=== PATIENT | female | born 1960 | race Caucasian/White ===

== ENCOUNTER 2016-09-26 22:25 | Inpatient (IN) | payer MEDICAID, OTHER ==
[2016-09-26 22:56] LABS: Hematocrit 43 % (35-47); Hemoglobin 14.3 g/dl (12.0-16.0); Mean Corpuscular HGB Conc 34 g/dl (31-36); Mean Corpuscular Hemoglobin 30 pg (27-31); Mean Corpuscular Volume 89 fL (80-97); Mean Platelet Volume 7 um3 (7.4-10.4); Red Blood Count 4.81 10^6/ul (4.0-5.4); Red Cell Distribution Width 14 % (10.5-15); White Blood Count 12.7 10^3/ul (3.5-10.8)
[2016-09-26] MEDS ORDERED: diPHENhydraMINE IV* 50 MG/ML 1 ml VIAL (BENADRYL) IM ONE (23:02)
[2016-09-26] MEDS ORDERED: LORazepam INJ* 2 MG/ML 1 ML VIAL IM ONE (23:02)
[2016-09-26] MEDS ORDERED: Haloperidol INJ IV/IM* 5 MG/ML AMP IM ONE (23:02)
[2016-09-26] MEDS ORDERED: LORazepam INJ* 2 MG/ML 1 ML VIAL ONE (23:03)
[2016-09-26] MEDS ORDERED: Haloperidol INJ IV/IM* 5 MG/ML AMP ONE (23:04)
[2016-09-26] MEDS ORDERED: diPHENhydraMINE IV* 50 MG/ML 1 ml VIAL (BENADRYL) ONE (23:04)
[2016-09-26 23:11] LABS: ALT 28 U/L (7-52); AST 41 U/L (13-39); Alkaline Phosphatase 56 U/L (34-104); Anion Gap 9 mmol/L (2-11); BUN/Creatinine Ratio 21.3 (8-20); Blood Urea Nitrogen 17 mg/dL (6-24); CO2 Carbon Dioxide 23 mmol/L (22-32); Calcium 8.3 mg/dL (8.6-10.3); Chloride 105 mmol/L (101-111); EGFR African American 95.1 (>60); EGFR Non-African American 73.9 (>60); Globulin 3.2 g/dL (2-4); Glucose 116 mg/dL (70-100); Potassium 3.6 mmol/L (3.5-5.0); Sodium 137 mmol/L (133-145); Total Protein 7.2 g/dL (6.4-8.9)
[2016-09-26 23:39] LABS: Acetaminophen < 15 mcg/mL; Alcohol 279 mg/dL (<10); Salicylate < 2.50 mg/dL (<30)
[2016-09-26 23:48] LABS: TSH (Thyroid Stimulating Horm) 2.37 mcIU/mL (0.34-5.60)
--- NOTE | 2016-09-26 23:52 | ED ---
Dahiana Petersen Michael, scribed for Kuldip Mcdermott MD on 09/26/16 at 2254 . Altered Mental Status - HPI Summary HPI Summary: 56 y/o female comes to the ED presenting with AMS with SI ideation for the past month. The pt reports her plan for SI is drinking, and she has attempted SI by drinking. She states she has been vomiting for the past 3 days and can only keep down alcohol. - History Of Current Complaint Chief Complaint: EDMentalHealth Stated Complaint: MHE/SI Time Seen by Provider: 09/26/16 22:50 Hx Obtained From: Patient, Medical Records Timing: Constant, Lasting Weeks Severity Initially: Moderate Severity Currently: Moderate Associated Signs And Symptoms: Positive: Vomiting Has Suicidal: Thoughts, With A Plan - Allergies/Home Medications Allergies/Adverse Reactions: Allergies Allergy/AdvReac Type Severity Reaction Status Date / Time Codeine Allergy Severe Rash Verified 10/13/15 11:24 Tricyclic Antidepressants Allergy Severe "DOESN'T Verified 10/13/15 11:24 FEEL RIGHT; I FEEL WEIRD" CI Pigment Blue 63 Allergy See Comment Verified 10/13/15 11:24 [From Tamiflu] Lurasidone [From Latuda] Allergy See Comment Verified 10/13/15 11:24 Oseltamivir [From Tamiflu] Allergy See Comment Verified 10/13/15 11:24 contrast dye Allergy Hives Uncoded 10/13/15 11:24 Home Medications: Home Medications Omeprazole CAP* [Prilosec CAP* 20 MG] 40 mg PO DAILY 09/27/16 [History Confirmed 09/27/16] lamoTRIgine TAB(*) [LaMICtal TAB(*)] 150 mg PO BID 09/27/16 [History Confirmed 09/27/16] PMH/Surg Hx/FS Hx/Imm Hx Endocrine/Hematology History: Denies: Hx Diabetes Cardiovascular History: Denies: Hx Hypertension, Hx Pacemaker/ICD GI History: Reports: Hx Gastroesophageal Reflux Disease History: Denies: Hx Renal Disease Sensory History: Reports: Hx Contacts or Glasses - glasses for reading Denies: Hx Hearing Aid Opthamlomology History: Reports: Hx Contacts or Glasses - glasses for reading Psychiatric History: Reports: Other Psychiatric Issues/Disorders - ADHD Denies: Hx Eating Disorder, Hx Panic Disorder, Hx of Violent Episodes Against Others - Cancer History Hx Chemotherapy: No Hx Radiation Therapy: No - Surgical History Surgery Procedure, Year, and Place: HYSTERECTOMY; polycystic ovaries 4 laps; removed scar tissue 2001 same area; tonsilectomy. fx right wrist repair - plates in place - Immunization History Date of Tetanus Vaccine: unknown Date of Influenza Vaccine: unknown Infectious Disease History: Reports: Hx Shingles Denies: Hx Clostridium Difficile, Hx Hepatitis, Hx Human Immunodeficiency Virus (HIV), Hx of Known/Suspected MRSA, Hx Tuberculosis, Hx Known/Suspected VRE , Hx Known/Suspected VRSA, History Other Infectious Disease, Traveled Outside the [place] in Last 30 Days - Family History Known Family History: Positive: None, Unknown Family History: pt does not know FHx - Social History Occupation: Unemployed Lives: With Family Alcohol Use: None Alcohol Amount: in recovery Hx Substance Use: No Substance Use Type: Reports: None Hx Tobacco Use: Yes Smoking Status (MU): Light Every Day Tobacco Smoker Type: Cigarettes Amount Used/How Often: 1 pk/q3d Have You Smoked in the Last Year: No Review of Systems Positive: Vomiting Positive: Other - AMS All Other Systems Reviewed And Are Negative: Yes Physical Exam Triage Information Reviewed: Yes Vital Signs On Initial Exam: Initial Vitals Temp Pulse Resp BP Pulse Ox 97.1 F 86 18 138/65 99 09/26/16 22:29 09/26/16 22:29 09/26/16 22:29 09/26/16 22:29 09/26/16 22:29 Vital Signs Reviewed: Yes Appearance: Positive: Well-Appearing, No Pain Distress - aob, agitated Skin: Positive: Warm Head/Face: Positive: Normal Head/Face Inspection Eyes: Positive: SABRA ENT: Positive: Hearing grossly normal Neck: Positive: Supple Respiratory/Lung Sounds: Positive: Clear to Auscultation, Breath Sounds Present Cardiovascular: Positive: RRR Abdomen Description: Positive: Nontender, Soft Bowel Sounds: Positive: Present Musculoskeletal: Positive: Strength/ROM Intact Diagnostics - Vital Signs Vital Signs Temp Pulse Resp BP Pulse Ox 09/26/16 22:29 97.1 F 86 18 138/65 99 - Laboratory Lab Results: Lab Results 09/26/16 09/26/16 Range/Units 22:50 22:50 WBC 12.7 H (3.5-10.8) 10^3/ul RBC 4.81 (4.0-5.4) 10^6/ul Hgb 14.3 (12.0-16.0) g/dl Hct 43 (35-47) % MCV 89 (80-97) fL MCH 30 (27-31) pg MCHC 34 (31-36) g/dl RDW 14 (10.5-15) % Plt Count 366 (150-450) 10^3/ul MPV 7 L (7.4-10.4) um3 Neut % (Auto) 54.6 (38-83) % Lymph % (Auto) 36.2 (25-47) % Taliaferro % (Auto) 6.9 (1-9) % Eos % (Auto) 1.1 (0-6) % Baso % (Auto) 1.2 (0-2) % Absolute Neuts (auto) 6.9 (1.5-7.7) 10^3/ul Absolute Lymphs (auto) 4.6 (1.0-4.8) 10^3/ul Absolute Monos (auto) 0.9 H (0-0.8) 10^3/ul Absolute Eos (auto) 0.1 (0-0.6) 10^3/ul Absolute Basos (auto) 0.2 (0-0.2) 10^3/ul Absolute Nucleated RBC 0.01 10^3/ul Nucleated RBC % 0.1 Sodium 137 (133-145) mmol/L Potassium 3.6 (3.5-5.0) mmol/L Chloride 105 (101-111) mmol/L Carbon Dioxide 23 (22-32) mmol/L Anion Gap 9 (2-11) mmol/L BUN 17 (6-24) mg/dL Creatinine 0.80 (0.51-0.95) mg/dL Est GFR ( Amer) 95.1 (>60) Est GFR (Non-Af Amer) 73.9 (>60) BUN/Creatinine Ratio 21.3 H (8-20) Glucose 116 H (70-100) mg/dL Calcium 8.3 L (8.6-10.3) mg/dL Total Bilirubin 0.50 (0.2-1.0) mg/dL AST 41 H (13-39) U/L ALT 28 (7-52) U/L Alkaline Phosphatase 56 (34-104) U/L Total Protein 7.2 (6.4-8.9) g/dL Albumin 4.0 (3.2-5.2) g/dL Globulin 3.2 (2-4) g/dL Albumin/Globulin Ratio 1.3 (1-3) TSH 2.37 (0.34-5.60) mcIU/mL Salicylates < 2.50 (<30) mg/dL Acetaminophen < 15 mcg/mL Serum Alcohol 279 H (<10) mg/dL Result Diagrams: 09/26/16 22:50 09/26/16 22:50 Lab Statement: Any lab studies that have been ordered have been reviewed, and results considered in the medical decision making process. Altered Mental Statu Course/Dx - Course Assessment/Plan: Pt is a 56 y/o F who presents with AMS with SIs for 3 days. Has a plan for suicide by EtOH consumption and has attempted. Additionally c/o vomiting. Cleared for MHE at 0606. Pt will be signed out, pending dispo, awaiting MHE. - Diagnoses Discharge Diagnoses: Suicidal ideation, Alcohol dependence Discharge - Discharge Plan Condition: Good Disposition[place] [place] [place] Disposition Comment: Pending dispo, awaiting MHE The documentation as recorded by the Dahiana lo Michael accurately reflects the service I personally performed and the decisions made by me, Kuldip Mcdermott MD.
[2016-09-27 06:22] LABS: Urine Bilirubin Negative (Negative); Urine Glucose Negative (Negative); Urine Nitrite Negative (Negative)
[2016-09-27 06:36] LABS: Benzodiazepine Urine Screen None Detected (None Detect)
[2016-09-27] MEDS ORDERED: Al Hydrox/Mg Hydrox/Simet LIQ* 30 ML UDC PO PRN (11:07)
[2016-09-27] MEDS ORDERED: Acetaminophen TAB* 325 MG PO PRN (11:07)
[2016-09-27] MEDS ORDERED: LORazepam TAB(*) 1 MG PO PRN (11:11)
[2016-09-27] MEDS: Ondansetron TAB* 4 MG PO PRN ×2 (13:59→21:02)
[2016-09-27] MEDS: clonazePAM TAB(*) 0.5 MG PO PRN ×2 (13:59→23:27)
[2016-09-27] MEDS ORDERED: LORazepam TAB(*) WAM SCALE 0-6 MG PO SCH (15:00)
[2016-09-27] MEDS ORDERED: LORazepam IM* PER WAM PARAMETERS IM SCH (15:00)
[2016-09-28] MEDS: Omeprazole CAP* 20 MG PO SCH (06:06)
[2016-09-28] MEDS ORDERED: lamoTRIgine TAB(*) 100 MG PO SCH (09:00)
[2016-09-28] MEDS: Vitamin THERAPEUTIC TAB PO SCH (09:02)
[2016-09-28] MEDS: Venlafaxine EXT RELEASE CAP* 75 MG PO SCH (09:02)
[2016-09-28] MEDS: clonazePAM TAB(*) 0.5 MG PO PRN ×2 (09:05→16:37)
--- NOTE | 2016-09-28 16:58 | HP ---
HISTORY AND PHYSICAL: DATE OF ADMISSION: 09/27/16 IDENTIFYING DATA: Sydney Hauser is a 56-year-old female with a history of severe alcohol use disorder, attention-deficit hyperactivity disorder, bipolar disorder diagnosis, prior psychiatric hospitalizations, and previous suicidal behavior. She is admitted to the psychiatric unit after coming to the hospital emergency room by car and expressing concern over suicidal thoughts. HISTORY OF PRESENT ILLNESS: Sydney was last admitted to our psychiatric unit in May of 2014. She said that since then. she has had difficulties on and off with alcohol and after a DWI, was mandated to treatment and was in [facility] for approximately 15 months total. She reported she "graduated" and was sober for approximately 6 months leading up to this week. She said she relapsed on alcohol and began to feel completely out of control. Her sleep deteriorated. Her mood fell apart. She was unable to cope. She noted higher anxiety and mood lability. She went for help at the clinic. In the emergency room, she reported having suicidal thoughts with contemplation of overdose. Today, she affirms that she is safe and says that she is no longer thinking of suicide and she feels like she is taking control and the crisis is over. Prior to this week, she said she was not having major depressive symptoms. She noted mild dysphoria. She denied other problems such as manic symptoms or psychotic symptoms or violent ideation or new health problems. We discussed provisional detoxification treatment if needed and the idea of avoiding ongoing benzodiazepine use. PRIOR PSYCHIATRIC HISTORY: In [facility] [place], concerns were centered on impairing use of alcohol, suicidal ideation and behavior. She has had other hospitalizations with multiple admissions at [facility]. She has been treated in the outpatient setting at [facility]. Previous diagnoses include attention-deficit hyperactivity disorder, bipolar disorder and alcohol dependence, and prior psychiatric medication trials include tricyclic antidepressants, Depakote, lithium, Abilify, Seroquel, benzodiazepines, Wellbutrin. She previously reported suicidal behavior with an overdose while intoxicated in 2002 and has reported also cutting her wrist a few times, but reported to us that it was not really a significant injury. MEDICAL HISTORY: Denies history of seizures or head injuries. Significant for GERD. DRUG ALLERGIES: CODEINE, TRICYCLIC ANTIDEPRESSANTS, CI PIGMENT, LURASIDONE, TAMIFLU. LEGAL HISTORY: DWI with mandated treatment. SUBSTANCE USE HISTORY: Alcohol has been her main problem. She started drinking at age 11. She has been sober approximately 12 or 13 out of the last 20-something years. The longest was a 6-year stretch after 2002. She has a history of blackout drinking and has predominantly used hard liquor. She has had residential treatment at [facility], has been involved in AA, and has had multiple detoxes. She has had multiple rehabs as well. She has not had difficulties with illicit drug use. She has used cigarettes occasionally. FAMILY PSYCHIATRIC HISTORY: Father may have had alcohol abuse. There is no known history of suicidal behavior. SOCIAL HISTORY: Of [place] descent, originally from [place] [place], has been in [place] for about 7 years. Educated through a Bachelor of Science degree in human development. She identifies as lesbian and is in a platonic relationship with a woman who has six adopted children. In the past, she has worked at the [employer] and is currently looking for employment. She resides in a supported residence for women in recovery. MENTAL STATUS EXAMINATION: Healthy-appearing, middle-aged female who is wearing hospital scrub clothing. She has normal psychomotor activity. She is pleasant and cooperative. She maintains good eye contact. Speech is spontaneous and pressured. Mood is described as "a little down." Affect is mildly dysphoric. It is stable. Thought process is coherent. Thought content negative for current suicidal, homicidal, or paranoid ideations. Insight and judgment is fair to good. Sensorium is clear. Impulse control is intact. PHYSICAL ASSESSMENT: VITAL SIGNS: Temperature is 98.3, blood pressure 141/80, pulse 76, respiratory rate is 16. ADMISSION LABORATORY STUDIES: CBC had white blood count of 12.7, MCV of 7, absolute monocytes of 0.9. Comprehensive panel had a glucose of 116, calcium of 8.3 and AST of 41. Urinalysis was normal. Toxicology screen had alcohol of 279. It was negative for Tylenol or salicylates. Urine drug screen was negative. REVIEW OF SYSTEMS: Negative for recent neurological problems, respiratory difficulty, chest pain, syncope, gastrointestinal symptoms, elimination symptoms , musculoskeletal problems, or skin problems. Sydney declined a physical examination citing lack of subjective need. This is a reasonable refusal in a capable healthy person. It does not require followup. She is medically stable for psychiatric hospitalization. CLINICAL SUMMARY: A 56-year-old female with history of chronic alcohol use disorder and psychiatric sequelae along with diagnoses of ADHD and bipolar disorder and a history of suicidal behavior. She presents in distress having relapsed on alcohol and drinking in an out of control fashion and developing higher mood symptoms and some level of suicidal thoughts. She is stabilizing rapidly already on the psychiatric unit, tolerating early detoxification and does not appear to have been in a major mood episode. Psychiatric hospitalization is indicated for her safety, stabilization, and treatment planning. ADMISSION DIAGNOSES: Alcohol use disorder with induced mood symptoms onset during intoxication, bipolar disorder by history, attention-deficit hyperactivity disorder by history. TREATMENT PLAN: Admit to the psychiatric unit, code status is full, safety checks [id number] intervals, initiate comprehensive group, milieu, and individual psychotherapeutic support. Medication management will involve continuing the outpatient medication regimen as follows with methylphenidate 36 mg each a.m., omeprazole 40 mg a day, and venlafaxine 150 mg per day XR, lamotrigine 150 mg b.i.d. Additionally, we will provide detoxification with the [facility] protocol and short-term treatment with p.r.n. clonazepam for anxiety ( to terminate in 2 days). Estimated length of stay is 4 days. Discharge planning will involve coordination with appropriate aftercare. Target symptoms are suicidal ideation, depressive symptoms, impairment, elevated distress. The patient's strengths are her intact intellectual functioning and baseline health and her positive treatment alliances. [id number]/[facility] #: [id number] MARCIAL
[2016-09-28] MEDS: lamoTRIgine TAB(*) 100 MG PO SCH (20:23)
[2016-09-28] MEDS: Ondansetron TAB* 4 MG PO PRN (20:25)
[2016-09-29] MEDS: Omeprazole CAP* 20 MG PO SCH (06:43)
[2016-09-29] MEDS: Venlafaxine EXT RELEASE CAP* 75 MG PO SCH (09:12)
[2016-09-29] MEDS: Methylphenidate ER TAB* 18 MG PO SCH (09:12)
[2016-09-29] MEDS: lamoTRIgine TAB(*) 100 MG PO SCH ×2 (09:12→20:49)
[2016-09-29] MEDS: Vitamin THERAPEUTIC TAB PO SCH (09:13)
--- NOTE | 2016-09-29 14:30 | PN ---
Subjective - Subjective Subjective: Today I had the opportunity to see Sydney on follow-up. She explained to me the circumstances surrounding/leading up to her admission here at [facility]. She also discussed the various psychosocial stressors which contributed to her hospitalization. We examined the forces that led up to her resuming alcohol consumption in an effort to identify opportunities to learn from these circumstances, and perhaps avoid future relapses. Sydney did articulate concern over the possibility that her medications may need to be "tweaked." I asked her to list her top 3 symptoms which are leading her to believe this to be the case, and she identified difficulty sleeping, "fear" of becoming depressed again, and her episodes of "verbal aggression." Discussed use of coping skills and early recovery. Case reviewed with Dr. Villalobos. Objective - Appearance Dysmorphic Features: No Hygiene: Normal Grooming: Well Kept - Behavior Psychomotor Activities: Normal Exhibits Abnormal Movement: No - Attitude and Relatedness Attitude and Relatedness: Cooperative Eye Contact: Good - Speech Quality: Unpressured Latencies: Normal Quantity: Appropriate - Mood Patient's Decription of Mood: "Okay" - Affect Observed Affect: Non-labile Affect Consistent with: Euthymia - Thought Process Patient's Thought Process: Coherent Thought Content: No Passive Wish, No Suicidal Planning, No Homicidal Ideation, No Paranoid Ideation - Sensorium Experiencing Hallucinations: No, Sensorium is Clear - Level of Consciousness Level of Consciousness: Alert Orientation: Yes Intact - Impulse Control Impulse Control: Tenuous - related to ETOH use. - Insight and Judgement Insight and Judgement: Good - Group Participation Particating in Group Activities: Yes Assessment - Assessment Clinical Impression: The patient is a 56 year old white female admitted to [facility] after a suicide attempt following a relapse. Although she is noting some improvement in symptoms , she does not feel as if she is ready for discharge at this point. Plan - Plan Treatment Plan: Name: SYDNEY VIERA Birthdate: 1960 [id number] Medications: Current Medications Acetaminophen (Tylenol Tab*) 650 mg PO Q4H PRN PRN Reason: for pain; or Temp >101 F Al Hydrox/Mg Hydrox/Simethicone (Maalox Plus*) 30 ml PO Q4H PRN PRN Reason: INDIGESTION Clonazepam (Klonopin Tab(*)) 0.5 mg PO BID PRN PRN Reason: AGITATION/ANXIETY/INSOMNIA Last Admin: 09/28/16 16:37 Dose: 0.5 mg Lamotrigine (Lamictal Tab(*)) 150 mg PO BID [facility] Last Admin: 09/29/16 09:12 Dose: 150 mg Lorazepam (Ativan Inj*) 0 - 6 mg IM .PER [facility] PRN Reason: Protocol Lorazepam (Ativan Tab(*)) 0 - 6 mg PO .PER [facility] PRN Reason: Protocol Last Admin: 09/27/16 16:15 Dose: 2 mg Methylphenidate HCl (Concerta Er Tab*) 36 mg PO QAM [facility] Last Admin: 09/29/16 09:12 Dose: 36 mg Multivitamins (Theragran Tab*) 1 tab PO DAILY [facility] Last Admin: 09/29/16 09:13 Dose: 1 tab Omeprazole (Prilosec Cap*) 20 mg PO DAILY@0600 [facility] Last Admin: 09/29/16 06:43 Dose: 20 mg Ondansetron HCl (Zofran Tab*) 4 mg PO Q8H PRN PRN Reason: NAUSEA Last Admin: 09/28/16 20:25 Dose: 4 mg Venlafaxine HCl (Effexor Xr Cap*) 150 mg PO DAILY [facility] Last Admin: 09/29/16 09:12 Dose: 150 mg
[2016-09-29] MEDS: clonazePAM TAB(*) 0.5 MG PO PRN (20:51)
[2016-09-30] MEDS: Omeprazole CAP* 20 MG PO SCH (06:32)
[2016-09-30] MEDS: Methylphenidate ER TAB* 18 MG PO SCH (08:43)
[2016-09-30] MEDS: Venlafaxine EXT RELEASE CAP* 75 MG PO SCH (08:43)
[2016-09-30] MEDS: lamoTRIgine TAB(*) 100 MG PO SCH ×2 (08:44→20:31)
[2016-09-30] MEDS: Vitamin THERAPEUTIC TAB PO SCH (08:45)
[2016-09-30] MEDS: clonazePAM TAB(*) 0.5 MG PO PRN (11:37)
[2016-09-30] MEDS ORDERED: Nicotine Inhaler* 10 MG AMP INH PRN (14:35)
[2016-09-30] MEDS ORDERED: Mouth Piece, Nicotine* 1 EACH CARTRIDGE INH PRN (14:36)
[2016-10-01] MEDS: Omeprazole CAP* 20 MG PO SCH (06:30)
[2016-10-01] MEDS: Methylphenidate ER TAB* 18 MG PO SCH (08:19)
[2016-10-01] MEDS: Venlafaxine EXT RELEASE CAP* 75 MG PO SCH (08:19)
[2016-10-01] MEDS: lamoTRIgine TAB(*) 100 MG PO SCH ×2 (08:19→20:17)
[2016-10-01] MEDS: Vitamin THERAPEUTIC TAB PO SCH (08:19)
--- NOTE | 2016-10-01 08:36 | PN ---
Subjective - Subjective Service Type: 82390 Hosp care 15 min low complexity Subjective: Sydney reports feeling "very good" about being alive and notes progress through her crisis. Said she feels ready to plan discharge in the next day or two. She noted having some anxiety over the weekend. We discussed her coping practices and the importance of not relying on benzodiazepines. She agreed. We also reviewed her regimen, and she declined medications that would support sobriety (I reviewed Campral, Naltrexone, Antabuse). Objective - Appearance Appearance: Healthy Appearing Hygiene: Normal Grooming: Fairly Well Kept - Behavior Psychomotor Activities: Normal - Attitude and Relatedness Attitude and Relatedness: Superficially Cooperative Eye Contact: Good - Speech Quality: Unpressured Latencies: Normal Quantity: Appropriate - Mood Patient's Decription of Mood: "Okay" - Affect Observed Affect: Non-labile Affect Consistent with: Dysphoria - very mild - Thought Process Thought Content: No Passive Wish, No Suicidal Planning, No Homicidal Ideation, No Paranoid Ideation - Sensorium Experiencing Hallucinations: No, Sensorium is Clear - Level of Consciousness Level of Consciousness: Alert - Impulse Control Impulse Control: Intact - Insight and Judgement Insight and Judgement: Fair Assessment - Assessment Merits Inpatient Hospitalization: To Initiate Treatment, For Ongoing Evaluation , Consolidate Improvements, For Discharge Planning Inpatient DSM-IV Dx: Alcohol use disorder with induced mood symptoms onset during intoxication, bipolar disorder by history, attention-deficit hyperactivity disorder by history. Clinical Impression: 56-year-old female with history of chronic alcohol use disorder and psychiatric sequelae along with diagnoses of ADHD and bipolar disorder and a history of suicidal behavior. She presents in distress having relapsed on alcohol and drinking in an out of control fashion and developing higher mood symptoms and some level of suicidal thoughts. Stabilized here. Symptoms are improved with cessation of alcohol use and detoxification. She does not have symptoms of a major mood episode. Medication management involves continuing the outpatient medication regimen of methylphenidate, omeprazole 40 mg a day, and venlafaxine, lamotrigine. We provided coverage with the [facility] protocol (can stop now) and short-term treatment with p.r.n. clonazepam for anxiety (to terminate now). Given status, progress, expect discharge in next day or two. Plan - Plan Treatment Plan: Name: SYDNEY VIERA Birthdate: 1960 [id number] Continued Medication Management: Continue Outpt Medication Medications: Current Medications Acetaminophen (Tylenol Tab*) 650 mg PO Q4H PRN PRN Reason: for pain; or Temp >101 F Al Hydrox/Mg Hydrox/Simethicone (Maalox Plus*) 30 ml PO Q4H PRN PRN Reason: INDIGESTION Device (Nicotine Mouth Piece*) 1 each INH ONCE PRN PRN Reason: CRAVINGS Lamotrigine (Lamictal Tab(*)) 150 mg PO BID [facility] Last Admin: 10/01/16 08:19 Dose: 150 mg Lorazepam (Ativan Inj*) 0 - 6 mg IM .PER [facility] PRN Reason: Protocol Lorazepam (Ativan Tab(*)) 0 - 6 mg PO .PER [facility] PRN Reason: Protocol Last Admin: 09/27/16 16:15 Dose: 2 mg Methylphenidate HCl (Concerta Er Tab*) 36 mg PO QAM [facility] Last Admin: 10/01/16 08:19 Dose: 36 mg Multivitamins (Theragran Tab*) 1 tab PO DAILY [facility] Last Admin: 10/01/16 08:19 Dose: 1 tab Nicotine (Nicotine Inhaler*) 10 mg INH Q2H PRN PRN Reason: CRAVINGS Omeprazole (Prilosec Cap*) 20 mg PO DAILY@0600 [facility] Last Admin: 10/01/16 06:30 Dose: 20 mg Ondansetron HCl (Zofran Tab*) 4 mg PO Q8H PRN PRN Reason: NAUSEA Last Admin: 09/28/16 20:25 Dose: 4 mg Venlafaxine HCl (Effexor Xr Cap*) 150 mg PO DAILY [facility] Last Admin: 10/01/16 08:19 Dose: 150 mg - Discharge Plan Discharge Plan: Outpatient Follow Up
--- NOTE | 2016-10-01 11:24 | PN ---
MHU: Group Therapy Note - Service Type Service Type: [id number] Group Psychotherapy - Cognitive Behavioral Group Therapy ( CBT):Patient was attentive and participatory in CBT programming this morning, and remained in good behavioral control. Patient expressed positive insights regarding relevant treatment interventions and goals.
[2016-10-02] MEDS: Omeprazole CAP* 20 MG PO SCH (08:08)
[2016-10-02] MEDS: Vitamin THERAPEUTIC TAB PO SCH (08:08)
[2016-10-02] MEDS: Venlafaxine EXT RELEASE CAP* 75 MG PO SCH (08:09)
[2016-10-02] MEDS: lamoTRIgine TAB(*) 100 MG PO SCH ×2 (08:09→21:13)
[2016-10-02] MEDS: Methylphenidate ER TAB* 18 MG PO SCH (08:10)
--- NOTE | 2016-10-02 11:48 | PN ---
MHU: Group Therapy Note - Service Type Service Type: [id number] Group Psychotherapy - Cognitive Behavioral Group Therapy ( CBT):Patient was attentive and participatory in CBT programming this morning, and remained in good behavioral control. Patient expressed positive insights regarding relevant treatment interventions and goals.
--- NOTE | 2016-10-02 15:43 | PN ---
Subjective - Subjective Service Type: 74747 Hosp care 25 min moderate complexity Subjective: Sydney reports that she feels ready to discharge tomorrow. She denies any dangerous intent or plan. She reports feeling emotional about "accepting things that are going on, trying to let go of certain things." She has no physical complaint. She requests computer privileges to communicate with her p.o. and to reschedule a job interview. She reports a good supply of all meds, but asks that I send a script to [facility] on [place] for MVI. Objective - Appearance Appearance: Healthy Appearing Dysmorphic Features: No Hygiene: Normal Grooming: Well Kept - Behavior Psychomotor Activities: Normal Exhibits Abnormal Movement: No - Attitude and Relatedness Attitude and Relatedness: Well Related Eye Contact: Good - Speech Quality: Unpressured Latencies: Normal Quantity: Appropriate - Mood Patient's Decription of Mood: "Emotional" - Affect Observed Affect: Fair Affect Consistent with: Euthymia - Thought Process Patient's Thought Process: Coherent, Goal Directed Thought Content: No Passive Wish, No Suicidal Planning, No Homicidal Ideation, No Paranoid Ideation - Sensorium Experiencing Hallucinations: No, Sensorium is Clear Type of Hallucinations: Visual: No, Auditory: No, Command: No - Level of Consciousness Level of Consciousness: Alert Orientation: Yes Intact, Yes Orientated to Time, Yes Orientated to Place, Yes Orientated to Person - Impulse Control Impulse Control: Intact - Insight and Judgement Insight and Judgement: Fair - Group Participation Particating in Group Activities: Yes Assessment - Assessment Merits Inpatient Hospitalization: Consolidate Improvements, For Discharge Planning Inpatient DSM-IV Dx: Alcohol use disorder with induced mood symptoms onset during intoxication, bipolar disorder by history, attention-deficit hyperactivity disorder by history. Clinical Impression: Assuming care from Dr Wolf on 10.02.16 Sydney Hauser is a 56-year-old woman admitted for distress following relapse to alcohol with report of nascent manic symptoms of inability to sleep and feeling angry, paranoid and uncomfortable in her skin, along with thoughts of suicide. She reports resolution of these symptoms, but still feeling emotional about letting go of things. She would like to discharge to follow-up at outpatient [facility] and [facility]. Plan - Plan Treatment Plan: Name: SYDNEY HAUSER Birthdate: 1960 [id number] Continue current meds. Plan toward discharge tomorrow. Medications: Current Medications Acetaminophen (Tylenol Tab*) 650 mg PO Q4H PRN PRN Reason: for pain; or Temp >101 F Last Admin: 10/02/16 04:22 Dose: 650 mg Al Hydrox/Mg Hydrox/Simethicone (Maalox Plus*) 30 ml PO Q4H PRN PRN Reason: INDIGESTION Device (Nicotine Mouth Piece*) 1 each INH ONCE PRN PRN Reason: CRAVINGS Lamotrigine (Lamictal Tab(*)) 150 mg PO BID [facility] Last Admin: 10/02/16 08:09 Dose: 150 mg Methylphenidate HCl (Concerta Er Tab*) 36 mg PO QAM [facility] Last Admin: 10/02/16 08:10 Dose: 36 mg Multivitamins (Theragran Tab*) 1 tab PO DAILY [facility] Last Admin: 10/02/16 08:08 Dose: 1 tab Nicotine (Nicotine Inhaler*) 10 mg INH Q2H PRN PRN Reason: CRAVINGS Omeprazole (Prilosec Cap*) 20 mg PO DAILY@0600 [facility] Last Admin: 10/02/16 08:08 Dose: 20 mg Ondansetron HCl (Zofran Tab*) 4 mg PO Q8H PRN PRN Reason: NAUSEA Last Admin: 09/28/16 20:25 Dose: 4 mg Venlafaxine HCl (Effexor Xr Cap*) 150 mg PO DAILY [facility] Last Admin: 10/02/16 08:09 Dose: 150 mg - Discharge Plan Discharge Plan: Outpatient Follow Up Outpatient Program: [facility] - and [facility]
[2016-10-03] MEDS: Omeprazole CAP* 20 MG PO SCH (05:53)
[2016-10-03 07:25] VITALS: BP 107/61
[2016-10-03] MEDS: Vitamin THERAPEUTIC TAB PO SCH (08:58)
[2016-10-03] MEDS: lamoTRIgine TAB(*) 100 MG PO SCH (08:58)
[2016-10-03] MEDS: Methylphenidate ER TAB* 18 MG PO SCH (08:58)
[2016-10-03] MEDS: Venlafaxine EXT RELEASE CAP* 75 MG PO SCH (08:59)
--- NOTE | 2016-10-03 10:08 | DS ---
Subjective - Subjective Service Types: 29209 Hosp [place] Day Mgmt simple under 30 min Discharge Date: 10/03/16 Subjective: Sydney reports feeling safe and ready for discharge today. She is looking forward to going home and resuming her daily routine. She has no physical complaints and reports stable recovery of mood and sustained remission of suicidal thoughts. Objective - Appearance Appearance: Healthy Appearing Dysmorphic Features: No Hygiene: Normal Grooming: Well Kept - Behavior Psychomotor Activities: Normal Exhibits Abnormal Movement: No - Attitude and Relatedness Attitude and Relatedness: Well Related Eye Contact: Good - Speech Quality: Unpressured Latencies: Normal Quantity: Appropriate - Mood Patient's Decription of Mood: "Good" - Affect Observed Affect: Good Affect Consistent with: Euthymia - Thought Process Patient's Thought Process: Coherent, Goal Directed Thought Content: No Passive Wish, No Suicidal Planning, No Homicidal Ideation, No Paranoid Ideation - Sensorium Experiencing Hallucinations: No, Sensorium is Clear Type of Hallucinations: Visual: No, Auditory: No, Command: No - Level of Consciousness Level of Consciousness: Alert Orientation: Yes Intact, Yes Orientated to Time, Yes Orientated to Place, Yes Orientated to Person - Impulse Control Impulse Control: Intact - Insight and Judgement Insight and Judgement: Fair - Group Participation Particating in Group Activities: Yes - Medication Management Medication Management Adherence: Yes Treatment Course & Assessment Clinical Course & Impression: Assuming care from Dr Wolf on 10.02.16 - please see admission H&P for full details, in brief: Sydney Hauser is a 56-year-old woman admitted for distress following relapse to alcohol with report of nascent manic symptoms of inability to sleep and feeling angry, paranoid and uncomfortable in her skin, along with thoughts of suicide. She reports resolution of these symptoms, but still feeling emotional about letting go of things. She would like to discharge to follow-up at outpatient [facility] and [facility]. 10.03.16 Sydney is cleared for discharge today. She reports sustained remission of suicidal ideation, with improved mood. She is bright and future-oriented. She voices commitment to aftercare at [facility] and at [facility]. She has been pleasant and collaborative throughout her stay. She denies any physical complaints. She completed the [facility] protocol for alcohol detox over 48 hours ago and has neither shown nor reported any signs or symptoms of alcohol withdrawal. She is assessed as at no acutely increased risk of harm to self or others and capable of adequate self-care to avoid harm. She remains at mildly elevated chronic risk of self-harm due to history of psychiatric illness and alcohol use disorder. She can reduce her chronic risk by commitment to aftercare. Merits Inpatient Hospitalization: No Clear for Discharge: Adequate Clinical Respons, Acceptable Safety Profile, Low Utility of Inpt Care Inpatient DSM-IV Dx: Alcohol use disorder with induced mood symptoms onset during intoxication, bipolar disorder by history, attention-deficit hyperactivity disorder by history. - Nathrop II MR and Personality Disorder: Deferred - Nathrop III Medical Illness: GERD - Nathrop IV Stressors: Social supports in jeopardy from alcohol use Family: Reports no support from family Primary Support Group: ex-partner Rosy, sister. staff at [facility]. [facility] staff. [facility] - Nathrop V [id number]: 70 Estimate of Highest-Past Year: 75 Discharge Planning - Discharge Planning Discharge Plan: Outpatient Follow Up Outpatient Program: [facility] - and [facility] Recommendations for Continuing Care: Medication Management, Psychotherapy, Substance Abuse Counseling Medications: Sydney reports having a good supply at home of all meds except MVI Lamotrigine (Lamictal Tab(*)) 150 mg PO BID [facility] Last Admin: 10/03/16 08:58 Dose: 150 mg Methylphenidate HCl (Concerta Er Tab*) 36 mg PO QAM [facility] Last Admin: 10/03/16 08:58 Dose: 36 mg Multivitamins (Theragran Tab*) 1 tab PO DAILY [facility] Last Admin: 10/03/16 08:58 Dose: 1 tab : #30, 0 refills Omeprazole (Prilosec Cap*) 20 mg PO DAILY@0600 [facility] Last Admin: 10/03/16 05:53 Dose: 20 mg Venlafaxine HCl (Effexor Xr Cap*) 150 mg PO DAILY [facility] Last Admin: 10/03/16 08:59 Dose: 150 mg Discharge Planning: Prescriptions provided for discharge [x] Yes [] No Follow up care details as per social work arrangements. Patient response to discharge plan: [x] eager for discharge [] agreeable with discharge plan [] ambivalent about discharge [] disagrees with discharge today
== END 2016-10-03 11:40 | disposition home or self-care (01) | DRG 775 ==
LOC: ED 22:25 → BSU 09-27 11:35
PROVIDERS: ADMIT Psychiatry & Neurology Psychiatry; ATTEND Psychiatry & Neurology Psychiatry
DX: F10.14 Alcohol abuse with alcohol-induced mood disorder (principal); R45.851 Suicidal ideations; Y90.8 Blood alcohol level of 240 mg/100 ml or more; F10.129 Alcohol abuse with intoxication, unspecified; F31.9 Bipolar disorder, unspecified; F90.9 Attention-deficit hyperactivity disorder, unspecified type; K21.9 Gastro-esophageal reflux disease without esophagitis; Z88.5 Allergy status to narcotic agent; Z88.8 Allergy status to other drugs, medicaments and biological substances; Z91.048 Other nonmedicinal substance allergy status
CPT/HCPCS: 36415; 80053; 80307; 80320; 80329; 81003; 84443; 85025; 90853; 99222; 99231; 99232; 99238; A9270-GY; G0480; J1200; J1630; J2060

== ENCOUNTER 2016-10-06 22:37 | Inpatient (IN) | payer MEDICAID, OTHER ==
[2016-10-06] MEDS ORDERED: Aspirin Low Dose CHEW TAB* 81 MG PO ONE (22:51)
[2016-10-06] MEDS ORDERED: Ondansetron INJ* 2 MG/ML VIAL IV ONE (23:23)
[2016-10-06] MEDS ORDERED: Ondansetron INJ* 2 MG/ML VIAL ONE (23:24)
[2016-10-06 23:32] LABS: ALT 28 U/L (7-52); Albumin 4.3 g/dL (3.2-5.2); Alkaline Phosphatase 43 U/L (34-104); BUN/Creatinine Ratio 22.5 (8-20); Blood Urea Nitrogen 18 mg/dL (6-24); CO2 Carbon Dioxide 21 mmol/L (22-32); Calcium 8.5 mg/dL (8.6-10.3); Chloride 105 mmol/L (101-111); EGFR African American 95.1 (>60); EGFR Non-African American 73.9 (>60); Globulin 3.4 g/dL (2-4); Glucose 102 mg/dL (70-100); Sodium 135 mmol/L (133-145); Total Protein 7.7 g/dL (6.4-8.9)
[2016-10-06 23:34] LABS: Troponin I 0.03 ng/mL (<0.04)
[2016-10-06 23:37] LABS: Hematocrit 40 % (35-47); Hemoglobin 13.6 g/dl (12.0-16.0); Mean Corpuscular HGB Conc 34 g/dl (31-36); Mean Corpuscular Hemoglobin 30 pg (27-31); Mean Corpuscular Volume 89 fL (80-97); Mean Platelet Volume 7 um3 (7.4-10.4); Red Cell Distribution Width 14 % (10.5-15); White Blood Count 9.8 10^3/ul (3.5-10.8)
[2016-10-07 00:34] LABS: Acetaminophen < 15 mcg/mL; Alcohol 305 mg/dL (<10); Salicylate < 2.50 mg/dL (<30)
[2016-10-07] MEDS ORDERED: LORazepam INJ* 2 MG/ML 1 ML VIAL ONE (00:39)
[2016-10-07] MEDS ORDERED: LORazepam INJ* 2 MG/ML 1 ML VIAL IV PUSH ONE (00:43)
[2016-10-07 05:39] LABS: Benzodiazepine Urine Screen None Detected (None Detect)
--- NOTE | 2016-10-07 06:30 | RAD ---
INDICATION: Chest pain COMPARISON: June 08, 2014 TECHNIQUE: An AP portable view obtained at 2310 hours is submitted. FINDINGS: Bones/Soft Tissues: There are no acute bony findings. Cardiomediastinal: The cardiomediastinal silhouette is normal. Lungs: There are no infiltrates. Pleura: There are no pleural effusions. Other: None IMPRESSION: NO ACTIVE DISEASE.
[2016-10-07] MEDS ORDERED: hydrOXYzine HCL TAB* 25 MG PO ONE (07:00)
[2016-10-07] MEDS ORDERED: LORazepam TAB(*) 0.5 MG PO ONE (08:45)
[2016-10-07] MEDS ORDERED: Ondansetron INJ* 2 MG/ML VIAL IV ONE (08:45)
[2016-10-07] MEDS ORDERED: NS 0.9% 1000 ML* 1,000 ML IV ONE (08:46)
[2016-10-07] MEDS ORDERED: Metoclopramide IV* 5 MG/ML 2 ML VIAL IV ONE (12:33)
[2016-10-07] MEDS ORDERED: Acetaminophen TAB* 325 MG PO PRN (20:20)
[2016-10-07] MEDS: Al Hydrox/Mg Hydrox/Simet LIQ* 30 ML UDC PO PRN (20:35)
[2016-10-07] MEDS: lamoTRIgine TAB(*) 100 MG PO SCH (20:55)
[2016-10-07] MEDS: Omeprazole CAP* 20 MG PO SCH ×2 (20:55→21:25)
[2016-10-07] MEDS: Venlafaxine EXT RELEASE CAP* 75 MG PO SCH ×2 (20:56→21:25)
[2016-10-07] MEDS ORDERED: traZODone TAB* 50 MG TAB ONE (21:35)
[2016-10-08] MEDS: Omeprazole CAP* 20 MG PO SCH (09:02)
[2016-10-08] MEDS: Vitamin THERAPEUTIC TAB PO SCH (09:02)
[2016-10-08] MEDS: lamoTRIgine TAB(*) 100 MG PO SCH ×2 (09:04→21:44)
[2016-10-08] MEDS: Venlafaxine EXT RELEASE CAP* 75 MG PO SCH (09:04)
--- NOTE | 2016-10-08 13:07 | PN ---
MHU: Group Therapy Note - Service Type Service Type: 05200 Group Psychotherapy - Cognitive Behavioral Group Therapy ( CBT):Patient was attentive and participatory in CBT programming this morning, and remained in good behavioral control. Patient expressed positive insights regarding relevant treatment interventions and goals.
[2016-10-08 13:11] LABS: Urine Bacteria Absent (Absent); Urine Bilirubin Negative (Negative); Urine Glucose Negative (Negative); Urine Nitrite Negative (Negative)
--- NOTE | 2016-10-08 14:52 | HP ---
INITIAL PSYCHIATRIC ASSESSMENT: DATE OF ADMISSION: 10/07/16 - ROOM #201 SUPERVISING/ATTENDING PSYCHIATRIST FOR THIS CASE: Dr. Wolf * (dictated by Josh Russo NP) IDENTIFYING INFORMATION: The patient is a 56-year-old female admitted to this facility on 10/07/16. Admitting status is voluntary. The patient was seen and examined, the chart was reviewed, and the case was discussed with clinical staff available at the time of the visit. CHIEF COMPLAINT/REASON FOR ADMISSION: The patient stated, "I'm really scared." HISTORY OF PRESENT ILLNESS: Today, Sydney is reporting that she has been having a problem with loss of time. She does acknowledge that she left this facility after being discharged on 10/03/16. She states that after she left the hospital, she saw Dr. Padilla at [facility] on . She stated at that point her venlafaxine was increased and her Concerta as well. She reports that she also spoke with her transport corps officer and talked with her boss. She stated that even though she knew she should not have done it , she boarded a bus and went to see her parents in [place]. Her reports at this point were very disjointed and very difficult to follow. She stated that she had been up for 2 nights, but then thought that she may have gone to a liquor store, but then confirmed, "I must have gone to a liquor store, this must have been premeditated." She then jumped back to telling me about that her mother with Parkinson's disease and her father with Alzheimer's. She then stated that she felt like everyone around her was frozen in time. Throughout the clinical interview, Sydney was quite tangential. I attempted multiple times to refocus her to describe to me the circumstances that surrounded her using alcohol again; however, she continued to be tangential, at one point describing a gentleman she sat next to on a bus, then she jumped to a different topic in which she had purchased red snakeskin shoes for a friend's son, and then back to a discussion about pursuing a job here at [facility]. She then spoke about returning to [facility], but stated, "I think they all noted that I was drinking, they know those things." She does report that while she was in the emergency room, she became quite sick, stated that she began vomiting. PAST PSYCHIATRIC HISTORY: The patient was recently discharged from [facility] on 10/03/16. She also has previous hospitalizations here in 2013 and 2014. During these previous hospitalizations, the focus of her stay has been on alcohol use disorder. She has also had multiple admissions at [facility]. She has been treated in the outpatient setting at [facility] and carries multiple diagnoses including, but not limited to, attention- deficit hyperactivity disorder, bipolar disorder , alcohol use disorder, and she has had multiple prior psychiatric medication trials, which included tricyclic antidepressants, Depakote, lithium, Abilify, Seroquel, benzodiazepines, and Wellbutrin. Suicidal behavior has been noted in the past as has a history of cutting. PAST MEDICAL HISTORY: GERD. DRUG ALLERGIES: Include CODEINE, TRICYCLIC ANTIDEPRESSANTS, LURASIDONE, TAMIFLU , CI PIGMENT BLUE 63. LEGAL HISTORY: She does have a history of DWI with mandated treatment. As previously mentioned, she spoke with her transport corps officer after her discharge from here on Saturday. SUBSTANCE USE HISTORY: The patient has been having problems maintaining sobriety. She apparently began drinking at age 11. She reports that she had had a period of sobriety of approximately 12 or 13 out of 20 plus years. Her longest stretch of sobriety was in 2002 and that lasted for approximately 6 years. She does use hard liquor. She has had multiple residential treatment episodes, including [facility]. She has also been involved in AA and has had multiple detoxes. She is currently denying any illicit drug use or abuse. She does occasionally smoke cigarettes, however. PSYCHOSOCIAL HISTORY: Sydney is of [place] descent. She was born and raised in [place]. She has lived in [place] for nearly 7 years. She does have a Bachelor's degree in human development. She self-identifies as lesbian. Today, she did discuss her partner of 20 years who . Sydney showed me a tattoo on her left arm that was dedicated to her partner's memory. She has had multiple jobs in the past. Currently, she is looking for employment and she resides in a supported residence for women in recovery known as [facility]. MENTAL STATUS EXAMINATION: The patient is of healthy build and appears her stated age with good grooming and hygiene noted. On gross exam, she is currently wearing a shirt and blue disposable scrub pants. On gross examination , she appears to have no physical deformities. Attitude towards the examiner was pleasant and cooperative. She does ambulate with a steady gait. She did not appear to be demonstrating any noteworthy mannerisms, gestures, or tics. Activity level was within normal parameters with no overt evidence of psychomotor excitation or retardation noted. She is alert, but she is confused surrounding the past several days. Her speech was clear, coherent, but tangential. Self-reported mood is depressed and anxious. Affect consistent to self-reported mood. She is currently denying visual or auditory hallucinations. No overt paranoid thought processes appreciated. Concentration and attention are impaired. She is currently denying suicidal or homicidal ideation. REVIEW OF SYSTEMS: General: The patient denies fever, chills, night sweats. HEENT: She denies headache, dizziness, syncope, changes in hearing or vision. Cardiovascular: She denies chest pain. Pulmonary: She denies shortness of breath. Gastrointestinal: She does report that she was vomiting in the ER, but states that she has not vomited since she arrived on the unit. GI/ Reproductive: She denies any issues. Neurologically, she denies any issues. Musculoskeletal: She denies muscle or joint pain. Endocrine/Hematopoietic/ Lymphatic: She denies any issues. PHYSICAL EXAMINATION GENERAL APPEARANCE: The patient is well developed, well nourished, alert, and cooperative, and appears to be in no acute distress at the time of the exam. HEENT: Head is normocephalic, atraumatic. NECK: Appears normal on inspection. RESPIRATORY: No respiratory distress. CARDIAC: Rate 81, blood pressure 142/69. ABDOMEN: No evidence of guarding or distention. MUSCULOSKELETAL: The patient demonstrates full range of motion. EXTREMITIES: Nonedematous. NEURO: Neurologically, the patient is alert and oriented to person, place, and time. SKIN: Intact. LABORATORY DATA: Review of laboratory data undertaken at this time. They are no current labs available for review. Most recent labs on this patient were obtained on 09/26/16. CLINICAL IMPRESSION: The patient is a 56-year-old female who is rehospitalized after approximately 3 days since being discharged from [facility]. She has apparently engaged in binge use of alcohol resulting in the current constellation of symptoms that she currently appears to be experiencing. The patient was admitted under voluntary basis for stabilization of symptoms. Psychiatric hospitalization is indicated for her safety, stabilization and treatment planning, which may include inpatient rehab. ADMITTING DIAGNOSIS: Rule out alcohol intoxication, alcohol use disorder, bipolar disorder, attention-deficit hyperactivity disorder by history. PLAN OF TREATMENT: Admit to behavioral services unit. Diet will be regular. Vital signs per unit protocol. Activity as tolerated. The patient will participate in treatment planning activities, individual group, and milieu therapy, as well as medication management sessions and discharge planning until she is stable or referred to a higher level of care. TREATMENT GOAL: Stabilization. PROGNOSIS: Fair. ESTIMATED LENGTH OF STAY: 3 to 5 days. DISCHARGE CRITERIA: The patient will be discharged when she is no longer a risk to herself or others and has met the criteria set forth by the treatment team for discharge. This case was reviewed with Dr. Edgardo Wolf who agreed with my assessment, clinical impression, and initial plan of treatment. JOSH RUSSO NP [id number]/[facility] #: [id number] MARCIAL
[2016-10-09] MEDS: Al Hydrox/Mg Hydrox/Simet LIQ* 30 ML UDC PO PRN (07:57)
[2016-10-09] MEDS: Omeprazole CAP* 20 MG PO SCH (07:57)
[2016-10-09] MEDS: Venlafaxine EXT RELEASE CAP* 75 MG PO SCH (07:59)
[2016-10-09] MEDS: Vitamin THERAPEUTIC TAB PO SCH (07:59)
[2016-10-09] MEDS: lamoTRIgine TAB(*) 100 MG PO SCH ×2 (07:59→21:09)
--- NOTE | 2016-10-09 11:32 | PN ---
MHU: Group Therapy Note - Service Type Service Type: 57510 Group Psychotherapy - Cognitive Behavioral Group Therapy ( CBT):Patient was attentive and participatory in CBT programming this morning, and remained in good behavioral control. Patient expressed positive insights regarding relevant treatment interventions and goals.
[2016-10-09] MEDS ORDERED: Ondansetron ODT TAB* 4 MG PO PRN (13:09)
--- NOTE | 2016-10-09 15:24 | PN ---
Subjective - Subjective Service Type: [id number] Hosp care 15 min low complexity Subjective: Sydney said she has decided to stop her medications because they're note working. She became frustrated with my response - I was permissive and took the stance that maybe medications aren't the answer. She disagreed and cut off the conversation with some profanity. Objective - Appearance Appearance: Healthy Appearing Hygiene: Normal Grooming: Well Kept - Behavior Psychomotor Activities: Normal - Attitude and Relatedness Attitude and Relatedness: Irritable Eye Contact: Good - Speech Quality: Unpressured Latencies: Short Quantity: Appropriate - Mood Patient's Decription of Mood: "Angry" - Affect Observed Affect: Labile Affect Consistent with: Dysphoria - Thought Process Patient's Thought Process: Coherent Thought Content: No Passive Wish, No Suicidal Planning, No Homicidal Ideation, No Paranoid Ideation - Sensorium Experiencing Hallucinations: No, Sensorium is Clear - Level of Consciousness Level of Consciousness: Alert - Impulse Control Impulse Control: Intact - Insight and Judgement Insight and Judgement: Poor Assessment - Assessment Merits Inpatient Hospitalization: For Stabilization, To Initiate Treatment, For Ongoing Evaluation, Consolidate Improvements, For Discharge Planning Inpatient DSM-IV Dx: Alcohol use disorder with intoxication. Bipolar d.o. and ADHD by history Clinical Impression: 56-year-old female with history of chronic alcohol use disorder and psychiatric sequelae along with diagnoses of ADHD and bipolar disorder and a history of suicidal behavior. She was re-admitted to the psychiatric unit several days after her discharge, presenting with confusion and "lost time" after an apparent alcohol binge. Stabilizing again. Symptoms of concern appear to have been due to alcohol consumption. She is safe on checks, in behavioral control. She is not having perceptual disturbance or impairing symptoms. She is irritable, and defended. She requires substance abuse services but is not interested in another rehab, though it is probably indicated. Her focus on medication appears to be somewhat defensive as an alternative for dealing with the immediacy of her relapse. Although the self-medication model for alcohol use may very well apply in her case, her plan for sudden cessation of her regimen and immediate substitution is not the best course, and results, even if the next medication choice were fortuitously to be an optimal one, would be weeks off. Medication management for now involves continuing the outpatient medications of omeprazole 40 mg a day, and venlafaxine, lamotrigine, holding off on recently used stimulant medication due to mis-use potential. Plan - Plan Treatment Plan: Name: SYDNEY VIERA Birthdate: 1960 [id number] Continued Medication Management: Continue Outpt Medication Medications: Current Medications Acetaminophen (Tylenol Tab*) 650 mg PO Q4H PRN PRN Reason: PAIN or TEMP > 101 F Last Admin: 10/09/16 04:10 Dose: 650 mg Al Hydrox/Mg Hydrox/Simethicone (Maalox Plus*) 30 ml PO Q4H PRN PRN Reason: INDIGESTION Last Admin: 10/09/16 07:57 Dose: 30 ml Lamotrigine (Lamictal Tab(*)) 150 mg PO BID [facility] Last Admin: 10/09/16 07:59 Dose: Not Given Multivitamins (Theragran Tab*) 1 tab PO DAILY [facility] Last Admin: 10/09/16 07:59 Dose: Not Given Omeprazole (Prilosec Cap*) 40 mg PO DAILY [facility] Last Admin: 10/09/16 07:57 Dose: 40 mg Ondansetron HCl (Zofran Odt Tab*) 4 mg PO Q6H PRN PRN Reason: NAUSEA Last Admin: 10/09/16 13:32 Dose: 4 mg Venlafaxine HCl (Effexor Xr Cap*) 150 mg PO DAILY [facility] Last Admin: 10/09/16 07:59 Dose: Not Given - Discharge Plan Discharge Plan: Drug/Alcohol Rehab
[2016-10-10 07:47] VITALS: BP 145/72
[2016-10-10] MEDS: Venlafaxine EXT RELEASE CAP* 75 MG PO SCH (09:06)
[2016-10-10] MEDS: Vitamin THERAPEUTIC TAB PO SCH (09:07)
[2016-10-10] MEDS: Omeprazole CAP* 20 MG PO SCH (09:09)
[2016-10-10] MEDS: lamoTRIgine TAB(*) 100 MG PO SCH (09:09)
--- NOTE | 2016-10-10 10:12 | DS ---
Subjective - Subjective Service Types: [id number] [facility] Day Mgmt simple under 30 min Discharge Date: 10/10/16 Subjective: Sydney submitted a '72 hor letter' demanding release and confirms it today. She denied distress, emotional pain, perceptual disturbances and denied any recent suicidal thoughts. We discussed her regimen, she opts to continue it and discuss it at the clinic. She again declines to consider medication that would support sobriety. We reviewed her aftercare plans and she said she sees no barriers to care. Objective - Appearance Appearance: Healthy Appearing Hygiene: Normal Grooming: Well Kept - Behavior Psychomotor Activities: Normal - Attitude and Relatedness Attitude and Relatedness: Superficially Cooperative - Speech Quality: Unpressured Latencies: Normal Quantity: Terse - Mood Patient's Decription of Mood: "Fine" - Affect Observed Affect: Tense Affect Consistent with: Euthymia - Thought Process Patient's Thought Process: Coherent, Goal Directed Thought Content: No Passive Wish, No Suicidal Planning, No Homicidal Ideation, No Paranoid Ideation - Sensorium Experiencing Hallucinations: No, Sensorium is Clear - Level of Consciousness Level of Consciousness: Alert - Impulse Control Impulse Control: Intact - Insight and Judgement Insight and Judgement: Fair Treatment Course & Assessment Clinical Course & Impression: 56-year-old female with history of chronic alcohol use disorder and psychiatric sequelae along with diagnoses of ADHD and bipolar disorder and a history of suicidal behavior. She was re-admitted to the psychiatric unit several days after her discharge, presenting with confusion and "lost time" after an apparent alcohol binge. 10/10/16 Clear for release. Sydney stabilized rapidly again after alcohol effects wore off. The symptoms of concern described in her presentation appear to have been due to alcohol consumption. She was safe on checks, in behavioral control. She did not have perceptual disturbance, marked dissociation, or impairing symptoms. She was irritable at times, and defended. She requires substance abuse services but was not interested in another rehab, though it is probably indicated. Her focus has been on medication and this appears to be somewhat defensive as a distraction / alternative to dealing with the immediacy of her relapse. Although the self-medication model for alcohol use may very well apply in her case, alcohol effects would grossly overpower any short term clinical gains from modifying her regimen. Medication management for now involved continuing the outpatient medications of omeprazole 40 mg a day, and venlafaxine, lamotrigine, holding off on recently used stimulant medication due to mis-use potential. Sydney is again appropriate for outpatient level of care. She is at high risk for relapse in view of her recent pattern and in her focally diminished insight/judgment into her alcohol problem. That could lead to impairment and higher risk of harm. Sydney's profile puts her at elevated chronic risk for suicide. Currently acute risk is assessed as low based on absence of impairment, low symptom burden , and benign observed behavior and ideation. Clear for Discharge: Adequate Clinical Respons, Acceptable Safety Profile, Low Utility of Inpt Care Inpatient DSM-IV Dx: Alcohol use disorder with intoxication. Bipolar d.o. and ADHD by history Discharge Planning - Discharge Planning Discharge Plan: Outpatient Follow Up Outpatient Program: [facility] Recommendations for Continuing Care: Medication Management, Psychotherapy, Substance Abuse Counseling Medications: Current Medications Lamotrigine (Lamictal Tab(*)) 150 mg PO BID [facility] Last Admin: 10/10/16 09:09 Dose: 150 mg Omeprazole (Prilosec Cap*) 40 mg PO DAILY [facility] Last Admin: 10/10/16 09:09 Dose: 40 mg Venlafaxine HCl (Effexor Xr Cap*) 150 mg PO DAILY [facility] Last Admin: 10/10/16 09:06 Dose: Not Given Discharge Planning: Prescriptions provided for discharge [] Yes [x] No Follow up care details as per social work arrangements. Patient response to discharge plan: [x] eager for discharge [] agreeable with discharge plan [] ambivalent about discharge [] disagrees with discharge today
== END 2016-10-10 11:15 | disposition home or self-care (01) | DRG 775 ==
LOC: ED 22:37 → BSU 10-07 19:47
PROVIDERS: ADMIT Psychiatry & Neurology Psychiatry; ATTEND Psychiatry & Neurology Psychiatry
DX: F10.129 Alcohol abuse with intoxication, unspecified (principal); F31.9 Bipolar disorder, unspecified; Y90.8 Blood alcohol level of 240 mg/100 ml or more; F90.9 Attention-deficit hyperactivity disorder, unspecified type; K21.9 Gastro-esophageal reflux disease without esophagitis; Z88.5 Allergy status to narcotic agent; Z88.8 Allergy status to other drugs, medicaments and biological substances; Z91.048 Other nonmedicinal substance allergy status
CPT/HCPCS: 36415; 71010; 80053; 80307; 80320; 80329; 81003; 81015; 83605; 84484; 85025; 90853; 93005; 99222; 99231; 99238; A9270-GY; G0480; J2060; J2405

== ENCOUNTER 2016-10-19 14:51 | Emergency (ER) | payer MEDICAID, OTHER ==
[2016-10-19] MEDS ORDERED: Ketorolac INJ* 30 MG/ML 1 ML VIAL IV PUSH ONE (15:27)
--- NOTE | 2016-10-19 15:34 | ED ---
Abdominal Pain/Female - HPI Summary HPI Summary: 56F PMH of depression presents with LLQ pain for a day. Says that this feels similar to diverticulitis pain had in past. Has been able to tolerate food today but says has no appetite. She denies any nausea or vomiting. She has been having minimal green stool. She denies any blood in her stool or dark tarry stool. She states the pain is sharp and worst when she has to have BM and is temporarily relieved with BM. She denies any dysuria. 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 She denies any flank pain or vaginal discharge. She denies any fever. She is able to tolerate water. She has family history of diverticulitis. She says she is doing well emotionally and has not had a drink since 10/06. She has had multiple surgeries for PCOS and had a hysterectomy. She still has her appendix and gallbladder. - History of Current Complaint Chief Complaint: EDAbdPain Stated Complaint: LOWER LEFT SIDE ABD PAIN Time Seen by Provider: 10/19/16 15:15 Pain Intensity: 7 Allergies/Adverse Reactions: Allergies Allergy/AdvReac Type Severity Reaction Status Date / Time Codeine Allergy Severe Rash Verified 10/07/16 19:57 Tricyclic Antidepressants Allergy Severe "DOESN'T Verified 10/07/16 19:57 FEEL RIGHT; I FEEL WEIRD" CI Pigment Blue 63 Allergy See Comment Verified 10/07/16 19:57 [From Tamiflu] Lurasidone [From Latuda] Allergy See Comment Verified 10/07/16 19:57 Oseltamivir [From Tamiflu] Allergy See Comment Verified 10/07/16 19:57 contrast dye Allergy Hives Uncoded 10/07/16 19:57 PMH/Surg Hx/FS Hx/Imm Hx Endocrine/Hematology History: Denies: Hx Diabetes Cardiovascular History: Denies: Hx Hypertension, Hx Pacemaker/ICD GI History: Reports: Hx Diverticulosis, Hx Gastroesophageal Reflux Disease Comment Only: Other GI Disorders - diverticulitis History: Denies: Hx Renal Disease Musculoskeletal History: Reports: Hx Arthritis Sensory History: Reports: Hx Contacts or Glasses Denies: Hx Hearing Aid Opthamlomology History: Reports: Hx Contacts or Glasses Neurological History: Reports: Hx Headaches Psychiatric History: Reports: Hx Anxiety, Hx Attention Deficit Hyperactivity Disorder, Hx Depression, Hx Inpatient Treatment, Hx Community Mental Health Tx, Hx Bipolar Disorder, Hx Suicide Attempt, Hx Substance Abuse, Other Psychiatric Issues/Disorders - ADHD Denies: Hx Eating Disorder, Hx Panic Disorder, Hx of Violent Episodes Against Others - Cancer History Hx Chemotherapy: No Hx Radiation Therapy: No - Surgical History Surgery Procedure, Year, and Place: HYSTERECTOMY; polycystic ovaries 4 laps; removed scar tissue 2001 same area; tonsilectomy. fx right wrist repair - plates in place - Immunization History Date of Tetanus Vaccine: unknown Date of Influenza Vaccine: unknown Infectious Disease History: No Infectious Disease History: Reports: Hx Shingles Denies: Hx Clostridium Difficile, Hx Hepatitis, Hx Human Immunodeficiency Virus (HIV), Hx of Known/Suspected MRSA, Hx Tuberculosis, Hx Known/Suspected VRE , Hx Known/Suspected VRSA, History Other Infectious Disease, Traveled Outside the [place] in Last 30 Days - Family History Known Family History: Positive: None, Unknown, Other - family history of diveriticulitis Family History: pt does not know FHx - Social History Alcohol Use: Occasionally Alcohol Amount: in recovery Hx Substance Use: No Substance Use Type: Reports: None Hx Tobacco Use: Yes Smoking Status (MU): Light Every Day Tobacco Smoker Type: Cigarettes Amount Used/How Often: 1 pack Q3days for the last 30 days, uses no other tabacco [id number] Have You Smoked in the Last Year: Yes Review of Systems Negative: Fever Negative: Chest Pain Negative: Shortness Of Breath Positive: Abdominal Pain - LLQ, Diarrhea. Negative: Vomiting, Nausea Negative: dysuria, flank pain All Other Systems Reviewed And Are Negative: Yes Physical Exam Triage Information Reviewed: Yes Vital Signs On Initial Exam: Initial Vitals Temp Pulse Resp BP Pulse Ox 98.6 F 73 20 140/65 100 10/19/16 14:59 10/19/16 14:59 10/19/16 14:59 10/19/16 14:59 10/19/16 14:59 Vital Signs Reviewed: Yes Appearance: Positive: Well-Appearing Skin: Positive: Warm, Dry Head/Face: Positive: Normal Head/Face Inspection Eyes: Positive: Normal, Conjunctiva Clear ENT: Positive: Normal ENT inspection, Pharynx normal, TMs normal Respiratory/Lung Sounds: Positive: Clear to Auscultation, Breath Sounds Present Cardiovascular: Positive: Normal, RRR Abdomen Description: Positive: Soft, Other: - moderate tenderness in LLQ, no rebound tenderness. Negative: CVA Tenderness (R), CVA Tenderness (L) Bowel Sounds: Positive: Present - Brigette Coma Scale Coma Scale Total: 15 Diagnostics - Vital Signs Vital Signs Temp Pulse Resp BP Pulse Ox 10/19/16 15:16 83 95 10/19/16 14:59 98.6 F 73 20 140/65 100 - Laboratory Result Diagrams: 10/19/16 15:34 10/19/16 15:34 Lab Statement: Any lab studies that have been ordered have been reviewed, and results considered in the medical decision making process. - CT abd CT Interpretation: Positive (See Comments) - IMPRESSION: DIVERTICULITIS, WITHOUT LOCULATED FLUID COLLECTION TO SUGGEST ABSCESS CT Interpretation Completed By: Radiologist Re-Evaluation - Re-Evaluation First Eval Re-Evaluation Time: 17:04 Change: Improved Comment: pain decreased Abdominal Pain Fem Course/Dx - Course Course Of Treatment: 56F presents with LLQ pain for a day. has history of diverticulitis and states feels same. pain is relieved with bowel movement. denies any n/v. able to tolerate liquids. labs: wbc 8.7. crp 15. u/a normal. CT without contrast due to allergy to contrast. CT shows diverticulitis, patient able to tolerate oral meds and no nausea so will send home with oral meds, no fever. told to follow up with primary and return if develop fever. patient understands and agrees with plan - Diagnoses Differential Diagnosis: Positive: Diverticulitis, Urinary Tract Infection, Other - gastroenteritis Provider Diagnoses: Diverticulitis Discharge - Discharge Plan Condition: Good Disposition: HOME Prescriptions: Ciprofloxacin TAB* [Cipro 500 MG TAB*] 500 mg PO BID #19 tab Metronidazole [Flagyl 500 MG TAB] 500 mg PO TID #29 tab Ondansetron TAB* [Zofran 4 MG Tab*] 4 mg PO Q6H PRN #10 tab PRN Reason: Nausea Patient Education Materials: Diverticulitis Diet (ED), Diverticulitis (ED) Referrals: Sheila Liao ELDERLY CAREGIVER [Primary Care Provider] - Additional Instructions: Take ciprofloxacin twice a day for 10 days Take Flagyl every 8 hours for 10 days Take zofran every 6 hours as needed for nausea Follow clear liquid diet until symptoms improve Follow up with primary within 5 days Return to ED if unable to keep anything down, develop fever, or any new or worsening symptoms
[2016-10-19] MEDS: NS 0.9% 1000 ML* 2,000 ML IV ONE ×2 (15:35→18:26)
[2016-10-19 15:48] LABS: Hematocrit 37 % (35-47); Mean Corpuscular HGB Conc 33 g/dl (31-36); Mean Corpuscular Hemoglobin 29 pg (27-31); Mean Corpuscular Volume 91 fL (80-97); Mean Platelet Volume 7 um3 (7.4-10.4); Red Blood Count 4.07 10^6/ul (4.0-5.4); Red Cell Distribution Width 14 % (10.5-15); White Blood Count 8.7 10^3/ul (3.5-10.8)
[2016-10-19 16:02] LABS: Albumin 3.9 g/dL (3.2-5.2); BUN/Creatinine Ratio 17.8 (8-20); EGFR African American 105.7 (>60); EGFR Non-African American 82.2 (>60); Potassium 3.3 mmol/L (3.5-5.0); Total Bilirubin 0.5 mg/dL (0.2-1.0); Total Protein 6.9 g/dL (6.4-8.9)
[2016-10-19 16:55] LABS: Urine Bilirubin Negative (Negative); Urine Glucose Negative (Negative); Urine Nitrite Negative (Negative)
[2016-10-19] MEDS ORDERED: Ciprofloxacin TAB* 500 MG PO ONE (18:04)
--- NOTE | 2016-10-19 18:04 | RAD ---
CLINICAL HISTORY: Left lower quadrant pain COMPARISON: October 13, 2015 TECHNIQUE: Multiple contiguous axial CT scans were obtained of the abdomen and pelvis, without intravenous contrast enhancement. Coronal and sagittal multiplanar reformations are submitted for review. Oral contrast was administered. FINDINGS: The study is limited by the lack of intravenous contrast. This limits evaluation of the solid organs and vasculature. LUNG BASES: The lung bases are clear. LIVER: The liver is normal in shape, size, contour, and attenuation. BILE DUCTS: There is no intrahepatic or extrahepatic biliary dilatation. GALLBLADDER: The gallbladder is normal, without pericholecystic inflammatory change. PANCREAS: The pancreas is normal, without mass or ductal dilatation. SPLEEN: Normal in size and appearance. UPPER GI TRACT: Evaluation of the gastrointestinal tract is limited by incomplete gastric distention. The upper GI tract is unremarkable. SMALL BOWEL AND MESENTERY: The small bowel is normal in contour, course, and caliber. There is no obstruction or dilatation. COLON: There are multiple diverticula of the sigmoid colon. There is mild stranding of the perisigmoid fat. There is no loculated fluid collection to suggest abscess.. There is a tubular, vermiform, hollow viscus that is blind ending, and originates from the cecum, consistent with a normal appendix. There is no periappendiceal inflammatory change. ADRENALS: Normal bilaterally. KIDNEYS: The kidneys are normal in shape, size, contour, and axis. There is no hydronephrosis or nephrolithiasis. BLADDER: The bladder is smooth in contour. PELVIC ORGANS: The pelvic organs are not visualized. AORTA: The aorta is normal. IVC: Unremarkable LYMPH NODES: There is no lymphadenopathy by size criteria. ABDOMINAL WALL: There is no evidence for abdominal wall hernia. BONES AND SOFT TISSUES: There are mild diffuse degenerative changes. OTHER: None IMPRESSION: DIVERTICULITIS, WITHOUT LOCULATED FLUID COLLECTION TO SUGGEST ABSCESS
[2016-10-19] MEDS ORDERED: metroNIDAZOLE TAB* 250 MG PO ONE (18:05)
[2016-10-19 18:35] VITALS: BP 123/57
== END 2016-10-19 18:34 | disposition home or self-care (01) ==
LOC: ED 14:51
DX: K57.92 Diverticulitis of intestine, part unspecified, without perforation or abscess without bleeding (principal); R10.32 Left lower quadrant pain; F17.210 Nicotine dependence, cigarettes, uncomplicated
CPT/HCPCS: 36415; 74176; 80053; 81003; 83690; 85025; 86141; 96360; 99284; A9270-GY; J1885

== ENCOUNTER 2016-11-23 12:07 | Inpatient (IN) | payer MEDICAID, OTHER ==
[2016-11-23 12:36] LABS: Urine Bacteria Absent (Absent); Urine Bilirubin Negative (Negative); Urine Glucose Negative (Negative); Urine Nitrite Negative (Negative)
[2016-11-23 12:53] LABS: Benzodiazepine Urine Screen None Detected (None Detect)
[2016-11-23 12:54] LABS: Hematocrit 42 % (35-47); Hemoglobin 13.5 g/dl (12.0-16.0); Mean Corpuscular HGB Conc 32 g/dl (31-36); Mean Corpuscular Hemoglobin 29 pg (27-31); Mean Corpuscular Volume 92 fL (80-97); Mean Platelet Volume 7 um3 (7.4-10.4); Red Blood Count 4.59 10^6/ul (4.0-5.4); Red Cell Distribution Width 13 % (10.5-15); White Blood Count 8.9 10^3/ul (3.5-10.8)
[2016-11-23 13:07] LABS: Blood Urea Nitrogen 8 mg/dL (6-24); Chloride 106 mmol/L (101-111); EGFR African American 107.4 (>60); EGFR Non-African American 83.5 (>60)
[2016-11-23 13:30] LABS: Acetaminophen < 15 mcg/mL; Alcohol < 10 mg/dL (<10); Salicylate < 2.50 mg/dL (<30)
[2016-11-23 13:38] LABS: ALT 18 U/L (7-52); AST 22 U/L (13-39); Albumin 4.1 g/dL (3.2-5.2); Alkaline Phosphatase 52 U/L (34-104); Anion Gap 3 mmol/L (2-11); BUN/Creatinine Ratio 9.2 (8-20); CO2 Carbon Dioxide 27 mmol/L (22-32); Calcium 9.6 mg/dL (8.6-10.3); Globulin 3.3 g/dL (2-4); Potassium 3.9 mmol/L (3.5-5.0); Sodium 136 mmol/L (133-145); Total Protein 7.4 g/dL (6.4-8.9)
[2016-11-23 13:39] LABS: Glucose 87 mg/dL (70-100)
[2016-11-23 13:40] LABS: TSH (Thyroid Stimulating Horm) 7.59 mcIU/mL (0.34-5.60)
--- NOTE | 2016-11-23 18:50 | ED ---
Deb Petersen Edward, scribed for Roosevelt Mohr MD on 11/23/16 at 1225 . Psychiatric Complaint - HPI Summary HPI Summary: 56 y/o female presents to ED c/o sleep disturbance. Patient states she has been sleeping 4-5 hours a night. Patient was recently placed on [place] and Klonopin which has not helped her sleep disturbance. Patient's medication also causes her to have slurred speech. Associated sx: hears voices, has hallucinations of things scurrying about, change in appetite (gained 10 lbs in the past 10 days). Denies fear, SI and HI.The patient also c/o R eye pain and redness for 2 days; no drainage. Patient vapes and use to use EtOH. No drug use. - History Of Current Complaint Chief Complaint: [facility]MentalHealth Time Seen by Provider: 11/23/16 12:23 Hx Obtained From: Patient Onset/Duration: Gradual Onset Associated Signs And Symptoms: Positive: Hallucinating, Sleep Disturbance, Appetite Change - Allergies/Home Medications Allergies/Adverse Reactions: Allergies Allergy/AdvReac Type Severity Reaction Status Date / Time Codeine Allergy Severe Rash Verified 11/23/16 14:22 Tricyclic Antidepressants Allergy Severe "DOESN'T Verified 11/23/16 14:22 FEEL RIGHT; I FEEL WEIRD" CI Pigment Blue 63 Allergy See Comment Verified 11/23/16 14:22 [From Tamiflu] Lurasidone [From Latuda] Allergy See Comment Verified 11/23/16 14:22 Oseltamivir [From Tamiflu] Allergy See Comment Verified 11/23/16 14:22 contrast dye Allergy Hives Uncoded 11/23/16 14:22 PMH/Surg Hx/FS Hx/Imm Hx Previously Healthy: No Endocrine/Hematology History: Denies: Hx Diabetes Cardiovascular History: Denies: Hx Hypertension, Hx Pacemaker/ICD GI History: Reports: Hx Diverticulosis, Hx Gastroesophageal Reflux Disease Comment Only: Other GI Disorders - diverticulitis History: Denies: Hx Renal Disease Musculoskeletal History: Reports: Hx Arthritis Sensory History: Reports: Hx Contacts or Glasses Denies: Hx Hearing Aid Opthamlomology History: Reports: Hx Contacts or Glasses Neurological History: Reports: Hx Headaches Psychiatric History: Reports: Hx Anxiety, Hx Attention Deficit Hyperactivity Disorder, Hx Depression, Hx Inpatient Treatment, Hx Community Mental Health Tx, Hx Bipolar Disorder, Hx Suicide Attempt, Hx Substance Abuse, Other Psychiatric Issues/Disorders - ADHD Denies: Hx Eating Disorder, Hx Panic Disorder, Hx of Violent Episodes Against Others - Cancer History Hx Chemotherapy: No Hx Radiation Therapy: No - Surgical History Surgery Procedure, Year, and Place: HYSTERECTOMY; polycystic ovaries 4 laps; removed scar tissue 2001 same area; tonsilectomy. fx right wrist repair - plates in place - Immunization History Date of Tetanus Vaccine: unknown Date of Influenza Vaccine: unknown Infectious Disease History: No Infectious Disease History: Reports: Hx Shingles Denies: Hx Clostridium Difficile, Hx Hepatitis, Hx Human Immunodeficiency Virus (HIV), Hx of Known/Suspected MRSA, Hx Tuberculosis, Hx Known/Suspected VRE , Hx Known/Suspected VRSA, History Other Infectious Disease, Traveled Outside the [place] in Last 30 Days - Family History Known Family History: Positive: Other - family history of diveriticulitis Family History: pt does not know FHx - Social History Alcohol Use: Occasionally Alcohol Amount: in recovery Hx Substance Use: No Substance Use Type: Reports: None Hx Tobacco Use: Yes Smoking Status (MU): Light Every Day Tobacco Smoker Type: Cigarettes Amount Used/How Often: 1 pack Q3days for the last 30 days, uses no other tabacco [id number] Have You Smoked in the Last Year: Yes Review of Systems Constitutional: Negative Positive: Erythema - R eye, Other - R eye pain ENT: Negative Cardiovascular: Negative Respiratory: Negative Gastrointestinal: Negative Genitourinary: Negative Musculoskeletal: Negative Skin: Negative Neurological: Negative Psychological: Other - Sleep disturbance, change in appetite, hallucinations, hears voices All Other Systems Reviewed And Are Negative: Yes Physical Exam - Summary Physical Exam Summary: The patient is well-nourished in no acute distress and in no acute pain. The skin is warm and dry and skin color reflects adequate perfusion. HEENT: The head is normocephalic and atraumatic. The pupils are equal and reactive. The R eye is injected with no drainage. There is mild photophobia. Nares are patent and without drainage. Mouth reveals moist mucous membranes and the throat is without erythema and exudate. Neck is supple with full range of motion and non-tender. There are no carotid bruits. There is no neck vein distension. Respiratory: Chest is non-tender. Lungs are clear to auscultation and breath sounds are symmetrical and equal. Cardiovascular: Hear is regular rate and rhythm. There is no murmur or rub auscultated. There is no peripheral edema and pulses are symmetrical and equal. Abdomen: The abdomen is soft and non-tender. There are normal bowel sounds heard in all four quadrants and there is no organomegaly palpated. Musculoskeletal: There is no back pain noted. Extremities are non-tender with full range of motion. There is good capillary refill. There is no peripheral edema or calf tenderness elicited. Neurological: Patient is alert and oriented to person, place and time. The patient has symmetrical motor strength in all four extremities. Cranial nerves are grossly intact. Deep tendon reflexes are symmetrical and equal in all four extremities. Psychiatric: The patient has an appropriate affect but is slightly depressed. Triage Information Reviewed: Yes Vital Signs On Initial Exam: Initial Vitals Temp Pulse Resp BP Pulse Ox 99.3 F 82 18 139/67 98 11/23/16 12:13 11/23/16 12:13 11/23/16 12:13 11/23/16 12:13 11/23/16 12:13 Vital Signs Reviewed: Yes Diagnostics - Vital Signs Vital Signs Temp Pulse Resp BP Pulse Ox 11/23/16 12:13 99.3 F 82 18 139/67 98 - Laboratory Lab Results: Lab Results 11/23/16 11/23/16 11/23/16 Range/Units 12:20 12:20 12:40 WBC 8.9 (3.5-10.8) 10^3/ul RBC 4.59 (4.0-5.4) 10^6/ul Hgb 13.5 (12.0-16.0) g/dl Hct 42 (35-47) % MCV 92 (80-97) fL MCH 29 (27-31) pg MCHC 32 (31-36) g/dl RDW 13 (10.5-15) % Plt Count 387 (150-450) 10^3/ul MPV 7 L (7.4-10.4) um3 Neut % (Auto) 58.9 (38-83) % Lymph % (Auto) 26.7 (25-47) % [place] % (Auto) 9.2 H (1-9) % Eos % (Auto) 4.0 (0-6) % Baso % (Auto) 1.2 (0-2) % Absolute Neuts (auto) 5.2 (1.5-7.7) 10^3/ul Absolute Lymphs (auto) 2.4 (1.0-4.8) 10^3/ul Absolute Monos (auto) 0.8 (0-0.8) 10^3/ul Absolute Eos (auto) 0.4 (0-0.6) 10^3/ul Absolute Basos (auto) 0.1 (0-0.2) 10^3/ul Absolute Nucleated RBC 0.01 10^3/ul Nucleated RBC % 0.1 Sodium (133-145) mmol/L Potassium (3.5-5.0) mmol/L Chloride (101-111) mmol/L Carbon Dioxide (22-32) mmol/L Anion Gap (2-11) mmol/L BUN (6-24) mg/dL Creatinine (0.51-0.95) mg/dL Est GFR ( Amer) (>60) Est GFR (Non-Af Amer) (>60) BUN/Creatinine Ratio (8-20) Glucose (70-100) mg/dL Calcium (8.6-10.3) mg/dL Total Bilirubin (0.2-1.0) mg/dL AST (13-39) U/L ALT (7-52) U/L Alkaline Phosphatase (34-104) U/L Total Protein (6.4-8.9) g/dL Albumin (3.2-5.2) g/dL Globulin (2-4) g/dL Albumin/Globulin Ratio (1-3) TSH (0.34-5.60) mcIU/mL Urine Color Colorless Urine Appearance Clear Urine pH 8.0 (5-9) Ur Specific [place] 1.002 L (1.010-1.030) Urine Protein Negative (Negative) Urine Ketones Negative (Negative) Urine Blood Negative (Negative) Urine Nitrate Negative (Negative) Urine Bilirubin Negative (Negative) Urine Urobilinogen Negative (Negative) Ur Leukocyte Esterase 2+ H (Negative) Urine WBC (Auto) 2+(11-20/hpf) H (Absent) Urine RBC (Auto) Absent (Absent) Ur Squamous Epith Cells Present H (Absent) Urine Bacteria Absent (Absent) Urine Glucose Negative (Negative) Salicylates (<30) mg/dL Urine Opiates Screen None detected (None Detect) Acetaminophen mcg/mL Ur Barbiturates Screen None detected (None Detect) Ur Phencyclidine Scrn None detected (None Detect) Ur Amphetamines Screen None detected (None Detect) U Benzodiazepines Scrn None detected (None Detect) [place] (0.6-1.2) mmol/L Urine Cocaine Screen None detected (None Detect) U Cannabinoids Screen None detected (None Detect) Serum Alcohol (<10) mg/dL 11/23/16 Range/Units 12:40 WBC (3.5-10.8) 10^3/ul RBC (4.0-5.4) 10^6/ul Hgb (12.0-16.0) g/dl Hct (35-47) % MCV (80-97) fL MCH (27-31) pg MCHC (31-36) g/dl RDW (10.5-15) % Plt Count (150-450) 10^3/ul MPV (7.4-10.4) um3 Neut % (Auto) (38-83) % Lymph % (Auto) (25-47) % [place] % (Auto) (1-9) % Eos % (Auto) (0-6) % Baso % (Auto) (0-2) % Absolute Neuts (auto) (1.5-7.7) 10^3/ul Absolute Lymphs (auto) (1.0-4.8) 10^3/ul Absolute Monos (auto) (0-0.8) 10^3/ul Absolute Eos (auto) (0-0.6) 10^3/ul Absolute Basos (auto) (0-0.2) 10^3/ul Absolute Nucleated RBC 10^3/ul Nucleated RBC % Sodium 136 (133-145) mmol/L Potassium 3.9 (3.5-5.0) mmol/L Chloride 106 (101-111) mmol/L Carbon Dioxide 27 (22-32) mmol/L Anion Gap 3 (2-11) mmol/L BUN 8 (6-24) mg/dL Creatinine 0.87 (0.51-0.95) mg/dL Est GFR ( Amer) 107.4 (>60) Est GFR (Non-Af Amer) 83.5 (>60) BUN/Creatinine Ratio 9.2 (8-20) Glucose 87 (70-100) mg/dL Calcium 9.6 (8.6-10.3) mg/dL Total Bilirubin 0.50 (0.2-1.0) mg/dL AST 22 (13-39) U/L ALT 18 (7-52) U/L Alkaline Phosphatase 52 (34-104) U/L Total Protein 7.4 (6.4-8.9) g/dL Albumin 4.1 (3.2-5.2) g/dL Globulin 3.3 (2-4) g/dL Albumin/Globulin Ratio 1.2 (1-3) TSH 7.59 H (0.34-5.60) mcIU/mL Urine Color Urine Appearance Urine pH (5-9) Ur Specific [place] (1.010-1.030) Urine Protein (Negative) Urine Ketones (Negative) Urine Blood (Negative) Urine Nitrate (Negative) Urine Bilirubin (Negative) Urine Urobilinogen (Negative) Ur Leukocyte Esterase (Negative) Urine WBC (Auto) (Absent) Urine RBC (Auto) (Absent) Ur Squamous Epith Cells (Absent) Urine Bacteria (Absent) Urine Glucose (Negative) Salicylates < 2.50 (<30) mg/dL Urine Opiates Screen (None Detect) Acetaminophen < 15 mcg/mL Ur Barbiturates Screen (None Detect) Ur Phencyclidine Scrn (None Detect) Ur Amphetamines Screen (None Detect) U Benzodiazepines Scrn (None Detect) [place] 1.80 H* (0.6-1.2) mmol/L Urine Cocaine Screen (None Detect) U Cannabinoids Screen (None Detect) Serum Alcohol < 10 (<10) mg/dL Result Diagrams: 11/23/16 12:40 11/23/16 12:40 Lab Statement: Any lab studies that have been ordered have been reviewed, and results considered in the medical decision making process. Course/Dx - Course Assessment/Plan: 56 y/o female presents to ED c/o sleep disturbance. Patient states she has been sleeping 4-5 hours a night. Patient was recently placed on [place] and Klonopin which has not helped her sleep disturbance. Denies fear, SI and HI.The patient also c/o R eye pain and redness for 2 days; no drainage. Patient awaiting MHU Evaluation. Patient was medically cleared for MHU evaluation by Dr. Roosevelt Mohr @ 16:13. Patient is dx with depression and lithium toxicity. Pending MHU evaluation. - Differential Dx/Clinical Impression Differential Diagnosis/HQI/PQRI: Positive: Depression, Other - mild lithium toxicity Provider Diagnosis: Depression, [place] toxicity Discharge - Discharge Plan Condition: Stable Disposition: OTHER Discharge Disposition Comment: pending E Patient Education Materials: Depression (ED), [place] Toxicity (ED) Referrals: Sheila Liao, ROLL COVERER [Primary Care Provider] - The documentation as recorded by the Deb lo Edward accurately reflects the service I personally performed and the decisions made by , Roosevelt Mohr MD.
--- NOTE | 2016-11-23 19:10 | ED ---
Progress - Progress Note Progress Note: Procedure note: patient c/o painful R eye x 24 hrs. No FBs. Upper eyelid medial aspect hurts. R sclera injected. No FB noted. Anterior chamber clear. Pupil equal and reactive. Eye was anesthetized with tetracaine, fluroscine was instilled in the R eye and increased uptake at 9 oclock in cornea sclera border. Dx corneal abrasion. Pt treated with erythromycin ointment 4 times per day. - Consult/PCP Time Called: 16:00 Course/Dx - Diagnoses Provider Diagnoses: Depression, [place] toxicity
[2016-11-23] MEDS: Erythromycin OPTH OINT* APPLIC OINT RIGHT EYE SCH (21:19)
[2016-11-23] MEDS ORDERED: Acetaminophen TAB* 325 MG PO PRN (22:14)
[2016-11-23] MEDS ORDERED: Nicotine GUM* 2 MG PO PRN (22:14)
[2016-11-24] MEDS: Nicotine PATCH 7 MG/24 HR* PATCH TRANSDERM SCH ×3 (06:15→09:13)
[2016-11-24] MEDS: Nicotine Inhaler* 10 MG AMP INH PRN ×2 (06:20→13:05)
[2016-11-24] MEDS: Mouth Piece, Nicotine* 1 EACH CARTRIDGE INH SCH (06:20)
[2016-11-24] MEDS: Vitamin THERAPEUTIC TAB PO SCH (07:59)
[2016-11-24] MEDS: Erythromycin OPTH OINT* APPLIC OINT RIGHT EYE SCH ×4 (09:13→20:06)
--- NOTE | 2016-11-24 10:14 | ED ---
Jagruti Petersen Rebecca, scribed for Ivet Santana MD on 11/23/16 at 1938 . Progress - Progress Note Progress Note: Pt was signed out from Dr. Mohr at 1900, pending dispo, awaiting MHE. Pt presented s/p medication change with an adverse reaction and with elevated lithium levels. Per mental health supplier quality engineer, Dr. Villalobos has recommended voluntary admission of this pt. The admission papers are signed. Course/Dx - Diagnoses Provider Diagnoses: Depression, [place] toxicity The documentation as recorded by the Jagruti lo Rebecca accurately reflects the service I personally performed and the decisions made by , Ivet Santana MD.
[2016-11-24] MEDS: QUEtiapine TAB* 25 MG PO SCH (15:20)
[2016-11-24] MEDS: Divalproex DR TAB(*) 500 MG PO SCH (15:20)
[2016-11-24] MEDS: Thiamine TAB* 100 MG TAB PO SCH (15:24)
[2016-11-24] MEDS: Nicotine Patch Removal NOTE PATCH OFF SCH (20:06)
--- NOTE | 2016-11-24 21:21 | HP ---
HISTORY AND PHYSICAL: DATE OF ADMISSION: IDENTIFYING DATA: Ms. Hauser is a 56-year-old female who had multiple psychiatric hospital izations on this unit. Her last hospitalization here was on 10/07/16. She presented to the emergen cy department as advised by her therapist at [facility] for further evalua tion of what she says persistent insomnia for more than 6 weeks. CHIEF COMPLAINT: "I just cannot sleep and I have just started hearing voices." HISTORY OF PRESENT ILLNESS: Ms. Hauser, who is known to this unit for multiple prior psychiatric ho spitalizations, came back to the emergency department and reported that she has not been sleeping fo r more than 3, 4 or 5 hours each night for last 6 weeks or so. In the emergency room, she was anxio us and reported hearing whisper of her sister's voice, which scared her. Otherwise, she denies any mood, thought, or psychomotor disturbances. She also denies any added stress in her life. Rather, it is normal right now because her mother who was very sick is back home and doing very well. Repor tedly, there were some medication changes in recent past, which did not help her. PAST PSYCHIATRIC HISTORY: As mentioned earlier, she had multiple psychiatric hospitalizations since 2013, the last one was on 10/07/16. She also had multiple psychiatric hospitalizations at [facility]. She receives some outpatient services from [facility]. She was diagnosed with multiple psychiatric conditions including bipolar disorder, ADHD and so o n. She also has an extensive history of alcohol use disorder, received multiple psychotropic trials including tricyclics, lithium, Depakote, Abilify, Seroquel, benzodiazepines, and Wellbutrin. Althou gh, she has a history of cutting in the past, there is no indication that she tried to commit suicid e otherwise. PAST MEDICAL HISTORY: GERD. DRUG ALLERGIES: Include CODEINE, TRICYCLIC ANTIDEPRESSANTS, LURASIDONE, TAMIFLU, etc. LEGAL HISTORY: Significant for DWI with mandated substance abuse treatment. SUBSTANCE USE HISTORY: She has a history of alcohol use disorder and has been having difficulty doris ntaining sobriety. She relapsed on alcohol at least 3 times in recent past. Her longest period of sobriety was 2002 and that lasted for more than 5 or 6 years. She does use hard liquor. Last use o f liquor was couple of days ago when she drank a shot of vodka, which she had in her own residence. She goes to [facility] and sees her environmental technical officer on a regular basis. Also involved in AA. PSYCHOSOCIAL HISTORY: Sydney is from [place]. She was born and raised in [place] [facility] [place]. She l ived in [place] for last 7 years. Finished bachelor's degree in human development. She identifies h erself as a lesbian. Her partner of 20 years had . She is currently unemployed and has been lo ohing for employment, resides in a supported housing for women known as [facility]. PHYSICAL EXAMINATION GENERAL: The patient is a well-developed, healthy appearing, neatly dressed and groomed, f emale. She does not appear to be in any physical distress. VITAL SIGNS: Show a blood pressure of 139/67, pulse of 82, respirations 18, temperature 99.3. HEENT: Head is normocephalic, atraumatic. NECK: Appears normal, supple. No enlarged thyroid or lymph and gland enlargement. CHEST: Moves equally on bilaterally with good air entry. No added sound. CARDIAC: S1 and S2 only. No murmurs. ABDOMEN: Soft without evidence of distention or guarding. Bowel movements audible in all quadrants . No organomegaly. MUSCULOSKELETAL: Full range of motion in all joints. EXTREMITIES: No edema, palpable pulses. NEUROLOGICAL: Alert and oriented to time, place and person. Cranial nerves II through XII grossly intact. MENTAL STATUS EXAMINATION: Neatly dressed and groomed, female, who appears to be of her s tated age late 50s, alert and oriented to time, place and person. Describes her mood as anxious, ob served affect dysphoric. Speech is normal in all spheres. Intelligence appears to be average as ev idenced by her vocabulary and fund of knowledge. Memory functions are intact in all spheres. Denies any hallucinations at this time, although she reported a whisper last night. Denies visual hallucin ations or delusions. Also denies suicidal or homicidal ideations. Insight and judgment adequate. SUMMARY: This 56-year-old female with known history of alcohol dependence and multiple past psychia tric hospitalizations, mostly related to alcohol use disorder and some mood disorders, came to the mergency department complaining of insomnia for last 6 weeks and whisper in the ears, which is unusu al for her. MENTAL HEALTH DIAGNOSES: Psychosis, NOS; rule out alcohol-induced psychosis; rule out bipolar disor kenroy with psychotic features. PHYSICAL HEALTH DIAGNOSIS: Gastroesophageal reflux disease. TREATMENT RECOMMENDATIONS: Sydney will remain hospitalized on the behavioral health unit for her sa fety, diagnostic clarification as well as stabilization of acute symptoms. Supportive milieu indivi dual and group therapy will be initiated. Her code status will remain full. Different treatment opt ions were discussed with Sydney and she is willing to try Depakote and Seroquel. I will prescribe 5 00 mg of Depakote as well as 25 mg of Seroquel for tonight and she will continue to receive it every night as she tolerates. Rest of the medication management will be deferred to her assigned psychia trist on the unit. [id number]/[facility] #: [id number]
[2016-11-25] MEDS: Nicotine Inhaler* 10 MG AMP INH PRN ×3 (05:45→17:30)
[2016-11-25] MEDS: QUEtiapine TAB* 25 MG PO SCH (08:11)
[2016-11-25] MEDS: Nicotine PATCH 7 MG/24 HR* PATCH TRANSDERM SCH (08:11)
[2016-11-25] MEDS: Thiamine TAB* 100 MG TAB PO SCH (08:12)
[2016-11-25] MEDS: Vitamin THERAPEUTIC TAB PO SCH (08:12)
[2016-11-25] MEDS: Erythromycin OPTH OINT* APPLIC OINT RIGHT EYE SCH ×4 (08:12→20:22)
[2016-11-25] MEDS: Folic Acid TAB* 1 MG PO SCH (08:12)
--- NOTE | 2016-11-25 15:50 | ADMNOTE ---
Identification - Identify Employment Status: Disabled Hx Psychiatric Hospitalization: Yes - Many Arrived to Hospital Via: Ambulatory History - Objective HPI: 56 y/o female with extensive h/o alcohol use d/o and repeated relapses came to the ED comlpaining of inability to sleep more then 4-5 hours per nights for more then 6 weeks and hearing whispering in her ears (AH ?). Denies any thoughs of harming self or others. Past Medical History: Unremarkable. Exam Appearance: Healthy Appearing Hygiene: Normal Grooming: Well Kept Psychomotor Activities: Normal Exhibits Abnormal Movement: No Attitude and Relatedness: Appropriate Eye Contact: Good - Speech Quality: Unpressured Latencies: Normal Quantity: Appropriate Patient's Decription of Mood: "Terrible" Observed Affect: Non-labile Patient's Thought Process: Coherent, Goal Directed Thought Content: No Passive Wish, No Suicidal Planning, No Homicidal Ideation, No Paranoid Ideation Type of Hallucinations: Visual: No, Auditory: Yes, Command: No Level of Consciousness: Alert Orientation: Yes Intact, Yes Orientated to Time, Yes Orientated to Place, Yes Orientated to Person Impulse Control: Intact Insight and Judgement: Fair Impression - Impression Merits Inpatient Hospitalization: Yes - [place] [facility] Mental Illness: Psychotic d/o, NOS - [place] [facility] Medical Illness: Unremarkable. Plan - Treatment Plan Continued Medication Management: Continue Outpt Medication Medications: Current Medications Acetaminophen (Tylenol Tab*) 650 mg PO Q4H PRN PRN Reason: PAIN or TEMP > 101 F Al Hydrox/Mg Hydrox/Simethicone (Maalox Plus*) 30 ml PO Q4H PRN PRN Reason: INDIGESTION Device (Nicotine Mouth Piece*) 1 each INH .[facility] Last Admin: 11/24/16 06:20 Dose: 1 each Divalproex Sodium (Depakote Dr Tab(*)) 500 mg PO BEDTIME [facility] Last Admin: 11/24/16 15:20 Dose: 500 mg Erythromycin (Erythromycin Opth Oint*) 1 applic RIGHT EYE QID [facility] Last Admin: 11/25/16 12:35 Dose: 1 applic Folic Acid (Folvite Tab*) 1 mg PO DAILY [facility] Last Admin: 11/25/16 08:12 Dose: 1 mg Multivitamins (Theragran Tab*) 1 tab PO DAILY [facility] Last Admin: 11/25/16 08:12 Dose: 1 tab Nicotine (Nicotine Inhaler*) 10 mg INH Q2H PRN PRN Reason: CRAVING Last Admin: 11/25/16 09:53 Dose: 10 mg Nicotine (Nicotine Patch 7 Mg/24 Hr*) 1 patch TRANSDERM DAILY [facility] Last Admin: 11/25/16 08:11 Dose: 1 patch Nicotine Polacrilex (Nicotine Gum*) 2 mg PO Q2H PRN PRN Reason: CRAVING Pharmacy Profile Note (Nicotine Patch Removal Note*) 1 note PATCH OFF 2099 [facility] Last Admin: 11/24/16 20:06 Dose: 1 note Quetiapine Fumarate (Seroquel Tab*) 25 mg PO DAILY [facility] Last Admin: 11/25/16 08:11 Dose: 25 mg Thiamine HCl (Vitamin B-1 Tab*) 100 mg PO DAILY [facility] Last Admin: 11/25/16 08:12 Dose: 100 mg - Discharge Plan Discharge Plan: Outpatient Follow Up Outpatient Program: [facility]
[2016-11-25] MEDS: Divalproex DR TAB(*) 500 MG PO SCH (20:21)
[2016-11-25] MEDS: Nicotine Patch Removal NOTE PATCH OFF SCH (20:23)
[2016-11-26] MEDS: Nicotine Inhaler* 10 MG AMP INH PRN ×3 (06:25→20:21)
[2016-11-26] MEDS: Erythromycin OPTH OINT* APPLIC OINT RIGHT EYE SCH ×4 (08:40→20:22)
[2016-11-26] MEDS: Vitamin THERAPEUTIC TAB PO SCH (08:40)
[2016-11-26] MEDS: Folic Acid TAB* 1 MG PO SCH (08:40)
[2016-11-26] MEDS: QUEtiapine TAB* 25 MG PO SCH (08:40)
[2016-11-26] MEDS: Thiamine TAB* 100 MG TAB PO SCH (08:40)
[2016-11-26] MEDS: Nicotine PATCH 7 MG/24 HR* PATCH TRANSDERM SCH (08:41)
--- NOTE | 2016-11-26 11:27 | PN ---
MHU: Group Therapy Note - Service Type Service Type: 04191 Group Psychotherapy - Cognitive Behavioral Group Therapy ( CBT):Patient was attentive and participatory in CBT programming this morning, and remained in good behavioral control. Patient expressed positive insights regarding relevant treatment interventions and goals.
--- NOTE | 2016-11-26 18:16 | PN ---
Subjective - Subjective Service Type: [id number] Hosp care 25 min moderate complexity Subjective: Patient attending group on my approach. She is calm, cooperative, and engages the interview. Patient reports ongoing insomnia, with 3-4 hours last night. She has been started on Depakote at 500mg po qhs for mood stabilization. She has been working with her [facility] provider with multiple mood stabilizers and SGAs. Patient reports recent trials on Nehalem and Zyprexa with no benefit. Patient reports racing thoughts, goal directed behavior and new hallucinations, VHs and AHs over the last 2 months. Patient is mostly linear, but is tangential in TP at times. Patient reports stressors including diminished health of her mother in [place], [place] and worsening Alzheimers Dz of her dad. Patient is concerned with the possibility that she has dementia, but was educated her symptoms of diminished memory my be due to her Bipolar dx. Patient reports memory issues including losing her keys multiple times per day and having to organize her day thoroughly otherwise forgetting to do things. 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 Patient has a hx of Alcohol use d/o, and a recent DWI in 2013. She is on 2yrs of probation. She reports still being in the [facility] out[facility] program. She reports her last drink was in 09/2016. Patient denies SI/HI. She reports last experiencing AHs about a week ago, hearing her sister's voice and conversing with her. She reports last VHs occurred 2 months ago while on a bus trip to see her ailing mother. She does report being intoxicated with alcohol at the time. Objective - Appearance Appearance: Well Developed/Nourished Dysmorphic Features: No Hygiene: Normal Grooming: Fairly Well Kept - Behavior Psychomotor Activities: Normal Exhibits Abnormal Movement: No - Attitude and Relatedness Attitude and Relatedness: Cooperative Eye Contact: Fair - Speech Quality: Unpressured Latencies: Normal Quantity: Appropriate - Mood Patient's Decription of Mood: "Anxious" - Affect Observed Affect: Tense Affect Consistent with: Dysphoria - Thought Process Patient's Thought Process: Coherent Thought Content: No Passive Wish, No Suicidal Planning, No Homicidal Ideation, No Paranoid Ideation - Sensorium Experiencing Hallucinations: Yes Type of Hallucinations: Visual: No, Auditory: Yes, Command: No - Level of Consciousness Level of Consciousness: Alert Orientation: Yes Intact, Yes Orientated to Time, Yes Orientated to Place, Yes Orientated to Person - Impulse Control Impulse Control: Intact - Insight and Judgement Insight and Judgement: Fair - Group Participation Particating in Group Activities: Yes - Medication Management Medication Management Adherence: Yes Assessment - Assessment Merits Inpatient Hospitalization: For Stabilization Inpatient DSM-IV Dx: 1. Bipolar 1 d/o, MRE mixed w/PFs Plan - Plan Treatment Plan: Name: PEGGY VIERA Birthdate: 1960 [id number] 1. Continue admission to [facility] for symptom mx. 2. Patient gives informed consent to start Prozac 30mg po qam for anxiety/mood. 3. Will increase Depakote from 500mg po qhs to 1000mg po qhs for mood stabilization/insomnia. 4. Will start Ativan 1mg po qPM for night time anxiety and D/C after 3 days as sleep improves. 5. Continue Seroquel 25mg po daily for daytime anxiety. 6. Will start Colace 100mg po daily for constipation. 7. Complete Dementia workup with B12, Folate, RPR, HIV, ESR, TFTs and SLUMS eval. 8. Considering MRI /PET scan for workup of Dementia. 9. Collateral information from [facility] providers. 10. Patient to participate in milieu activities and groups. Medications: Current Medications Acetaminophen (Tylenol Tab*) 650 mg PO Q4H PRN PRN Reason: PAIN or TEMP > 101 F Al Hydrox/Mg Hydrox/Simethicone (Maalox Plus*) 30 ml PO Q4H PRN PRN Reason: INDIGESTION Device (Nicotine Mouth Piece*) 1 each INH .[facility] Last Admin: 11/24/16 06:20 Dose: 1 each Divalproex Sodium (Depakote Dr Tab(*)) 500 mg PO BEDTIME [facility] Last Admin: 11/25/16 20:21 Dose: 500 mg Erythromycin (Erythromycin Opth Oint*) 1 applic RIGHT EYE QID [facility] Last Admin: 11/26/16 18:07 Dose: 1 applic Folic Acid (Folvite Tab*) 1 mg PO DAILY [facility] Last Admin: 11/26/16 08:40 Dose: 1 mg Multivitamins (Theragran Tab*) 1 tab PO DAILY [facility] Last Admin: 11/26/16 08:40 Dose: 1 tab Nicotine (Nicotine Inhaler*) 10 mg INH Q2H PRN PRN Reason: CRAVING Last Admin: 11/26/16 08:39 Dose: 10 mg Nicotine (Nicotine Patch 7 Mg/24 Hr*) 1 patch TRANSDERM DAILY [facility] Last Admin: 11/26/16 08:41 Dose: 1 patch Nicotine Polacrilex (Nicotine Gum*) 2 mg PO Q2H PRN PRN Reason: CRAVING Pharmacy Profile Note (Nicotine Patch Removal Note*) 1 note PATCH OFF 2100 [facility] Last Admin: 11/25/16 20:23 Dose: Not Given Quetiapine Fumarate (Seroquel Tab*) 25 mg PO DAILY [facility] Last Admin: 11/26/16 08:40 Dose: 25 mg Thiamine HCl (Vitamin B-1 Tab*) 100 mg PO DAILY [facility] Last Admin: 11/26/16 08:40 Dose: 100 mg - Discharge Plan Discharge Plan: Outpatient Follow Up Outpatient Program: [facility]
[2016-11-26] MEDS: Docusate CAP* 100 MG PO SCH (18:41)
[2016-11-26] MEDS ORDERED: LORazepam TAB(*) 1 MG ONE (19:52)
[2016-11-26] MEDS: LORazepam TAB(*) 1 MG PO SCH (19:52)
[2016-11-26] MEDS: Divalproex DR TAB(*) 500 MG PO SCH (20:21)
[2016-11-26] MEDS: Nicotine Patch Removal NOTE PATCH OFF SCH (20:37)
[2016-11-27] MEDS: Nicotine PATCH 7 MG/24 HR* PATCH TRANSDERM SCH (08:29)
[2016-11-27] MEDS: Folic Acid TAB* 1 MG PO SCH (08:29)
[2016-11-27] MEDS: Vitamin THERAPEUTIC TAB PO SCH (08:29)
[2016-11-27] MEDS: Docusate CAP* 100 MG PO SCH (08:29)
[2016-11-27] MEDS: Thiamine TAB* 100 MG TAB PO SCH (08:29)
[2016-11-27] MEDS: QUEtiapine TAB* 25 MG PO SCH (08:29)
[2016-11-27] MEDS: FLUoxetine CAP* 10 MG PO SCH (08:29)
[2016-11-27] MEDS: Erythromycin OPTH OINT* APPLIC OINT RIGHT EYE SCH ×4 (08:38→20:41)
--- NOTE | 2016-11-27 11:20 | PN ---
MHU: Group Therapy Note - Service Type Service Type: 32201 Group Psychotherapy - Cognitive Behavioral Group Psychotherapy Note: Sydney was initally irritable and demeaning of staff efforts, but was redirectable through structured educational discussion. She presents with flat affect that remained unvariable in group context.
[2016-11-27] MEDS: Al Hydrox/Mg Hydrox/Simet LIQ* 30 ML UDC PO PRN (13:22)
[2016-11-27 14:11] LABS: Rapid HIV INT CONT QC Line Present
[2016-11-27 14:15] LABS: Manual Entry Verification AS; Rapid HIV Kit Lot# F336002
[2016-11-27] MEDS ORDERED: Magnesium CITRATE* 300 ML BTL PO ONE (14:22)
--- NOTE | 2016-11-27 14:45 | PN ---
Subjective - Subjective Service Type: [id number] Hosp care 15 min low complexity Subjective: Patient is asleep on approach. Patient is med compliant. She reports daytime somnolence on the higher dose of Depakote, but is amenable to continuing the dose. Patient aware this sleep is needed as she has not slept well in months. Patient is linear and GD in TP. She continues to focus on having brain imaging to r/o dementia. Patient informed blood work required for dementia screening has been ordered. Also, she was informed that [facility] dementia screen will be performed tomorrow and along with the results of her blood work, the decision to do imaging will be made. Patient again educated her memory issues may be 2/2 sleep deprivation. Patient reports fair mood. She denies SI/HI and AH/VH. She reports appetite is wnl. Objective - Appearance Appearance: Well Developed/Nourished Dysmorphic Features: No Hygiene: Normal Grooming: Fairly Well Kept - Behavior Psychomotor Activities: Normal Exhibits Abnormal Movement: No - Attitude and Relatedness Attitude and Relatedness: Cooperative Eye Contact: Fair - Speech Quality: Unpressured Latencies: Normal Quantity: Appropriate - Mood Patient's Decription of Mood: "Okay" - Affect Observed Affect: Fair Affect Consistent with: Euthymia - Thought Process Patient's Thought Process: Coherent Thought Content: No Passive Wish, No Suicidal Planning, No Homicidal Ideation, No Paranoid Ideation - Sensorium Experiencing Hallucinations: No, Sensorium is Clear Type of Hallucinations: Visual: No, Auditory: No, Command: No - Level of Consciousness Level of Consciousness: Alert Orientation: Yes Intact, Yes Orientated to Time, Yes Orientated to Place, Yes Orientated to Person - Impulse Control Impulse Control: Intact - Insight and Judgement Insight and Judgement: Fair - Group Participation Particating in Group Activities: Yes - Medication Management Medication Management Adherence: Yes Assessment - Assessment Merits Inpatient Hospitalization: For Immediate Safety, For Stabilization Inpatient DSM-IV Dx: 1. Bipolar 1 d/o, MRE mixed w/PFs Plan - Plan Treatment Plan: Name: PEGGY VIERA Birthdate: 1960 [id number] 1. Continue admission to [facility] for symptom mx. 2. Continue Prozac 30mg po qam for anxiety/mood. 3. Continue Depakote from 500mg po qhs to 1000mg po qhs for mood stabilization/ insomnia. 4. Continue Ativan 1mg po qPM for night time anxiety and D/C after 3 days as sleep improves. 5. Continue Seroquel 25mg po daily for daytime anxiety. 6. Continue Colace 100mg po daily for constipation. 7. Will order Mag Citrate x1 for ongoing constipation, 3 days w/o BM. 8. Dementia workup ordered: B12, Folate, RPR, HIV, ESR, TFTs and Vit D - PENDING. 9. SLUMS eval. 10. Considering MRI /PET scan for workup of Dementia. 11. Will start Omeprazole 20mg po BID for acid reflux. 12. Collateral information from [facility] providers. 13. Patient to participate in milieu activities and groups. Continued Medication Management: Different Medication Medications: Current Medications Acetaminophen (Tylenol Tab*) 650 mg PO Q4H PRN PRN Reason: PAIN or TEMP > 101 F Al Hydrox/Mg Hydrox/Simethicone (Maalox Plus*) 30 ml PO Q4H PRN PRN Reason: INDIGESTION Last Admin: 11/27/16 13:22 Dose: 30 ml Device (Nicotine Mouth Piece*) 1 each INH [facility] Last Admin: 11/24/16 06:20 Dose: 1 each Divalproex Sodium (Depakote Dr Tab(*)) 1,000 mg PO BEDTIME [facility] Last Admin: 11/26/16 20:21 Dose: 1,000 mg Docusate Sodium (Colace Cap*) 100 mg PO DAILY [facility] Last Admin: 11/27/16 08:29 Dose: 100 mg Erythromycin (Erythromycin Opth Oint*) 1 applic RIGHT EYE QID [facility] Last Admin: 11/27/16 13:18 Dose: 1 applic Fluoxetine HCl (Prozac Cap*) 30 mg PO DAILY [facility] Last Admin: 11/27/16 08:29 Dose: 30 mg Folic Acid (Folvite Tab*) 1 mg PO DAILY [facility] Last Admin: 11/27/16 08:29 Dose: 1 mg Lorazepam (Ativan Tab(*)) 1 mg PO QPM [facility] Last Admin: 11/26/16 19:52 Dose: 1 mg Multivitamins (Theragran Tab*) 1 tab PO DAILY [facility] Last Admin: 11/27/16 08:29 Dose: 1 tab Nicotine (Nicotine Inhaler*) 10 mg INH Q2H PRN PRN Reason: CRAVING Last Admin: 11/26/16 20:21 Dose: 10 mg Nicotine (Nicotine Patch 7 Mg/24 Hr*) 1 patch TRANSDERM DAILY [facility] Last Admin: 11/27/16 08:29 Dose: 1 patch Nicotine Polacrilex (Nicotine Gum*) 2 mg PO Q2H PRN PRN Reason: CRAVING Last Admin: 11/27/16 08:36 Dose: 2 mg Omeprazole (Prilosec Cap*) 20 mg PO BID [facility] Pharmacy Profile Note (Nicotine Patch Removal Note*) 1 note PATCH OFF 2100 [facility] Last Admin: 11/26/16 20:37 Dose: 1 note Quetiapine Fumarate (Seroquel Tab*) 25 mg PO DAILY [facility] Last Admin: 11/27/16 08:29 Dose: 25 mg Thiamine HCl (Vitamin B-1 Tab*) 100 mg PO DAILY [facility] Last Admin: 11/27/16 08:29 Dose: 100 mg - Discharge Plan Discharge Plan: Outpatient Follow Up Outpatient Program: [facility]
[2016-11-27] MEDS: Omeprazole CAP* 20 MG PO SCH ×2 (15:40→20:41)
[2016-11-27] MEDS ORDERED: Saline NASAL SPRAY 0.65%* BTL BOTH NARES PRN (17:22)
[2016-11-27] MEDS: LORazepam TAB(*) 1 MG PO SCH (18:17)
[2016-11-27] MEDS: Nicotine Inhaler* 10 MG AMP INH PRN (20:40)
[2016-11-27] MEDS: Divalproex DR TAB(*) 500 MG PO SCH (20:41)
[2016-11-27] MEDS: Nicotine Patch Removal NOTE PATCH OFF SCH (20:41)
[2016-11-28 07:29] LABS: TSH (Thyroid Stimulating Horm) 7.94 mcIU/mL (0.34-5.60)
[2016-11-28] MEDS: Nicotine PATCH 7 MG/24 HR* PATCH TRANSDERM SCH (08:21)
[2016-11-28] MEDS: Thiamine TAB* 100 MG TAB PO SCH (08:23)
[2016-11-28] MEDS: QUEtiapine TAB* 25 MG PO SCH (08:23)
[2016-11-28] MEDS: Omeprazole CAP* 20 MG PO SCH ×2 (08:23→20:51)
[2016-11-28] MEDS: Docusate CAP* 100 MG PO SCH (08:23)
[2016-11-28] MEDS: Folic Acid TAB* 1 MG PO SCH (08:24)
[2016-11-28] MEDS: Vitamin THERAPEUTIC TAB PO SCH (08:24)
[2016-11-28] MEDS: FLUoxetine CAP* 10 MG PO SCH (08:24)
[2016-11-28] MEDS: Erythromycin OPTH OINT* APPLIC OINT RIGHT EYE SCH ×4 (08:25→20:53)
[2016-11-28] MEDS: Nicotine Inhaler* 10 MG AMP INH PRN ×2 (08:26→16:22)
[2016-11-28 11:28] LABS: Syphilis Index < 0.1 Index
[2016-11-28] MEDS: Al Hydrox/Mg Hydrox/Simet LIQ* 30 ML UDC PO PRN (14:21)
[2016-11-28 16:00] LABS: HDL Cholesterol 53.2 mg/dL
--- NOTE | 2016-11-28 16:23 | PN ---
Subjective - Subjective Service Type: [id number] Hosp care 35 min high complexity Subjective: Patient reports ongoing improved mood. She also reports ongoing improvement to her sleep, with approx 6 hrs of sleep last night. Patient is med compliant and does report excessive daytime somnolence again today on Depakote 1000mg po qhs. Patient amenable to decrease in dose and monitoring sleep tonight. Patient reports she has been attending groups, but has issue participating due to fatigue. Patient given results of lab work for dementia work up. She was informed her TSH on repeat draws was 2x the upper limit of nml. She was informed her PCP would need to examine her thyroid gland and possibly initiate thyroid hormone replacement. Patient's elevated ESR may also point at a thyroid process. Patient continues to deal with constipation. She has had another 2 cups of prune juice today and Colace. Patient was unable to swallow the MagCitrate ordered due to the taste and vomited it up after ingesting 1/2 the bottle. Patient engaged in the SLUMS dementia screening test and scored 23/30. She reports fair appetite and denies SI/HI and AH/VH. Objective - Appearance Appearance: Thin Framed Dysmorphic Features: No Hygiene: Normal Grooming: Well Kept - Behavior Psychomotor Activities: Normal Exhibits Abnormal Movement: No - Attitude and Relatedness Attitude and Relatedness: Cooperative Eye Contact: Fair - Speech Quality: Unpressured Latencies: Normal Quantity: Appropriate - Mood Patient's Decription of Mood: "Okay" - Affect Observed Affect: Fair Affect Consistent with: Euthymia - Thought Process Patient's Thought Process: Coherent Thought Content: No Passive Wish, No Suicidal Planning, No Homicidal Ideation, No Paranoid Ideation - Sensorium Experiencing Hallucinations: No, Sensorium is Clear Type of Hallucinations: Visual: No, Auditory: No, Command: No - Level of Consciousness Level of Consciousness: Alert Orientation: Yes Intact, Yes Orientated to Time, Yes Orientated to Place, Yes Orientated to Person - Impulse Control Impulse Control: Intact - Insight and Judgement Insight and Judgement: Fair - Group Participation Particating in Group Activities: Yes - Medication Management Medication Management Adherence: Yes Assessment - Assessment Merits Inpatient Hospitalization: For Stabilization Inpatient DSM-IV Dx: 1. Bipolar 1 d/o, MRE mixed w/PFs Plan - Plan Treatment Plan: Name: PEGGY VIERA Birthdate: 1960 [id number] 1. Continue admission to [facility] for symptom mx. 2. Continue Prozac 30mg po qam for anxiety/mood. 3. Decrease Depakote from 1000mg to 750mg po qhs for mood stabilization/ insomnia. 4. Continue Ativan 1mg po qPM for night time anxiety and D/C after 3 days as sleep improves. 5. Continue Seroquel 25mg po daily for daytime anxiety. 6. Continue Colace 100mg po daily for constipation. 7. Monitor constipation, patient reports small BM yesterday. She continues with BID Prune juice. 8. Dementia workup ordered: B12, Folate, RPR, HIV - wnl 9. Repeat TSH elevated @ 7.9 Free T3/T4 - PENDING. ESR elevated as well to 63, which may point to thyroid function. 9. SLUMS - score, completed - 11/28/16. 10. Considering MRI /PET scan for workup of Dementia. 11. Continue Omeprazole 20mg po BID for acid reflux. 12. Collateral information from [facility] providers. 13. Patient to participate in milieu activities and groups. Medications: Current Medications Acetaminophen (Tylenol Tab*) 650 mg PO Q4H PRN PRN Reason: PAIN or TEMP > 101 F Al Hydrox/Mg Hydrox/Simethicone (Maalox Plus*) 30 ml PO Q4H PRN PRN Reason: INDIGESTION Last Admin: 11/28/16 14:21 Dose: 30 ml Device (Nicotine Mouth Piece*) 1 each INH .[facility] Last Admin: 11/24/16 06:20 Dose: 1 each Divalproex Sodium (Depakote Dr Tab(*)) 1,000 mg PO BEDTIME [facility] Last Admin: 11/27/16 20:41 Dose: 1,000 mg Docusate Sodium (Colace Cap*) 100 mg PO DAILY [facility] Last Admin: 11/28/16 08:23 Dose: 100 mg Erythromycin (Erythromycin Opth Oint*) 1 applic RIGHT EYE QID [facility] Last Admin: 11/28/16 13:16 Dose: 1 applic Fluoxetine HCl (Prozac Cap*) 30 mg PO DAILY [facility] Last Admin: 11/28/16 08:24 Dose: 30 mg Folic Acid (Folvite Tab*) 1 mg PO DAILY [facility] Last Admin: 11/28/16 08:24 Dose: 1 mg Lorazepam (Ativan Tab(*)) 1 mg PO QPM [facility] Last Admin: 11/27/16 18:17 Dose: 1 mg Multivitamins (Theragran Tab*) 1 tab PO DAILY [facility] Last Admin: 11/28/16 08:24 Dose: 1 tab Nicotine (Nicotine Inhaler*) 10 mg INH Q2H PRN PRN Reason: CRAVING Last Admin: 11/28/16 08:26 Dose: 10 mg Nicotine (Nicotine Patch 7 Mg/24 Hr*) 1 patch TRANSDERM DAILY [facility] Last Admin: 11/28/16 08:21 Dose: 1 patch Nicotine Polacrilex (Nicotine Gum*) 2 mg PO Q2H PRN PRN Reason: CRAVING Last Admin: 11/27/16 08:36 Dose: 2 mg Omeprazole (Prilosec Cap*) 20 mg PO BID [facility] Last Admin: 11/28/16 08:23 Dose: 20 mg Pharmacy Profile Note (Nicotine Patch Removal Note*) 1 note PATCH OFF 2100 [facility] Last Admin: 11/27/16 20:41 Dose: 1 note Quetiapine Fumarate (Seroquel Tab*) 25 mg PO DAILY [facility] Last Admin: 11/28/16 08:23 Dose: 25 mg Sodium Chloride (Sodium Chloride 0.65% Nasal [place]*) 1 spray BOTH NARES Q2H PRN PRN Reason: NASAL DRYNESS/IRRITATION Thiamine HCl (Vitamin B-1 Tab*) 100 mg PO DAILY [facility] Last Admin: 11/28/16 08:23 Dose: 100 mg - Discharge Plan Discharge Plan: Outpatient Follow Up Outpatient Program: [facility]
[2016-11-28 16:44] LABS: Free T3 3.3 pg/mL (2.5-3.9)
[2016-11-28 16:46] LABS: Free T4 0.78 ng/dL (0.61-1.12)
[2016-11-28] MEDS: LORazepam TAB(*) 1 MG PO SCH (17:45)
[2016-11-28] MEDS: Nicotine Patch Removal NOTE PATCH OFF SCH (20:51)
[2016-11-28] MEDS: Divalproex DR TAB(*) 250 MG PO SCH (20:51)
[2016-11-29] MEDS: Nicotine Inhaler* 10 MG AMP INH PRN ×2 (07:00→15:51)
[2016-11-29] MEDS: Mouth Piece, Nicotine* 1 EACH CARTRIDGE INH SCH (07:00)
[2016-11-29] MEDS: QUEtiapine TAB* 25 MG PO SCH (08:17)
[2016-11-29] MEDS: Omeprazole CAP* 20 MG PO SCH ×2 (08:18→20:27)
[2016-11-29] MEDS: Docusate CAP* 100 MG PO SCH (08:18)
[2016-11-29] MEDS: Thiamine TAB* 100 MG TAB PO SCH (08:18)
[2016-11-29] MEDS: FLUoxetine CAP* 10 MG PO SCH (08:18)
[2016-11-29] MEDS: Nicotine PATCH 7 MG/24 HR* PATCH TRANSDERM SCH (08:19)
[2016-11-29] MEDS: Folic Acid TAB* 1 MG PO SCH (08:19)
[2016-11-29] MEDS: Vitamin THERAPEUTIC TAB PO SCH (08:19)
[2016-11-29] MEDS: Erythromycin OPTH OINT* APPLIC OINT RIGHT EYE SCH ×4 (08:22→20:28)
--- NOTE | 2016-11-29 15:01 | PN ---
Subjective - Subjective Service Type: [id number] Hosp care 15 min low complexity Subjective: Patient reports ongoing improving mood. Patient is noted to be attending groups and is participating in milieu activities. Patient is med compliant and reports less sedation this morning on the lower dose of Depakote last night. Patient reports her sleep was improved in # of hours, up to 8hrs last night. Patient reports she did wake midway through and was up for a couple of hours before falling back to sleep. She reports fair appetite. She denies SI/HI. Patient reports ongoing constipation, and use of Colace and Prune juice. She does report a small BM this morning. Patient instructed dx of Hypothyroidism made yesterday with 2 consecutive TSH values over 7. ESR elevated as well to 63, which may point to thyroid function. Patient informed thyroid exam is indicated and evaluation for need to start thyroid replacement hormone. Patient educated the workup of dementia with MRI /PET scan is usually indicated with patient's who experience issues with performing ADLs, Patient has none. Objective - Appearance Appearance: Thin Framed Dysmorphic Features: Yes Hygiene: Normal Grooming: Well Kept - Behavior Psychomotor Activities: Normal Exhibits Abnormal Movement: Yes - Attitude and Relatedness Attitude and Relatedness: Cooperative Eye Contact: Fair - Speech Quality: Unpressured Latencies: Normal Quantity: Appropriate - Mood Patient's Decription of Mood: "Okay" - Affect Observed Affect: Fair Affect Consistent with: Euthymia - Thought Process Patient's Thought Process: Coherent Thought Content: No Passive Wish, No Suicidal Planning, No Homicidal Ideation, No Paranoid Ideation - Sensorium Experiencing Hallucinations: No, Sensorium is Clear Type of Hallucinations: Visual: No, Auditory: No, Command: No - Level of Consciousness Level of Consciousness: Alert Orientation: Yes Intact, Yes Orientated to Time, Yes Orientated to Place, Yes Orientated to Person - Impulse Control Impulse Control: Intact - Insight and Judgement Insight and Judgement: Fair - Group Participation Particating in Group Activities: Yes - Medication Management Medication Management Adherence: Yes Assessment - Assessment Merits Inpatient Hospitalization: For Immediate Safety, For Stabilization Inpatient DSM-IV Dx: 1. Bipolar 1 d/o, MRE mixed w/PFs Plan - Plan Treatment Plan: Name: PEGGY VIERA Birthdate: 1960 [id number] 1. Continue admission to [facility] for symptom mx. 2. Continue Prozac 30mg po qam for anxiety/mood. 3. Continue Depakote 750mg po qhs for mood stabilization/insomnia. 4. D/C Ativan. 5. Continue Seroquel 25mg po daily for daytime anxiety, move to 6pm as patient notes increased anxiety in early evening. 6. Continue Colace 100mg po daily for constipation. 7. Monitor constipation, patient reports small BM today. She continues with BID Prune juice. 8. Will begin Vit D and Calcium replacement due to hypovitaminosis D noted on lab. 9. Dementia workup ordered: B12, Folate, RPR, HIV - wnl 10. Patient instructed dx of Hypothyroidism with 2 consecutive TSH values over 7. ESR elevated as well to 63, which may point to thyroid function. 11. SLUMS - score, completed - 11/28/16. 12. Patient educated the workup of dementia with MRI /PET scan is usually indicated with patient's who experience issues with performing ADLs, Patient has none. 13. Continue Omeprazole 20mg po BID for acid reflux. 14. Collateral information from [facility] providers. 15. Patient to participate in milieu activities and groups. Medications: Current Medications Acetaminophen (Tylenol Tab*) 650 mg PO Q4H PRN PRN Reason: PAIN or TEMP > 101 F Al Hydrox/Mg Hydrox/Simethicone (Maalox Plus*) 30 ml PO Q4H PRN PRN Reason: INDIGESTION Last Admin: 11/28/16 14:21 Dose: 30 ml Device (Nicotine Mouth Piece*) 1 each INH [facility] Last Admin: 11/29/16 07:00 Dose: 1 each Divalproex Sodium (Depakote Dr Tab(*)) 750 mg PO BEDTIME [facility] Last Admin: 11/28/16 20:51 Dose: 750 mg Docusate Sodium (Colace Cap*) 100 mg PO DAILY [facility] Last Admin: 11/29/16 08:18 Dose: 100 mg Erythromycin (Erythromycin Opth Oint*) 1 applic RIGHT EYE QID [facility] Last Admin: 11/29/16 13:38 Dose: 1 applic Fluoxetine HCl (Prozac Cap*) 30 mg PO DAILY [facility] Last Admin: 11/29/16 08:18 Dose: 30 mg Folic Acid (Folvite Tab*) 1 mg PO DAILY [facility] Last Admin: 11/29/16 08:19 Dose: 1 mg Lorazepam (Ativan Tab(*)) 1 mg PO QPM [facility] Last Admin: 11/28/16 17:45 Dose: 1 mg Multivitamins (Theragran Tab*) 1 tab PO DAILY [facility] Last Admin: 11/29/16 08:19 Dose: 1 tab Nicotine (Nicotine Inhaler*) 10 mg INH Q2H PRN PRN Reason: CRAVING Last Admin: 11/29/16 07:00 Dose: 10 mg Nicotine (Nicotine Patch 7 Mg/24 Hr*) 1 patch TRANSDERM DAILY [facility] Last Admin: 11/29/16 08:19 Dose: 1 patch Nicotine Polacrilex (Nicotine Gum*) 2 mg PO Q2H PRN PRN Reason: CRAVING Last Admin: 11/27/16 08:36 Dose: 2 mg Omeprazole (Prilosec Cap*) 20 mg PO BID [facility] Last Admin: 11/29/16 08:18 Dose: 20 mg Pharmacy Profile Note (Nicotine Patch Removal Note*) 1 note PATCH OFF 2100 [facility] Last Admin: 11/28/16 20:51 Dose: 1 note Quetiapine Fumarate (Seroquel Tab*) 25 mg PO DAILY [facility] Last Admin: 11/29/16 08:17 Dose: 25 mg Sodium Chloride (Sodium Chloride 0.65% Nasal [place]*) 1 spray BOTH NARES Q2H PRN PRN Reason: NASAL DRYNESS/IRRITATION Thiamine HCl (Vitamin B-1 Tab*) 100 mg PO DAILY [facility] Last Admin: 11/29/16 08:18 Dose: 100 mg - Discharge Plan Outpatient Program: [facility]
[2016-11-29] MEDS: Calcium/Vitamin D TAB 250/125* TAB PO SCH (16:15)
[2016-11-29] MEDS ORDERED: QUEtiapine TAB* 25 MG PO SCH (18:00)
[2016-11-29 18:37] LABS: Hematocrit 38 % (35-47); Hemoglobin 12.4 g/dl (12.0-16.0); Mean Corpuscular HGB Conc 33 g/dl (31-36); Mean Corpuscular Hemoglobin 30 pg (27-31); Mean Corpuscular Volume 91 fL (80-97); Mean Platelet Volume 7 um3 (7.4-10.4); Red Blood Count 4.18 10^6/ul (4.0-5.4); Red Cell Distribution Width 13 % (10.5-15); White Blood Count 9.9 10^3/ul (3.5-10.8)
[2016-11-29 18:51] LABS: ALT 13 U/L (7-52); AST 14 U/L (13-39); Albumin 3.9 g/dL (3.2-5.2); Alkaline Phosphatase 53 U/L (34-104); Anion Gap 6 mmol/L (2-11); Blood Urea Nitrogen 9 mg/dL (6-24); CO2 Carbon Dioxide 27 mmol/L (22-32); Calcium 8.9 mg/dL (8.6-10.3); Chloride 97 mmol/L (101-111); EGFR African American 102.4 (>60); EGFR Non-African American 79.6 (>60); Globulin 3.5 g/dL (2-4); Glucose 109 mg/dL (70-100); Sodium 130 mmol/L (133-145); Total Protein 7.4 g/dL (6.4-8.9)
[2016-11-29 19:16] LABS: Lithium < 0.10 mmol/L (0.6-1.2)
[2016-11-29] MEDS: Nicotine Patch Removal NOTE PATCH OFF SCH (20:27)
[2016-11-29] MEDS: Divalproex DR TAB(*) 250 MG PO SCH (20:27)
[2016-11-30 08:13] VITALS: BP 114/52
[2016-11-30] MEDS: Nicotine Inhaler* 10 MG AMP INH PRN (08:43)
[2016-11-30] MEDS: Erythromycin OPTH OINT* APPLIC OINT RIGHT EYE SCH ×2 (08:43→13:32)
[2016-11-30] MEDS: Docusate CAP* 100 MG PO SCH (08:43)
[2016-11-30] MEDS: FLUoxetine CAP* 10 MG PO SCH (08:44)
[2016-11-30] MEDS: Omeprazole CAP* 20 MG PO SCH (08:44)
[2016-11-30] MEDS: Calcium/Vitamin D TAB 250/125* TAB PO SCH (08:44)
[2016-11-30] MEDS: Vitamin THERAPEUTIC TAB PO SCH (08:44)
[2016-11-30] MEDS: Folic Acid TAB* 1 MG PO SCH (08:44)
[2016-11-30] MEDS: Nicotine PATCH 7 MG/24 HR* PATCH TRANSDERM SCH (08:45)
[2016-11-30] MEDS: Thiamine TAB* 100 MG TAB PO SCH (09:15)
--- NOTE | 2016-11-30 11:40 | PN ---
MHU: Group Therapy Note - Service Type Service Type: [id number] Group Psychotherapy - Cognitive Behavioral Group Therapy ( CBT):Patient was attentive and participatory in CBT programming this morning, and remained in good behavioral control. Patient expressed positive insights regarding relevant treatment interventions and goals.
--- NOTE | 2016-11-30 14:21 | DS ---
Treatment Course & Assessment Inpatient DSM-IV Dx: 1. Bipolar 1 d/o, MRE mixed w/PFs - [place] Mental Illness: Psychotic d/o, NOS - [place] [facility] Medical Illness: Unremarkable. Discharge Planning - Discharge Planning Medications: Current Medications Acetaminophen (Tylenol Tab*) 650 mg PO Q4H PRN PRN Reason: PAIN or TEMP > 101 F Al Hydrox/Mg Hydrox/Simethicone (Maalox Plus*) 30 ml PO Q4H PRN PRN Reason: INDIGESTION Last Admin: 11/28/16 14:21 Dose: 30 ml Calcium/Vitamin D (Oscal D Tab 250/125*) 1 tab PO DAILY [facility] Last Admin: 11/30/16 08:44 Dose: 1 tab Device (Nicotine Mouth Piece*) 1 each INH .CARTRIDGE [facility] Last Admin: 11/29/16 07:00 Dose: 1 each Divalproex Sodium (Depakote Dr Tab(*)) 750 mg PO BEDTIME [facility] Last Admin: 11/29/16 20:27 Dose: 750 mg Docusate Sodium (Colace Cap*) 100 mg PO DAILY [facility] Last Admin: 11/30/16 08:43 Dose: 100 mg Erythromycin (Erythromycin Opth Oint*) 1 applic RIGHT EYE QID [facility] Last Admin: 11/30/16 13:32 Dose: 1 applic Fluoxetine HCl (Prozac Cap*) 30 mg PO DAILY [facility] Last Admin: 11/30/16 08:44 Dose: 30 mg Folic Acid (Folvite Tab*) 1 mg PO DAILY [facility] Last Admin: 11/30/16 08:44 Dose: 1 mg Multivitamins (Theragran Tab*) 1 tab PO DAILY [facility] Last Admin: 11/30/16 08:44 Dose: 1 tab Nicotine (Nicotine Inhaler*) 10 mg INH Q2H PRN PRN Reason: CRAVING Last Admin: 11/30/16 08:43 Dose: 10 mg Nicotine (Nicotine Patch 7 Mg/24 Hr*) 1 patch TRANSDERM DAILY [facility] Last Admin: 11/30/16 08:45 Dose: 1 patch Nicotine Polacrilex (Nicotine Gum*) 2 mg PO Q2H PRN PRN Reason: CRAVING Last Admin: 11/27/16 08:36 Dose: 2 mg Omeprazole (Prilosec Cap*) 20 mg PO BID [facility] Last Admin: 11/30/16 08:44 Dose: 20 mg Pharmacy Profile Note (Nicotine Patch Removal Note*) 1 note PATCH OFF 2100 [facility] Last Admin: 11/29/16 20:27 Dose: 1 note Quetiapine Fumarate (Seroquel Tab*) 25 mg PO QPM [facility] Last Admin: 11/29/16 18:04 Dose: 25 mg Sodium Chloride (Sodium Chloride 0.65% Nasal Carpenter*) 1 spray BOTH NARES Q2H PRN PRN Reason: NASAL DRYNESS/IRRITATION Thiamine HCl (Vitamin B-1 Tab*) 100 mg PO DAILY [facility] Last Admin: 11/30/16 09:15 Dose: 100 mg Discharge Planning: Prescriptions provided for discharge [] Yes [] No Follow up care details as per social work arrangements. Patient response to discharge plan: [] eager for discharge [] agreeable with discharge plan [] ambivalent about discharge [] disagrees with discharge today
== END 2016-11-30 16:22 | disposition home or self-care (01) | DRG 753 ==
LOC: ED 12:07 → BSU 22:00
PROVIDERS: ADMIT Psychiatry & Neurology Psychiatry; ATTEND Psychiatry & Neurology Psychiatry
DX: F31.60 Bipolar disorder, current episode mixed, unspecified (principal); F29 Unspecified psychosis not due to a substance or known physiological condition; F90.9 Attention-deficit hyperactivity disorder, unspecified type; K21.9 Gastro-esophageal reflux disease without esophagitis; F10.20 Alcohol dependence, uncomplicated; Y90.0 Blood alcohol level of less than 20 mg/100 ml; G47.00 Insomnia, unspecified; T56.891A Toxic effect of other metals, accidental (unintentional), initial encounter; X58.XXXA Exposure to other specified factors, initial encounter; Y92.9 Unspecified place or not applicable; Z88.8 Allergy status to other drugs, medicaments and biological substances; Z88.5 Allergy status to narcotic agent
CPT/HCPCS: 36415; 80053; 80061; 80164; 80175; 80178; 80307; 80320; 80329; 81003; 81015; 82306; 82607; 84439; 84443; 84481; 85014; 85025; 85652; 86592; 86703; 87086; 90853; 99222; 99231; 99232; 99233; 99238; A9270-GY; G0480

== ENCOUNTER 2017-05-31 15:05 | Inpatient (IN) | payer OTHER ==
--- NOTE | 2017-05-31 16:03 | ED ---
Psychiatric Complaint - HPI Summary HPI Summary: Patient presents to the ED with CC of depression, anxiety and alcohol use. She states she has extra stress d/t her mother recently passing away. While she states she does not drink everyday, she will drink a pint of vodka at every sitting. She is not currently in recovery. Friend at bedside. She has been seen in the ED several times for similar complaints. She denies any physical pain or other complaints at this time. Endorses SI but denies HI. - History Of Current Complaint Chief Complaint: [facility]ental[facility] Time Seen by Provider: 05/31/17 15:20 Hx Obtained From: Patient ?: No Onset/Duration: Sudden Onset Timing: Constant Severity Initially: Moderate Severity Currently: Moderate Character: Depressed, Anxious Aggravating Factor(s): Recent Stress, Alcohol Use Alleviating Factor(s): Nothing Associated Signs And Symptoms: Positive: Negative Has Suicidal: Reports: Thoughts - Risk Factor(s) Completed Suicide Risk Factors: Negative - Allergies/Home Medications Allergies/Adverse Reactions: Allergies Allergy/AdvReac Type Severity Reaction Status Date / Time Codeine Allergy Severe Rash Verified 11/23/16 22:47 Tricyclic Antidepressants Allergy Severe "DOESN'T Verified 11/23/16 22:47 FEEL RIGHT; I FEEL WEIRD" CI Pigment Blue 63 Allergy See Comment Verified 11/23/16 22:47 [From Tamiflu] Iodinated Diagnostic Agents Allergy Hives Verified 11/27/16 17:38 Lurasidone [From Latuda] Allergy See Comment Verified 11/23/16 22:47 Oseltamivir [From Tamiflu] Allergy See Comment Verified 11/23/16 22:47 contrast dye Allergy Hives Uncoded 11/23/16 22:47 Home Medications: Home Medications Divalproex ER TAB(*) [Depakote ER TAB(*)] 1,000 mg PO BEDTIME 05/31/17 [History Confirmed 05/31/17] Docusate CAP* [Colace Cap*] 100 mg PO DAILY PRN 05/31/17 [History Confirmed 05/06] FLUoxetine CAP* [PROzac CAP*] 20 mg PO QAM 05/31/17 [History Confirmed 05/31/17] FLUoxetine CAP* [PROzac CAP*] 40 mg PO QAM 05/31/17 [History Confirmed 05/31/17] metFORMIN* [Glucophage 500 MG TAB *] 500 mg PO BID WITH MEALS 05/31/17 [History Confirmed 05/31/17] PMH/Surg Hx/FS Hx/Imm Hx Previously Healthy: Yes Endocrine/Hematology History: Reports: Other Endocrine/Hematological Disorders - Hyperthyroid Denies: Hx Diabetes Cardiovascular History: Denies: Hx Hypertension, Hx Pacemaker/ICD GI History: Reports: Hx Diverticulosis, Hx Gastroesophageal Reflux Disease Comment Only: Other GI Disorders - diverticulitis History: Denies: Hx Renal Disease Musculoskeletal History: Reports: Hx Arthritis Sensory History: Reports: Hx Contacts or Glasses Denies: Hx Hearing Aid Opthamlomology History: Reports: Hx Contacts or Glasses Neurological History: Reports: Hx Headaches Psychiatric History: Reports: Hx Anxiety, Hx Attention Deficit Hyperactivity Disorder, Hx Depression, Hx Inpatient Treatment, Hx Community Mental Health Tx, Hx Bipolar Disorder, Hx Suicide Attempt, Hx Substance Abuse, Other Psychiatric Issues/Disorders - ADHD Denies: Hx Eating Disorder, Hx Panic Disorder, Hx of Violent Episodes Against Others - Cancer History Hx Chemotherapy: No Hx Radiation Therapy: No - Surgical History Surgery Procedure, Year, and Place: HYSTERECTOMY; polycystic ovaries 4 laps; removed scar tissue 2001 same area; tonsilectomy. fx right wrist repair - plates in place - Immunization History Date of Tetanus Vaccine: unknown Date of Influenza Vaccine: unknown Hx Pertussis Vaccination: No Immunizations Up to Date: Unable to Obtain/Confirm Infectious Disease History: No Infectious Disease History: Reports: Hx Shingles Denies: Hx Clostridium Difficile, Hx Hepatitis, Hx Human Immunodeficiency Virus (HIV), Hx of Known/Suspected MRSA, Hx Tuberculosis, Hx Known/Suspected VRE , Hx Known/Suspected VRSA, History Other Infectious Disease, Traveled Outside the [place] in Last 30 Days - Family History Known Family History: Positive: None, Unknown, Other - family history of diveriticulitis Family History: pt does not know FHx - Social History Occupation: Unemployed Lives: With Family Alcohol Use: None Alcohol Amount: in recovery Hx Substance Use: No Substance Use Type: Reports: None Hx Tobacco Use: Yes Smoking Status (MU): Light Every Day Tobacco Smoker Type: Cigarettes Amount Used/How Often: 1 pack Q3days for the last 30 days, uses no other tabacco [id number] Have You Smoked in the Last Year: Yes Review of Systems Constitutional: Negative Negative: Fever, Chills, Fatigue Eyes: Negative Cardiovascular: Negative Respiratory: Negative Genitourinary: Negative Positive: no symptoms reported, see HPI Neurological: Negative Positive: Anxious, Depressed All Other Systems Reviewed And Are Negative: Yes Physical Exam Triage Information Reviewed: Yes Vital Signs On Initial Exam: Initial Vitals Temp Pulse Resp BP Pulse Ox 98.8 F 62 16 130/61 94 05/31/17 15:08 05/31/17 15:08 05/31/17 15:08 05/31/17 15:08 05/31/17 15:08 Vital Signs Reviewed: Yes Appearance: Positive: Well-Appearing, Well-Nourished Skin: Positive: Warm, Skin Color Reflects Adequate Perfusion Head/Face: Positive: Normal Head/Face Inspection Eyes: Positive: EOMI, SABRA, Conjunctiva Clear Neck: Positive: Supple, No Lymphadenopathy Respiratory/Lung Sounds: Positive: Clear to Auscultation, Breath Sounds Present Cardiovascular: Positive: RRR Musculoskeletal: Positive: Normal, Strength/ROM Intact Neurological: Positive: Speech Normal Psychiatric: Positive: Anxious, Depressed AVPU Assessment: Alert - Brigette Coma Scale Coma Scale Total: 15 Diagnostics - Vital Signs Vital Signs Temp Pulse Resp BP Pulse Ox 05/31/17 15:08 98.8 F 62 16 130/61 94 - Laboratory Result Diagrams: 05/31/17 15:57 05/31/17 15:57 Lab Statement: Any lab studies that have been ordered have been reviewed, and results considered in the medical decision making process. Course/Dx - Course Course Of Treatment: During the course of treatment, patient is evaluated for depression, anxiety and ETOH use. Alcohol level is 330. She will be clinically sober at 1:30am. Signed out to Elo Reyes PA-C pending clinical sober and [facility]. - Differential Dx/Clinical Impression Provider Diagnosis: ETOH abuse, Suicidal ideation Discharge - Discharge Plan Condition: Stable Disposition: OTHER Discharge Disposition Comment: Signed out to Elo Reyes PA-C at shift change Referrals: Sheila Liao [facility] [Primary Care Provider] -
[2017-05-31 16:11] LABS: Hematocrit 41 % (35-47); Hemoglobin 13.9 g/dl (12.0-16.0); Mean Corpuscular HGB Conc 34 g/dl (31-36); Mean Corpuscular Hemoglobin 32 pg (27-31); Mean Corpuscular Volume 96 fL (80-97); Mean Platelet Volume 8 um3 (7.4-10.4); Platelet Count 321 10^3/ul (150-450); Red Blood Count 4.29 10^6/ul (4.0-5.4); Red Cell Distribution Width 14 % (10.5-15); White Blood Count 4.5 10^3/ul (3.5-10.8)
[2017-05-31 16:21] LABS: EGFR Non-African American 90.7 (>60)
[2017-05-31 16:33] LABS: ABS Basophils 0 10^3/ul (0-0.2); ABS Eosinophils 0 10^3/ul (0-0.6); ABS Lymphocytes 2.8 10^3/ul (1.0-4.8); ABS Monocytes 0.5 10^3/ul (0-0.8); ABS Neutrophils 1.1 10^3/ul (1.5-7.7); ABS Nucleated RBC 0 10^3/ul; Eosinophil % 1.1 % (0-6); Lymphocyte % 62.7 % (25-47); Nucleated Red Blood Cells % 0.2
[2017-05-31 17:03] LABS: Urine Appearance Clear; Urine Blood 1+ (Negative); Urine Color Colorless; Urine Ketones Negative (Negative); Urine Protein Negative (Negative); Urine Specific Gravity 1.004 (1.010-1.030); Urine Urobilinogen Negative (Negative)
[2017-06-01] MEDS ORDERED: Ondansetron ODT TAB* 4 MG PO ONE (00:39)
[2017-06-01] MEDS ORDERED: LORazepam TAB(*) 1 MG PO ONE (00:40)
--- NOTE | 2017-06-01 01:57 | PN ---
Progress Note - Progress Note Date of Service: 06/01/17 Note: patient signed out by Sharon EVANS pending [facility] patient medically clear at 01:30. patient is still pending [facility]. patient will be signed out to dr aceves pending such Diagnosis:ETOH intoxication, depression Condition:Stable Dispo: signed out to dr aceves pending E
[2017-06-01] MEDS ORDERED: Mouth Piece, Nicotine* 1 EACH CARTRIDGE INH SCH (09:40)
[2017-06-01] MEDS ORDERED: Al Hydrox/Mg Hydrox/Simet LIQ* 30 ML UDC PO PRN (09:40)
[2017-06-01] MEDS ORDERED: Nicotine GUM* 2 MG PO PRN (09:40)
[2017-06-01] MEDS: Vitamin THERAPEUTIC TAB PO SCH (10:47)
[2017-06-01] MEDS: metFORMIN* 500 MG TAB PO SCH ×2 (10:47→17:00)
[2017-06-01] MEDS: Docusate CAP* 100 MG PO SCH (10:47)
[2017-06-01] MEDS: Omeprazole CAP* 20 MG PO SCH ×2 (10:47→17:00)
[2017-06-01] MEDS: Calcium/Vitamin D TAB 250/125* TAB PO SCH (10:49)
[2017-06-01] MEDS: FLUoxetine CAP* 20 MG PO SCH (11:54)
[2017-06-01] MEDS: Nicotine Inhaler* 10 MG AMP INH PRN (11:56)
[2017-06-01] MEDS ORDERED: Mouth Piece, Nicotine* 1 EACH CARTRIDGE ONE (11:58)
[2017-06-01] MEDS: Divalproex ER TAB(*) 500 MG PO SCH (20:38)
--- NOTE | 2017-06-01 21:57 | HP ---
HISTORY AND PHYSICAL: DATE OF ADMISSION: 06/01/17 IDENTIFYING DATA: Ms. Hauser is a 56-year-old single female who was brought in by ambulance from [facility] by ambulance and she was admitted on voluntary status. CHIEF COMPLAINT: "I did not feel safe, I was depressed!" HISTORY OF PRESENT ILLNESS: The patient is known to the adult inpatient psychiatric unit from previous admissions. She has diagnoses of bipolar disorder and alcohol dependence. She was last admitted here from 12/04/16 to and she was discharged with referral back to [facility] and to [facility]. The patient relates that she was doing relatively well until her mother's health declined in April and she of complications of Parkinson's disease on 05/21/17. The patient reports that she relapsed in drinking alcohol and was consistently drinking a pint of vodka daily and not taking her medications as prescribed. She became increasingly depressed, started having thoughts of suicide, "found herself playing with a knife.". She endorses poor sleep, decreased appetite, low energy, impaired attention and concentration, and feelings of emptiness. The patient asserts that yesterday she felt increasingly unsafe and told staff from [facility] and they called ambulance to have her brought to the hospital. REVIEW OF PSYCHIATRIC SYMPTOMS: In addition to the previously described symptoms, the patient has diagnosis of bipolar disorder and reports having had periods of dariel with insomnia, decreased need for sleep, irritability, mood lability, racing thoughts, and engagement in spending and feeling extremely creative, she gave example of once spending 48 hours straight on an artwork. The patient described historical diagnosis of ADHD, endorses difficulty concentrating, forgetfulness, procrastination, difficulty initiating and completing task, and organizing and prioritizing task. She had trial of Concerta that caused her to feel more anxious anxious and it was discontinued. The patient denied symptoms of eating disorder, history of trauma or abuse or PTSD symptoms. PAST PSYCHIATRIC HISTORY: History of previous inpatient psychiatric admissions here and at community health hospitals such as [facility] because of suicidal ideation in the context of alcohol use disorder. Outpatient care is at [facility] with psychiatric nurse practitioner, Flor Delgado and with community nurse, Lakhwinder East. The patient is currently prescribed Depakote ER 1000 mg at bedtime, Fluoxetine 60 mg daily, Metformin 500 mg b.i.d. The patient freely admitted that she had not been compliant with taking prescribed medications since relapsing on alcohol. PAST SURGICAL HISTORY: Positive for complete hysterectomy because of polycystic ovarian syndrome. MEDICATION HISTORY: Has had multiple trials of medication over the years including tricyclic antidepressants, lithium, Abilify, Seroquel, benzodiazepines and Wellbutrin. SUICIDE/HOMICIDE HISTORY: The patient denies previous charleen suicide attempt. LEGAL HISTORY: The patient has a history of DWI with mandated treatment. SUBSTANCE ABUSE HISTORY: The patient reports that she began drinking alcohol as early as age 11. She has had periods of sobriety, the longest stretch of sobriety lasted 6 years. She drinks an average of 1 pint of vodka often to the point of intoxication. She has had multiple residential treatment episodes including [facility]. She has been enrolled in and has had multiple detoxes. She denies the use of any other illicit drugs. She smokes cigarettes, however. FAMILY HISTORY: The patient reports family history of Alzheimer's dementia in her father. Her mother recently from complications of Parkinson's disease. The patient is aware that both her parents suffered from depression. The patient's maternal cousin attempted suicide by overdose. PERSONAL AND SOCIAL HISTORY: The patient has never been , has no children. She was born in [facility] from [place] parents. She eventually moved here in [place]. She is educated to the level of a bachelor's degree in human development. She self-identified as lesbian. She was in a 20-year relationship with a female partner who . Her mother recently . She has had multiple jobs in the past. 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 She has been on mental disability since after her most recent discharge here. The patient reports spending her time keeping appointments at [facility], [facility], attending meetings, spending time with relatives. She also enjoys spending time alone. REVIEW OF MEDICAL SYMPTOMS: Remarkable for GERD. She denies any other active medical problems, any history of head trauma with loss of consciousness, seizures or surgery. She take omeprazole 20 mg daily for GERD. PHYSICAL EXAMINATION GENERAL: She is a well-appearing 56-year-old female, who does not appear to be in any acute physical distress. She is alert and oriented x3. VITAL SIGNS: Admission vital signs; blood pressure is 130/61, pulse is 62, respirations 16, and temperature 98.8. HEENT: Head: Atraumatic, normocephalic, symmetrical. Eyes: PERRLA. Tympanic membranes intact. Sclerae anicteric. Conjunctivae clear. NECK: Trachea is midline. Freely mobile. No cervical lymphadenopathy. No nuchal rigidity. LUNGS: Clear to auscultation bilaterally. HEART: Regular rate and rhythm. S1, S2. No murmurs, gallops, or rubs. BREASTS: Exam not performed. ABDOMEN: Soft, nontender. No masses, organomegaly or rebound tenderness. Active bowel sounds in all 4 quadrants. EXTREMITIES: No clubbing, cyanosis, edema, or varicosities noted. Pulses are equal and adequate in all 4 extremities. GENITALIA: Exam not performed. RECTAL: Exam not performed. NEUROLOGIC: Cranial nerves II through XII intact. Cerebellar function intact. Muscle strength grade 5/5 in all 4 extremities. STRUCTURAL EXAM: The patient examined in both supine and upright positions. No gross AP or lateral asymmetry. Gait and movement are within normal limits. SKIN: Skin texture, turgor, and pigmentation are within normal limits. MENTAL STATUS EXAMINATION: Find a 56-year-old female with curly graying hair who looks her stated age. She is adequately groomed, causally dressed. She makes good eye contact. She is well related and cooperative. She exhibits normal psychomotor activity. No abnormal movements are observed. Speech is spontaneous, normal rate, rhythm and volume. Her affect is constricted. Mood is depressed. Thoughts are linear and goal directed. No evidence of formal thought disorder. No overt delusions. She denies auditory or visual hallucinations. The patient denies active suicidal ideation or urges to self-mutilate and she contracts for safety. Her insight and judgment are fair. Impulse control is good in this setting. She is alert. She is oriented to time, place, person. Attention, memory and concentration are all fair. SUMMARY: A 56-year-old female with history of alcohol dependence, bipolar disorder who was referred by her facility because of worsening depressive symptoms and suicidal ideation in the context of relapsing on alcohol. Medical history is remarkable for GERD. The patient reports family history of depression in both her parents and 1 suicide attempt in a cousin. She described stressors of recent of her biological mother, of her long time partner of 20 years, impact of alcohol abuse and feeling socially isolated. DIAGNOSTIC IMPRESSION: Alcohol use disorder onset during intoxication. Bipolar disorder, unspecified. History of Attention deficit/hyperactivity disorder. TREATMENT PLAN: Admit to mental health unit. 15-minute checks. Full code status. Legal status is voluntary. Initiate comprehensive milieu, individual, and group psychotherapeutic support. The patient should be encouraged to attend [facility] programming. Discharge planning will involve coordination of her aftercare with [facility] and [facility]. [id number]/[id number] #: [id number] MARCIAL
[2017-06-02] MEDS: Omeprazole CAP* 20 MG PO SCH ×2 (08:06→16:46)
[2017-06-02] MEDS: metFORMIN* 500 MG TAB PO SCH ×2 (08:38→16:46)
[2017-06-02] MEDS: Vitamin THERAPEUTIC TAB PO SCH (08:39)
[2017-06-02] MEDS: Docusate CAP* 100 MG PO SCH (08:39)
[2017-06-02] MEDS: Calcium/Vitamin D TAB 250/125* TAB PO SCH (08:39)
[2017-06-02] MEDS: FLUoxetine CAP* 20 MG PO SCH (08:39)
[2017-06-02] MEDS: Divalproex ER TAB(*) 500 MG PO SCH (20:57)
[2017-06-03] MEDS: Acetaminophen TAB* 325 MG PO PRN (03:55)
[2017-06-03] MEDS: metFORMIN* 500 MG TAB PO SCH ×2 (08:14→16:35)
[2017-06-03] MEDS: FLUoxetine CAP* 20 MG PO SCH (08:14)
[2017-06-03] MEDS: Vitamin THERAPEUTIC TAB PO SCH (08:14)
[2017-06-03] MEDS: Omeprazole CAP* 20 MG PO SCH ×2 (08:14→16:35)
[2017-06-03] MEDS: Calcium/Vitamin D TAB 250/125* TAB PO SCH (08:14)
[2017-06-03] MEDS: Docusate CAP* 100 MG PO SCH (08:15)
--- NOTE | 2017-06-03 11:40 | PN ---
Subjective - Subjective Date of Service: 06/03/17 Subjective: Psychiatric Attending Progress Note: Chart Reviewed including Dr. Miller's detailed H and P patient interviewed. Patient is a 57 yo single woman living alone in [address] half [address] house with a history of alcohol dependence, Bipolar Disorder, GERD, followed at [facility] who was admitted with worsening depression, SI, relapse of alcohol use after many months of sobriety in the context of non compliance with psychiatric medication X2 weeks. Major stressor is of mother on May 22, 2016. Patient spent sophia with mother and extended family in [facility] which is last time she saw mother. History of several hospitalizations in past for depression no charleen suicide attempts. current meds: prozac 60 mg, depakote ER 1000 mg. patient reports history of ADHD which responded to treatment with concerta which she took for several years, stopped and then restarted in past year but couldn' t tolerate. patient reports longstanding concentration, attention, organizational difficulties. medical history of GERD and also on Metformen for prediabetes. otherwise healthy. no drug use. Objective - Appearance Appearance: Well Developed/Nourished Dysmorphic Features: No Hygiene: Normal Grooming: Well Kept - Behavior Psychomotor Activities: Normal Exhibits Abnormal Movement: No - Attitude and Relatedness Attitude and Relatedness: Cooperative Eye Contact: Good - Speech Quality: Unpressured Latencies: Normal Quantity: Appropriate - Mood Patient's Decription of Mood: "Sad" - Affect Observed Affect: Depressed - Thought Process Patient's Thought Process: Coherent Thought Content: Yes Passive Wish, No Suicidal Planning, No Homicidal Ideation, No Paranoid Ideation - Sensorium Experiencing Hallucinations: No, Sensorium is Clear Type of Hallucinations: Visual: No, Auditory: No, Command: No - Level of Consciousness Level of Consciousness: Alert Orientation: Yes Intact, Yes Orientated to Time, Yes Orientated to Place, Yes Orientated to Person - Impulse Control Impulse Control: Intact - Insight and Judgement Insight and Judgement: Good - Group Participation Particating in Group Activities: Yes - Medication Management Medication Management Adherence: Yes Assessment - Assessment Merits Inpatient Hospitalization: For Stabilization Inpatient DSM-IV Dx: alcohol dependence. bipolar disorder most recent episode depressed without psychotic features. ADHD inattentive type Plan - Plan Treatment Plan: Plan: Depakote ER 1000 mg qhs Prozac 60 mg QHS will get VPA level metformin nicotine replacement ordered omeprazole Add Strattera 25 mg and titrate up patient has passive SI but contracts for safety. she can be on q 15 min checks for now individual and groups therapies milieu will check b12, folate, thyroid function tests discharge planning
[2017-06-03] MEDS: Nicotine Inhaler* 10 MG AMP INH PRN (16:36)
[2017-06-03] MEDS: Divalproex ER TAB(*) 500 MG PO SCH (21:30)
[2017-06-04] MEDS: Omeprazole CAP* 20 MG PO SCH ×2 (06:30→17:20)
[2017-06-04] MEDS: Acetaminophen TAB* 325 MG PO PRN (06:30)
[2017-06-04] MEDS: metFORMIN* 500 MG TAB PO SCH ×2 (08:29→17:20)
[2017-06-04] MEDS: Docusate CAP* 100 MG PO SCH (08:29)
[2017-06-04] MEDS: Calcium/Vitamin D TAB 250/125* TAB PO SCH (08:29)
[2017-06-04] MEDS: Vitamin THERAPEUTIC TAB PO SCH (08:29)
[2017-06-04] MEDS: FLUoxetine CAP* 20 MG PO SCH (08:30)
[2017-06-04] MEDS ORDERED: ATOMOXETINE 40 MG PO SCH (09:00)
--- NOTE | 2017-06-04 11:32 | PN ---
MHU: Group Therapy Note - Service Type Service Type: [id number] Group Psychotherapy - Cognitive Behavioral Group Therapy ( CBT):Patient was attentive and participatory in CBT programming this morning, and remained in good behavioral control. Patient expressed positive insights regarding relevant treatment interventions and goals.
[2017-06-04] MEDS ORDERED: Gabapentin CAP(*) 100 MG PO PRN ×2 (11:46→11:49)
[2017-06-04] MEDS ORDERED: LORazepam TAB(*) 1 MG PO PRN (11:48)
[2017-06-04] MEDS: LORazepam TAB(*) 1 MG PO PRN ×2 (14:07→20:31)
--- NOTE | 2017-06-04 15:41 | PN ---
Subjective - Subjective Subjective: Psychiatric Attending Progress Note attended groups, compliant with medication, felt anxious suddenly about 11 AM during group it did subside mostly but still lingering anxietythis afternoon. Objective - Appearance Appearance: Well Developed/Nourished Dysmorphic Features: No Hygiene: Normal Grooming: Well Kept - Behavior Psychomotor Activities: Normal Exhibits Abnormal Movement: No - Attitude and Relatedness Attitude and Relatedness: Cooperative Eye Contact: Good - Speech Quality: Unpressured Latencies: Normal Quantity: Appropriate - Mood Patient's Decription of Mood: "Anxious" - Affect Observed Affect: Depressed - diminished variability, low amplitude, sad Affect Consistent with: Dysphoria - Thought Process Patient's Thought Process: Coherent Thought Content: No Passive Wish - denies having SI today, No Suicidal Planning, No Homicidal Ideation, No Paranoid Ideation - Sensorium Experiencing Hallucinations: No, Sensorium is Clear Type of Hallucinations: Visual: No, Auditory: No, Command: No - Level of Consciousness Level of Consciousness: Alert - Impulse Control Impulse Control: Intact - Insight and Judgement Insight and Judgement: Good - Group Participation Particating in Group Activities: Yes - Medication Management Medication Management Adherence: Yes Assessment - Assessment Merits Inpatient Hospitalization: For Stabilization, Consolidate Improvements, For Discharge Planning Inpatient DSM-IV Dx: alcohol dependence. bipolar disorder most recent episode depressed without psychotic features. ADHD inattentive type Plan - Plan Treatment Plan: Plan: Depakote ER 1000 mg qhs Prozac 60 mg QHS will get VPA level metformin nicotine replacement ordered omeprazole Strattera 25 mg QD will move patient to q30 min with staff pass as SI has remitted individual and groups therapies milieu will check b12, folate, thyroid function tests discharge planning
[2017-06-04] MEDS: Divalproex ER TAB(*) 500 MG PO SCH (20:30)
[2017-06-05] MEDS: FLUoxetine CAP* 20 MG PO SCH (08:01)
[2017-06-05] MEDS: Omeprazole CAP* 20 MG PO SCH ×2 (08:02→16:08)
[2017-06-05] MEDS: Docusate CAP* 100 MG PO SCH (08:02)
[2017-06-05] MEDS: Vitamin THERAPEUTIC TAB PO SCH (08:02)
[2017-06-05] MEDS: metFORMIN* 500 MG TAB PO SCH ×2 (08:02→16:08)
[2017-06-05] MEDS: ATOMOXETINE 25 MG PO SCH (08:03)
[2017-06-05] MEDS: Calcium/Vitamin D TAB 250/125* TAB PO SCH (08:03)
[2017-06-05] MEDS: LORazepam TAB(*) 1 MG PO PRN ×2 (08:05→20:03)
--- NOTE | 2017-06-05 11:14 | PN ---
MHU: Group Therapy Note - Service Type Service Type: [id number] Group Psychotherapy - Cognitive Behavioral Group Therapy ( CBT):Patient was attentive and participatory in CBT programming this morning, and remained in good behavioral control. Patient expressed positive insights regarding relevant treatment interventions and goals.
--- NOTE | 2017-06-05 13:35 | PN ---
Subjective - Subjective Subjective: Psychiatric Attending progress note: patient is attending group. she is cooperative with staff. she is participating in her own treatment here. met with patient X 30 minutes today. she reports that she had no suicidal ideation today. continues to feel depressed. continues to have periods of excessive anxiety and worry. she doesn't feel that strattera is causing this. She has good appetite. she is sleeping through the night. we talked in detail about fact that it would take time for her medications to begin working as she had been off of them for quite some time. She asked about discharge but we agreed that if discharged prematurely she would likely end up back in hospital if nothing had changed. she gave informed consent to add wellbutrin SR to her antidepressant regimen after discussion of risks, benefits, and side effect profile. Objective - Appearance Appearance: Well Developed/Nourished Dysmorphic Features: No Hygiene: Normal Grooming: Well Kept - Behavior Psychomotor Activities: Abnormal-Decreased Exhibits Abnormal Movement: No - Attitude and Relatedness Attitude and Relatedness: Well Related Eye Contact: Good - Speech Quality: Unpressured Latencies: Normal Quantity: Appropriate - Mood Patient's Decription of Mood: "Anxious" - dysphoric - Affect Observed Affect: Depressed Affect Consistent with: Dysphoria - Thought Process Patient's Thought Process: Coherent Thought Content: No Passive Wish, No Suicidal Planning, No Homicidal Ideation, No Paranoid Ideation - Sensorium Experiencing Hallucinations: No, Sensorium is Clear Type of Hallucinations: Visual: No, Auditory: No, Command: No - Level of Consciousness Level of Consciousness: Alert Orientation: No Intact, No Orientated to Time, No Orientated to Place, No Orientated to Person - Impulse Control Impulse Control: Intact - Insight and Judgement Insight and Judgement: Good - Group Participation Particating in Group Activities: Yes - Medication Management Medication Management Adherence: Yes Assessment - Assessment Inpatient DSM-IV Dx: alcohol dependence. bipolar disorder most recent episode depressed without psychotic features. ADHD inattentive type Plan - Plan Treatment Plan: Plan: Depakote ER 1000 mg qhs level pending or today Prozac 60 mg QHS metformin nicotine replacement omeprazole Strattera 25 mg QD for ADHD Add Wellbutrin SR 100 mg BID for depression will move patient to q30 min with staff pass as SI has remitted individual and groups therapies milieu will check b12, folate, thyroid function tests discharge planning
[2017-06-05] MEDS: buPROPion SR TAB.SR* 100 MG PO SCH (18:38)
[2017-06-05] MEDS: Divalproex ER TAB(*) 500 MG PO SCH (20:03)
[2017-06-06] MEDS: Omeprazole CAP* 20 MG PO SCH ×2 (07:44→16:45)
[2017-06-06] MEDS: FLUoxetine CAP* 20 MG PO SCH (07:44)
[2017-06-06] MEDS: buPROPion SR TAB.SR* 100 MG PO SCH ×2 (07:44→16:45)
[2017-06-06] MEDS: Docusate CAP* 100 MG PO SCH (07:44)
[2017-06-06] MEDS: Calcium/Vitamin D TAB 250/125* TAB PO SCH (07:44)
[2017-06-06] MEDS: Vitamin THERAPEUTIC TAB PO SCH (07:44)
[2017-06-06] MEDS: metFORMIN* 500 MG TAB PO SCH ×2 (07:44→16:45)
[2017-06-06] MEDS: ATOMOXETINE 25 MG PO SCH (07:45)
--- NOTE | 2017-06-06 11:33 | PN ---
MHU: Group Therapy Note - Service Type Service Type: [id number] Group Psychotherapy - Cognitive Behavioral Group Therapy ( CBT):Patient was attentive and participatory in CBT programming this morning, and remained in good behavioral control. Patient expressed positive insights regarding relevant treatment interventions and goals.
--- NOTE | 2017-06-06 14:07 | PN ---
Subjective - Subjective Subjective: Psychiatric Attending Progress Note patient reported intermittent nausea and one episode of emesis earlier this afternoon. had some nausea and emesis yesterday as well. Likely secondary to Wellbutrin SR which was started yesterday afternoon. attending groups, cooperative with staff. reports no SI x 2 days. continues to feel very sad reports she feels tired, anhedonic, and grieving recent loss of mother. slept well last night. MSE: well developed and nourished well related good eye contact speech normal rate and volume psychomotor mildly slowed mood: dysphoric affect: sad, constricted Thought process logical goal directed Thought content: no psychotic symptoms. endorses anhedonia, anergia, amotivation, hopelessness, poor concentration, lack of interest Alert Fully oriented clear sensorium insight good. judgment intact Impression: bipolar Disorder type I currently Depressed severe without psychotic features alcohol dependence ADHD Plan - Plan Treatment Plan: Plan: Depakote ER 1000 mg qhs Level Therapeutic at 68 Prozac 60 mg QHS metformin nicotine replacement omeprazole Strattera 25 mg po QD Lower Wellbutrin SR to 100 mg po QAM as patient is having some GI side effects Start cytomel 12.5 mg QAM as antidepressant augmentation therapy individual and groups therapies milieu discharge planning
[2017-06-06] MEDS: Liothyronine TAB* 25 MCG PO SCH (15:58)
[2017-06-06] MEDS: Nicotine Inhaler* 10 MG AMP INH PRN (16:46)
[2017-06-06] MEDS: Divalproex ER TAB(*) 500 MG PO SCH (20:41)
[2017-06-07] MEDS: Omeprazole CAP* 20 MG PO SCH ×2 (08:27→17:15)
[2017-06-07] MEDS: buPROPion SR TAB.SR* 100 MG PO SCH ×2 (08:28→17:15)
[2017-06-07] MEDS: ATOMOXETINE 25 MG PO SCH (08:28)
[2017-06-07] MEDS: metFORMIN* 500 MG TAB PO SCH ×2 (08:28→17:15)
[2017-06-07] MEDS: Calcium/Vitamin D TAB 250/125* TAB PO SCH (08:28)
[2017-06-07] MEDS: Docusate CAP* 100 MG PO SCH (08:28)
[2017-06-07] MEDS: FLUoxetine CAP* 20 MG PO SCH (08:29)
[2017-06-07] MEDS: Liothyronine TAB* 25 MCG PO SCH (08:29)
[2017-06-07] MEDS: Vitamin THERAPEUTIC TAB PO SCH (08:30)
--- NOTE | 2017-06-07 08:41 | PN ---
MHU: Group Therapy Note - Service Type Service Type: [id number] Group Psychotherapy - Medication Education Group: Patient was attentive and participatory in group, and remained in good behavioral control. Patient expressed positive insights regarding relevant treatment interventions. Patient stated understanding of material discussed and had appropriate questions.
--- NOTE | 2017-06-07 08:42 | PN ---
MHU: Group Therapy Note - Service Type Service Type: [id number] Group Psychotherapy - Medication Education Group: Patient was attentive and participatory in group, and remained in good behavioral control. Patient expressed positive insights regarding relevant treatment interventions. Patient stated understanding of material discussed and had appropriate questions.
[2017-06-07] MEDS: LORazepam TAB(*) 1 MG PO PRN (11:14)
--- NOTE | 2017-06-07 11:42 | PN ---
MHU: Group Therapy Note - Service Type Service Type: [id number] Group Psychotherapy - Cognitive Behavioral Group Therapy ( CBT):Patient was attentive and participatory in CBT programming this morning, and remained in good behavioral control. Patient expressed positive insights regarding relevant treatment interventions and goals.
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
[2017-06-07] MEDS: Divalproex ER TAB(*) 500 MG PO SCH (20:06)
[2017-06-08] MEDS: Omeprazole CAP* 20 MG PO SCH ×2 (07:40→16:42)
[2017-06-08] MEDS: metFORMIN* 500 MG TAB PO SCH ×2 (07:43→16:42)
[2017-06-08] MEDS: buPROPion SR TAB.SR* 100 MG PO SCH ×2 (07:43→16:42)
[2017-06-08] MEDS: Nicotine Inhaler* 10 MG AMP INH PRN ×3 (07:43→20:28)
[2017-06-08] MEDS: Vitamin THERAPEUTIC TAB PO SCH (08:43)
[2017-06-08] MEDS: FLUoxetine CAP* 20 MG PO SCH (08:44)
[2017-06-08] MEDS: Docusate CAP* 100 MG PO SCH (08:44)
[2017-06-08] MEDS: Liothyronine TAB* 25 MCG PO SCH (08:45)
[2017-06-08] MEDS: Calcium/Vitamin D TAB 250/125* TAB PO SCH (08:45)
[2017-06-08] MEDS: ATOMOXETINE 25 MG PO SCH (08:45)
[2017-06-08] MEDS: Divalproex ER TAB(*) 500 MG PO SCH (20:26)
[2017-06-09] MEDS: LORazepam TAB(*) 1 MG PO PRN ×3 (00:30→20:59)
[2017-06-09] MEDS: Omeprazole CAP* 20 MG PO SCH ×2 (07:41→16:31)
[2017-06-09] MEDS: metFORMIN* 500 MG TAB PO SCH ×2 (07:42→16:31)
[2017-06-09] MEDS: ATOMOXETINE 25 MG PO SCH (08:12)
[2017-06-09] MEDS: Docusate CAP* 100 MG PO SCH (08:12)
[2017-06-09] MEDS: buPROPion SR TAB.SR* 100 MG PO SCH ×2 (08:12→16:31)
[2017-06-09] MEDS: FLUoxetine CAP* 20 MG PO SCH (08:12)
[2017-06-09] MEDS: Vitamin THERAPEUTIC TAB PO SCH (08:12)
[2017-06-09] MEDS: Calcium/Vitamin D TAB 250/125* TAB PO SCH (08:13)
[2017-06-09] MEDS: Liothyronine TAB* 25 MCG PO SCH (08:13)
[2017-06-09] MEDS: Nicotine Inhaler* 10 MG AMP INH PRN ×2 (08:17→11:47)
[2017-06-09] MEDS: Divalproex ER TAB(*) 500 MG PO SCH (20:57)
[2017-06-10] MEDS: Nicotine Inhaler* 10 MG AMP INH PRN ×3 (06:00→16:10)
[2017-06-10] MEDS: LORazepam TAB(*) 1 MG PO PRN (06:00)
[2017-06-10] MEDS: FLUoxetine CAP* 20 MG PO SCH (08:22)
[2017-06-10] MEDS: Liothyronine TAB* 25 MCG PO SCH (08:22)
[2017-06-10] MEDS: buPROPion SR TAB.SR* 100 MG PO SCH ×2 (08:22→17:14)
[2017-06-10] MEDS: Docusate CAP* 100 MG PO SCH (08:23)
[2017-06-10] MEDS: Calcium/Vitamin D TAB 250/125* TAB PO SCH (08:23)
[2017-06-10] MEDS: Vitamin THERAPEUTIC TAB PO SCH (08:24)
[2017-06-10] MEDS: Omeprazole CAP* 20 MG PO SCH ×2 (08:24→17:14)
[2017-06-10] MEDS: ATOMOXETINE 25 MG PO SCH (08:24)
[2017-06-10] MEDS: metFORMIN* 500 MG TAB PO SCH ×2 (08:24→17:14)
--- NOTE | 2017-06-10 12:42 | PN ---
Subjective - Subjective Subjective: Psychiatric Attending Progress Note: Attended groups over weekend. remains dysphoric and anxious. Came to realization over weekend that she is not ready to return home as she feels strong urge to drink and feels she would relapse if she returned home. patient expressed strong desire to go for a 30 day alcohol rehabilitation program. no further emesis or nausea. patient would like to continue current medication regimen. Objective - Appearance Appearance: Well Developed/Nourished Dysmorphic Features: No Hygiene: Normal Grooming: Fairly Well Kept - Behavior Psychomotor Activities: Abnormal-Decreased Exhibits Abnormal Movement: No - Attitude and Relatedness Attitude and Relatedness: Withdrawn Eye Contact: Fair - Speech Quality: Unpressured Latencies: Normal Quantity: Terse - Mood Patient's Decription of Mood: "Anxious" - reports she is still feeling sad as well - Affect Observed Affect: Depressed Affect Consistent with: Dysphoria - Thought Process Patient's Thought Process: Coherent, Goal Directed Thought Content: No Passive Wish, No Suicidal Planning, No Homicidal Ideation, No Paranoid Ideation - Sensorium Experiencing Hallucinations: No, Sensorium is Clear Type of Hallucinations: Visual: No, Auditory: No, Command: No - Level of Consciousness Level of Consciousness: Alert Orientation: Yes Intact, Yes Orientated to Time, Yes Orientated to Place, Yes Orientated to Person - Impulse Control Impulse Control: Intact - Insight and Judgement Insight and Judgement: Good - Group Participation Particating in Group Activities: Yes - Medication Management Medication Management Adherence: Yes Assessment - Assessment Merits Inpatient Hospitalization: For Stabilization, For Discharge Planning Inpatient DSM-IV Dx: alcohol dependence. bipolar disorder most recent episode depressed without psychotic features. ADHD inattentive type Plan - Plan Treatment Plan: Plan: Depakote ER 1000 mg qhs Level Therapeutic at 68 Prozac 60 mg QHS metformin nicotine replacement omeprazole Strattera 40 mg QAM Wellbutrin SR 150 mg po QAM continue cytomel 12.5 mg QAM as antidepressant augmentation therapy d/c ativan prn start Chlorpromazine 10 mg Q4h prn anxiety give Hydroxyzine 50 mg and Chlorpromazine 10 mg together for severe anxiety individual and groups therapies milieu discharge planning
[2017-06-10] MEDS: chlorproMAZINE TAB* 10 MG PO PRN (17:15)
[2017-06-10] MEDS: Divalproex ER TAB(*) 500 MG PO SCH (21:42)
[2017-06-10] MEDS: hydrOXYzine HCL TAB* 50 MG PO PRN (21:42)
[2017-06-11] MEDS: hydrOXYzine HCL TAB* 50 MG PO PRN ×3 (04:04→21:27)
[2017-06-11] MEDS: Nicotine Inhaler* 10 MG AMP INH PRN ×4 (04:04→20:44)
[2017-06-11] MEDS: chlorproMAZINE TAB* 10 MG PO PRN ×3 (04:18→21:27)
[2017-06-11] MEDS: buPROPion SR TAB.SR* 100 MG PO SCH ×2 (07:43→17:19)
[2017-06-11] MEDS: Docusate CAP* 100 MG PO SCH (07:43)
[2017-06-11] MEDS: FLUoxetine CAP* 20 MG PO SCH (07:43)
[2017-06-11] MEDS: Calcium/Vitamin D TAB 250/125* TAB PO SCH (07:43)
[2017-06-11] MEDS: Liothyronine TAB* 25 MCG PO SCH (07:43)
[2017-06-11] MEDS: Vitamin THERAPEUTIC TAB PO SCH (07:44)
[2017-06-11] MEDS: metFORMIN* 500 MG TAB PO SCH ×2 (07:44→17:19)
[2017-06-11] MEDS: Omeprazole CAP* 20 MG PO SCH ×2 (07:44→16:11)
[2017-06-11] MEDS: CMCS:Atomoxetine (NF) 40 MG CAP PO SCH (07:44)
--- NOTE | 2017-06-11 11:23 | PN ---
MHU: Group Therapy Note - Service Type Service Type: [id number] Group Psychotherapy - Cognitive Behavioral Group Therapy ( CBT):Patient was attentive and participatory in CBT programming this morning, and remained in good behavioral control. Patient expressed positive insights regarding relevant treatment interventions and goals.
--- NOTE | 2017-06-11 15:06 | PN ---
Subjective - Subjective Subjective: Psychiatric Attending Progress Note: no complaints. no reports of side effects. patient told me that she is looking forward to discharge and transfer to [facility] for alcohol rehabiliation stay. MSE: well developed and nourished. patient is well related. she remains somewhat dysphoric and anxious about her discharge Thought process: organized Thought Content denies suicidal ideation, intent or plan denies Ah,VH,HI, delusions, paranoia Alert and fully oriented insight and judgment intact Impression: Bipolar Disorder type I currently Depressed moderate without psychotic symptoms Alcohol Use Disorder ADHD inattentive type Plan: Depakote ER 1000 mg qhs Level Therapeutic at 68 one week ago Prozac 60 mg QHS metformin nicotine replacement omeprazole Strattera 40 mg QAM Wellbutrin SR 100 mg po BID Increase cytomel to 25 mcg QAM as antidepressant augmentation therapy Chlorpromazine 10 mg Q4h prn anxiety Hydroxyzine 50 mg and Chlorpromazine 10 mg together for severe anxiety individual and groups therapies milieu discharge will be tomorrow. patient will be transferring to [facility] alcohol rehabilitation program
[2017-06-11] MEDS: Divalproex ER TAB(*) 500 MG PO SCH (20:45)
[2017-06-12] MEDS: Omeprazole CAP* 20 MG PO SCH (07:52)
[2017-06-12] MEDS: metFORMIN* 500 MG TAB PO SCH (07:53)
[2017-06-12] MEDS: buPROPion SR TAB.SR* 100 MG PO SCH (07:54)
[2017-06-12 08:11] VITALS: BP 134/55
[2017-06-12] MEDS: Nicotine Inhaler* 10 MG AMP INH PRN (09:19)
[2017-06-12] MEDS: Docusate CAP* 100 MG PO SCH (09:20)
[2017-06-12] MEDS: FLUoxetine CAP* 20 MG PO SCH (09:20)
[2017-06-12] MEDS: Vitamin THERAPEUTIC TAB PO SCH (09:20)
[2017-06-12] MEDS: Calcium/Vitamin D TAB 250/125* TAB PO SCH (09:21)
[2017-06-12] MEDS: Liothyronine TAB* 25 MCG PO SCH (09:22)
[2017-06-12] MEDS: CMCS:Atomoxetine (NF) 40 MG CAP PO SCH (09:22)
[2017-06-12] MEDS: chlorproMAZINE TAB* 10 MG PO PRN (09:23)
--- NOTE | 2017-06-12 09:46 | DCNOTE ---
Subjective - Subjective Subjective: DISCHARGE SUMMARY PATIENT: Sydney Hauser : 08/02/1969 AGE: 56 PROVIDER: Ronald Burgos DO DATE OF ADMISSION: 06/01/2017 DATE OF DISCHARGE: 06/12/2017 DISCHARGE DIAGNOSES: Bipolar Disorder current episode Depressed without psychotic features Alcohol Dependence ADHD unspecified Bereavement CONDITION AT THE TIME OF DISCHARGE: Stable MENTAL STATUS EXAM AT DISCHARGE: reveals well developed and nourished 56 yo woman who looks stated age. Patient is well related and makes good eye contact. psychomotor behavior is within normal limits. Speech: normal rate, volume, rhythm, spontaneity and fluency. Mood: anxious/ dysphoric Affect: reactive, mildly constricted but no blunting. congruent with mood. Thought process is goal directed, coherent and organized. Thought content reveals no evidence of psychotic symptoms. Patient denies auditory and visual hallucinations. Patient denies suicidal ideation, intent or plan. no evidence of delusions, paranoia, obsessions, or compulsions. Patient reported that she was looking forward to the next phase of her treatment. She verbalized wanting very much to remain sober. She also reported that she feels the medication changes made during this hospital stay were helping her as she felt more motivated, improved energy, less anxious and no longer had suicidal thoughts. Patient is alert and fully oriented in all spheres at time of discharge. Her insight and judgment were good. DISCHARGE INSTRUCTIONS: A. MEDICATIONS: Atomoxetine 40 mg PO QAM Wellbutrin Sr Tab 100 mg PO BID (9 am and 5 PM) Oscal D Tab 250/125*) 1 tab PO QAM Chlorpromazine HCl 10 mg PO Q4H PRN anxiety (to be given with Hydroxyzine 50 mg) Nicotine Mouth Piece Depakote Er Tab 1,000 mg PO QHS Colace 100 mg PO QAM Fluoxetine HCl 60 mg PO QAM Hydroxyzine HCl 50 mg PO Q4H prn anxiety (to be given with chlorpromazine 10 mg) Cytomel Tab 25 mcg PO QAM Metformin HCl 500 mg PO BID WITH MEALS Multivitamins 1 tab PO QAM Nicotine (Nicotine Inhaler*) 10 mg INH Q2H PRN craving Nicotine Polacrilex (Nicotine Gum*) 2 mg PO Q2H PRN craving Omeprazole 20 mg PO BID B. DIET: Regular C. ACTIVITIES: TOLERATED NICOTINE REPLACEMENT THERAPY WAS PRESCRIBED FOR PATIENT AT TIME OF DISCHARGE. PATIENT WAS ALSO GIVEN THE [facility] QUITLINE WHICH IS [phone] THERE ARE NO LABORATORY OR DIAGNOSTIC STUDIES PENDING AT THE TIME OF DISCHARGE. D. FOLLOW UP CARE: [facility] after completion of inpatient rehab. program Follow up with [facility] for psychiatric medication management after completion of inpatient rehab program Follow up with human resources office manager Radha Estrada Follow up with PCP Sheila Liao Appointments for above to be made by Kaden Kaplan upon discharge from that facility E. SUBSTANCE ABUSE FOLLOWUP: Patient is transferring to inpatient substance abuse rehabilitation facility HOSPITAL COURSE: PART A. IDENTIFYING DATA: Ms. Hauser is a 56-year-old single female who was brought in by ambulance from [facility] by ambulance and she was admitted on voluntary status. CHIEF COMPLAINT: "I did not feel safe, I was depressed!" HISTORY OF PRESENT ILLNESS: The patient is known to the adult inpatient psychiatric unit from previous admissions. She has diagnoses of bipolar disorder and alcohol dependence. She was last admitted here from to 12/18/16 and she was discharged with referral back to [facility] and to [facility]. The patient relates that she was doing relatively well until her mother's health declined in April and she of complications of Parkinson's disease on 05/21/17. The patient reports that she relapsed in drinking alcohol and was consistently drinking a pint of vodka daily and not taking her medications as prescribed. She became increasingly depressed, started having thoughts of suicide, "found herself playing with a knife.". She endorses poor sleep, decreased appetite, low energy, impaired attention and concentration, and feelings of emptiness. The patient asserts that yesterday she felt increasingly unsafe and told staff from [facility] and they called ambulance to have her brought to the hospital. REVIEW OF PSYCHIATRIC SYMPTOMS: In addition to the previously described symptoms, the patient has diagnosis of bipolar disorder and reports having had periods of dariel with insomnia, decreased need for sleep, irritability, mood lability, racing thoughts, and engagement in spending and feeling extremely creative, she gave example of once spending 48 hours straight on an artwork. The patient described historical diagnosis of ADHD, endorses difficulty concentrating, forgetfulness, procrastination, difficulty initiating and completing task, and organizing and prioritizing task. She had trial of Concerta that caused her to feel more anxious anxious and it was discontinued. The patient denied symptoms of eating disorder, history of trauma or abuse or PTSD symptoms. PAST PSYCHIATRIC HISTORY: History of previous inpatient psychiatric admissions here and at [facility] hospitals such as [facility] because of suicidal ideation in the context of alcohol use disorder. Outpatient care is at [facility] with psychiatric nurse practitioner, Flor Delgado and with community nurse, Lakhwinder East. The patient is currently prescribed Depakote ER 1000 mg at bedtime, Fluoxetine 60 mg daily, Metformin 500 mg b.i.d. The patient freely admitted that she had not been compliant with taking prescribed medications since relapsing on alcohol. PAST SURGICAL HISTORY: Positive for complete hysterectomy because of polycystic ovarian syndrome. MEDICATION HISTORY: Has had multiple trials of medication over the years including tricyclic antidepressants, lithium, Abilify, Seroquel, benzodiazepines and Wellbutrin. SUICIDE/HOMICIDE HISTORY: The patient denies previous charleen suicide attempt. LEGAL HISTORY: The patient has a history of DWI with mandated treatment. SUBSTANCE ABUSE HISTORY: The patient reports that she began drinking alcohol as early as age 11. She has had periods of sobriety, the longest stretch of sobriety lasted 6 years. She drinks an average of 1 pint of vodka often to the point of intoxication. She has had multiple residential treatment episodes including [facility]. She has been enrolled in and has had multiple detoxes. She denies the use of any other illicit drugs. She smokes cigarettes, however. FAMILY HISTORY: The patient reports family history of Alzheimer's dementia in her father. Her mother recently from complications of Parkinson's disease. The patient is aware that both her parents suffered from depression. The patient's maternal cousin attempted suicide by overdose. PERSONAL AND SOCIAL HISTORY: The patient has never been , has no children. She was born in [facility] from [place] parents. She eventually moved here in [place]. She is educated to the level of a bachelor's degree in human development. She self-identified as lesbian. She was in a 20-year relationship with a female partner who . Her mother recently . She has had multiple jobs in the past. 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 She has been on mental disability since after her most recent discharge here. The patient reports spending her time keeping appointments at [facility], [facility], attending AA meetings, spending time with relatives. She also enjoys spending time alone. REVIEW OF MEDICAL SYMPTOMS: Remarkable for GERD. She denies any other active medical problems, any history of head trauma with loss of consciousness, seizures or surgery. She take omeprazole 20 mg daily for GERD. HOSPITAL COURSE : PART B PSYCHIATRIC TREATMENT RENDERED: Patient received comlete medical evaluation by hospitalist and was cleared medically for admission to the Behavioral Health Unit. Patient was admitted on Q 15 minute observation on a voluntary status and was advance to Q30 min with staff passes as her mental status improved. Patient was integrated into the milieu and was afforded individual and group therapy by the unit's multidisciplinary staff. Patient was cooperative and participated actively in her own treatment plan and recovery while on the unit. Patient tended to stay to herself early on in the stay but subsequently socialized more with other patients as she became more comfortable and less anxious. Patient saw social worker psychiatric for therapy and discharge planning daily. Patient's mental status was reevaluated daily by an attending psychiatrist and medications were adjusted in order to optimize mental status and minimize side effects. Patient was continued on the following medications which she had been taken as an outpatient : Depakote ER 1000 mg qhs, Prozac 60 mg QAM, Metformen 500 mg BID, Omeprazole 20 mg BID. patient gave informed consent to add cytomel and Buproprion SR as augmentation agents to treat her depressive syndrome. These were titrated up to 25 mcg QAM and 100 mg BID respectively. In order to target longstanding attentional difficulties, distractibiilty and poor concentration patient was started on Strattera which was titrated from 25 mg to 40 mg daily in the AM. Patient received nicotine replacement in the form of a Nicotine inhaler 10 mg and nicorette gum 2 mg q2h prn craving. Patient experienced intermittent anxiety during her stay. Initially she was given ativan 1 mg prn daily but this was ultimately discontinued on hospital day number 5 and patient was treated with hydroxyzine 50 mg Q4h prn anxiety combined with Thorazine 10 mg Q4h prn anxiety (both given together) which proved effective for controlling anxiety. Patient's routine admission labs including CBC, UA, CMP were unremarkable. Thyroid function tests revealed free T4 of 0.79, Total T4 of 8.17 and TSH of 1.12. urine toxicology screen was negative for all drugs of abuse with exception of serum alcohol level of 330 on initial presentation to the ED. Patient attended groups and demonstarted desire to take part in her own treatment and to get better. As the hospital stay progressed patient's mood improved, her suicidal ideation remitted, and she verbalized improved energy, motivation, and focus. She was future oriented at time of discharge and was looking forward to admission to [facility] in order to get further help with her alcohol addiction. RONALD BURGOS DO ATTENDING PSYCHIATRIST
== END 2017-06-12 10:45 | DRG 753 ==
LOC: ED 15:05 → BSU 06-01 09:29
PROVIDERS: ADMIT Psychiatry & Neurology Psychiatry; ATTEND Psychiatry & Neurology Psychiatry
DX: F31.32 Bipolar disorder, current episode depressed, moderate (principal); R45.851 Suicidal ideations; F10.20 Alcohol dependence, uncomplicated; Y90.8 Blood alcohol level of 240 mg/100 ml or more; F90.9 Attention-deficit hyperactivity disorder, unspecified type; F17.210 Nicotine dependence, cigarettes, uncomplicated; K21.9 Gastro-esophageal reflux disease without esophagitis; Z84.89 Family history of other specified conditions; Z63.4 Disappearance and death of family member; Z81.8 Family history of other mental and behavioral disorders
CPT/HCPCS: 36415; 80053; 80164; 80307; 80320; 80329; 81003; 81015; 84436; 84439; 84443; 85025; 90853; 99222; 99231; 99232; 99233; 99238; A9270-GY; G0480

== ENCOUNTER 2017-09-18 09:08 | Inpatient (IN) | payer OTHER ==
[2017-09-18] MEDS ORDERED: LORazepam INJ* 2 MG/ML 1 ML VIAL IV PUSH ONE ×2 (09:16→15:08)
[2017-09-18] MEDS ORDERED: NS 0.9% 1000 ML* 1,000 ML IV ONE (09:16)
[2017-09-18 09:37] LABS: ABS Basophils 0.1 10^3/ul (0-0.2); ABS Eosinophils 0.1 10^3/ul (0-0.6); ABS Lymphocytes 2.8 10^3/ul (1.0-4.8); ABS Monocytes 0.5 10^3/ul (0-0.8); ABS Neutrophils 3.8 10^3/ul (1.5-7.7); ABS Nucleated RBC 0 10^3/ul; Eosinophil % 0.7 % (0-6); Hematocrit 43 % (35-47); Hemoglobin 14.7 g/dl (12.0-16.0); Lymphocyte % 38.5 % (25-47); Mean Corpuscular HGB Conc 34 g/dl (31-36); Mean Corpuscular Hemoglobin 31 pg (27-31); Mean Corpuscular Volume 92 fL (80-97); Mean Platelet Volume 6.7 um3 (7.4-10.4); Nucleated Red Blood Cells % 0.1; Platelet Count 307 10^3/ul (150-450); Red Blood Count 4.69 10^6/ul (4.0-5.4); Red Cell Distribution Width 16 % (10.5-15); White Blood Count 7.2 10^3/ul (3.5-10.8)
[2017-09-18 09:57] LABS: EGFR Non-African American 74.7 (>60)
[2017-09-18 10:32] LABS: Urine Appearance Clear; Urine Blood 2+ (Negative); Urine Color Yellow; Urine Ketones Trace (Negative); Urine Protein Negative (Negative); Urine Specific Gravity 1.016 (1.010-1.030); Urine Urobilinogen Negative (Negative)
[2017-09-18] MEDS ORDERED: Al Hydrox/Mg Hydrox/Simet LIQ* 30 ML UDC PO PRN (17:35)
[2017-09-18] MEDS ORDERED: Acetaminophen TAB* 325 MG PO PRN (17:35)
[2017-09-18] MEDS ORDERED: Multivitamins/Minerals TAB PO ONE (17:50)
[2017-09-18] MEDS ORDERED: Thiamine TAB* 100 MG TAB PO ONE (17:50)
--- NOTE | 2017-09-18 17:51 | ED ---
Turner Petersen Angela, scribed for Rangel Marino MD on 09/18/17 at 0919 . Psychiatric Complaint - HPI Summary HPI Summary: This pt is a 57 y/o female presenting to [facility] via EMS for anxiety and alcohol use. Pt reports for the past few days she has been drinking vodka. She notes that she has not been taken her medications in a couple of days because she was "too busy drinking." Pt is supposed to take Prozac, Wellbutrin, Depakote. Pt reports nausea and abdominal cramping. She notes she stopped drinking in the middle of the night, last night. Pt denies drinking alcohol every day and reports the last time she drank like this was in May 2017. Denies SI thoughts or plan, HI. She notes "I'm just tired of this." She states stressors, her mother in May 2017 and her father is in a half-way for Alzheimer's. Pt has been admitted in the past for mental health and alcohol withdrawal. She admits to being in alcohol withdrawal "a couple of times." PMHx includes depression, anxiety, bipolar disorder. Pt sees Dr. Padilla, psychiatrist, at [facility] and Lakhwinder Washington, her therapist. She is currently on disability. Pt is a current smoker. - History Of Current Complaint Hx Obtained From: Patient Onset/Duration: Lasting Days, Still Present Timing: Days Severity Currently: Severe Character: Depressed, Anxious Aggravating Factor(s): Alcohol Use Alleviating Factor(s): Nothing Associated Signs And Symptoms: Positive: Confused Related History: Positive For: Prior Psychiatric Issues, Admissions Related To Substance Abuse Has Suicidal: Denies: Thoughts, With A Plan Has Homicidal: Denies: Thoughts, With A Plan - Allergies/Home Medications Allergies/Adverse Reactions: Allergies Allergy/AdvReac Type Severity Reaction Status Date / Time codeine Allergy Rash Verified 09/18/17 15:14 Iodine and Iodide Containing Allergy Hives Verified 09/18/17 15:23 Produc lurasidone Allergy Unknown Verified 09/18/17 15:23 Reaction Details oseltamivir [From Tamiflu] Allergy Nausea And Verified 09/18/17 15:23 Vomiting Tricyclic Compounds Allergy Agitation Verified 09/18/17 15:16 contrast dye Allergy Hives Uncoded 11/23/16 22:47 Home Medications: Home Medications Atomoxetine (NF) [Strattera (NF)] 40 mg PO BEDTIME 09/18/17 [History Confirmed 09/18/17] Omeprazole CAP* [Prilosec CAP* 20 MG] 40 mg PO DAILY 09/18/17 [History Confirmed 09/18/17] buPROPion SR TAB* [Wellbutrin SR TAB*] 100 mg PO BID 09/18/17 [History Confirmed 09/18/17] PMH/Surg Hx/FS Hx/Imm Hx Endocrine/Hematology History: Reports: Other Endocrine/Hematological Disorders - Hyperthyroid Denies: Hx Diabetes Cardiovascular History: Denies: Hx Hypertension, Hx Pacemaker/ICD GI History: Reports: Hx Diverticulosis, Hx Gastroesophageal Reflux Disease Comment Only: Other GI Disorders - diverticulitis History: Denies: Hx Renal Disease Musculoskeletal History: Reports: Hx Arthritis Sensory History: Reports: Hx Contacts or Glasses Denies: Hx Hearing Aid Opthamlomology History: Reports: Hx Contacts or Glasses Neurological History: Reports: Hx Headaches Psychiatric History: Reports: Hx Anxiety, Hx Attention Deficit Hyperactivity Disorder, Hx Depression, Hx Inpatient Treatment, Hx Community Mental Health Tx, Hx Bipolar Disorder, Hx Suicide Attempt, Hx Substance Abuse, Other Psychiatric Issues/Disorders - ADHD Denies: Hx Eating Disorder, Hx Panic Disorder, Hx of Violent Episodes Against Others - Cancer History Hx Chemotherapy: No Hx Radiation Therapy: No - Surgical History Surgery Procedure, Year, and Place: HYSTERECTOMY; polycystic ovaries 4 laps; removed scar tissue 2001 same area; tonsilectomy. fx right wrist repair - plates in place - Immunization History Date of Tetanus Vaccine: unknown Date of Influenza Vaccine: unknown Infectious Disease History: Reports: Hx Shingles Denies: Hx Clostridium Difficile, Hx Hepatitis, Hx Human Immunodeficiency Virus (HIV), Hx of Known/Suspected MRSA, Hx Tuberculosis, Hx Known/Suspected VRE , Hx Known/Suspected VRSA, History Other Infectious Disease - Family History Known Family History: Positive: Other - family history of diveriticulitis Family History: Father: Alzheimer's - Social History Alcohol Use: Daily Alcohol Amount: in recovery Hx Substance Use: No Substance Use Type: Reports: None Hx Tobacco Use: Yes Smoking Status (MU): Light Every Day Tobacco Smoker Type: eCigarettes Amount Used/How Often: 1 pack Q3days for the last 30 days, uses no other tabacco [id number] Have You Smoked in the Last Year: Yes Review of Systems Negative: Fever, Chills Eyes: Negative ENT: Negative Positive: Abdominal Pain, Nausea Positive: Anxious. Negative: Other - SI or HI All Other Systems Reviewed And Are Negative: Yes Physical Exam - Summary Physical Exam Summary: Appearance: Well appearing, no pain distress. Pt does not smell like alcohol. Skin: warm, dry, reflects adequate perfusion Head/face: normal Eyes: EOMI, SABRA ENT: normal Neck: supple, non-tender Respiratory: CTA, breath sounds present Cardiovascular: tachycardic rate and regular rhythm, pulses symmetrical Abdomen: non-tender, soft Bowel: present Musculoskeletal: normal, strength/ROM intact Neuro: normal, sensory motor intact, A&Ox3. She is tremulous. Psych: anxious Triage Information Reviewed: Yes Vital Signs On Initial Exam: Initial Vitals Temp Pulse Resp BP Pulse Ox 98.2 F 102 16 150/76 97 09/18/17 09:13 09/18/17 09:13 09/18/17 09:13 09/18/17 09:13 09/18/17 09:13 Vital Signs Reviewed: Yes Diagnostics - Vital Signs Vital Signs Temp Pulse Resp BP Pulse Ox 09/18/17 15:40 16 09/18/17 14:26 216 121/91 81 09/18/17 14:08 56 09/18/17 13:56 134/67 09/18/17 13:29 135/74 09/18/17 12:56 104/72 09/18/17 12:26 136/80 09/18/17 12:00 106 94 09/18/17 11:56 103 129/78 93 09/18/17 11:26 97 124/66 93 09/18/17 11:08 84 96 09/18/17 11:07 83 103/84 97 09/18/17 10:56 140/68 09/18/17 10:26 78 140/72 96 09/18/17 10:25 79 95 09/18/17 10:05 16 09/18/17 09:13 98.2 F 102 16 150/76 97 - Laboratory Lab Results: Lab Results 09/18/17 09/18/17 09/18/17 Range/Units 09:28 09:28 10:11 WBC 7.2 (3.5-10.8) 10^3/ul RBC 4.69 (4.0-5.4) 10^6/ul Hgb 14.7 (12.0-16.0) g/dl Hct 43 (35-47) % MCV 92 (80-97) fL MCH 31 (27-31) pg MCHC 34 (31-36) g/dl RDW 16 H (10.5-15) % Plt Count 307 (150-450) 10^3/ul MPV 6.7 L (7.4-10.4) um3 Neut % (Auto) 52.8 (38-83) % Lymph % (Auto) 38.5 (25-47) % [place] % (Auto) 7.0 (0-7) % Eos % (Auto) 0.7 (0-6) % Baso % (Auto) 1.0 (0-2) % Absolute Neuts (auto) 3.8 (1.5-7.7) 10^3/ul Absolute Lymphs (auto) 2.8 (1.0-4.8) 10^3/ul Absolute Monos (auto) 0.5 (0-0.8) 10^3/ul Absolute Eos (auto) 0.1 (0-0.6) 10^3/ul Absolute Basos (auto) 0.1 (0-0.2) 10^3/ul Absolute Nucleated RBC 0 10^3/ul Nucleated RBC % 0.1 Sodium 139 (139-145) mmol/L Potassium 3.8 (3.5-5.0) mmol/L Chloride 104 (101-111) mmol/L Carbon Dioxide 21 L (22-32) mmol/L Anion Gap 14 H (2-11) mmol/L BUN 18 (6-24) mg/dL Creatinine 0.79 (0.51-0.95) mg/dL Est GFR ( Amer) 96.1 (>60) Est GFR (Non-Af Amer) 74.7 (>60) BUN/Creatinine Ratio 22.8 H (8-20) Glucose 71 (70-100) mg/dL Calcium 8.6 (8.6-10.3) mg/dL Total Bilirubin 0.80 (0.2-1.0) mg/dL AST 43 H (13-39) U/L ALT 22 (7-52) U/L Alkaline Phosphatase 66 (34-104) U/L Total Protein 7.6 (6.4-8.9) g/dL Albumin 4.3 (3.2-5.2) g/dL Globulin 3.3 (2-4) g/dL Albumin/Globulin Ratio 1.3 (1-3) Lipase 34 (11.0-82.0) U/L TSH 6.59 H (0.34-5.60) mcIU/mL Urine Color Yellow Urine Appearance Clear Urine pH 6.0 (5-9) Ur Specific [place] 1.016 (1.010-1.030) Urine Protein Negative (Negative) Urine Ketones Trace A (Negative) Urine Blood 2+ A (Negative) Urine Nitrate Negative (Negative) Urine Bilirubin Negative (Negative) Urine Urobilinogen Negative (Negative) Ur Leukocyte Esterase Negative (Negative) Urine WBC (Auto) Trace(0-5/hpf) (Absent) Urine RBC (Auto) 3+(>10/hpf) A (Absent) Ur Squamous Epith Cells Present A (Absent) Urine Bacteria Absent (Absent) Urine Glucose Negative (Negative) Urine Ascorbic Acid * A (Negative) Salicylates < 2.50 (<30) mg/dL Urine Opiates Screen (None Detect) Acetaminophen < 15 mcg/mL Ur Barbiturates Screen (None Detect) Ur Phencyclidine Scrn (None Detect) Ur Amphetamines Screen (None Detect) U Benzodiazepines Scrn (None Detect) Urine Cocaine Screen (None Detect) U Cannabinoids Screen (None Detect) Serum Alcohol 190 H (<10) mg/dL 09/18/17 09/18/17 Range/Units 10:11 13:25 WBC (3.5-10.8) 10^3/ul RBC (4.0-5.4) 10^6/ul Hgb (12.0-16.0) g/dl Hct (35-47) % MCV (80-97) fL MCH (27-31) pg MCHC (31-36) g/dl RDW (10.5-15) % Plt Count (150-450) 10^3/ul MPV (7.4-10.4) um3 Neut % (Auto) (38-83) % Lymph % (Auto) (25-47) % [place] % (Auto) (0-7) % Eos % (Auto) (0-6) % Baso % (Auto) (0-2) % Absolute Neuts (auto) (1.5-7.7) 10^3/ul Absolute Lymphs (auto) (1.0-4.8) 10^3/ul Absolute Monos (auto) (0-0.8) 10^3/ul Absolute Eos (auto) (0-0.6) 10^3/ul Absolute Basos (auto) (0-0.2) 10^3/ul Absolute Nucleated RBC 10^3/ul Nucleated RBC % Sodium (139-145) mmol/L Potassium (3.5-5.0) mmol/L Chloride (101-111) mmol/L Carbon Dioxide (22-32) mmol/L Anion Gap (2-11) mmol/L BUN (6-24) mg/dL Creatinine (0.51-0.95) mg/dL Est GFR ( Amer) (>60) Est GFR (Non-Af Amer) (>60) BUN/Creatinine Ratio (8-20) Glucose (70-100) mg/dL Calcium (8.6-10.3) mg/dL Total Bilirubin (0.2-1.0) mg/dL AST (13-39) U/L ALT (7-52) U/L Alkaline Phosphatase (34-104) U/L Total Protein (6.4-8.9) g/dL Albumin (3.2-5.2) g/dL Globulin (2-4) g/dL Albumin/Globulin Ratio (1-3) Lipase (11.0-82.0) U/L TSH (0.34-5.60) mcIU/mL Urine Color Urine Appearance Urine pH (5-9) Ur Specific [place] (1.010-1.030) Urine Protein (Negative) Urine Ketones (Negative) Urine Blood (Negative) Urine Nitrate (Negative) Urine Bilirubin (Negative) Urine Urobilinogen (Negative) Ur Leukocyte Esterase (Negative) Urine WBC (Auto) (Absent) Urine RBC (Auto) (Absent) Ur Squamous Epith Cells (Absent) Urine Bacteria (Absent) Urine Glucose (Negative) Urine Ascorbic Acid (Negative) Salicylates (<30) mg/dL Urine Opiates Screen None detected (None Detect) Acetaminophen mcg/mL Ur Barbiturates Screen None detected (None Detect) Ur Phencyclidine Scrn None detected (None Detect) Ur Amphetamines Screen None detected (None Detect) U Benzodiazepines Scrn None detected (None Detect) Urine Cocaine Screen None detected (None Detect) U Cannabinoids Screen None detected (None Detect) Serum Alcohol 93 H (<10) mg/dL Result Diagrams: 09/18/17 09:28 09/18/17 09:28 Lab Statement: Any lab studies that have been ordered have been reviewed, and results considered in the medical decision making process. Re-Evaluation - Re-Evaluation First Eval Re-Evaluation Time: 12:47 Change: Unchanged Comment: Pt has been stable. We will repeat her alcohol level now. Second Eval Re-Evaluation Time: 15:05 Change: Worse Comment: Pt is anxious with resting tremors. She is tachycardic. Pt is withdrawing. Course/Dx - Course Course Of Treatment: Patient is a vodka drinker and had been drinking prior to arrival. Her alcohol level is up but she has anxiousness and tremor despite this. She was given Ativan on arrival. She rested comfortably for many hours and then have alcohol below 100. At this time she was to be cleared for mental health evaluation, however she had significant tremor, anxiety and tachycardia at that time. As such, additional Ativan was given and the hospitalist was contacted for admission for alcohol withdrawal syndrome. - Differential Dx/Clinical Impression Differential Diagnosis/HQI/PQRI: Positive: Alcohol Intoxication, Anxiety, Depression. Negative: Suicide Attempt, Suicidal Ideation Provider Diagnosis: Alcohol withdrawal syndrome, Alcohol-induced mood disorder - Physician Notifications Discussed Care Of Patient With: Cuco Rodriguez Time Discussed With Above Provider: 15:24 Instructed by Provider To: Other - I discussed pt care with Dr. Rodriguez, hospitalist, who has agreed to admit the pt. Discharge - Sign-Out/Discharge Documenting (check all that apply): Discharge/Admit/Transfer - Admit to [facility] - Discharge Plan Condition: Fair Disposition: ADMITTED TO [facility] Referrals: Sheila Liao NP [Primary Care Provider] - - Billing Disposition and Condition Condition: FAIR Disposition: [facility] The documentation as recorded by the Turner lo Angela accurately reflects the service I personally performed and the decisions made by , Rangel Marino MD.
[2017-09-18] MEDS ORDERED: Thiamine IV* 100 MG/ML 2 ML VIAL IM ONE (17:54)
[2017-09-18] MEDS ORDERED: LORazepam INJ* 2 MG/ML 1 ML VIAL IV PUSH SCH (18:00)
[2017-09-18] MEDS: Omeprazole CAP* 20 MG PO SCH (21:58)
[2017-09-18] MEDS: buPROPion SR TAB.SR* 100 MG PO SCH (21:58)
[2017-09-18] MEDS: CMCS: Atomoxetine (NF) 40 MG CAP PO SCH (21:58)
[2017-09-18] MEDS: Divalproex ER TAB(*) 500 MG PO SCH (21:59)
[2017-09-18] MEDS: Heparin VIAL(*) 5000 UNITS/ML VIAL (FIVE THOUSAND) SUBCUT SCH (22:18)
--- NOTE | 2017-09-18 22:39 | HP ---
CC: Sheila Liao NP * HISTORY AND PHYSICAL: DATE OF ADMISSION: 09/18/17 PRIMARY CARE PROVIDER: Sheila Liao NP PROVIDER: Erica Harvey NP ATTENDING PHYSICIAN WHILE IN THE HOSPITAL: Dr. Cuco Rodriguez * (dictated by Erica Harvey NP). CHIEF COMPLAINT: 1. Alcohol withdrawal. 2. Depression. HISTORY OF PRESENT ILLNESS: Ms. Hauser is a 57-year-old female, who carries a past medical history of acid reflux, anxiety, depression, and bipolar disorder, who presented to the emergency room this morning stating that she was drinking and did not feel safe at home. She reports that she wanted to hurt herself, but had no plan. The patient reports that she has been drinking 2 pints of vodka daily for the past 2 days and states that she is sick of drinking. The patient reports that she has a history of alcohol abuse in the past, last being in May of 2017. She states that she has had recent stressors. She reports that her mother in May of 2017 and she recently had to place her father in long-term half-way due to his dementia. The combination of these stressors have been very stressful and causing her to be have increased depression. At the time of my evaluation, the patient denies any suicidal or homicidal ideations. The patient is unsure whether she would like to go to rehab at this time. The patient denies any recent sick contacts. Denies any nausea, vomiting, or fevers. Denies any shortness of breath or chest pain. She denies any dysuria or hematuria. While in the emergency room, the patient was having symptoms of alcohol withdrawal. She was exhibiting shaking and sweating. Due to the concern of severe alcohol withdrawal, we were asked to evaluate her for admission to the hospital. PAST MEDICAL HISTORY: Significant for: 1. GERD. 2. Anxiety. 3. Depression. 4. Bipolar disorder. PAST SURGICAL HISTORY: Significant for hysterectomy. MEDICATIONS: 1. Omeprazole 40 mg p.o. daily. 2. Fluoxetine 60 mg p.o. daily. 3. Depakote 1000 mg p.o. at bedtime. 4. Strattera 40 mg p.o. at bedtime. 5. Wellbutrin 100 mg p.o. b.i.d. ALLERGIES TO MEDICATION: 1. She is allergic to CODEINE that causes rash. 2. IODINE and IODINE CONTAINING PRODUCTS, hives. 3. LURASIDONE. 4. TAMIFLU. 5. TRICYCLIC COMPOUNDS. 6. CONTRAST DYE. FAMILY HISTORY: She reports family history, grandmother had a heart attack. She denies any diabetic family history. Denies any cancer history within the family. SOCIAL HISTORY: The patient uses vape cigarettes. She does report drinking 2 pints of vodka daily x2 days. She denies any illicit drug use. She reports that she is disabled and does not currently work. She is single and lives at the [facility]. Surrogate decision maker in the event if she is unable to make her own decision is her sister, Essie. The patient reports that she is a full code. REVIEW OF SYSTEMS: There is no documented fever. No significant weight change. There has been no double vision. No ear discharge. No rhinorrhea. No sore throat. She denies any chest pain or shortness of breath. Denies any orthopnea or nocturnal dyspnea. There has been no abdominal pain. No nausea, vomiting, or diarrhea. Denies any urinary frequency or dysuria. Denies any hematuria. Denies any focal weakness or sensory loss. Denies any visual changes and she denies any dysphagia. She does report mild aching in her legs. She denies any rashes or lesions. She does report increased depression and anxiety. PHYSICAL EXAMINATION GENERAL: At this time, Ms. Hauser is a 57-year-old female patient. She appears depressed with a soft speaking voice. She is resting on the stretcher in the emergency room. She does not appear to be in any acute distress. She is exhibiting some fine tremoring in her hands. VITAL SIGNS: Blood pressure 121/91, pulse was 56, respirations 16, temperature was 98.2, O2 saturations 94%. HEENT: Head is atraumatic, normocephalic. Eyes: EOMs are intact. Sclerae anicteric and not pale. Oral mucosa appeared to be moist. NECK: Supple. LUNGS: Clear to auscultation bilaterally. No wheezes, rales, or rhonchi. CARDIAC: S1, S2. Regular rate and rhythm. No murmurs, rubs, or gallops. ABDOMEN: Soft and nontender. Bowel sounds are active x4. EXTREMITIES: Pulses are +2 throughout. She is able to move all 4 extremities with 5/5 strength. She does have some fine tremoring noted in her hands. NEUROLOGIC: She is awake, alert and oriented x3. Her speech is clear. There are no focal deficits. SKIN: Intact. DIAGNOSTIC STUDIES AND LABORATORY DATA: WBC 7.2, RBC is 4.69, hemoglobin was 14.7, hematocrit was 43, platelet count was 307. Sodium 139, potassium 3.8, chloride was 104, carbon dioxide was 21, anion gap of 14, BUN was 18, creatinine 0.79, glucose was 71. AST was 43, ALT was 22. TSH was 6.59. Urine pH was 6.0, specific gravity 1.016. Urine protein was negative. Urine ketones was trace. Urine blood was +2. Urine nitrites was negative. Bilirubin negative. Urobilinogen was negative. Urine leukocyte esterase was negative. Urine wbc's were trace. Urine rbc's were 3+, squamous epithelial cells were present. Urine bacteria was absent. Glucose was negative. Urine ascorbic acid was negative. Salicylates were less than 2.50. Urine opiates were negative. Acetaminophen was less than 15. Urine barbiturates were negative. Amphetamines were also negative. Urine benzodiazepines were negative. Urine cocaine screen was negative. Urine cannabinoids were negative. Serum alcohol initially was 190, repeat was 93. ASSESSMENT AND PLAN: Ms. Hauser is a 57-year-old female patient that presented to the emergency room today with complaints of alcohol withdrawal and depression. Given her clinical concern for acute alcohol withdrawal, we were asked to admit her. She will be admitted under inpatient status for: 1. Alcohol withdrawal. We will place her on [facility] protocol and give her Ativan as needed for withdrawal symptoms as per protocol. I will also give her thiamine and folic acid. 2. Anxiety and depression. We will continue her on Wellbutrin, Strattera, Depakote, and Prozac. I will also have a psychiatric consult as the patient stated during her examination that she did not feel safe at home and that she wanted hurt herself, but she did not have a plan. She currently is denying any suicidal or homicidal ideation. 3. FEN. She can have a regular diet. 4. Code status. She is a full code. 5. DVT prophylaxis. She will be placed on heparin subcu 5000 units. TIME SPENT: Time spent on this admission was approximately 60 minutes, greater than half the time was spent with the patient [id number] obtaining my history and physical and the other half of the time was spent going over the plan of care with the patient and implementing my plan of care. I have discussed this plan of care with my attending, Dr. Cuco Rodrgiuez, and he is in agreement with my plan. ERICA HARVEY, CYLINDER CHECKER [id number]/[facility] #: [id number] MARCIAL
[2017-09-19] MEDS: Heparin VIAL(*) 5000 UNITS/ML VIAL (FIVE THOUSAND) SUBCUT SCH ×3 (05:43→21:45)
[2017-09-19] MEDS: FLUoxetine CAP* 20 MG PO SCH (08:09)
[2017-09-19] MEDS: Multivitamins/Minerals TAB PO SCH (08:09)
[2017-09-19] MEDS: Omeprazole CAP* 20 MG PO SCH (08:10)
[2017-09-19] MEDS: buPROPion SR TAB.SR* 100 MG PO SCH ×2 (08:11→21:42)
[2017-09-19] MEDS: Thiamine TAB* 100 MG TAB PO SCH (08:11)
[2017-09-19] MEDS: Folic Acid TAB* 1 MG PO SCH (08:11)
[2017-09-19] MEDS ORDERED: Ondansetron INJ* 2 MG/ML VIAL IV PRN (09:15)
--- NOTE | 2017-09-19 16:13 | PN ---
Subjective Date of Service: 09/19/17 Interval History: Pt seen and examined. Meds and labs reviewed. Spoke with Dr. Romero today given depression with SI. ROS: Denied CHARLES/dizziness, F/C, N/V, CP, SOB, increased cough, sputum production , abd pain, diarrhea, constipation, dysuria, myalgias, arthralgias, throat pain , and new skin lesions. The rest of the 14 point ROS are unremarkable. PHYSICAL EXAM: GEN APPEARANCE: Awake, not in acute distress HEENT: NC/AT, PERRLA, moist oral mucosa, (-) throat erythema NECK: Soft, supple, (-) cervical LAD, (-)JVD HEART: S1S2 WNL, RRR, No MRG CHEST: CTA, BL, GAE, No W/R/R ABD: Soft, ND/NT, NABS 4x Q EXT: No C/C/E SKIN: Warm to touch Objective Active Medications: Acetaminophen (Tylenol Tab*) 650 mg PO Q4H PRN PRN Reason: FEVER/PAIN Al Hydrox/Mg Hydrox/Simethicone (Maalox Plus*) 30 ml PO Q6H PRN PRN Reason: INDIGESTION Atomoxetine HCl (Strattera (Nf)) 40 mg PO BEDTIME [facility] Last Admin: 09/18/17 21:58 Dose: 40 mg Bupropion HCl (Wellbutrin Sr Tab*) 100 mg PO BID [facility] Last Admin: 09/19/17 08:11 Dose: 100 mg Divalproex Sodium (Depakote Er Tab(*)) 1,000 mg PO BEDTIME [facility] Last Admin: 09/18/17 21:59 Dose: 1,000 mg Fluoxetine HCl (Prozac Cap*) 60 mg PO DAILY [facility] Last Admin: 09/19/17 08:09 Dose: 60 mg Folic Acid (Folvite Tab*) 1 mg PO DAILY [facility] Last Admin: 09/19/17 08:11 Dose: 1 mg Heparin Sodium (Porcine) (Heparin Vial(*)) 5,000 units SUBCUT Q8HR [facility] Last Admin: 09/19/17 13:49 Dose: 5,000 units Lorazepam (Ativan Inj*) 0 - 3 mg IV PUSH .PER [facility] PROTOCOL [facility] PRN Reason: Protocol Last Admin: 09/19/17 10:15 Dose: 1.5 mg Multivitamins/Minerals (Theragran/Minerals Tab*) 1 tab PO DAILY [facility] Last Admin: 09/19/17 08:09 Dose: 1 tab Omeprazole (Prilosec Cap*) 40 mg PO DAILY [facility] Last Admin: 09/19/17 08:10 Dose: 40 mg Ondansetron HCl (Zofran Inj*) 4 mg IV Q6H PRN PRN Reason: NAUSEA Thiamine HCl (Vitamin B-1 Tab*) 100 mg PO DAILY [facility] Last Admin: 09/19/17 08:11 Dose: 100 mg Vital Signs - 8 hr 09/19/17 09/19/17 09/19/17 09:56 10:15 11:50 Temperature 98.8 F Pulse Rate 78 Respiratory 16 16 14 Rate Blood Pressure 143/88 (mmHg) O2 Sat by Pulse 97 Oximetry 09/19/17 09/19/17 09/19/17 12:07 13:40 16:02 Temperature 98.8 F 98.2 F 98.2 F Pulse Rate 73 88 80 Respiratory 16 16 16 Rate Blood Pressure 133/79 130/89 124/73 (mmHg) O2 Sat by Pulse 99 100 98 Oximetry Oxygen Devices in Use Now: None Result Diagrams: 09/18/17 09:28 09/18/17 09:28 Additional Lab and Data: Lab Results 09/18/17 09/18/17 09/18/17 Range/Units 09:28 09:28 10:11 WBC 7.2 (3.5-10.8) 10^3/ul RBC 4.69 (4.0-5.4) 10^6/ul Hgb 14.7 (12.0-16.0) g/dl Hct 43 (35-47) % MCV 92 (80-97) fL MCH 31 (27-31) pg MCHC 34 (31-36) g/dl RDW 16 H (10.5-15) % Plt Count 307 (150-450) 10^3/ul MPV 6.7 L (7.4-10.4) um3 Neut % (Auto) 52.8 (38-83) % Lymph % (Auto) 38.5 (25-47) % [place] % (Auto) 7.0 (0-7) % Eos % (Auto) 0.7 (0-6) % Baso % (Auto) 1.0 (0-2) % Absolute Neuts (auto) 3.8 (1.5-7.7) 10^3/ul Absolute Lymphs (auto) 2.8 (1.0-4.8) 10^3/ul Absolute Monos (auto) 0.5 (0-0.8) 10^3/ul Absolute Eos (auto) 0.1 (0-0.6) 10^3/ul Absolute Basos (auto) 0.1 (0-0.2) 10^3/ul Absolute Nucleated RBC 0 10^3/ul Nucleated RBC % 0.1 Sodium 139 (139-145) mmol/L Potassium 3.8 (3.5-5.0) mmol/L Chloride 104 (101-111) mmol/L Carbon Dioxide 21 L (22-32) mmol/L Anion Gap 14 H (2-11) mmol/L BUN 18 (6-24) mg/dL Creatinine 0.79 (0.51-0.95) mg/dL Est GFR ( Amer) 96.1 (>60) Est GFR (Non-Af Amer) 74.7 (>60) BUN/Creatinine Ratio 22.8 H (8-20) Glucose 71 (70-100) mg/dL Calcium 8.6 (8.6-10.3) mg/dL Total Bilirubin 0.80 (0.2-1.0) mg/dL AST 43 H (13-39) U/L ALT 22 (7-52) U/L Alkaline Phosphatase 66 (34-104) U/L Total Protein 7.6 (6.4-8.9) g/dL Albumin 4.3 (3.2-5.2) g/dL Globulin 3.3 (2-4) g/dL Albumin/Globulin Ratio 1.3 (1-3) Lipase 34 (11.0-82.0) U/L TSH 6.59 H (0.34-5.60) mcIU/mL Urine Color Yellow Urine Appearance Clear Urine pH 6.0 (5-9) Ur Specific [place] 1.016 (1.010-1.030) Urine Protein Negative (Negative) Urine Ketones Trace A (Negative) Urine Blood 2+ A (Negative) Urine Nitrate Negative (Negative) Urine Bilirubin Negative (Negative) Urine Urobilinogen Negative (Negative) Ur Leukocyte Esterase Negative (Negative) Urine WBC (Auto) Trace(0-5/hpf) (Absent) Urine RBC (Auto) 3+(>10/hpf) A (Absent) Ur Squamous Epith Cells Present A (Absent) Urine Bacteria Absent (Absent) Urine Glucose Negative (Negative) Urine Ascorbic Acid * A (Negative) Salicylates < 2.50 (<30) mg/dL Urine Opiates Screen (None Detect) Acetaminophen < 15 mcg/mL Ur Barbiturates Screen (None Detect) Ur Phencyclidine Scrn (None Detect) Ur Amphetamines Screen (None Detect) U Benzodiazepines Scrn (None Detect) Urine Cocaine Screen (None Detect) U Cannabinoids Screen (None Detect) Serum Alcohol 190 H (<10) mg/dL 09/18/17 09/18/17 Range/Units 10:11 13:25 WBC (3.5-10.8) 10^3/ul RBC (4.0-5.4) 10^6/ul Hgb (12.0-16.0) g/dl Hct (35-47) % MCV (80-97) fL MCH (27-31) pg MCHC (31-36) g/dl RDW (10.5-15) % Plt Count (150-450) 10^3/ul MPV (7.4-10.4) um3 Neut % (Auto) (38-83) % Lymph % (Auto) (25-47) % [place] % (Auto) (0-7) % Eos % (Auto) (0-6) % Baso % (Auto) (0-2) % Absolute Neuts (auto) (1.5-7.7) 10^3/ul Absolute Lymphs (auto) (1.0-4.8) 10^3/ul Absolute Monos (auto) (0-0.8) 10^3/ul Absolute Eos (auto) (0-0.6) 10^3/ul Absolute Basos (auto) (0-0.2) 10^3/ul Absolute Nucleated RBC 10^3/ul Nucleated RBC % Sodium (139-145) mmol/L Potassium (3.5-5.0) mmol/L Chloride (101-111) mmol/L Carbon Dioxide (22-32) mmol/L Anion Gap (2-11) mmol/L BUN (6-24) mg/dL Creatinine (0.51-0.95) mg/dL Est GFR ( Amer) (>60) Est GFR (Non-Af Amer) (>60) BUN/Creatinine Ratio (8-20) Glucose (70-100) mg/dL Calcium (8.6-10.3) mg/dL Total Bilirubin (0.2-1.0) mg/dL AST (13-39) U/L ALT (7-52) U/L Alkaline Phosphatase (34-104) U/L Total Protein (6.4-8.9) g/dL Albumin (3.2-5.2) g/dL Globulin (2-4) g/dL Albumin/Globulin Ratio (1-3) Lipase (11.0-82.0) U/L TSH (0.34-5.60) mcIU/mL Urine Color Urine Appearance Urine pH (5-9) Ur Specific [place] (1.010-1.030) Urine Protein (Negative) Urine Ketones (Negative) Urine Blood (Negative) Urine Nitrate (Negative) Urine Bilirubin (Negative) Urine Urobilinogen (Negative) Ur Leukocyte Esterase (Negative) Urine WBC (Auto) (Absent) Urine RBC (Auto) (Absent) Ur Squamous Epith Cells (Absent) Urine Bacteria (Absent) Urine Glucose (Negative) Urine Ascorbic Acid (Negative) Salicylates (<30) mg/dL Urine Opiates Screen None detected (None Detect) Acetaminophen mcg/mL Ur Barbiturates Screen None detected (None Detect) Ur Phencyclidine Scrn None detected (None Detect) Ur Amphetamines Screen None detected (None Detect) U Benzodiazepines Scrn None detected (None Detect) Urine Cocaine Screen None detected (None Detect) U Cannabinoids Screen None detected (None Detect) Serum Alcohol 93 H (<10) mg/dL Microbiology and Other Data: Microbiology 09/19/17 02:00 Nasal Screen MRSA (PCR)(RICHIE) - Final Nasal Mrsa Not Detected Assess/Plan/Problems-Billing Assessment: - Patient Problems (1) Alcohol withdrawal Current Visit: No Status: Chronic Priority: High Onset Date: 06/16/14 Code(s): F10.239 - ALCOHOL DEPENDENCE WITH WITHDRAWAL, UNSPECIFIED SNOMED Code (s): 553582528 Comment: requesting detox (2) Anxiety and depression Current Visit: Yes Status: Acute Code(s): F41.9 - ANXIETY DISORDER, UNSPECIFIED; F32.9 - MAJOR DEPRESSIVE DISORDER, SINGLE EPISODE, UNSPECIFIED SNOMED Code(s): 156703370 Comment: --Pt is also bipolar and currently on Depakote --Continue Bupropion --Consulted psych for F/U from initial ED encounter (3) DVT prophylaxis Current Visit: Yes Status: Acute Code(s): LXM9995 - SNOMED Code(s): 126809370 Comment: --Continue heparin SQ Status and Disposition: --Continue WAM protocol --Will await any further psych recommendations
[2017-09-19] MEDS: Ondansetron TAB* 4 MG PO PRN (18:02)
[2017-09-19] MEDS: Divalproex ER TAB(*) 500 MG PO SCH (21:43)
[2017-09-19] MEDS: CMCS: Atomoxetine (NF) 40 MG CAP PO SCH (21:45)
[2017-09-20 05:45] LABS: ABS Basophils 0.1 10^3/ul (0-0.2); ABS Eosinophils 0.1 10^3/ul (0-0.6); ABS Lymphocytes 3.3 10^3/ul (1.0-4.8); ABS Monocytes 0.5 10^3/ul (0-0.8); ABS Neutrophils 1.6 10^3/ul (1.5-7.7); ABS Nucleated RBC 0 10^3/ul; Eosinophil % 1.9 % (0-6); Hematocrit 43 % (35-47); Hemoglobin 14.8 g/dl (12.0-16.0); Lymphocyte % 58.7 % (25-47); Mean Corpuscular HGB Conc 35 g/dl (31-36); Mean Corpuscular Hemoglobin 32 pg (27-31); Mean Corpuscular Volume 92 fL (80-97); Nucleated Red Blood Cells % 0.3; Platelet Count 278 10^3/ul (150-450); Red Blood Count 4.67 10^6/ul (4.0-5.4); Red Cell Distribution Width 16 % (10.5-15); White Blood Count 5.7 10^3/ul (3.5-10.8)
[2017-09-20] MEDS: Heparin VIAL(*) 5000 UNITS/ML VIAL (FIVE THOUSAND) SUBCUT SCH ×3 (05:47→21:29)
[2017-09-20 06:01] LABS: EGFR Non-African American 69.6 (>60)
[2017-09-20] MEDS: Multivitamins/Minerals TAB PO SCH (08:37)
[2017-09-20] MEDS: Omeprazole CAP* 20 MG PO SCH (08:37)
[2017-09-20] MEDS: Folic Acid TAB* 1 MG PO SCH (08:38)
[2017-09-20] MEDS: buPROPion SR TAB.SR* 100 MG PO SCH ×2 (08:38→20:51)
[2017-09-20] MEDS: FLUoxetine CAP* 20 MG PO SCH (08:38)
[2017-09-20] MEDS: Thiamine TAB* 100 MG TAB PO SCH (08:38)
[2017-09-20] MEDS: Ondansetron TAB* 4 MG PO PRN ×2 (11:04→19:43)
--- NOTE | 2017-09-20 13:06 | PN ---
Subjective Date of Service: 09/20/17 Interval History: Pt seen and examined. Meds and labs reviewed. ROS: Complains of nausea mostly and some vomiting. Denied CHARLES/dizziness, F/C, CP, SOB, increased cough, sputum production, abd pain, diarrhea, constipation, dysuria, myalgias, arthralgias, throat pain, and new skin lesions. The rest of the 14 point ROS are unremarkable. PHYSICAL EXAM: GEN APPEARANCE: Awake, not in acute distress HEENT: NC/AT, PERRLA, moist oral mucosa, (-) throat erythema NECK: Soft, supple, (-) cervical LAD, (-)JVD HEART: S1S2 WNL, RRR, No MRG CHEST: CTA, BL, GAE, No W/R/R ABD: Soft, ND/NT, NABS 4x Q EXT: No C/C/E SKIN: Warm to touch PSYCH: No active psychosis, hallucinations, depression, SI/HI Objective Active Medications: Acetaminophen (Tylenol Tab*) 650 mg PO Q4H PRN PRN Reason: FEVER/PAIN Last Admin: 09/19/17 18:02 Dose: 650 mg Al Hydrox/Mg Hydrox/Simethicone (Maalox Plus*) 30 ml PO Q6H PRN PRN Reason: INDIGESTION Atomoxetine HCl (Strattera (Nf)) 40 mg PO BEDTIME [facility] Last Admin: 09/19/17 21:45 Dose: 40 mg Bupropion HCl (Wellbutrin Sr Tab*) 100 mg PO BID [facility] Last Admin: 09/20/17 08:38 Dose: 100 mg Divalproex Sodium (Depakote Er Tab(*)) 1,000 mg PO BEDTIME [facility] Last Admin: 09/19/17 21:43 Dose: 1,000 mg Fluoxetine HCl (Prozac Cap*) 60 mg PO DAILY [facility] Last Admin: 09/20/17 08:38 Dose: 60 mg Folic Acid (Folvite Tab*) 1 mg PO DAILY [facility] Last Admin: 09/20/17 08:38 Dose: 1 mg Heparin Sodium (Porcine) (Heparin Vial(*)) 5,000 units SUBCUT Q8HR [facility] Last Admin: 09/20/17 05:47 Dose: 5,000 units Lorazepam (Ativan Inj*) 0 - 3 mg IV PUSH .PER [facility] PROTOCOL [facility] PRN Reason: Protocol Last Admin: 09/19/17 10:15 Dose: 1.5 mg Multivitamins/Minerals (Theragran/Minerals Tab*) 1 tab PO DAILY [facility] Last Admin: 09/20/17 08:37 Dose: 1 tab Omeprazole (Prilosec Cap*) 40 mg PO DAILY [facility] Last Admin: 09/20/17 08:37 Dose: 40 mg Ondansetron HCl (Zofran Tab*) 4 mg PO Q8H PRN PRN Reason: NAUSEA Last Admin: 09/20/17 11:04 Dose: 4 mg Thiamine HCl (Vitamin B-1 Tab*) 100 mg PO DAILY [facility] Last Admin: 09/20/17 08:38 Dose: 100 mg Vital Signs - 8 hr 09/20/17 09/20/17 09/20/17 07:32 08:00 12:30 Temperature 98.3 F 98.1 F Pulse Rate 97 105 Respiratory 23 15 24 Rate Blood Pressure 102/71 94/59 (mmHg) O2 Sat by Pulse 95 96 Oximetry Oxygen Devices in Use Now: None Result Diagrams: 09/20/17 05:25 09/20/17 05:25 Additional Lab and Data: Lab Results 09/18/17 09/18/17 09/18/17 Range/Units 09:28 09:28 10:11 WBC 7.2 (3.5-10.8) 10^3/ul RBC 4.69 (4.0-5.4) 10^6/ul Hgb 14.7 (12.0-16.0) g/dl Hct 43 (35-47) % MCV 92 (80-97) fL MCH 31 (27-31) pg MCHC 34 (31-36) g/dl RDW 16 H (10.5-15) % Plt Count 307 (150-450) 10^3/ul MPV 6.7 L (7.4-10.4) um3 Neut % (Auto) 52.8 (38-83) % Lymph % (Auto) 38.5 (25-47) % [place] % (Auto) 7.0 (0-7) % Eos % (Auto) 0.7 (0-6) % Baso % (Auto) 1.0 (0-2) % Absolute Neuts (auto) 3.8 (1.5-7.7) 10^3/ul Absolute Lymphs (auto) 2.8 (1.0-4.8) 10^3/ul Absolute Monos (auto) 0.5 (0-0.8) 10^3/ul Absolute Eos (auto) 0.1 (0-0.6) 10^3/ul Absolute Basos (auto) 0.1 (0-0.2) 10^3/ul Absolute Nucleated RBC 0 10^3/ul Nucleated RBC % 0.1 Sodium 139 (139-145) mmol/L Potassium 3.8 (3.5-5.0) mmol/L Chloride 104 (101-111) mmol/L Carbon Dioxide 21 L (22-32) mmol/L Anion Gap 14 H (2-11) mmol/L BUN 18 (6-24) mg/dL Creatinine 0.79 (0.51-0.95) mg/dL Est GFR ( Amer) 96.1 (>60) Est GFR (Non-Af Amer) 74.7 (>60) BUN/Creatinine Ratio 22.8 H (8-20) Glucose 71 (70-100) mg/dL Calcium 8.6 (8.6-10.3) mg/dL Total Bilirubin 0.80 (0.2-1.0) mg/dL AST 43 H (13-39) U/L ALT 22 (7-52) U/L Alkaline Phosphatase 66 (34-104) U/L Total Protein 7.6 (6.4-8.9) g/dL Albumin 4.3 (3.2-5.2) g/dL Globulin 3.3 (2-4) g/dL Albumin/Globulin Ratio 1.3 (1-3) Lipase 34 (11.0-82.0) U/L TSH 6.59 H (0.34-5.60) mcIU/mL Urine Color Yellow Urine Appearance Clear Urine pH 6.0 (5-9) Ur Specific [place] 1.016 (1.010-1.030) Urine Protein Negative (Negative) Urine Ketones Trace A (Negative) Urine Blood 2+ A (Negative) Urine Nitrate Negative (Negative) Urine Bilirubin Negative (Negative) Urine Urobilinogen Negative (Negative) Ur Leukocyte Esterase Negative (Negative) Urine WBC (Auto) Trace(0-5/hpf) (Absent) Urine RBC (Auto) 3+(>10/hpf) A (Absent) Ur Squamous Epith Cells Present A (Absent) Urine Bacteria Absent (Absent) Urine Glucose Negative (Negative) Urine Ascorbic Acid * A (Negative) Salicylates < 2.50 (<30) mg/dL Urine Opiates Screen (None Detect) Acetaminophen < 15 mcg/mL Ur Barbiturates Screen (None Detect) Ur Phencyclidine Scrn (None Detect) Ur Amphetamines Screen (None Detect) U Benzodiazepines Scrn (None Detect) Urine Cocaine Screen (None Detect) U Cannabinoids Screen (None Detect) Serum Alcohol 190 H (<10) mg/dL 09/18/17 09/18/17 Range/Units 10:11 13:25 WBC (3.5-10.8) 10^3/ul RBC (4.0-5.4) 10^6/ul Hgb (12.0-16.0) g/dl Hct (35-47) % MCV (80-97) fL MCH (27-31) pg MCHC (31-36) g/dl RDW (10.5-15) % Plt Count (150-450) 10^3/ul MPV (7.4-10.4) um3 Neut % (Auto) (38-83) % Lymph % (Auto) (25-47) % [place] % (Auto) (0-7) % Eos % (Auto) (0-6) % Baso % (Auto) (0-2) % Absolute Neuts (auto) (1.5-7.7) 10^3/ul Absolute Lymphs (auto) (1.0-4.8) 10^3/ul Absolute Monos (auto) (0-0.8) 10^3/ul Absolute Eos (auto) (0-0.6) 10^3/ul Absolute Basos (auto) (0-0.2) 10^3/ul Absolute Nucleated RBC 10^3/ul Nucleated RBC % Sodium (139-145) mmol/L Potassium (3.5-5.0) mmol/L Chloride (101-111) mmol/L Carbon Dioxide (22-32) mmol/L Anion Gap (2-11) mmol/L BUN (6-24) mg/dL Creatinine (0.51-0.95) mg/dL Est GFR ( Amer) (>60) Est GFR (Non-Af Amer) (>60) BUN/Creatinine Ratio (8-20) Glucose (70-100) mg/dL Calcium (8.6-10.3) mg/dL Total Bilirubin (0.2-1.0) mg/dL AST (13-39) U/L ALT (7-52) U/L Alkaline Phosphatase (34-104) U/L Total Protein (6.4-8.9) g/dL Albumin (3.2-5.2) g/dL Globulin (2-4) g/dL Albumin/Globulin Ratio (1-3) Lipase (11.0-82.0) U/L TSH (0.34-5.60) mcIU/mL Urine Color Urine Appearance Urine pH (5-9) Ur Specific [place] (1.010-1.030) Urine Protein (Negative) Urine Ketones (Negative) Urine Blood (Negative) Urine Nitrate (Negative) Urine Bilirubin (Negative) Urine Urobilinogen (Negative) Ur Leukocyte Esterase (Negative) Urine WBC (Auto) (Absent) Urine RBC (Auto) (Absent) Ur Squamous Epith Cells (Absent) Urine Bacteria (Absent) Urine Glucose (Negative) Urine Ascorbic Acid (Negative) Salicylates (<30) mg/dL Urine Opiates Screen None detected (None Detect) Acetaminophen mcg/mL Ur Barbiturates Screen None detected (None Detect) Ur Phencyclidine Scrn None detected (None Detect) Ur Amphetamines Screen None detected (None Detect) U Benzodiazepines Scrn None detected (None Detect) Urine Cocaine Screen None detected (None Detect) U Cannabinoids Screen None detected (None Detect) Serum Alcohol 93 H (<10) mg/dL Microbiology and Other Data: Microbiology 09/19/17 02:00 Nasal Screen MRSA (PCR)(RICHIE) - Final Nasal Mrsa Not Detected Assess/Plan/Problems-Billing Assessment: - Patient Problems (1) Alcohol withdrawal Current Visit: No Status: Chronic Priority: High Onset Date: 06/16/14 Code(s): F10.239 - ALCOHOL DEPENDENCE WITH WITHDRAWAL, UNSPECIFIED SNOMED Code (s): 889664120 Comment: --Continue [facility] protocol --Advised life-style modifications (2) Anxiety and depression Current Visit: Yes Status: Acute Code(s): F41.9 - ANXIETY DISORDER, UNSPECIFIED; F32.9 - MAJOR DEPRESSIVE DISORDER, SINGLE EPISODE, UNSPECIFIED SNOMED Code(s): 610845511 Comment: --Pt is also bipolar and currently on Depakote --Continue Bupropion --Consulted psych for F/U from initial ED encounter (3) DVT prophylaxis Current Visit: Yes Status: Acute Code(s): RXN5460 - SNOMED Code(s): 964509996 Comment: --Continue heparin SQ (4) Hyponatremia Current Visit: Yes Status: Acute Code(s): E87.1 - HYPO-OSMOLALITY AND HYPONATREMIA SNOMED Code(s): 46204681 Comment: --Will recheck sodium level--could be a lab error given her nausea and vomiting has been present since admission and nothing new. --Will check urine lytes, urine and plasma osmolality Status and Disposition: --Continue [facility] protocol --Continue to follow Sodium level W/U
[2017-09-20 16:42] LABS: EGFR Non-African American 61.9 (>60)
--- NOTE | 2017-09-20 18:35 | CONSULT ---
Consult Consult: PSYCHIATRIC ATTENDING CONULTATION Reason for Consultation: asked to see this 57 yo woman who is known to me from previous psychiatric admission to assess patient's level of safety as she expressed feeling depressed and having SI when she presented to the ED on 09/18/2017 History of Present Illness: Sydney Hauser is a 57 yo single woman of [place] descent who lives in a sober home. She has a history of alcohol use disorder, Bipolar Disorder, GERD, ADHd Her outpatient psychiatric treatment is through [facility] where she sees Dr. Padilla for medicatino management and regular therapist as well whom she has been patient of for many years. patient was last admitted to psychiatry back in 05/2017 for depression, binge drinking for several days which is her usual relapse pattern. Patient reports that she has been sober since discharge from [facility] in May and has been compliant with outpatient treatment and with her psychiatric med regimen of Depakote, Prozac and WellbutrinSR. Patient relates that since discharge she has continued to suffer with depressive symptoms (partially treated) includingintermittent passive suicidal ideation, anergia, preoccupation with of mother and father's dementia, low self esteem, feelings of low self worth and hopelessness. she denies any self injurious behaviors or suicide attempts. She identifies ongoing stressors as of mother in may 2017, father's being placed in a intermediate, and discord in relationship with her partner of 8 years. denies domestic violence in the relationship. reports having fight over phone last week with girlfriend after which she brought vodka into the half way house and binged for two days She purposely notified staff so she would be brought for help. to her credit this is her usual pattern (seeking help when she relapses). PAST PSYCHIATRIC HISTORY: History of previous inpatient psychiatric admissions here and at [facility] such as [facility] because of suicidal ideation in the context of alcohol use disorder. Outpatient care is at [facility] with psychiatric Dr. Padilla and with community nurse, Lakhwinder East. The patient is currently prescribed Depakote ER 1000 mg at bedtime, Fluoxetine 60 mg daily, Wellbutrin SR 100 mg BID. PAST SURGICAL HISTORY: Positive for complete hysterectomy because of polycystic ovarian syndrome. MEDICATION HISTORY: Has had multiple trials of medication over the years including tricyclic antidepressants, lithium, Abilify, Seroquel, benzodiazepines and Wellbutrin. SUICIDE/HOMICIDE HISTORY: The patient denies previous charleen suicide attempt. LEGAL HISTORY: The patient has a history of DWI with mandated treatment and is currently on probation SUBSTANCE ABUSE HISTORY: The patient reports that she began drinking alcohol as early as age 11. She has had periods of sobriety, the longest stretch of sobriety lasted 6 years. She drinks an average of 1 pint of vodka often to the point of intoxication. She has had multiple residential treatment episodes including [facility]. She has been enrolled in AA and has had multiple detoxes. She denies the use of any other illicit drugs. She smokes cigarettes, however. FAMILY HISTORY: The patient reports family history of Alzheimer's dementia in her father. Her mother recently from complications of Parkinson's disease. The patient is aware that both her parents suffered from depression. The patient's maternal cousin attempted suicide by overdose. PERSONAL AND SOCIAL HISTORY: The patient has never been , has no children. She was born in [place] [facility] [facility] from [place] parents. She eventually moved here in [place]. She is educated to the level of a bachelor's degree in human development. She self-identified as lesbian. She was in a 20-year relationship with a female partner who . Her mother recently . She has had multiple jobs in the past. 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 She has been on mental disability since after her most recent discharge here. The patient reports spending her time keeping appointments at [facility], [facility], attending AA meetings, spending time with relatives. She also enjoys spending time alone. REVIEW OF MEDICAL SYMPTOMS: Remarkable for GERD. She denies any other active medical problems, any history of head trauma with loss of consciousness, seizures or surgery. She take omeprazole 20 mg daily for GERD. Mental Status Evaluation: Sydney was sitting up in the hospital bed playing cards with a volunteer. She recognized me immediately and identified me as Dr. Burgos. patient is thinner than she was 5 months ago. she is tremulous. she reports feeling nauseous and shaky. She excuses herself to bathroom in order to vomit. she returns and interview continues. patient tells me that she has been upset about her relationship with her female partner of 8 years. she believes it is coming to an end becuase they are not compatible. Girlfriend has been contacting her less. patient misses her and feels abandoned. worries that she may have found another girlfriend. reports she has been depressed, has intermittent suicidal thoughts but no intention, no plan and does not feel unsafe presently. She denies any active SI currently . deneis psychotic symptoms including delusions, AH,VH as well sometimes feels paranoid about her girlfriend having affair or changing their dual email account password. Thought process logical linear. mood dysphoric affect constricted and very sad. speech normal rate and volume no evidence of dariel. cognitively patient is alert and oriented to person, place, month, day of week and year. She cannot remember when she was admitted . stating that she thinks it was saturday or (actually was Saturday) insight partial judgment: presently intact. agrees to be reevaluated by me on saturday to see if transfer to psychiatry is indicated or whether she is mentally stable to return to outpatient care. She is unsure at this time whether she wants to go to inpatient rehab program. It may be unnecessary given current episode was 2 day binge and she got help quickly Meds: reviewed patient remains on WAM protocol and is receiving q 3 hour ativan according to score psych meds as listed are correct Impression: 57 yo with BAD, Alcohol Use Disorder, ADHD admitted 2 days ago after 2 day alcohol binge. patient continues to be in withdrawal at this time. Patient is not acute suicide risk at present time. Patient remains in depressive phase of illness and current medication regimen is partialy treating her symptoms. She would benefit from medication changes but this can be done as outpatient Plan: would Give Librium 25 mg QID X 1 days the 25 mg TID X 1 day then BID X 1 day then d/c would continue with WAM and ativan IV per protocol continue wellbutrin, depakote and prozac unchanged would get depakote levell trough at 6 to 7 pm NOT IN AM as patient takes all depakote at bedtime no need for one to one at this time. please call Dr. Miller for any concerns related to this patient over weekend otherwise, I will reconsult on her on 09/20/2017 to determine if she will require transfer to psychiatry or can be discharged home
[2017-09-20] MEDS: CMCS: Atomoxetine (NF) 40 MG CAP PO SCH (20:51)
[2017-09-20] MEDS: Divalproex ER TAB(*) 500 MG PO SCH (20:52)
[2017-09-20 21:38] LABS: EGFR Non-African American 60.4 (>60)
[2017-09-20] MEDS: PROCHLORPERAZINE INJ 5 MG/ML 2 ML VIAL IV PRN (22:04)
[2017-09-21] MEDS: Heparin VIAL(*) 5000 UNITS/ML VIAL (FIVE THOUSAND) SUBCUT SCH ×3 (05:47→20:31)
[2017-09-21] MEDS ORDERED: NS 0.9% 500 ML* 500 ML IV ONE (06:04)
[2017-09-21 06:22] LABS: ABS Basophils 0.1 10^3/ul (0-0.2); ABS Eosinophils 0.1 10^3/ul (0-0.6); ABS Lymphocytes 2.5 10^3/ul (1.0-4.8); ABS Monocytes 0.5 10^3/ul (0-0.8); ABS Neutrophils 1.5 10^3/ul (1.5-7.7); ABS Nucleated RBC 0 10^3/ul; Eosinophil % 1.9 % (0-6); Hematocrit 41 % (35-47); Hemoglobin 13.8 g/dl (12.0-16.0); Lymphocyte % 54.5 % (25-47); Mean Corpuscular HGB Conc 34 g/dl (31-36); Mean Corpuscular Hemoglobin 31 pg (27-31); Mean Corpuscular Volume 93 fL (80-97); Mean Platelet Volume 7.3 um3 (7.4-10.4); Nucleated Red Blood Cells % 0.2; Platelet Count 263 10^3/ul (150-450); Red Blood Count 4.43 10^6/ul (4.0-5.4); Red Cell Distribution Width 16 % (10.5-15); White Blood Count 4.6 10^3/ul (3.5-10.8)
[2017-09-21 06:39] LABS: EGFR Non-African American 45.7 (>60)
[2017-09-21] MEDS: buPROPion SR TAB.SR* 100 MG PO SCH ×2 (08:04→20:30)
[2017-09-21] MEDS: FLUoxetine CAP* 20 MG PO SCH (08:04)
[2017-09-21] MEDS: Omeprazole CAP* 20 MG PO SCH (08:04)
[2017-09-21] MEDS: Multivitamins/Minerals TAB PO SCH (08:05)
[2017-09-21] MEDS: Folic Acid TAB* 1 MG PO SCH (08:05)
[2017-09-21] MEDS: Thiamine TAB* 100 MG TAB PO SCH (08:05)
[2017-09-21] MEDS: chlordiazePOXIDE CAP* 25 MG PO SCH ×4 (08:05→20:30)
[2017-09-21] MEDS ORDERED: chlordiazePOXIDE CAP* 25 MG PO SCH (09:00)
--- NOTE | 2017-09-21 09:09 | PN ---
Subjective Date of Service: 09/21/17 Interval History: HOSPITALIST PROGRESS NOTE Patient seen and examined at bedside. Care reviewed with Praveena Soto RN. Labs reviewed. She feels better today. Shaking is less intense, still has some nausea, but no vomiting. Denies diarrhea, CP, palpitations, dyspnea. ROS: 14 point ROS performed and all pertinent negative and positive findings as above. Family History: Unchanged from Admission Social History: Unchanged from Admission Past Medical History: Unchanged from Admission Objective Active Medications: Acetaminophen (Tylenol Tab*) 650 mg PO Q4H PRN PRN Reason: FEVER/PAIN Last Admin: 09/19/17 18:02 Dose: 650 mg Al Hydrox/Mg Hydrox/Simethicone (Maalox Plus*) 30 ml PO Q6H PRN PRN Reason: INDIGESTION Atomoxetine HCl (Strattera (Nf)) 40 mg PO BEDTIME [facility] Last Admin: 09/20/17 20:51 Dose: 40 mg Bupropion HCl (Wellbutrin Sr Tab*) 100 mg PO BID [facility] Last Admin: 09/21/17 08:04 Dose: 100 mg Chlordiazepoxide (Librium Cap*) 25 mg PO QID [facility] Stop: 09/21/17 21:01 Last Admin: 09/21/17 08:05 Dose: 25 mg Chlordiazepoxide (Librium Cap*) 25 mg PO TID [facility] Stop: 09/22/17 21:01 Chlordiazepoxide (Librium Cap*) 25 mg PO BID [facility] Stop: 09/23/17 21:01 Divalproex Sodium (Depakote Er Tab(*)) 1,000 mg PO BEDTIME [facility] Last Admin: 09/20/17 20:52 Dose: 1,000 mg Fluoxetine HCl (Prozac Cap*) 60 mg PO DAILY [facility] Last Admin: 09/21/17 08:04 Dose: 60 mg Folic Acid (Folvite Tab*) 1 mg PO DAILY [facility] Last Admin: 09/21/17 08:05 Dose: 1 mg Heparin Sodium (Porcine) (Heparin Vial(*)) 5,000 units SUBCUT Q8HR [facility] Last Admin: 09/21/17 05:47 Dose: 5,000 units Lorazepam (Ativan Inj*) 0 - 3 mg IV PUSH .PER [facility] PROTOCOL [facility] PRN Reason: Protocol Last Admin: 05/03/18 10:15 Dose: 1.5 mg Multivitamins/Minerals (Theragran/Minerals Tab*) 1 tab PO DAILY [facility] Last Admin: 09/21/17 08:05 Dose: 1 tab Omeprazole (Prilosec Cap*) 40 mg PO DAILY [facility] Last Admin: 09/21/17 08:04 Dose: 40 mg Ondansetron HCl (Zofran Tab*) 4 mg PO Q8H PRN PRN Reason: NAUSEA Last Admin: 09/20/17 19:43 Dose: 4 mg Prochlorperazine Edisylate (Compazine Inj*) 10 mg IV Q6H PRN PRN Reason: NAUSEA/VOMITING Last Admin: 09/20/17 22:04 Dose: 10 mg Thiamine HCl (Vitamin B-1 Tab*) 100 mg PO DAILY [facility] Last Admin: 09/21/17 08:05 Dose: 100 mg Vital Signs - 8 hr 09/21/17 09/21/17 09/21/17 02:04 02:10 04:10 Temperature 97.6 F 97.8 F Pulse Rate 71 67 Respiratory 14 16 Rate Blood Pressure 88/58 92/60 91/48 (mmHg) O2 Sat by Pulse 95 94 Oximetry 09/21/17 09/21/17 09/21/17 05:58 08:05 08:09 Temperature 97.7 F 98.0 F Pulse Rate 70 65 Respiratory 16 18 Rate Blood Pressure 85/52 79/38 96/68 (mmHg) O2 Sat by Pulse 97 97 Oximetry Oxygen Devices in Use Now: None Appearance: Pleasant middle aged lady sitting up in bed in [facility]. Eyes: No Scleral Icterus Ears/Nose/Mouth/Throat: Mucous Membranes Moist Neck: Trachea Midline Respiratory: Symmetrical Chest Expansion and Respiratory Effort, Clear to Auscultation Cardiovascular: NL Sounds; No Murmurs; No JVD, RRR Extremities: No Edema Neurological: Alert and Oriented x 3, NL Muscle Strength and Tone Result Diagrams: 09/21/17 06:06 09/21/17 06:06 Assess/Plan/Problems-Billing Assessment: Mrs. Hauser is a 57yo F with PMH of bipolar disorder, alcoholism, ADHD, GERD, who presented to ED with c/o tremors and SI, found to have alcohol withdrawal. - Patient Problems (1) Alcohol withdrawal Comment: - Continue WAM protocol and Librium taper. (2) Bipolar disorder Comment: - Continue Wellbutrin, Depakote, and Fluoxetine. (3) ADHD (attention deficit hyperactivity disorder) Comment: - Continue Strattera. (4) Suicidal ideation Comment: - Denies it now. As per Psych, no indication for 1:1 at this time. - Psych to re-evaluate to see if [facility] transfer. (5) SUYAPA (acute kidney injury) Comment: - Secondary to dehydration. - Continue IVF and monitor renal function and electrolytes. (6) DVT prophylaxis Comment: - SQ heparin. (7) Full code status Status and Disposition: Inpatient for management of ETOH withdrawal.
[2017-09-21] MEDS: NS 0.9% 1000 ML* 1,000 ML IV SCH ×2 (11:00→20:29)
[2017-09-21] MEDS: Divalproex ER TAB(*) 500 MG PO SCH (20:29)
[2017-09-21] MEDS: CMCS: Atomoxetine (NF) 40 MG CAP PO SCH (20:31)
[2017-09-22] MEDS: Heparin VIAL(*) 5000 UNITS/ML VIAL (FIVE THOUSAND) SUBCUT SCH ×3 (04:47→21:46)
[2017-09-22 07:43] LABS: EGFR Non-African American 81.9 (>60)
--- NOTE | 2017-09-22 08:58 | PN ---
Subjective Date of Service: 09/22/17 Interval History: HOSPITALIST PROGRESS NOTE Patient seen and examined at bedside. Care reviewed and d/w Rickie Lima RN. She feels a little better today. No further N/V, but feels constipated and bloated. Tolerating diet well. Family History: Unchanged from Admission Social History: Unchanged from Admission Past Medical History: Unchanged from Admission Objective Active Medications: Acetaminophen (Tylenol Tab*) 650 mg PO Q4H PRN PRN Reason: FEVER/PAIN Last Admin: 09/19/17 18:02 Dose: 650 mg Al Hydrox/Mg Hydrox/Simethicone (Maalox Plus*) 30 ml PO Q6H PRN PRN Reason: INDIGESTION Atomoxetine HCl (Strattera (Nf)) 40 mg PO BEDTIME [facility] Last Admin: 09/21/17 20:31 Dose: 40 mg Bupropion HCl (Wellbutrin Sr Tab*) 100 mg PO BID [facility] Last Admin: 09/21/17 20:30 Dose: 100 mg Chlordiazepoxide (Librium Cap*) 25 mg PO TID [facility] Stop: 09/22/17 21:01 Chlordiazepoxide (Librium Cap*) 25 mg PO BID [facility] Stop: 09/23/17 21:01 Divalproex Sodium (Depakote Er Tab(*)) 1,000 mg PO BEDTIME [facility] Last Admin: 09/21/17 20:29 Dose: 1,000 mg Fluoxetine HCl (Prozac Cap*) 60 mg PO DAILY [facility] Last Admin: 09/21/17 08:04 Dose: 60 mg Folic Acid (Folvite Tab*) 1 mg PO DAILY [facility] Last Admin: 09/21/17 08:05 Dose: 1 mg Heparin Sodium (Porcine) (Heparin Vial(*)) 5,000 units SUBCUT Q8HR [facility] Last Admin: 09/22/17 04:47 Dose: 5,000 units Lorazepam (Ativan Inj*) 0 - 3 mg IV PUSH .PER [facility] PROTOCOL [facility] PRN Reason: Protocol Last Admin: 09/19/17 10:15 Dose: 1.5 mg Multivitamins/Minerals (Theragran/Minerals Tab*) 1 tab PO DAILY [facility] Last Admin: 09/21/17 08:05 Dose: 1 tab Omeprazole (Prilosec Cap*) 40 mg PO DAILY [facility] Last Admin: 09/21/17 08:04 Dose: 40 mg Ondansetron HCl (Zofran Tab*) 4 mg PO Q8H PRN PRN Reason: NAUSEA Last Admin: 09/20/17 19:43 Dose: 4 mg Polyethylene Glycol/Electrolytes (Miralax*) 17 gm PO 0800,2100 [facility] Prochlorperazine Edisylate (Compazine Inj*) 10 mg IV Q6H PRN PRN Reason: NAUSEA/VOMITING Last Admin: 09/20/17 22:04 Dose: 10 mg Senna (Senokot Tab*) 2 tab PO DAILY [facility] Thiamine HCl (Vitamin B-1 Tab*) 100 mg PO DAILY [facility] Last Admin: 09/21/17 08:05 Dose: 100 mg Vital Signs - 8 hr 09/22/17 09/22/17 03:55 07:53 Temperature 97.7 F Pulse Rate 62 Respiratory 16 16 Rate Blood Pressure 95/49 (mmHg) O2 Sat by Pulse 96 Oximetry Oxygen Devices in Use Now: None Appearance: Pleasant middle aged lady sitting up in bed in [facility]. Eyes: No Scleral Icterus Ears/Nose/Mouth/Throat: Mucous Membranes Moist Neck: Trachea Midline Respiratory: Symmetrical Chest Expansion and Respiratory Effort, Clear to Auscultation Cardiovascular: RRR - Normal S1 and S2 Abdominal: - - Soft, mild epigastric tenderness, NG, NR, BS+ Extremities: No Edema Neurological: Alert and Oriented x 3, NL Muscle Strength and Tone Result Diagrams: 09/21/17 06:06 09/22/17 06:34 Assess/Plan/Problems-Billing Assessment: Mrs. Hauser is a 57yo F with PMH of bipolar disorder, alcoholism, ADHD, GERD, who presented to ED with c/o tremors and SI, found to have alcohol withdrawal. - Patient Problems (1) Abdominal pain Comment: - Likely secondary to constipation, but if persistent will pursue imaging as patient has a h/o diverticulitis. (2) Alcohol withdrawal Comment: - Continue WAM protocol and Librium taper. (3) Bipolar disorder Comment: - Continue Wellbutrin, Depakote, and Fluoxetine. (4) ADHD (attention deficit hyperactivity disorder) Comment: - Continue Strattera. (5) Suicidal ideation Comment: - Denies it now. As per Psych, no indication for 1:1 at this time. - Psych to re-evaluate to see if [facility] transfer indicated. (6) SUYAPA (acute kidney injury) Comment: - Secondary to dehydration - improved. - D/c IVF. (7) DVT prophylaxis Comment: - SQ heparin. (8) Full code status Status and Disposition: Inpatient for management of ETOH withdrawal.
[2017-09-22] MEDS: Polyethylene Glycol 3350* 17 GM PACKET PO SCH ×2 (10:34→21:45)
[2017-09-22] MEDS: chlordiazePOXIDE CAP* 25 MG PO SCH ×3 (10:34→21:43)
[2017-09-22] MEDS: buPROPion SR TAB.SR* 100 MG PO SCH ×2 (10:34→21:43)
[2017-09-22] MEDS: FLUoxetine CAP* 20 MG PO SCH (10:34)
[2017-09-22] MEDS: Omeprazole CAP* 20 MG PO SCH (10:34)
[2017-09-22] MEDS: Folic Acid TAB* 1 MG PO SCH (10:35)
[2017-09-22] MEDS: Thiamine TAB* 100 MG TAB PO SCH (10:35)
[2017-09-22] MEDS: Senna TAB PO SCH (10:35)
[2017-09-22] MEDS: Multivitamins/Minerals TAB PO SCH (10:35)
[2017-09-22] MEDS ORDERED: Sodium Phosphate ADULT ENEMA* 118 ml bottle PR PRN (13:32)
[2017-09-22] MEDS ORDERED: Magnesium Hydroxide LIQ* 30 ML UDC PO PRN (13:32)
[2017-09-22] MEDS: PROCHLORPERAZINE INJ 5 MG/ML 2 ML VIAL IV PRN (14:28)
--- NOTE | 2017-09-22 15:11 | RAD ---
INDICATION: Constipation evaluate for obstruction. COMPARISON: Comparison is made with the prior CT of the abdomen and pelvis from October 19, 2016. TECHNIQUE: Supine and upright views of the abdomen were obtained. FINDINGS: The small bowel appears nondistended. There is mild distention of the transverse colon. There are scattered air-fluid levels present within the abdomen which appear most prominent within the colon. No free intraperitoneal air is seen. No abnormal calcifications are seen. IMPRESSION: NONSPECIFIC GAS PATTERN SUGGESTIVE OF A PARALYTIC ILEUS OR GASTROENTERITIS PATTERN LESS LIKELY A LOW-GRADE OBSTRUCTION. RECOMMEND CLINICAL CORRELATION AND FOLLOW-UP TO RESOLUTION.
[2017-09-22] MEDS ORDERED: Glycerin ADULT SUPP PR PRN (16:40)
[2017-09-22] MEDS: Divalproex ER TAB(*) 500 MG PO SCH (21:43)
[2017-09-22] MEDS: CMCS: Atomoxetine (NF) 40 MG CAP PO SCH (21:44)
[2017-09-23] MEDS: Heparin VIAL(*) 5000 UNITS/ML VIAL (FIVE THOUSAND) SUBCUT SCH ×2 (05:44→14:04)
[2017-09-23] MEDS ORDERED: chlordiazePOXIDE CAP* 25 MG PO SCH (09:00)
[2017-09-23] MEDS: Polyethylene Glycol 3350* 17 GM PACKET PO SCH (09:40)
[2017-09-23] MEDS: FLUoxetine CAP* 20 MG PO SCH (09:41)
[2017-09-23] MEDS: Folic Acid TAB* 1 MG PO SCH (09:41)
[2017-09-23] MEDS: Multivitamins/Minerals TAB PO SCH (09:41)
[2017-09-23] MEDS: Thiamine TAB* 100 MG TAB PO SCH (09:41)
[2017-09-23] MEDS: Senna TAB PO SCH (09:41)
[2017-09-23] MEDS: buPROPion SR TAB.SR* 100 MG PO SCH (09:41)
[2017-09-23] MEDS: Omeprazole CAP* 20 MG PO SCH (09:42)
--- NOTE | 2017-09-23 13:07 | PN ---
Subjective - Subjective Subjective: Psychiatry Consultation Liaison Progress Note: I met with Sydney today and she looks improved in terms of her withdrawal symptoms. no tremor noted. she denies nausea today. Last vomited yesterday. She was eating normal breakfast. Sydney is very concerned about relasping upon discharge. She requested monthly Vivitrol injection. she hasnot had Ativan IV in greater than 24 hours. She is currently on Librium taper. constipated s/p laxatives with resultant BM She is also very concerned about being obsessional with her girlfriend Tammi and pointed out that she has intermittently become intensely jealous and sometimes paranoid about her girlfriend dating someone else. She denied thought of wanting to harm girlfriend. The relationship is coming to an end and patient was able to acknowlege that this break up is more one sided (girlientheresa wants breakup and Sydney doesn't). She shared today that last week when she couldnt access her and Cadena's email it must have been that she was intoxicated because she checked her phone on the weekend and she was able to access this email without any problem. 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 She is reticent to do those changes as an outpatient as she has experienced side effects or withdrawal symptoms from medication changes n past She requests transfer to psychiatry so that medication changes can be made and she can be monitored. I agree that this is prudent She also is concerned about the level of jealousy she feels with regard to her girlfriend and feels she needs acute therapy to help her deal with this catastrophic loss/breakup. Vitals today: Vital Signs: Temp Pulse Resp BP Pulse Ox 97.4 F 76 16 99/50 100 09/23/17 07:34 09/23/17 11:16 09/23/17 11:30 09/23/17 11:16 09/23/17 11:16 MSE: speech: normal RR and V well realated good eye contact TP organized,goal directed TC: feels hopeless, abandoned by girlfriend, low self worth, limited ego strengths, amotivation, anergia sleeping fairly well. appetite fair. no AH,VH. denies SI or HI. reports that she cant stop thinking about Cadena and feels jealous that she will enter into relationship with someone new since they have no active SI at this time formally decided to break up. worried about side effects from medication changes mood: dysphoric affect: sad, constricted alert and oriented in all spheres insight fair to good judgment: tenuous Labs: reveiwed. VPA level is 96, other labs : TB is 1.4 (still elevated), cbc normal Impression: patient is 57 yo with AUD, bipolar disorder currently depressed, GERD, ADHD admitted after 2 day ETOH binge which was relapse for patient. She was admitted for acute detox/withdrawal syndrome. Withdrawal syndrome appears to have remitted Patient would benefit from brief psychiatric inpatient admission in order to make changes to her medication regimen as she remains depressed. also catastrophic stressor for this patient is break up with her girlfriend of 8 years and she is concerned that she is needing therpaeutic help to cope with and manage that loss as she has been feeling intense feelings of jealousy and dependency on her girlfriend. Plan: Transfer to [facility] when bed becmes available. patient will be a voluntary patient d/c prozac Start Trintelllix 5 mg qam beginning tomorrow Start Naltrexone 50 mg qhs beginning tonight continue wellbutrin SR 100 mg BID Plan - Plan Treatment Plan: Name: SYDNEY VIERA Birthdate: 1960 [id number] Medications: Current Medications Acetaminophen (Tylenol Tab*) 650 mg PO Q4H PRN PRN Reason: FEVER/PAIN Last Admin: 09/19/17 18:02 Dose: 650 mg Al Hydrox/Mg Hydrox/Simethicone (Maalox Plus*) 30 ml PO Q6H PRN PRN Reason: INDIGESTION Atomoxetine HCl (Strattera (Nf)) 40 mg PO BEDTIME [facility] Last Admin: 09/22/17 21:44 Dose: 40 mg Bupropion HCl (Wellbutrin Sr Tab*) 100 mg PO BID [facility] Last Admin: 09/23/17 09:41 Dose: 100 mg Chlordiazepoxide (Librium Cap*) 25 mg PO BID [facility] Stop: 09/23/17 21:01 Last Admin: 09/23/17 09:42 Dose: 25 mg Divalproex Sodium (Depakote Er Tab(*)) 1,000 mg PO BEDTIME [facility] Last Admin: 09/22/17 21:43 Dose: 1,000 mg Fluoxetine HCl (Prozac Cap*) 60 mg PO DAILY [facility] Last Admin: 09/23/17 09:41 Dose: 60 mg Folic Acid (Folvite Tab*) 1 mg PO DAILY [facility] Last Admin: 09/23/17 09:41 Dose: 1 mg Glycerin (Glycerin Adult Supp*) 1 supp RI DAILY PRN PRN Reason: CONSTIPATION Heparin Sodium (Porcine) (Heparin Vial(*)) 5,000 units SUBCUT Q8HR [facility] Last Admin: 09/23/17 05:44 Dose: 5,000 units Lorazepam (Ativan Inj*) 0 - 3 mg IV PUSH .PER [facility] PROTOCOL [facility] PRN Reason: Protocol Last Admin: 09/19/17 10:15 Dose: 1.5 mg Magnesium Hydroxide (Milk Of Magnesia Liq*) 30 ml PO Q6H PRN PRN Reason: CONSTIPATION Multivitamins/Minerals (Theragran/Minerals Tab*) 1 tab PO DAILY [facility] Last Admin: 09/23/17 09:41 Dose: 1 tab Omeprazole (Prilosec Cap*) 40 mg PO DAILY [facility] Last Admin: 09/23/17 09:42 Dose: 40 mg Ondansetron HCl (Zofran Tab*) 4 mg PO Q8H PRN PRN Reason: NAUSEA Last Admin: 09/20/17 19:43 Dose: 4 mg Polyethylene Glycol/Electrolytes (Miralax*) 17 gm PO 0800,2100 [facility] Last Admin: 09/23/17 09:40 Dose: 17 gm Prochlorperazine Edisylate (Compazine Inj*) 10 mg IV Q6H PRN PRN Reason: NAUSEA/VOMITING Last Admin: 09/22/17 14:28 Dose: 10 mg Senna (Senokot Tab*) 2 tab PO DAILY [facility] Last Admin: 09/23/17 09:41 Dose: 2 tab Sodium Biphosphate/Sodium Phosphate (Fleet Enema*) 1 bottle RI DAILY PRN PRN Reason: CONSTIPATION Last Admin: 09/22/17 15:10 Dose: 1 bottle Thiamine HCl (Vitamin B-1 Tab*) 100 mg PO DAILY [facility] Last Admin: 09/23/17 09:41 Dose: 100 mg
--- NOTE | 2017-09-23 17:43 | PN ---
Subjective Date of Service: 09/23/17 Interval History: HOSPITALIST PROGRESS NOTE Patient seen and examined at bedside. Care reviewed and d/w Oma Razo RN. She feels better today. Abdominal pain resolved after BM, denies N/V, tolerating diet well. Family History: Unchanged from Admission Social History: Unchanged from Admission Past Medical History: Unchanged from Admission Objective Active Medications: Acetaminophen (Tylenol Tab*) 650 mg PO Q4H PRN PRN Reason: FEVER/PAIN Last Admin: 09/19/17 18:02 Dose: 650 mg Al Hydrox/Mg Hydrox/Simethicone (Maalox Plus*) 30 ml PO Q6H PRN PRN Reason: INDIGESTION Atomoxetine HCl (Strattera (Nf)) 40 mg PO BEDTIME [facility] Last Admin: 09/22/17 21:44 Dose: 40 mg Bupropion HCl (Wellbutrin Sr Tab*) 100 mg PO BID [facility] Last Admin: 09/23/17 09:41 Dose: 100 mg Chlordiazepoxide (Librium Cap*) 25 mg PO BID [facility] Stop: 09/23/17 21:01 Last Admin: 09/23/17 09:42 Dose: 25 mg Divalproex Sodium (Depakote Er Tab(*)) 1,000 mg PO BEDTIME [facility] Last Admin: 09/22/17 21:43 Dose: 1,000 mg Folic Acid (Folvite Tab*) 1 mg PO DAILY [facility] Last Admin: 09/23/17 09:41 Dose: 1 mg Glycerin (Glycerin Adult Supp*) 1 supp MA DAILY PRN PRN Reason: CONSTIPATION Heparin Sodium (Porcine) (Heparin Vial(*)) 5,000 units SUBCUT Q8HR [facility] Last Admin: 09/23/17 14:04 Dose: 5,000 units Lorazepam (Ativan Inj*) 0 - 3 mg IV PUSH .PER [facility] PROTOCOL [facility] PRN Reason: Protocol Last Admin: 09/19/17 10:15 Dose: 1.5 mg Magnesium Hydroxide (Milk Of Magnesia Liq*) 30 ml PO Q6H PRN PRN Reason: CONSTIPATION Multivitamins/Minerals (Theragran/Minerals Tab*) 1 tab PO DAILY [facility] Last Admin: 09/23/17 09:41 Dose: 1 tab Omeprazole (Prilosec Cap*) 40 mg PO DAILY [facility] Last Admin: 09/23/17 09:42 Dose: 40 mg Ondansetron HCl (Zofran Tab*) 4 mg PO Q8H PRN PRN Reason: NAUSEA Last Admin: 09/20/17 19:43 Dose: 4 mg Polyethylene Glycol/Electrolytes (Miralax*) 17 gm PO 0800,2100 [facility] Last Admin: 09/23/17 09:40 Dose: 17 gm Prochlorperazine Edisylate (Compazine Inj*) 10 mg IV Q6H PRN PRN Reason: NAUSEA/VOMITING Last Admin: 09/22/17 14:28 Dose: 10 mg Senna (Senokot Tab*) 2 tab PO DAILY [facility] Last Admin: 09/23/17 09:41 Dose: 2 tab Sodium Biphosphate/Sodium Phosphate (Fleet Enema*) 1 bottle MA DAILY PRN PRN Reason: CONSTIPATION Last Admin: 09/22/17 15:10 Dose: 1 bottle Thiamine HCl (Vitamin B-1 Tab*) 100 mg PO DAILY [facility] Last Admin: 09/23/17 09:41 Dose: 100 mg Vital Signs - 8 hr 09/23/17 09/23/17 09/23/17 09:42 11:14 11:16 Pulse Rate 76 76 Respiratory 16 18 Rate Blood Pressure 95/41 99/50 (mmHg) O2 Sat by Pulse 100 100 Oximetry Oxygen Devices in Use Now: None Appearance: Pleasant lady lying in bed in [facility]. Eyes: No Scleral Icterus Ears/Nose/Mouth/Throat: Mucous Membranes Moist Neck: Trachea Midline Respiratory: Symmetrical Chest Expansion and Respiratory Effort, Clear to Auscultation Cardiovascular: RRR - Normal S1 and S2 Abdominal: NL Sounds; No Tenderness; No Distention Neurological: Alert and Oriented x 3, NL Muscle Strength and Tone Result Diagrams: 09/21/17 06:06 09/22/17 06:34 Assess/Plan/Problems-Billing Assessment: Mrs. Hauser is a 57yo F with PMH of bipolar disorder, alcoholism, ADHD, GERD, who presented to ED with c/o tremors and SI, found to have alcohol withdrawal. - Patient Problems (1) Abdominal pain Comment: - Secondary to constipation - resolved. (2) Alcohol withdrawal Comment: - Completed WAM protocol and Librium taper. (3) Bipolar disorder Comment: - Continue Wellbutrin, Depakote, and Fluoxetine. (4) ADHD (attention deficit hyperactivity disorder) Comment: - Continue Strattera. (5) Suicidal ideation Comment: - Denies it now. As per Psych, no indication for 1:1 at this time. - Psych re-evaluation appreciated - plan for voluntary admission to [facility] when bed available. (6) SUYAPA (acute kidney injury) Comment: - Secondary to dehydration - improved. (7) DVT prophylaxis Comment: - SQ heparin. (8) Full code status Status and Disposition: Inpatient for management of ETOH withdrawal. Awaiting bed at [facility].
[2017-09-23 19:26] VITALS: BP 107/63
--- NOTE | 2017-09-25 14:53 | DS ---
CC: Sheila Liao NP DISCHARGE SUMMARY: DATE OF ADMISSION: 09/18/17. DATE OF DISCHARGE: 09/23/17. PRIMARY CARE PROVIDER: Sheila iLao NP. DISCHARGE DIAGNOSES: 1. Abdominal pain secondary to constipation. 2. Alcohol withdrawal. 3. Bipolar disorder. 4. Suicidal ideation. 5. Acute kidney injury secondary to dehydration. SECONDARY DIAGNOSES: 1. Gastroesophageal reflux disease. 2. Bipolar disorder. MEDICATIONS: At the time of transfer: 1. Acetaminophen 650 mg p.o. q. 4 hours p.r.n. pain or fever. 2. Strattera 40 mg p.o. at bedtime. 3. Wellbutrin SR 100 mg p.o. b.i.d. 4. Divalproex ER 1000 mg p.o. at bedtime. 5. Fluoxetine 60 mg p.o. daily. 6. Folic acid 1 mg p.o. daily. 7. Multivitamin 1 tablet p.o. daily. 8. Omeprazole 40 mg p.o. daily. 9. MiraLAX 17 g p.o. b.i.d. 10. Senna 2 tablets p.o. daily. 11. Thiamine 100 mg p.o. daily. HOSPITAL COURSE: Ms. Hauser is a 57-year-old lady with a past medical history as stated above that p resented to the emergency room stating that she did not feel safe at home. The patient has been thro ugh a lot of stress in the recent months. She does have a history of alcohol abuse, but was sober, bu t due to the recent stressors, she had relapsed. Her mother in May. She had to put her fat her in a long-term and she has recently broke up with her partner of years. For more details of he r presentation, I refer you to her history and physical. The patient was admitted on the impression of alcohol withdrawal and we started on a WAM protocol and Librium taper. She was seen in consultation by Psychiatry (Dr. Burgos) and his impression was that the patient has a history of bipolar disorder, alcohol use disorder, ADHD, and was admitted after a 2-day alcohol denny e with withdrawal symptoms. He did not feel she had an acute suicide risk at this time, but remained in depressive phase of illness. The patient had resolution of her alcohol withdrawal, but developed significant constipation causing abdominal pain and nausea. This was resolved and she was asymptoma tic, but still depressed. She was seen in followup by Dr. Burgos and he felt that the withdrawal sym ptoms were resolved, but she would benefit from a brief psychiatric inpatient admission in order to m vic changes to her medication regimen, as she remains depressed. Also catastrophic stress for this lisa martinez is a breakup with a girlfriend of 8 years and she is concerned that she needs therapeutic help to cope with and manage that loss, as she has been feeling intense feelings of jealousy and dependen cy on her girlfriend. The patient was medically stable for discharge to the behavior service unit and after that she will n eed to follow up with her primary care provider. PHYSICAL EXAMINATION: Vital Signs: Temperature is 98.4, heart rate is 77, respiratory rate is 20, o xygen saturation is 100% on room air, blood pressure is 107/63. General: The patient is a pleasant middle-aged lady, lying in bed, in no acute distress. CVS: Normal S1, S2. Regular rate and rhythm. Chest: Breath sounds present bilaterally with no added sounds. Abdomen: Soft. Bowel sounds are present. Extremities: No edema. Neuro: She is alert and oriented x3, able to move all 4 extremiti es. DIET: Regular diet. ACTIVITY: As tolerated. DISPOSITION: To the mental health unit. STATUS WHILE IN THE HOSPITAL: Inpatient. Please keep in mind, this is a summarized version of this lisa martinez's hospital stay. If you need more information, please feel free to call me at [phone] or please obtain the full medical records. TIME SPENT: Approximately 45 minutes was spent to complete this discharge. [id number]/[facility] #: [id number]
== END 2017-09-23 20:20 | DRG 775 ==
LOC: ED 09:08 → MED 17:35
PROVIDERS: ADMIT Internal Medicine; ATTEND Internal Medicine
DX: F10.239 Alcohol dependence with withdrawal, unspecified (principal); N17.9 Acute kidney failure, unspecified; R45.851 Suicidal ideations; F31.9 Bipolar disorder, unspecified; F32.9 Major depressive disorder, single episode, unspecified; K21.9 Gastro-esophageal reflux disease without esophagitis; Y90.6 Blood alcohol level of 120-199 mg/100 ml; F90.9 Attention-deficit hyperactivity disorder, unspecified type; F41.9 Anxiety disorder, unspecified; F17.290 Nicotine dependence, other tobacco product, uncomplicated; K59.00 Constipation, unspecified; E86.0 Dehydration; Z91.048 Other nonmedicinal substance allergy status; Z79.899 Other long term (current) drug therapy; Z82.49 Family history of ischemic heart disease and other diseases of the circulatory system; Z91.041 Radiographic dye allergy status; Z88.5 Allergy status to narcotic agent; Z88.8 Allergy status to other drugs, medicaments and biological substances
CPT/HCPCS: 36415; 74019; 80048; 80053; 80061; 80164; 80307; 80320; 80329; 81003; 81015; 82436; 82570; 83690; 83735; 83930; 83935; 84133; 84300; 84443; 85025; 87077; 87086; 87641; 99284; 99406; A9270-GY; G0480; J0780; J1644; J2060; J3411

== ENCOUNTER 2017-09-23 20:33 | Inpatient (IN) | payer OTHER ==
[2017-09-23] MEDS: Divalproex ER TAB(*) 500 MG PO SCH (22:31)
[2017-09-23] MEDS: buPROPion SR TAB.SR* 100 MG PO SCH (22:31)
[2017-09-23] MEDS: chlordiazePOXIDE CAP* 25 MG PO SCH (22:32)
[2017-09-24] MEDS: Omeprazole CAP* 20 MG PO SCH (08:41)
[2017-09-24] MEDS: Thiamine TAB* 100 MG TAB PO SCH (08:41)
[2017-09-24] MEDS: chlordiazePOXIDE CAP* 25 MG PO SCH (08:42)
[2017-09-24] MEDS: buPROPion SR TAB.SR* 100 MG PO SCH (08:43)
--- NOTE | 2017-09-24 09:50 | HP ---
H&P (Free Text) History and Physical: Psychiatric Attending History and Physical NAME: Sydney Hauser : 1960 AGE: 57 PROVIDER: Ronald Burgos DATE OF ADMISSION: 09/23/2017 JUSTIFICATION FOR ADMISSION: Patient recently completed detoxification on medical floor. She is severely depressed, has suicidal ideation, and is in danger of relapse. She is gravely disabled and requires pharmacological intervention on an inpatient setting with 24 hour level of supervision CHIEF COMPLAINT: "......I feel without hope. I am alone...I dont want to start drinking again..." HISTORY OF THE PRESENT ILLNESS: Sydney Hauser is a 57 yo single woman of [place] descent who lives in a sober home. She has a history of alcohol use disorder, Bipolar Disorder, GERD, ADHd Her outpatient psychiatric treatment is through [facility] where she sees Dr. Padilla for medicatino management and regular therapist as well whom she has been patient of for many years. patient was last admitted to psychiatry back in 05/2017 for depression, binge drinking for several days which is her usual relapse pattern. Patient reports that she has been sober since discharge from [facility] in May and has been compliant with outpatient treatment and with her psychiatric med regimen of Depakote, Prozac and WellbutrinSR. Patient relates that since discharge she has continued to suffer with depressive symptoms (partially treated) includingintermittent passive suicidal ideation, anergia, preoccupation with of mother and father's dementia, low self esteem, feelings of low self worth and hopelessness. she denies any self injurious behaviors or suicide attempts. She identifies ongoing stressors as of mother in may 2017, father's being placed in a penitentiary, and discord in relationship with her partner of 8 years. denies domestic violence in the relationship. reports having fight over phone last week with girlfriend after which she brought vodka into the half way house and binged for two days She purposely notified staff so she would be brought for help. to her credit this is her usual pattern (seeking help when she relapses). Patient had moderate withdrawal syndrome and was initially admitted to Medical floor for detoxification with [facility] protocol on 09/18/2017. She required addition of Librium taper due to prolonged withdrawal. psychiatry was consulted and I saw Sydney when she was on the medical floor. She was quite depressed, hopeless and reported she was proccupied with loss of girlfriend and loss of her parents (mother's , father end stage alzheimers). She feels alone. She is worried about her depression and fears that she will never experience full remission and end up returning to hospital PAST PSYCHIATRIC HISTORY: History of previous inpatient psychiatric admissions here and at replaced by [facility] such as [facility] because of suicidal ideation in the context of alcohol use disorder. Outpatient care is at [facility] with psychiatric Dr. Padilla and with community nurse, Lakhwinder East. The patient is currently prescribed Depakote ER 1000 mg at bedtime, Fluoxetine 60 mg daily, Wellbutrin SR 100 mg BID. The patient denies previous charleen suicide attempt PAST SURGICAL HISTORY: Positive for complete hysterectomy because of polycystic ovarian syndrome. MEDICATION HISTORY: Has had multiple trials of medication over the years including tricyclic antidepressants, lithium, Abilify, Seroquel, benzodiazepines, wellbutrin, Latuda, seroquel LEGAL HISTORY: The patient has a history of DWI with mandated treatment and is currently on probation SUBSTANCE ABUSE HISTORY: The patient reports that she began drinking alcohol as early as age 11. She has had periods of sobriety, the longest stretch of sobriety lasted 6 years. She drinks an average of 1 pint of vodka often to the point of intoxication. She has had multiple residential treatment episodes including [facility]. She has been enrolled in AA and has had multiple detoxes. She denies the use of any other illicit drugs. She smokes cigarettes, however. FAMILY HISTORY: The patient reports family history of Alzheimer's dementia in her father. Her mother recently from complications of Parkinson's disease. The patient is aware that both her parents suffered from depression. The patient's maternal cousin attempted suicide by overdose. PERSONAL AND SOCIAL HISTORY: The patient has never been , has no children. She was [place] [facility] [facility] from [place] parents. She eventually moved here in [place]. She is educated to the level of a bachelor's degree in human development. She self-identified as lesbian. She was in a 20-year relationship with a female partner who . Her mother recently . She has had multiple jobs in the past. 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 She has been on mental disability since after her most recent discharge here. The patient reports spending her time keeping appointments at [facility], [facility], attending AA meetings, spending time with relatives. She also enjoys spending time alone. CURRENT MEDICATIONS: Wellbutrin SR 100 mg BID Depakote ER 1000 mg qhs Prozac 60 mg qhs ALLERGIES: codeine, Iodine, Lurasidone(muscle twitching), tricyclic compounds ( agitation), tamiflu (nausea, vomiting), IV contrast dye (hives) REVIEW OF SYSTEMS: 14 point review of systems is noncontributory Vital Signs: Temp Pulse Resp BP Pulse Ox 97.0 F 73 18 102/73 100 09/24/17 07:48 09/24/17 07:48 09/24/17 11:15 09/24/17 07:48 09/24/17 07:48 PHYSICAL EXAMINATION: Skin: warm, dry, reflects adequate perfusion, no exanthem Head: atraumatic Neck: supple, non-tender, no cervical or submandibular adenopathy, no bruits Eyes: EOMI, TERESA, conjunctiva without injection ENT: no nasal discharge, TM's w/o injection, pharynx without exudate or injection, no tonsillar hypertrophy, mucous membranes moist. no evidence of oral lesions Respiratory: CTA bilaterally without expiratory wheezing, no rhonchi, no retractions visible Cardiovascular: RRR normal s1 and s2. radial, brachoradialis, dorsalis pedis pulses symmetic 5+/5 bilaterally Abdomen: soft non tender, normoactive bowel sound present in all quadrants, no HSM, no palpable masses Musculoskeletal: full range of motions in all extremities, no evidence of spinal curvature Lymph: no axillary lypmphadenopathy Neuro: CN 2 to 12 intact, no sensory deficits, motor 5+/5 in upper and lower extremites, bilaterally symmetric no cerebellar signs, normal gait, no tremor MENTAL STATUS EXAMINATION: Patient appears to have lost weight from last time I saw her. Patient is well related and makes good eye contact Speech is normal rate and volume. Mood is dysphoric. affect is full range but she becomes tearful intermittently. tells me that she has been upset about her relationship with her female partner of 8 years which is coming to an end becuase they are not compatible. Girlfriend has been contacting her less. patient misses her and feels abandoned. worries that she may have found another girlfriend. reports she has been depressed, has intermittent suicidal thoughts but no intention, no plan and does not feel unsafe presently. She denies any active SI currently . deneis psychotic symptoms including delusions, AH,VH as well sometimes feels paranoid about her girlfriend having affair or changing their dual email account password. Thought process logical linear. cognitively patient is alert and oriented to person, place, month, day of week and year. Insight and judgment are intact. LABORATORY DATA: From 09/21/17 CBC within normal limits. CMP within normal limits inclulding normal LFT's serum alcohol on 09/18 was 190 serum depakote level on 09/22 was 95 (on 1000 mg of depakote ER qhs) Urine toxicology screen was negative for drugs of abuse. IMPRESSION: 57 yo single with long standing history of chroinic and persisttent mental illness including Alcohol Use Disorder,ADHD, and Bipolar Disorder. Patient has had multiple past admissions for dariel, depression, and alcohol detoxification. last admitted to [facility] 5 months ago with depression. Patient continues to have partially treated depressive syndrome. She presented 5 days ago to ED after 2 day alcohol binge in the contextof break up with girlfriend and father's placement in penitentiary. She is transferred from medical floor after completing her detoxification because she remains profoundly depressed and requires medication adjustment to treat her anxiety and depression DIAGNOSES: Bipolar Disorder current episdoe depressed severe without psychotic features. ADHD Alcohol Use Disorder moderate to severe PLAN: patient will be admitted to [facility] as a voluntary patient. We will place her on q 15 min observatin. We will integrate patient into the milieu. She will attend individual and group therapies. social work evaluation requested for therpay and discharge planning. patient gave informed consent for treatment with the following medications: discontinue prozac lower wellbutrin SR to 100 mg qam Start Trintellix 5 mg QAM Start Gabapentin 100 mg Q4h prn anxiety Continue Depakote ER 1000 mg qhs Thorazine 10 mg qhs. repeat thorzine 10 mg qhs prn insomnia Start Naltrexone 50 mg qhs for craving and to decrease binge drinking.
--- NOTE | 2017-09-24 13:06 | PN ---
MHU: Group Therapy Note - Service Type Service Type: 84122 Group Psychotherapy - Cognitive Behavioral Group Therapy ( CBT):Patient was attentive and participatory in CBT programming this morning, and remained in good behavioral control. Patient expressed positive insights regarding relevant treatment interventions and goals.
[2017-09-24] MEDS ORDERED: VORTIOXETINE 5 MG PO ONE (14:45)
[2017-09-24] MEDS ORDERED: Gabapentin CAP(*) 100 MG PO ONE (16:50)
[2017-09-24] MEDS ORDERED: Gabapentin CAP(*) 100 MG PO PRN (16:51)
[2017-09-24] MEDS ORDERED: chlorproMAZINE TAB* 10 MG PO PRN (16:53)
[2017-09-24] MEDS ORDERED: Mouth Piece, Nicotine* 1 EACH CARTRIDGE INH ONE (19:50)
[2017-09-24] MEDS: Divalproex ER TAB(*) 500 MG PO SCH (20:12)
[2017-09-24] MEDS: Naltrexone TAB* 50 MG TAB PO SCH (20:12)
[2017-09-24] MEDS: Nicotine Patch Removal NOTE PATCH OFF SCH (20:14)
[2017-09-24] MEDS: chlorproMAZINE TAB* 10 MG PO SCH (20:47)
[2017-09-24] MEDS ORDERED: chlordiazePOXIDE CAP* 25 MG PO ONE (21:00)
[2017-09-24] MEDS: Acetaminophen TAB* 325 MG PO PRN (21:43)
[2017-09-24] MEDS: Nicotine Inhaler* 10 MG AMP INH PRN (21:43)
[2017-09-25] MEDS: Omeprazole CAP* 20 MG PO SCH (07:40)
[2017-09-25] MEDS: Nicotine Inhaler* 10 MG AMP INH PRN ×3 (07:40→22:18)
[2017-09-25] MEDS: buPROPion SR TAB.SR* 100 MG PO SCH (08:38)
[2017-09-25] MEDS: Thiamine TAB* 100 MG TAB PO SCH (08:38)
[2017-09-25] MEDS: Nicotine PATCH 21 MG/24 HR* PATCH TRANSDERM SCH (08:41)
[2017-09-25] MEDS ORDERED: CMC:Atomoxetine (NF) 40 MG CAP PO SCH (09:00)
[2017-09-25] MEDS ORDERED: VORTIOXETINE 10 MG PO SCH (09:00)
[2017-09-25] MEDS ORDERED: chlordiazePOXIDE CAP* 10 MG PO SCH (09:00)
--- NOTE | 2017-09-25 10:31 | PN ---
Subjective - Subjective Subjective: Psychiatric Attending Progress NOte: Nursing alerted me today that patient's mental status altered from usual baseline. Patient has verbalized feeling agitated this morning, having racing thoughts, feeling confused and unable to remember a block of time from earier today when she was administered medication and had breakfast. Patient received gabapentin 100 mg last night and again at 4 am this morning as prn she also received Thorazine 10 mg last night at bedtime. Patient slept until 4 am and then was given the gabapentin and fell back to sleep until 8 am. since awakening, speech is slower and she is having difficulty expressing thoughts. increased pauses and latency with responses. patient is coherent but then will becomes tangential (talked about wanting to draw with colors). It was difficult to get her off the subject of coloring. She told me that she felt since waking up like she was beginning to get manic. "like the way that I feel when I'm manic" patient reports having racing thoughts, wanting to draw and color for hours, feelikng restless and agiated. she requested something for anxiety. she denies SI at this time. she denies AH,VH. she also reports feeling paranoia although she did not elaborate further about this. Assessment - Assessment Merits Inpatient Hospitalization: For Immediate Safety, For Stabilization Clinical Impression: patient is a 57 yo woman with history of Bipolar I admitted for depression and suicidal ideation int the context of relapse of alcohol use. patient appears to have had adverse cognitive side effects from combination of thorzaine and/or gabapentin she also reports agitation, racing thoughts and impending dariel. Plan - Plan Treatment Plan: Name: PEGGY VIERA Birthdate: 1960 [id number] Plan: will discontinue gabapentin and thorazine as I believe they are definitely causing patient to have altered mental status. ativan 0.5 mg Q 4h prn agiation carmen discontinue Trintellix as it may be activating patient into dariel will observe closely for now and reconsider medication strategy once mental status has returned to baseline. Medications: Current Medications Acetaminophen (Tylenol Tab*) 650 mg PO Q4H PRN PRN Reason: PAIN/TEMP Last Admin: 09/24/17 21:43 Dose: 650 mg Atomoxetine HCl (Strattera (Nf)) 40 mg PO DAILY HELEN PRN Reason: Protocol Last Admin: 09/25/17 08:39 Dose: 40 mg Bupropion HCl (Wellbutrin Sr Tab*) 100 mg PO DAILY [facility] Last Admin: 09/25/17 08:38 Dose: 100 mg Chlordiazepoxide (Librium Cap*) 10 mg PO BID@, [facility] Stop: 09/25/17 21:01 Last Admin: 09/25/17 08:38 Dose: 10 mg Chlorpromazine HCl (Thorazine Tab*) 10 mg PO BEDTIME [facility] Last Admin: 09/24/17 20:47 Dose: 10 mg Chlorpromazine HCl (Thorazine Tab*) 10 mg PO BEDTIME PRN PRN Reason: insomnia Divalproex Sodium (Depakote Er Tab(*)) 1,000 mg PO BEDTIME [facility] Last Admin: 09/24/17 20:12 Dose: 1,000 mg Gabapentin (Neurontin Cap(*)) 100 mg PO Q4H PRN PRN Reason: anxiety/agitation Last Admin: 09/25/17 04:10 Dose: 100 mg Naltrexone HCl (Naltrexone Tab*) 50 mg PO BEDTIME HELEN PRN Reason: Protocol Last Admin: 09/24/17 20:12 Dose: 50 mg Nicotine (Nicotine Patch 21 Mg/24 Hr*) 1 patch TRANSDERM DAILY@0800 [facility] Last Admin: 09/25/17 08:41 Dose: Not Given Nicotine (Nicotine Inhaler*) 10 mg INH Q2H PRN PRN Reason: CRAVINGS Last Admin: 09/25/17 07:40 Dose: 10 mg Omeprazole (Prilosec Cap*) 40 mg PO 0730 [facility] Last Admin: 09/25/17 07:40 Dose: 40 mg Pharmacy Profile Note (Nicotine Patch Removal Note*) 1 note PATCH OFF 2100 [facility] Last Admin: 09/24/17 20:14 Dose: Not Given Thiamine HCl (Vitamin B-1 Tab*) 100 mg PO DAILY [facility] Last Admin: 09/25/17 08:38 Dose: 100 mg Vortioxetine (Trintellix (Nf)) 5 mg PO DAILY [facility] Last Admin: 09/25/17 08:39 Dose: 5 mg
[2017-09-25] MEDS ORDERED: LORazepam TAB(*) 0.5 MG PO ONE (13:25)
[2017-09-25] MEDS: Acetaminophen TAB* 325 MG PO PRN (16:32)
[2017-09-25] MEDS: Nicotine Patch Removal NOTE PATCH OFF SCH (22:18)
[2017-09-25] MEDS: Naltrexone TAB* 50 MG TAB PO SCH (22:46)
[2017-09-25] MEDS: Divalproex ER TAB(*) 500 MG PO SCH (22:47)
[2017-09-25] MEDS ORDERED: LORazepam TAB(*) 1 MG PO ONE (22:50)
[2017-09-26] MEDS: chlorproMAZINE TAB* 10 MG PO SCH (01:09)
[2017-09-26] MEDS: LORazepam TAB(*) 1 MG PO PRN ×3 (03:24→17:51)
[2017-09-26] MEDS: Nicotine Inhaler* 10 MG AMP INH PRN ×2 (07:40→17:52)
[2017-09-26] MEDS: Omeprazole CAP* 20 MG PO SCH (07:41)
[2017-09-26] MEDS: Nicotine PATCH 21 MG/24 HR* PATCH TRANSDERM SCH (07:42)
[2017-09-26] MEDS: buPROPion SR TAB.SR* 100 MG PO SCH (08:38)
[2017-09-26] MEDS: Thiamine TAB* 100 MG TAB PO SCH (08:38)
--- NOTE | 2017-09-26 10:17 | PN ---
Subjective - Subjective Subjective: Psychiatric attending progress note. Patient seen late morning. She made comments about the medication and continued side effects. thorazine and gabapentin which were causing cogntive side effects and sedation were discontinued yesterday and are out of her system. Patient's demeanor yesterday was quite different. I listened with patient to hatch boss and she showed great interest and ability to engage. She laughed and subsequently reported feeling quite good for the rest of the night. patient 's mood is highly reactive to environmental stimuli. patient's demeanor revealed super ficial displays of emotion. highly attention seeking. She reports that she felt "manic" earlier today. she subsequently told wet process technician that she doesn't remember events from earlier this morning. Patient told me this yesterday as well. Mental status exam: speech normal rate and volume TP organized and coherent TC no evidence of psychotic symptoms affect: labile alert fully oriented. language intact. patient is highly attention seeking, she clearly enjoys playing sick role mood: reported as dysphoric impression: Bipolar Disorder currently unspecified persistent depressive disorder (dysthymia) Personality disorder unspecified (dependent, avoidant, histrionic, self sabotage traits) Plan: will restart Trintellix 5 mg in am continue Depakote 1000 mg s/p prozac discontinuation restart Strattera 40 mg QAM long stay contraindicated as patient will get comfortable and will develop further symptoms in order to continue assumption of sick role she is not suicidal and has full support and mental health services in place at [facility]. Assessment - Assessment Clinical Impression: patient is a 57 yo woman with history of Bipolar I admitted for depression and suicidal ideation int the context of relapse of alcohol use. patient appears to have had adverse cognitive side effects from combination of thorzaine and/or gabapentin she also reports agitation, racing thoughts and impending dariel. Plan - Plan Treatment Plan: Name: PEGGY VIERA Birthdate: 1960 [id number] Plan: will discontinue gabapentin and thorazine as I believe they are definitely causing patient to have altered mental status. ativan 0.5 mg Q 4h prn agiation carmen discontinue Trintellix as it may be activating patient into dariel will observe closely for now and reconsider medication strategy once mental status has returned to baseline. Medications: Current Medications Acetaminophen (Tylenol Tab*) 650 mg PO Q4H PRN PRN Reason: PAIN/TEMP Last Admin: 09/25/17 16:32 Dose: 650 mg Bupropion HCl (Wellbutrin Sr Tab*) 100 mg PO DAILY [facility] Last Admin: 09/26/17 08:38 Dose: 100 mg Divalproex Sodium (Depakote Er Tab(*)) 1,000 mg PO BEDTIME [facility] Last Admin: 09/25/17 22:47 Dose: 1,000 mg Lorazepam (Ativan Tab(*)) 1 mg PO Q4H PRN PRN Reason: ANXIETY Last Admin: 09/26/17 07:40 Dose: 1 mg Naltrexone HCl (Naltrexone Tab*) 50 mg PO BEDTIME HELEN PRN Reason: Protocol Last Admin: 09/25/17 22:46 Dose: 50 mg Nicotine (Nicotine Patch 21 Mg/24 Hr*) 1 patch TRANSDERM DAILY@0800 [facility] Last Admin: 09/26/17 07:42 Dose: Not Given Nicotine (Nicotine Inhaler*) 10 mg INH Q2H PRN PRN Reason: CRAVINGS Last Admin: 09/26/17 07:40 Dose: 10 mg Omeprazole (Prilosec Cap*) 40 mg PO 0730 [facility] Last Admin: 09/26/17 07:41 Dose: 40 mg Pharmacy Profile Note (Nicotine Patch Removal Note*) 1 note PATCH OFF 2100 [facility] Last Admin: 09/25/17 22:18 Dose: Not Given Thiamine HCl (Vitamin B-1 Tab*) 100 mg PO DAILY [facility] Last Admin: 09/26/17 08:38 Dose: 100 mg
[2017-09-26] MEDS ORDERED: Naltrexone INJ 380 MG IM ONE (10:18)
--- NOTE | 2017-09-26 11:31 | PN ---
MHU: Group Therapy Note - Service Type Service Type: 09100 Group Psychotherapy - Cognitive Behavioral Group Therapy ( CBT):Patient was attentive and participatory in CBT programming this morning, and remained in good behavioral control. Patient expressed positive insights regarding relevant treatment interventions and goals.
[2017-09-26] MEDS: Divalproex ER TAB(*) 500 MG PO SCH (20:57)
[2017-09-26] MEDS: Nicotine Patch Removal NOTE PATCH OFF SCH (21:02)
[2017-09-27] MEDS: Omeprazole CAP* 20 MG PO SCH (07:51)
[2017-09-27] MEDS: buPROPion SR TAB.SR* 100 MG PO SCH (08:48)
[2017-09-27] MEDS: Thiamine TAB* 100 MG TAB PO SCH (08:49)
[2017-09-27] MEDS: VORTIOXETINE 10 MG PO SCH (08:50)
[2017-09-27] MEDS: ATOMOXETINE 18 MG PO SCH (08:50)
[2017-09-27] MEDS: Nicotine PATCH 21 MG/24 HR* PATCH TRANSDERM SCH (08:52)
[2017-09-27] MEDS: Nicotine Inhaler* 10 MG AMP INH PRN ×4 (10:11→22:39)
--- NOTE | 2017-09-27 12:22 | PN ---
Subjective - Subjective Subjective: Psychiatric Attending Progress Note: patient continues to focus on vague somatic complaints including loss of memory, feeling confused, losing periods of time. patient confronted about why she was transferred from medicine. ie. to address depression with medication changes. she became angry. insisted that I read something that she had written in group. When she could not locate it she became very agitated. perseverated about the lost paper. She accepted a prn of ativan and risperdal. I subsequently used supportive verbal techniques to help her move on and she was able to recover enough to join group. I praised her for pushing through this and showing resilience. MSE: highly regressed becomes abruptly and intensely angry unable to tolerate being alone has significant need for constant attention and supervision sensitive to rejection and abandonment feels easily slighted low frustration toleance weak ego strengths. manipulative. makes subtle reference to "not feeling safe" in the context of feeling angry at me as she perceives I am not taking care of her properly impression: Severe dependent, borderline and regressed character traits Persistent Depressive Disorder bipolar disorder current episode unspecified Plan: vivitrol 390 mg IM given today strattera 18 mg qam Trintellix 5 mg qam WEllbutrin XL 150 mg qam DepakoteER 1000 mg qhs further hospital stay is contraindicated given patient severe character pathology will talk with SW and request d/c follow up appoitments for saturday with d/c to occur on Saturday09/30/2017 Assessment - Assessment Clinical Impression: patient is a 57 yo woman with history of Bipolar I admitted for depression and suicidal ideation int the context of relapse of alcohol use. patient appears to have had adverse cognitive side effects from combination of thorzaine and/or gabapentin she also reports agitation, racing thoughts and impending dariel. Plan - Plan Treatment Plan: Name: PEGGY VIERA Birthdate: 1960 [id number] Plan: will discontinue gabapentin and thorazine as I believe they are definitely causing patient to have altered mental status. ativan 0.5 mg Q 4h prn agiation carmen discontinue Trintellix as it may be activating patient into dariel will observe closely for now and reconsider medication strategy once mental status has returned to baseline. Medications: Current Medications Acetaminophen (Tylenol Tab*) 650 mg PO Q4H PRN PRN Reason: PAIN/TEMP Last Admin: 09/25/17 16:32 Dose: 650 mg Atomoxetine HCl (Strattera (Nf)) 18 mg PO 0800 [facility] PRN Reason: Protocol Last Admin: 09/27/17 08:50 Dose: 18 mg Bupropion HCl (Wellbutrin Sr Tab*) 100 mg PO DAILY [facility] Last Admin: 09/27/17 08:48 Dose: 100 mg Divalproex Sodium (Depakote Er Tab(*)) 1,000 mg PO BEDTIME [facility] Last Admin: 09/26/17 20:57 Dose: 1,000 mg Lorazepam (Ativan Tab(*)) 1 mg PO Q4H PRN PRN Reason: ANXIETY Last Admin: 09/26/17 17:51 Dose: 1 mg Nicotine (Nicotine Patch 21 Mg/24 Hr*) 1 patch TRANSDERM DAILY@0800 [facility] Last Admin: 09/27/17 08:52 Dose: Not Given Nicotine (Nicotine Inhaler*) 10 mg INH Q2H PRN PRN Reason: CRAVINGS Last Admin: 09/27/17 10:11 Dose: 10 mg Omeprazole (Prilosec Cap*) 40 mg PO 0730 [facility] Last Admin: 09/27/17 07:51 Dose: 40 mg Pharmacy Profile Note (Nicotine Patch Removal Note*) 1 note PATCH OFF 2100 [facility] Last Admin: 09/26/17 21:02 Dose: Not Given Thiamine HCl (Vitamin B-1 Tab*) 100 mg PO DAILY [facility] Last Admin: 09/27/17 08:49 Dose: 100 mg Vortioxetine (Trintellix (Nf)) 5 mg PO DAILY [facility] Last Admin: 09/27/17 08:50 Dose: 5 mg
[2017-09-27] MEDS ORDERED: LORazepam TAB(*) 1 MG PO ONE (14:00)
[2017-09-27] MEDS: Divalproex ER TAB(*) 500 MG PO SCH (21:57)
[2017-09-27] MEDS: Nicotine Patch Removal NOTE PATCH OFF SCH (22:00)
[2017-09-27] MEDS: LORazepam TAB(*) 1 MG PO PRN (22:38)
[2017-09-28] MEDS: Nicotine Inhaler* 10 MG AMP INH PRN ×4 (01:45→18:29)
[2017-09-28] MEDS: Omeprazole CAP* 20 MG PO SCH (09:03)
[2017-09-28] MEDS: ATOMOXETINE 18 MG PO SCH (09:05)
[2017-09-28] MEDS: Nicotine PATCH 21 MG/24 HR* PATCH TRANSDERM SCH (09:05)
[2017-09-28] MEDS: Thiamine TAB* 100 MG TAB PO SCH (09:06)
[2017-09-28] MEDS: buPROPion SR TAB.SR* 100 MG PO SCH (09:06)
[2017-09-28] MEDS: VORTIOXETINE 10 MG PO SCH (09:07)
[2017-09-28] MEDS: LORazepam TAB(*) 1 MG PO PRN ×2 (14:17→18:32)
[2017-09-28] MEDS: Divalproex ER TAB(*) 500 MG PO SCH (21:15)
[2017-09-28] MEDS: Nicotine Patch Removal NOTE PATCH OFF SCH (21:16)
[2017-09-29] MEDS: Nicotine Inhaler* 10 MG AMP INH PRN ×5 (00:50→16:42)
[2017-09-29] MEDS: LORazepam TAB(*) 1 MG PO PRN ×4 (01:40→16:41)
[2017-09-29] MEDS: Omeprazole CAP* 20 MG PO SCH (07:51)
[2017-09-29] MEDS: VORTIOXETINE 10 MG PO SCH (07:52)
[2017-09-29] MEDS: buPROPion SR TAB.SR* 100 MG PO SCH (07:54)
[2017-09-29] MEDS: Thiamine TAB* 100 MG TAB PO SCH (07:54)
[2017-09-29] MEDS: Nicotine PATCH 21 MG/24 HR* PATCH TRANSDERM SCH (07:55)
[2017-09-29] MEDS: ATOMOXETINE 18 MG PO SCH (07:55)
[2017-09-29] MEDS ORDERED: Mouth Piece, Nicotine* 1 EACH CARTRIDGE ONE (13:19)
--- NOTE | 2017-09-29 14:26 | PN ---
Subjective - Subjective Date of Service: 09/29/17 Service Type: 85248 Hosp care 15 min low complexity Subjective: Sydney is seen in weekend coverage for Dr. Burgos. She is euthymic and tells me that she's been working on her own discharge plan to keep herself safe in the community. "I don't want to ever think about none of that suicidal stuff again." She denies SI and has been active in the milieu setting, observed socializing with peers and participating in groups. She complains of sleep disturbance and gives me a list of soporifics that she cannot tolerate for various reasons. She is polite and calm. Objective - Appearance Appearance: Well Developed/Nourished Dysmorphic Features: No Hygiene: Normal Grooming: Well Kept - Behavior Psychomotor Activities: Normal Exhibits Abnormal Movement: No - Attitude and Relatedness Attitude and Relatedness: Cooperative Eye Contact: Fair - Speech Quality: Unpressured Latencies: Normal Quantity: Appropriate - Mood Patient's Decription of Mood: "Good" - Affect Observed Affect: Fair Affect Consistent with: Euthymia - Thought Process Patient's Thought Process: Coherent, Tangential Thought Content: No Passive Wish, No Suicidal Planning, No Homicidal Ideation, No Paranoid Ideation - Sensorium Experiencing Hallucinations: No, Sensorium is Clear Type of Hallucinations: Visual: No, Auditory: No, Command: No - Level of Consciousness Level of Consciousness: Alert Orientation: Yes Intact, Yes Orientated to Time, Yes Orientated to Place, Yes Orientated to Person - Impulse Control Impulse Control: Intact - Insight and Judgement Insight and Judgement: Good - Group Participation Particating in Group Activities: Yes - Medication Management Medication Management Adherence: Yes Assessment - Assessment Merits Inpatient Hospitalization: Consolidate Improvements, Pending Safe DC Plan Inpatient DSM-V Dx: F31.4 Clinical Impression: 57 y.o. single, homosexual, female with a history of comorbid alcohol use disorder and bipolarity transferred from the medical service due to depressed mood and SI. Plan - Plan Treatment Plan: Name: SYDNEY VIERA Birthdate: 1960 [id number] The patient is receiving pharmacotherapy with Depakote, atomoxetine, bupropion SR, vortioxetine, risperidone and GONZALEZ naltrexone. She denies SI. Continue to treat on the inpatient unit. Continued Medication Management: Different Medication Medications: Current Medications Acetaminophen (Tylenol Tab*) 650 mg PO Q4H PRN PRN Reason: PAIN/TEMP Last Admin: 09/25/17 16:32 Dose: 650 mg Atomoxetine HCl (Strattera (Nf)) 18 mg PO 0800 [facility] PRN Reason: Protocol Last Admin: 09/29/17 07:55 Dose: 18 mg Bupropion HCl (Wellbutrin Sr Tab*) 100 mg PO DAILY [facility] Last Admin: 09/29/17 07:54 Dose: 100 mg Divalproex Sodium (Depakote Er Tab(*)) 1,000 mg PO BEDTIME [facility] Last Admin: 09/28/17 21:15 Dose: 1,000 mg Lorazepam (Ativan Tab(*)) 1 mg PO Q4H PRN PRN Reason: ANXIETY Last Admin: 09/29/17 13:21 Dose: 1 mg Nicotine (Nicotine Patch 21 Mg/24 Hr*) 1 patch TRANSDERM DAILY@0800 [facility] Last Admin: 09/29/17 07:55 Dose: Not Given Nicotine (Nicotine Inhaler*) 10 mg INH Q2H PRN PRN Reason: CRAVINGS Last Admin: 09/29/17 13:37 Dose: 10 mg Omeprazole (Prilosec Cap*) 40 mg PO 0730 [facility] Last Admin: 09/29/17 07:51 Dose: 40 mg Pharmacy Profile Note (Nicotine Patch Removal Note*) 1 note PATCH OFF 2100 [facility] Last Admin: 09/28/17 21:16 Dose: Not Given Risperidone (Risperdal) 0.5 mg PO BID [facility] Last Admin: 09/29/17 07:54 Dose: 0.5 mg Thiamine HCl (Vitamin B-1 Tab*) 100 mg PO DAILY [facility] Last Admin: 09/29/17 07:54 Dose: 100 mg Vortioxetine (Trintellix (Nf)) 5 mg PO DAILY [facility] Last Admin: 09/29/17 07:52 Dose: 5 mg - Discharge Plan Discharge Plan: [facility]
[2017-09-29] MEDS: Divalproex ER TAB(*) 500 MG PO SCH (21:29)
[2017-09-29] MEDS: Nicotine Patch Removal NOTE PATCH OFF SCH (21:31)
[2017-09-30] MEDS: Nicotine Inhaler* 10 MG AMP INH PRN ×4 (02:20→20:42)
[2017-09-30] MEDS: buPROPion SR TAB.SR* 100 MG PO SCH (09:06)
[2017-09-30] MEDS: Omeprazole CAP* 20 MG PO SCH (09:06)
[2017-09-30] MEDS: Thiamine TAB* 100 MG TAB PO SCH (09:07)
[2017-09-30] MEDS: ATOMOXETINE 18 MG PO SCH (09:07)
[2017-09-30] MEDS: VORTIOXETINE 10 MG PO SCH (09:07)
[2017-09-30] MEDS: LORazepam TAB(*) 1 MG PO PRN (09:10)
[2017-09-30] MEDS: Nicotine PATCH 21 MG/24 HR* PATCH TRANSDERM SCH (09:12)
--- NOTE | 2017-09-30 15:25 | PN ---
Subjective - Subjective Subjective: Psychiatric Attending Progress Note: reviewed weekend notes. patient had intermittent anxiety over the weekend. nursing notes reveal that she slept through the night. patient reports she has only been sleeping 2 to 3 hours per night. While in milieu patient observed to be engaged in groups, chatting with patients normally. she occasionally made reference to "not remembering what happens in groups" patient has been off of her strattera which could explain decreased attention span/forgetfulness. I met with Sydney for 40 minutes today. she displayed attention seeking behaviors such as slurring her speech, changing to pitch of her voice and appearing almost close to tears. I pointed out this behavior to her and informed her that it served to push people away which is not the effect she wishes. We talked about her tendency to regress into a childlike state when she feels she is in need of attention. I encouraged Sydney to discharge in next few days and told her I believed she was ready. She expressed some concern about medication not being opitimal but I explained that medication could continue to be titrated as an outpatient by her psychiastrist Dr. Padilla. She has not had suicidal ideation since transfer from medical floor. Sheh as numerous supports, providers, relapse prevention meetings, volunteer work, already set up in the community. Objective - Appearance Appearance: Thin Framed Dysmorphic Features: No Hygiene: Normal Grooming: Fairly Well Kept - Behavior Psychomotor Activities: Normal Exhibits Abnormal Movement: No - Attitude and Relatedness Attitude and Relatedness: Cooperative Eye Contact: Fair - Speech Quality: Unpressured Latencies: Normal Quantity: Appropriate - Mood Patient's Decription of Mood: "Anxious" - Affect Observed Affect: Constricted Affect Consistent with: Dysphoria - Thought Process Patient's Thought Process: Coherent Thought Content: No Passive Wish, No Suicidal Planning, No Homicidal Ideation, No Paranoid Ideation - Sensorium Experiencing Hallucinations: No, Sensorium is Clear Type of Hallucinations: Visual: No, Auditory: No, Command: No - Level of Consciousness Level of Consciousness: Alert Orientation: Yes Intact, Yes Orientated to Time, Yes Orientated to Place, Yes Orientated to Person - Impulse Control Impulse Control: Intact - Insight and Judgement Insight and Judgement: Fair - Group Participation Particating in Group Activities: Yes - Medication Management Medication Management Adherence: Yes Assessment - Assessment Inpatient DSM-V Dx: F31.4 Clinical Impression: impression: patient has been stable and is not danger to self and others. She continues to demonstrate severely maladaptive coping strategies consistent with personality disorder. Plan - Plan Medications: Plan: Will change Risperdal to 1 mg po QHS to target improved sleep (was getting 0.5 mg QHS) will add benadryl 50 mg qhs as patient insists she is not sleeping well continue Trintellix at 5 mg increase Strattera to 40 mg qam Depakote ER 1000 mg qhs potential discharge for Saturday or Saturday. Acetaminophen (Tylenol Tab*) 650 mg PO Q4H PRN PRN Reason: PAIN/TEMP Last Admin: 09/25/17 16:32 Dose: 650 mg Atomoxetine HCl (Strattera (Nf)) 18 mg PO 0800 [facility] PRN Reason: Protocol Last Admin: 09/30/17 09:07 Dose: 18 mg Bupropion HCl (Wellbutrin Sr Tab*) 100 mg PO DAILY [facility] Last Admin: 09/30/17 09:06 Dose: 100 mg Divalproex Sodium (Depakote Er Tab(*)) 1,000 mg PO BEDTIME [facility] Last Admin: 09/29/17 21:29 Dose: 1,000 mg Lorazepam (Ativan Tab(*)) 1 mg PO Q4H PRN PRN Reason: ANXIETY Last Admin: 09/30/17 09:10 Dose: 1 mg Nicotine (Nicotine Patch 21 Mg/24 Hr*) 1 patch TRANSDERM DAILY@0800 [facility] Last Admin: 09/30/17 09:12 Dose: Not Given Nicotine (Nicotine Inhaler*) 10 mg INH Q2H PRN PRN Reason: CRAVINGS Last Admin: 09/30/17 09:10 Dose: 10 mg Omeprazole (Prilosec Cap*) 40 mg PO 0730 [facility] Last Admin: 09/30/17 09:06 Dose: 40 mg Pharmacy Profile Note (Nicotine Patch Removal Note*) 1 note PATCH OFF 2100 [facility] Last Admin: 09/29/17 21:31 Dose: Not Given Risperidone (Risperdal) 0.5 mg PO BID [facility] Last Admin: 09/30/17 09:07 Dose: 0.5 mg Thiamine HCl (Vitamin B-1 Tab*) 100 mg PO DAILY [facility] Last Admin: 09/30/17 09:07 Dose: 100 mg Vortioxetine (Trintellix (Nf)) 5 mg PO DAILY [facility] Last Admin: 09/30/17 09:07 Dose: 5 mg
[2017-09-30] MEDS: Divalproex ER TAB(*) 500 MG PO SCH (20:39)
[2017-09-30] MEDS: Acetaminophen TAB* 325 MG PO PRN (20:40)
[2017-09-30] MEDS: Nicotine Patch Removal NOTE PATCH OFF SCH (20:42)
[2017-09-30] MEDS ORDERED: risperiDONE TAB* 1 MG PO SCH (21:00)
[2017-10-01] MEDS: Acetaminophen TAB* 325 MG PO PRN ×2 (02:30→07:15)
[2017-10-01] MEDS: Nicotine Inhaler* 10 MG AMP INH PRN ×2 (02:30→08:07)
[2017-10-01 07:53] VITALS: BP 112/61
[2017-10-01] MEDS ORDERED: CMCS:Atomoxetine (NF) 40 MG CAP PO SCH (08:00)
[2017-10-01] MEDS: Nicotine PATCH 21 MG/24 HR* PATCH TRANSDERM SCH (08:01)
[2017-10-01] MEDS: Omeprazole CAP* 20 MG PO SCH (08:02)
[2017-10-01] MEDS: VORTIOXETINE 10 MG PO SCH (08:03)
[2017-10-01] MEDS: Thiamine TAB* 100 MG TAB PO SCH (08:04)
[2017-10-01] MEDS: buPROPion SR TAB.SR* 100 MG PO SCH (08:04)
[2017-10-01] MEDS ORDERED: Mouth Piece, Nicotine* 1 EACH CARTRIDGE ONE (08:07)
[2017-10-01] MEDS: LORazepam TAB(*) 1 MG PO PRN (09:37)
--- NOTE | 2017-10-01 12:39 | DS ---
Subjective - Subjective Subjective: DISCHARGE SUMMARY PATIENT: Sydney Hauser : 1960 AGE: 57 PROVIDER: Ronald Burgos D.O. DATE OF ADMISSION: 09/23/2017 DATE OF DISCHARGE: 10/01/2017 DISCHARGE DIAGNOSES: Bipolar Disorder current episdoe depressed severe without psychotic features. ADHD Alcohol Use Disorder moderate to severe Unspecified Personality Disorder (cluster B traits) CONDITION AT THE TIME OF DISCHARGE: stable MENTAL STATUS EXAM AT DISCHARGE: Patient's mood is moderately improved. She has bright affect. She verbalizes that she is looking forward to discharge so that she can return to her mental health treatment providers, and to the many relapse prevention groups, and community activities which she has arranged to help her maintain her sobriety and optimize her mental health. She denies suicidal and homicidal ideation. There is no evidence of psychotic symptoms at the time of discharge. Patient continues to have maladaptive cluster B traits which are an obstacle to her recovery and which she continues to receive treatment for. Patient is alert and fully oriented. She has clear sensorium. Her insight and judgment are fair. DISCHARGE INSTRUCTIONS: A. MEDICATIONS: Atomoxetine HCl 40 mg po QAM Bupropion HCl (Wellbutrin Sr Tab*) 100 mgpo QAM Divalproex Sodium 1,000 mg PO BEDTIME Omeprazole (Prilosec Cap*) 40 mg po qd Thiamine HCl (Vitamin B-1 Tab*) 100 mg PO DAIly Benadryl 50 mg po QHS Trintellix 5 mg po QAM Risperdal 1 mg po QHs folic acid 1 mg po QAM multivitamin 1 tablet daily B. DIET: Regular C. ACTIVITIES: TOLERATED NICOTINE REPLACEMENT THERAPY WAS OFFERED BUT THE PATIENT DECLINED IT, INDICATING THAT HIS PREFERENCE IS TO CONTINUE SMOKING FOR THE TIME BEING. DESPITE THIS, SHE WAS GIVEN THE [place] [employer] QUITLINE WHICH IS [phone] THERE ARE NO LABORATORY OR DIAGNOSTIC STUDIES PENDING AT THE TIME OF DISCHARGE. D. FOLLOW UP CARE: 1. Reconnect with care ronaldo Garcia to set up Rep payee for SSD 2. [facility]: appointment with Shun tomorrow at 3:30 pm 3. [facility]: appointment with Dr. Bravo 10/03/17 at 2 pm appointment with Lakhwinder garrett 10/17/17 at 9:00 AM 4. f/u with PCP Sheila Velazquez as needed E. SUBSTANCE ABUSE FOLLOWUP: AAA meetings 5 to 6 times weely including meeting with her sponsor F/u at [facility] on 10/02/17 at 3:30 PM ATTENDING PSYCHIATRIST HOSPITAL COURSE: PART A. JUSTIFICATION FOR ADMISSION: Patient recently completed detoxification on medical floor. She is severely depressed, has suicidal ideation, and is in danger of relapse. She is gravely disabled and requires pharmacological intervention on an inpatient setting with 24 hour level of supervision CHIEF COMPLAINT: "......I feel without hope. I am alone...I dont want to start drinking again..." HISTORY OF THE PRESENT ILLNESS: Sydney Hauser is a 57 yo single woman of [place] descent who lives in a sober home. She has a history of alcohol use disorder, Bipolar Disorder, GERD, ADHd Her outpatient psychiatric treatment is through [facility] where she sees Dr. Padilla for medicatino management and regular therapist as well whom she has been patient of for many years. patient was last admitted to psychiatry back in 05/2017 for depression, binge drinking for several days which is her usual relapse pattern. Patient reports that she has been sober since discharge from [facility] in May and has been compliant with outpatient treatment and with her psychiatric med regimen of Depakote, Prozac and WellbutrinSR. Patient relates that since discharge she has continued to suffer with depressive symptoms (partially treated) includingintermittent passive suicidal ideation, anergia, preoccupation with of mother and father's dementia, low self esteem, feelings of low self worth and hopelessness. she denies any self injurious behaviors or suicide attempts. She identifies ongoing stressors as of mother in may 2017, father's being placed in a alf, and discord in relationship with her partner of 8 years. denies domestic violence in the relationship. reports having fight over phone last week with girlfriend after which she brought vodka into the half way house and binged for two days She purposely notified staff so she would be brought for help. to her credit this is her usual pattern (seeking help when she relapses). Patient had moderate withdrawal syndrome and was initially admitted to Medical floor for detoxification with [facility] protocol on 09/18/2017. She required addition of Librium taper due to prolonged withdrawal. psychiatry was consulted and I saw Sydney when she was on the medical floor. She was quite depressed, hopeless and reported she was proccupied with loss of girlfriend and loss of her parents (mother's , father end stage alzheimers). She feels alone. She is worried about her depression and fears that she will never experience full remission and end up returning to hospital PAST PSYCHIATRIC HISTORY: History of previous inpatient psychiatric admissions here and at [facility] such as because of suicidal ideation in the context of alcohol use disorder. Outpatient care is at [facility] with psychiatric Dr. Padilla and with community nurse, Lakhwinder East. The patient is currently prescribed Depakote ER 1000 mg at bedtime, Fluoxetine 60 mg daily, Wellbutrin SR 100 mg BID. The patient denies previous charleen suicide attempt HOME MEDICATIONS ON ADMISSION Wellbutrin SR 100 mg BID Depakote ER 1000 mg qhs Prozac 60 mg qhs PAST SURGICAL HISTORY: Positive for complete hysterectomy because of polycystic ovarian syndrome. PSYCHIATRIC MEDICATION TRIALS: Has had multiple trials of medication over the years including tricyclic antidepressants, lithium, Abilify, Seroquel, benzodiazepines, wellbutrin, Latuda, seroquel LEGAL HISTORY: The patient has a history of DWI with mandated treatment and is currently on probation SUBSTANCE ABUSE HISTORY: The patient reports that she began drinking alcohol as early as age 11. She has had periods of sobriety, the longest stretch of sobriety lasted 6 years. She drinks an average of 1 pint of vodka often to the point of intoxication. She has had multiple residential treatment episodes including [facility]. She has been enrolled in and has had multiple detoxes. She denies the use of any other illicit drugs. She smokes cigarettes, however. FAMILY HISTORY: The patient reports family history of Alzheimer's dementia in her father. Her mother recently from complications of Parkinson's disease. The patient is aware that both her parents suffered from depression. The patient's maternal cousin attempted suicide by overdose. PERSONAL AND SOCIAL HISTORY: The patient has never been , has no children. She was born in [facility] from [place] parents. She eventually moved here in [place]. She is educated to the level of a bachelor's degree in human development. She self-identified as lesbian. She was in a 20-year relationship with a female partner who . Her mother recently . She has had multiple jobs in the past. 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 She has been on mental disability since after her most recent discharge here. The patient reports spending her time keeping appointments at [facility], [facility], attending AA meetings, spending time with relatives. She also enjoys spending time alone. HOSPITAL COURSE : PART B PSYCHIATRIC TREATMENT RENDERED: Patient was transferred from Medical Floor to [facility] where she was placed on q 15 minute level of observation She was admitted on voluntary status. As Sydney has been a patient on the unit in the past she was easily integrated into the milieu. She was afforded individual and group therapy by the [facility] multidisciplimary team of mental health professionals.in order to learn psychsocial strategies for coping with target symptoms. She met with marriage and family social worker and psychiatrist daily for psychotherapy, mental status reassessment, medication adjustment to address target symptoms, and to solidify most appropriate after care. Patient attended groups and for the most part particpated in her treatment plan. She showed motivation to remain sober and to follow up with relapse prevention. Patient exhibits prominent character pathology which serves as an obstacle to her recovery and which result in impaired interpersonal skills, limited insight, affective dysregulation, increased impulse control and on increased risk for substance abuse relapse. Patient's phyisical examination upon admission was unremarkable. admission labs including CBC, CMP, Urinalysis,TSH, Free T4, T4, were all within normal limits. Urine toxicology screen was negative for all substances of abuse. Alcohol level 93 on presentation to ED. folate and B12 levels normal. Depakote Trough on 1000 mg of depakote ER daily was 94. In order to target depressive symptoms prozac 60 mg was discontinued and patient was started on Trintellix 5 mg daily. Due to Wellbutrin's 2D6 inhibition resulting in potential elevations in Trintellix serum levels, Wellbutrin SR was decreased from 150 mg BID to 100 mg daily. Strattera was unchanged at 40 mg daily. patient reported feeling "manic symptoms" and therefore trintellix and strattera were temporarily discontinued and patient was treated with thorazine and gabapentin which resulted in adverse side effects of sedation and lethargy and were discontinued after only one day. patient was restarted on Trintellix and Strattera. patient became highly agitated, confusional with slurred speech and made vague complaints about not remembering what she had learned in group. The symptoms would come on suddenly usually when going into a one to one discussion. Behaviors were absent when engaged in group activites. Behaviors clearly were attention seeking in nature often reflecting her intense need to be cared for but also projective identification when interacting with providers who she views as failing to care for her adequately. These regressed behaviors have been observed on other admissions to our unit. In order to treat alcohol craving and decrease frequency of binge drinking patient was treated with oral Naltrexone. She was given first dose of monthly Vivitrol injection on 09/27/2017. To target patient 's affective dysregulation and help with sleep she was started on Risperdal 1 mg QHS. Benadryl 50 mg was also added for insomnia. Overall Sydney mades good use of the milieu and groups to support her recovery and to deal with issues of loss which have been recent stressors for her. On discharge, her mood and affect were brighter and she had no suicidal ideation or impulses. her thought process was organized and there was no evidence of psychotic symptoms. She verbalized that it was her intention to folllow up with after care plans to see treatment providers and engage in ongoing relapse prevention groups. RONALD BURGOS DO
== END 2017-10-01 13:54 | disposition home or self-care (01) | DRG 753 ==
LOC: BSU 20:33
PROVIDERS: ADMIT Psychiatry & Neurology Psychiatry; ATTEND Psychiatry & Neurology Psychiatry
DX: F31.4 Bipolar disorder, current episode depressed, severe, without psychotic features (principal); F90.9 Attention-deficit hyperactivity disorder, unspecified type; K21.9 Gastro-esophageal reflux disease without esophagitis; F10.10 Alcohol abuse, uncomplicated; F17.210 Nicotine dependence, cigarettes, uncomplicated; Z81.8 Family history of other mental and behavioral disorders; Z84.89 Family history of other specified conditions; Z79.899 Other long term (current) drug therapy; Z91.041 Radiographic dye allergy status; Z88.5 Allergy status to narcotic agent; Z88.8 Allergy status to other drugs, medicaments and biological substances; Z91.048 Other nonmedicinal substance allergy status
CPT/HCPCS: 90853; 99222; 99231; 99232; 99238; A9270-GY

== ENCOUNTER 2017-10-03 10:35 | Inpatient (IN) | payer OTHER ==
[2017-10-03 11:51] LABS: ABS Basophils 0 10^3/ul (0-0.2); ABS Eosinophils 0.1 10^3/ul (0-0.6); ABS Lymphocytes 1.7 10^3/ul (1.0-4.8); ABS Monocytes 0.7 10^3/ul (0-0.8); ABS Neutrophils 2.7 10^3/ul (1.5-7.7); ABS Nucleated RBC 0 10^3/ul; Eosinophil % 1.7 % (0-6); Hematocrit 36 % (35-47); Hemoglobin 12.2 g/dl (12.0-16.0); Lymphocyte % 32.9 % (25-47); Mean Corpuscular HGB Conc 34 g/dl (31-36); Mean Corpuscular Hemoglobin 32 pg (27-31); Mean Corpuscular Volume 93 fL (80-97); Mean Platelet Volume 6.7 um3 (7.4-10.4); Nucleated Red Blood Cells % 0.1; Platelet Count 424 10^3/ul (150-450); Red Blood Count 3.82 10^6/ul (4.0-5.4); Red Cell Distribution Width 16 % (10.5-15); White Blood Count 5.3 10^3/ul (3.5-10.8)
[2017-10-03 11:53] LABS: EGFR Non-African American 71.6 (>60)
[2017-10-03] MEDS ORDERED: NS 0.9% 1000 ML* 1,000 ML IV ONE (13:35)
[2017-10-03 13:41] LABS: Urine Appearance Cloudy; Urine Blood Negative (Negative); Urine Color Yellow; Urine Ketones Trace (Negative); Urine Protein Negative (Negative); Urine Urobilinogen Negative (Negative)
[2017-10-03] MEDS ORDERED: Divalproex ER TAB(*) 500 MG PO ONE (23:44)
--- NOTE | 2017-10-04 00:13 | ED ---
John Petersen Jennifer, scribed for Alex Shetty MD on 10/03/17 at 1106 . Altered Mental Status - HPI Summary HPI Summary: The patient is a 57 y/o F with a history of bipolar disorder who comes to the ED today complaining that she doesnt feel right. The patient was discharged from [facility] two days ago. She complains of insomnia, swollen ankles, and bilateral flank pain today and called her flame annealing machine operator who told her to come to the ED. The patient additionally presents with slurred speech and inability to walk. She denies trouble with urination. - History Of Current Complaint Chief Complaint: EDAltMentalStatus Stated Complaint: BACK PAIN Hx Obtained From: Patient Onset/Duration: Suddenly Timing: Constant Severity Initially: Mild Severity Currently: Mild Character: Confusion, Lethargy Aggravating Factor(s): Nothing Alleviating Factor(s): Nothing Associated Signs And Symptoms: Positive: Negative - problems with urination, Weakness - inability to walk - Allergies/Home Medications Allergies/Adverse Reactions: Allergies Allergy/AdvReac Type Severity Reaction Status Date / Time codeine Allergy Rash Verified 10/03/17 10:55 Iodine and Iodide Containing Allergy Hives Verified 10/03/17 10:55 Produc lurasidone Allergy Unknown Verified 10/03/17 10:55 Reaction Details Tricyclic Compounds Allergy Agitation Verified 10/03/17 10:55 oseltamivir [From Tamiflu] AdvReac Nausea And Verified 10/03/17 10:55 Vomiting contrast dye Allergy Hives Uncoded 10/03/17 10:55 Home Medications: Home Medications Vortioxetine (NF) [Trintellix (NF)] 5 mg PO DAILY 10/03/17 [History Confirmed ] PMH/Surg Hx/FS Hx/Imm Hx Endocrine/Hematology History: Reports: Other Endocrine/Hematological Disorders - Hyperthyroid Denies: Hx Diabetes Cardiovascular History: Denies: Hx Hypertension, Hx Pacemaker/ICD GI History: Reports: Hx Diverticulosis, Hx Gastroesophageal Reflux Disease Comment Only: Other GI Disorders - diverticulitis History: Denies: Hx Renal Disease Musculoskeletal History: Reports: Hx Arthritis Sensory History: Reports: Hx Contacts or Glasses Denies: Hx Hearing Aid Opthamlomology History: Reports: Hx Contacts or Glasses Neurological History: Reports: Hx Headaches Psychiatric History: Reports: Hx Anxiety, Hx Attention Deficit Hyperactivity Disorder, Hx Depression, Hx Inpatient Treatment, Hx Community Mental Health Tx, Hx Bipolar Disorder, Hx Suicide Attempt, Hx Substance Abuse, Other Psychiatric Issues/Disorders - ADHD Denies: Hx Eating Disorder, Hx Panic Disorder, Hx of Violent Episodes Against Others - Cancer History Hx Chemotherapy: No Hx Radiation Therapy: No - Surgical History Surgery Procedure, Year, and Place: HYSTERECTOMY; polycystic ovaries 4 laps; removed scar tissue 2001 same area; tonsilectomy. fx right wrist repair - plates in place - Immunization History Date of Tetanus Vaccine: unknown Date of Influenza Vaccine: unknown Infectious Disease History: No Infectious Disease History: Reports: Hx Shingles Denies: Hx Clostridium Difficile, Hx Hepatitis, Hx Human Immunodeficiency Virus (HIV), Hx of Known/Suspected MRSA, Hx Tuberculosis, Hx Known/Suspected VRE , Hx Known/Suspected VRSA, History Other Infectious Disease, Traveled Outside the in Last 30 Days - Family History Known Family History: Positive: Other - family history of diveriticulitis Family History: Father: Alzheimer's - Social History Alcohol Use: patient admitted for [facility] Alcohol Amount: in recovery Hx Substance Use: No Substance Use Type: Reports: None Hx Tobacco Use: Yes Smoking Status (MU): Light Every Day Tobacco Smoker Type: eCigarettes Amount Used/How Often: 1 pack Q3days for the last 30 days, uses no other tabacco [id number] Have You Smoked in the Last Year: Yes Review of Systems Positive: flank pain. Negative: dysuria, frequency, hematuria, incontinence Positive: Edema - ankles Neurological: Other - insomnia, inability to walk Positive: Slurred Speech All Other Systems Reviewed And Are Negative: Yes Physical Exam - Summary Physical Exam Summary: Appearance: Appears fatigued, slightly somnolent. Well-nourished Skin: Warm Eyes: Normal ENT: Normal Neck: Supple, nontender Respiratory: Clear to auscultation Cardiovascular: Normal S1, S2. No murmurs. Normal distal pulses in tibial and radial bilaterally. Abdomen: Soft, nontender Musculoskeletal: Normal, Strength/ROM Intact Neurological: Normal, A&Ox3, No obvious focal neurological deficits. Psychiatric: Normal, slightly flattened affect General: No acute distress Triage Information Reviewed: Yes Vital Signs On Initial Exam: Initial Vitals Temp Pulse Resp BP Pulse Ox 98.7 F 91 16 116/58 98 10/03/17 10:40 10/03/17 10:40 10/03/17 10:40 10/03/17 10:40 10/03/17 10:40 Vital Signs Reviewed: Yes Diagnostics - Vital Signs Vital Signs Temp Pulse Resp BP Pulse Ox 10/03/17 10:40 98.7 F 91 16 116/58 98 - Laboratory Lab Results: Lab Results 10/03/17 10/03/17 10/03/17 Range/Units 11:19 11:19 13:30 WBC 5.3 (3.5-10.8) 10^3/ul RBC 3.82 L (4.0-5.4) 10^6/ul Hgb 12.2 (12.0-16.0) g/dl Hct 36 (35-47) % MCV 93 (80-97) fL MCH 32 H (27-31) pg MCHC 34 (31-36) g/dl RDW 16 H (10.5-15) % Plt Count 424 (150-450) 10^3/ul MPV 6.7 L (7.4-10.4) um3 Neut % (Auto) 50.9 (38-83) % Lymph % (Auto) 32.9 (25-47) % [place] % (Auto) 13.6 H (0-7) % Eos % (Auto) 1.7 (0-6) % Baso % (Auto) 0.9 (0-2) % Absolute Neuts (auto) 2.7 (1.5-7.7) 10^3/ul Absolute Lymphs (auto) 1.7 (1.0-4.8) 10^3/ul Absolute Monos (auto) 0.7 (0-0.8) 10^3/ul Absolute Eos (auto) 0.1 (0-0.6) 10^3/ul Absolute Basos (auto) 0 (0-0.2) 10^3/ul Absolute Nucleated RBC 0 10^3/ul Nucleated RBC % 0.1 Sodium 132 L (139-145) mmol/L Potassium 3.6 (3.5-5.0) mmol/L Chloride 100 L (101-111) mmol/L Carbon Dioxide 24 (22-32) mmol/L Anion Gap 8 (2-11) mmol/L BUN 10 (6-24) mg/dL Creatinine 0.82 (0.51-0.95) mg/dL Est GFR ( Amer) 92.1 (>60) Est GFR (Non-Af Amer) 71.6 (>60) BUN/Creatinine Ratio 12.2 (8-20) Glucose 82 (70-100) mg/dL Calcium 8.9 (8.6-10.3) mg/dL Magnesium 2.0 (1.9-2.7) mg/dL Total Bilirubin 0.50 (0.2-1.0) mg/dL AST 50 H (13-39) U/L ALT 32 (7-52) U/L Alkaline Phosphatase 51 (34-104) U/L Ammonia (16-53) mcmol/L Total Protein 7.2 (6.4-8.9) g/dL Albumin 4.1 (3.2-5.2) g/dL Globulin 3.1 (2-4) g/dL Albumin/Globulin Ratio 1.3 (1-3) TSH 7.55 H (0.34-5.60) mcIU/mL Urine Color Yellow Urine Appearance Cloudy Urine pH 6.0 (5-9) Ur Specific [place] 1.010 (1.010-1.030) Urine Protein Negative (Negative) Urine Ketones Trace A (Negative) Urine Blood Negative (Negative) Urine Nitrate Negative (Negative) Urine Bilirubin Negative (Negative) Urine Urobilinogen Negative (Negative) Ur Leukocyte Esterase Trace A (Negative) Urine WBC (Auto) Trace(0-5/hpf) (Absent) Urine RBC (Auto) 1+(3-5/hpf) A (Absent) Ur Squamous Epith Cells Present A (Absent) Urine Bacteria Absent (Absent) Urine Glucose Negative (Negative) 18 Range/Units 14:58 WBC (3.5-10.8) 10^3/ul RBC (4.0-5.4) 10^6/ul Hgb (12.0-16.0) g/dl Hct (35-47) % MCV (80-97) fL MCH (27-31) pg MCHC (31-36) g/dl RDW (10.5-15) % Plt Count (150-450) 10^3/ul MPV (7.4-10.4) um3 Neut % (Auto) (38-83) % Lymph % (Auto) (25-47) % [place] % (Auto) (0-7) % Eos % (Auto) (0-6) % Baso % (Auto) (0-2) % Absolute Neuts (auto) (1.5-7.7) 10^3/ul Absolute Lymphs (auto) (1.0-4.8) 10^3/ul Absolute Monos (auto) (0-0.8) 10^3/ul Absolute Eos (auto) (0-0.6) 10^3/ul Absolute Basos (auto) (0-0.2) 10^3/ul Absolute Nucleated RBC 10^3/ul Nucleated RBC % Sodium (139-145) mmol/L Potassium (3.5-5.0) mmol/L Chloride (101-111) mmol/L Carbon Dioxide (22-32) mmol/L Anion Gap (2-11) mmol/L BUN (6-24) mg/dL Creatinine (0.51-0.95) mg/dL Est GFR ( Amer) (>60) Est GFR (Non-Af Amer) (>60) BUN/Creatinine Ratio (8-20) Glucose (70-100) mg/dL Calcium (8.6-10.3) mg/dL Magnesium (1.9-2.7) mg/dL Total Bilirubin (0.2-1.0) mg/dL AST (13-39) U/L ALT (7-52) U/L Alkaline Phosphatase (34-104) U/L Ammonia 29 (16-53) mcmol/L Total Protein (6.4-8.9) g/dL Albumin (3.2-5.2) g/dL Globulin (2-4) g/dL Albumin/Globulin Ratio (1-3) TSH (0.34-5.60) mcIU/mL Urine Color Urine Appearance Urine pH (5-9) Ur Specific [place] (1.010-1.030) Urine Protein (Negative) Urine Ketones (Negative) Urine Blood (Negative) Urine Nitrate (Negative) Urine Bilirubin (Negative) Urine Urobilinogen (Negative) Ur Leukocyte Esterase (Negative) Urine WBC (Auto) (Absent) Urine RBC (Auto) (Absent) Ur Squamous Epith Cells (Absent) Urine Bacteria (Absent) Urine Glucose (Negative) Result Diagrams: 10/03/17 11:19 10/03/17 11:19 Lab Statement: Any lab studies that have been ordered have been reviewed, and results considered in the medical decision making process. - Additional Comments Diagnostic Additional Comments: EKG @ 1115. NSR 78 BPM. Probable left atrial enlargement, abnormal R-wave progression, late transition Altered Mental Statu Course/Dx - Course Course Of Treatment: After initial course in the emergency department including negative labs, I elicited additional history from the patient that included multiple episodes of visual and auditory hallucinations and multiple nonspecific complaints of pain and discomfort without focality. Patient is ambulating normally here in the emergency department, complains of persistent hallucinations without evidence of delirium, currently awaiting mental health evaluation. - Diagnoses Provider Diagnoses: Hallucinations Discharge - Sign-Out/Discharge Documenting (check all that apply): Sign-Out Patient Signing out patient TO: Rangel Marino - Discharge Plan Condition: Stable Referrals: Sheila Liao, BLOCK TRADER [Primary Care Provider] - - Billing Disposition and Condition Condition: STABLE The documentation as recorded by the John lo Jennifer accurately reflects the service I personally performed and the decisions made by me, Alex Shetty MD.
[2017-10-04] MEDS ORDERED: Ibuprofen TAB* 800 MG PO ONE ×2 (01:18→01:23)
[2017-10-04] MEDS ORDERED: LORazepam TAB(*) 1 MG PO ONE (01:27)
[2017-10-04] MEDS ORDERED: Thiamine TAB* 100 MG TAB PO ONE (01:28)
--- NOTE | 2017-10-04 02:55 | ED ---
Turner Petersen Angela, scribed for Rangel Marino MD on 10/04/17 at 0131 . Progress - Progress Note Progress Note: This pt was signed out by Dr. Shetty, pending disposition, awaiting MHE. Pt was evaluated by the mental health retail aide and her case was reviewed by the psychiatrist. Psychiatrist recommends admission for the pt. Pt will be admitted to [facility] [place], in stable condition, with a diagnosis of substance induced mood disorder and alcoholism. Course/Dx - Course Course Of Treatment: Assumed care from previous ER physician. Patient has been stable. She is paranoid and with some psychosis today. She has history that is long-standing for alcoholism. 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 Thiamine given. Ativan given. No evidence for withdrawal. Patient was evaluated by crisis and admitted. - Diagnoses Provider Diagnoses: Substance induced mood disorder, Alcoholism Discharge - Sign-Out/Discharge Documenting (check all that apply): Discharge/Admit/Transfer - Admit, Receiving Sign-Out Receiving patient FROM: Alex Shetty - Discharge Plan Condition: Stable Disposition: PSYCHIATRIC FACILITY[place] - Billing Disposition and Condition Condition: STABLE Disposition: PS-[facility] The documentation as recorded by the Turner lo Angela accurately reflects the service I personally performed and the decisions made by , Rangel Marino MD.
[2017-10-04] MEDS ORDERED: Al Hydrox/Mg Hydrox/Simet LIQ* 30 ML UDC PO PRN (05:37)
[2017-10-04] MEDS ORDERED: LORazepam PO 0-6 for WAM protocol PO SCH (06:00)
[2017-10-04] MEDS ORDERED: LORazepam IM 0-6 mg for WAM protocol IM SCH (06:00)
[2017-10-04] MEDS ORDERED: Atomoxetine (NF) 40 MG CAP PO SCH (08:00)
[2017-10-04] MEDS: Omeprazole CAP* 20 MG PO SCH (08:54)
[2017-10-04] MEDS: buPROPion SR TAB.SR* 100 MG PO SCH (08:54)
[2017-10-04] MEDS: Folic Acid TAB* 1 MG PO SCH (08:54)
[2017-10-04] MEDS: Thiamine TAB* 100 MG TAB PO SCH (08:55)
[2017-10-04] MEDS: Multivitamins/Minerals TAB PO SCH (08:55)
[2017-10-04] MEDS ORDERED: VORTIOXETINE 5 MG PO SCH (09:00)
[2017-10-04] MEDS: CMC:Atomoxetine (NF) 40 MG CAP PO SCH (10:52)
[2017-10-04] MEDS: Mouth Piece, Nicotine* 1 EACH CARTRIDGE INH ONE (10:53)
[2017-10-04] MEDS: Nicotine Inhaler* 10 MG AMP INH PRN ×3 (10:55→20:22)
--- NOTE | 2017-10-04 11:04 | HP ---
H&P (Free Text) History and Physical: Psychiatric Attending History and Physical NAME: Sydney Hauser : 1960 AGE: 57 PROVIDER: Ronald Burgos D.O. DATE OF ADMISSION: 10/04/2017 JUSTIFICATION FOR ADMISSION: Patient recently discharged from [facility] 2 days ago. Patient returns with multiple somatic complaints, affective lability, confusion, slurring her words, and c/o auditory and visual hallucinations. Patient was cleared medically by Emergency room physican. Patient mental status renders her gravely disabled. She requires inpatient psychiatric admission for assessment, monitoring, and stabalization of her mental status. CHIEF COMPLAINT: ".....Something's wrong with me. 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 Patient was last discharged from [facility] 2 days ago after being transferred from medical floor where she had been admitted for alcohol detox after 3 day alcohol binge precipitated by final break up with partner of 6 years. Patient lives in sober housing at [facility]. She has had multiple psychiatric admissions for depression, dariel, alcohol use relapse often associated with loss or abandonment of interpersonal or family relationships. Current stressors include Mother's 6 months ago, father's recent [facility] [place] [facility] due to worsening dementia, loss of 6 year relationship. Patient is connected with extensive community supports/treatment providers including volulnteer work, therapy, r elapse prevention and sponsor. Patient was discharged 2 days ago on depakote ER 1000 qhs, Wellbutrin SR 100 mg qam, Trintellix 5 mg QAM, Risperdal 1 mg QHS, and Strattera 40 mg QAM. Patient had VPA level of 95 prior to discharge. patient was having intermittent complaints of slurred speech, "losing time" prior to discharge. However, the symptoms would remit when patient was engaged in groups and would return when she was on one to one with providers. patient has history of medication seeking. She also has a history of alleged intolerance to or failure of multiple psychiatric medications. Therefore behavior was felt to be attention seeking, medication seeking or otherwise psychosomatic in nature. Patient returned yesterday to the ED complaining of insomnia, swollen ankles, bilateral flank pain and was noted by ED physician to have slurred speech and abnormal gait. Physical examination by ED physician and laboratory testing was within normal limits. Patient was cleared medically and transferred to [facility] for assessment. Patient admitted to psychiatry as she was tearful, appeared confused and was requesting readmission to the [facility]. PAST PSYCHIATRIC HISTORY: History of previous inpatient psychiatric admissions here and at [facility] hospitals such as [facility] because of suicidal ideation in the context of alcohol use disorder. Outpatient care is at [facility] with psychiatric Dr. Padilla and with community nurse, Lakhwinder East. The patient denies previous charleen suicide attempt PAST SURGICAL HISTORY: Positive for complete hysterectomy because of polycystic ovarian syndrome. MEDICATION HISTORY: Has had multiple trials of medication over the years including tricyclic antidepressants, lithium, Abilify, Seroquel, benzodiazepines, wellbutrin, Latuda, seroquel LEGAL HISTORY: The patient has a history of DWI with mandated treatment and is currently on probation SUBSTANCE ABUSE HISTORY: The patient reports that she began drinking alcohol as early as age 11. She has had periods of sobriety, the longest stretch of sobriety lasted 6 years. She drinks an average of 1 pint of vodka often to the point of intoxication. She has had multiple residential treatment episodes including [facility]. She has been enrolled in and has had multiple detoxes. She denies the use of any other illicit drugs. She smokes cigarettes, however. FAMILY HISTORY: The patient reports family history of Alzheimer's dementia in her father. Her mother recently from complications of Parkinson's disease. The patient is aware that both her parents suffered from depression. The patient's maternal cousin attempted suicide by overdose. PERSONAL AND SOCIAL HISTORY: The patient has never been , has no children. She was born in [facility] from [place] parents. She eventually moved here in [place]. She is educated to the level of a bachelor's degree in human development. She self-identified as lesbian. She was in a 20-year relationship with a female partner who . Her mother recently . She has had multiple jobs in the past. 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 She has been on mental disability since after her most recent discharge here. The patient reports spending her time keeping appointments at [facility], [facility], attending AA meetings, spending time with relatives. She also enjoys spending time alone. HOME MEDICATIONS AT TIME OF ADMISSION Wellbutrin SR 100 mg QAM Depakote ER 1000 mg qhs Trintellix 5 mg QAM Risperdal 1 mg QHS ALLERGIES: codeine, Iodine, Lurasidone(muscle twitching), tricyclic compounds ( agitation), tamiflu (nausea, vomiting), IV contrast dye (hives) REVIEW OF SYSTEMS: patient complains of bilateral flank pain, bilateral leg swelling, memory loss, visual and auditory hallucinations, difficulty walking, and slurring her speech. She also reports mood swings, trouble falling asleep. 14 point review of systems is otherwise unremarkable. Vital Signs: Temp Pulse Resp BP Pulse Ox 98.8 F 72 16 98/72 98 10/04/17 07:52 10/04/17 07:52 10/04/17 13:15 10/04/17 07:52 10/04/17 07:52 PHYSICAL EXAMINATION: Skin: warm, dry, reflects adequate perfusion, no exanthem Head: atraumatic Neck: supple, non-tender, no cervical or submandibular adenopathy, no bruits Eyes: EOMI, TERESA, conjunctiva without injection ENT: no nasal discharge, TM's w/o injection, pharynx without exudate or injection, no tonsillar hypertrophy, mucous membranes moist. no evidence of oral lesions Respiratory: CTA bilaterally without expiratory wheezing, no rhonchi, no retractions visible Cardiovascular: RRR normal s1 and s2. radial, brachoradialis, dorsalis pedis pulses symmetic 5+/5 bilaterally Abdomen: soft non tender, normoactive bowel sound present in all quadrants, no HSM, no palpable masses Musculoskeletal: full range of motions in all extremities, no evidence of spinal curvature Lymph: no axillary lypmphadenopathy Neuro: CN 2 to 12 intact, no sensory deficits, motor 5+/5 in upper and lower extremites, bilaterally symmetric patient has slurred speech, no evidence of cerebellar signs, she ambulates slowly and deliberately but does not have ataxic gait. MENTAL STATUS EXAMINATION: patient is well developed and nourished. She is dressed casually and has adequate hygiene. Patient was observed to be sitting in group most of the day today and did not appear to be in any acute distress either emotionally or medically. Upon approaching her this afternoon, patient took on a very confused facial expression bent over and walked slowly toward me. She exhibited slurred speech but it was not pressured, loud or rapid. Thought process: perseverative with regard to multiple cognitive and physcial symptoms which she was experiencing. no evidence of disorganization flight of ideas, tangentiality. patient logical and coherent. Thought content: patient is not suicidal. She reports that she is having illusions (objects which are actually present seem to be moving. she pointed out some crown molding on the wall and told me that it looks like it is moving up and down). She also reports hearing humming, machine type noises. she denies hearing voices. Patient's mood is dysphoric affect is labile ranging from angry and irritated to tearful. elevated amplitude Patient also made statement about the staff in the emergency room not liking her or writing things on her chart that are not true. cognitive: patient is alert. Her attention is impaired She was able to repeat back only 2/3 words (impaired registration) short term memory therfore untestable. Patient could not spell world backwards She knew month, year, day of week but not date. she was oriented to person and place. MMSE: 22/29. insight poor judgment fair. LABORATORY DATA: Laboratory Results - last 24 hr 10/03/17 10/03/17 10/04/17 11:19 11:19 01:40 Sodium 132 L Potassium 3.6 Chloride 100 L Carbon Dioxide 24 Anion Gap 8 BUN 10 Creatinine 0.82 Est GFR ( Amer) 92.1 Est GFR (Non-Af Amer) 71.6 BUN/Creatinine Ratio 12.2 Glucose 82 Hemoglobin A1c 5.3 Calcium 8.9 Magnesium 2.0 Total Bilirubin 0.50 AST 50 H ALT 32 Alkaline Phosphatase 51 Total Protein 7.2 Albumin 4.1 Globulin 3.1 Albumin/Globulin Ratio 1.3 Triglycerides 80 Cholesterol 196 LDL Cholesterol 125 HDL Cholesterol 55.3 TSH 7.55 H Urine Opiates Screen None detected Ur Barbiturates Screen None detected Valproic Acid 116.0 H Ur Phencyclidine Scrn None detected Ur Amphetamines Screen None detected U Benzodiazepines Scrn Presumptive positive A Urine Cocaine Screen None detected U Cannabinoids Screen None detected Serum Alcohol 10/04/17 01:53 Sodium Potassium Chloride Carbon Dioxide Anion Gap BUN Creatinine Est GFR ( Amer) Est GFR (Non-Af Amer) BUN/Creatinine Ratio Glucose Hemoglobin A1c Calcium Magnesium Total Bilirubin AST ALT Alkaline Phosphatase Total Protein Albumin Globulin Albumin/Globulin Ratio Triglycerides Cholesterol LDL Cholesterol HDL Cholesterol TSH Urine Opiates Screen Ur Barbiturates Screen Valproic Acid Ur Phencyclidine Scrn Ur Amphetamines Screen U Benzodiazepines Scrn Urine Cocaine Screen U Cannabinoids Screen Serum Alcohol < 10 Laboratory Last Values WBC 5.3 10^3/ul (3.5-10.8) 10/03/17 11:19 RBC 3.82 10^6/ul (4.0-5.4) L 10/03/17 11:19 Hgb 12.2 g/dl (12.0-16.0) 10/03/17 11:19 Hct 36 % (35-47) 10/03/17 11:19 MCV 93 fL (80-97) 10/03/17 11:19 MCH 32 pg (27-31) H 10/03/17 11:19 MCHC 34 g/dl (31-36) 10/03/17 11:19 RDW 16 % (10.5-15) H 10/03/17 11:19 Plt Count 424 10^3/ul (150-450) 10/03/17 11:19 MPV 6.7 um3 (7.4-10.4) L 10/03/17 11:19 Neut % (Auto) 50.9 % (38-83) 10/03/17 11:19 Lymph % (Auto) 32.9 % (25-47) 10/03/17 11:19 [place] % (Auto) 13.6 % (0-7) H 10/03/17 11:19 Eos % (Auto) 1.7 % (0-6) 10/03/17 11:19 Baso % (Auto) 0.9 % (0-2) 10/03/17 11:19 Absolute Neuts (auto) 2.7 10^3/ul (1.5-7.7) 10/03/17 11:19 Absolute Lymphs (auto) 1.7 10^3/ul (1.0-4.8) 10/03/17 11:19 Absolute Monos (auto) 0.7 10^3/ul (0-0.8) 10/03/17 11:19 Absolute Eos (auto) 0.1 10^3/ul (0-0.6) 10/03/17 11:19 Absolute Basos (auto) 0 10^3/ul (0-0.2) 10/03/17 11:19 Absolute Nucleated RBC 0 10^3/ul 10/03/17 11:19 Nucleated RBC % 0.1 10/03/17 11:19 Sodium 132 mmol/L (139-145) L 10/03/17 11:19 Potassium 3.6 mmol/L (3.5-5.0) 10/03/17 11:19 Chloride 100 mmol/L (101-111) L 10/03/17 11:19 Carbon Dioxide 24 mmol/L (22-32) 10/03/17 11:19 Anion Gap 8 mmol/L (2-11) 10/03/17 11:19 BUN 10 mg/dL (6-24) 10/03/17 11:19 Creatinine 0.82 mg/dL (0.51-0.95) 10/03/17 11:19 Est GFR ( Amer) 92.1 (>60) 10/03/17 11:19 Est GFR (Non-Af Amer) 71.6 (>60) 10/03/17 11:19 BUN/Creatinine Ratio 12.2 (8-20) 10/03/17 11:19 Glucose 82 mg/dL (70-100) 10/03/17 11:19 Hemoglobin A1c 5.3 % (4.0-5.6) 10/03/17 11:19 Calcium 8.9 mg/dL (8.6-10.3) 10/03/17 11:19 Magnesium 2.0 mg/dL (1.9-2.7) 10/03/17 11:19 Total Bilirubin 0.50 mg/dL (0.2-1.0) 10/03/17 11:19 AST 50 U/L (13-39) H 10/03/17 11:19 ALT 32 U/L (7-52) 10/03/17 11:19 Alkaline Phosphatase 51 U/L (34-104) 10/03/17 11:19 Ammonia 29 mcmol/L (16-53) 10/03/17 14:58 Total Protein 7.2 g/dL (6.4-8.9) 10/03/17 11: Albumin 4.1 g/dL (3.2-5.2) 10/03/17 11: Globulin 3.1 g/dL (2-4) 10/03/17 11:19 Albumin/Globulin Ratio 1.3 (1-3) 10/03/17 11:19 Triglycerides 80 mg/dL 10/03/17 11: Cholesterol 196 mg/dL 10/03/17 11:19 LDL Cholesterol 125 mg/dL 10/03/17 11:19 HDL Cholesterol 55.3 mg/dL 10/03/17 11: TSH 7.55 mcIU/mL (0.34-5.60) H 10/03/17 11:19 Urine Color Yellow 10/03/17 13:30 Urine Appearance Cloudy 10/03/17 13:30 Urine pH 6.0 (5-9) 10/03/17 13:30 Ur Specific [place] 1.010 (1.010-1.030) 10/03/17 13:30 Urine Protein Negative (Negative) 10/03/17 13:30 Urine Ketones Trace (Negative) A 10/03/17 13:30 Urine Blood Negative (Negative) 10/03/17 13:30 Urine Nitrate Negative (Negative) 10/03/17 13:30 Urine Bilirubin Negative (Negative) 10/03/17 13:30 Urine Urobilinogen Negative (Negative) 10/03/17 13:30 Ur Leukocyte Esterase Trace (Negative) A 10/03/17 13:30 Urine WBC (Auto) Trace(0-5/hpf) (Absent) 10/03/17 13:30 Urine RBC (Auto) 1+(3-5/hpf) (Absent) A 10/03/17 13:30 Ur Squamous Epith Cells Present (Absent) A 10/03/17 13:30 Urine Bacteria Absent (Absent) 10/03/17 13:30 Urine Glucose Negative (Negative) 10/03/17 13:30 Urine Opiates Screen None detected (None Detect) 10/04/17 01:40 Ur Barbiturates Screen None detected (None Detect) 10/04/17 01:40 Valproic Acid 116.0 mcg/mL (50-100) H 10/03/17 11:19 Ur Phencyclidine Scrn None detected (None Detect) 10/04/17 01:40 Ur Amphetamines Screen None detected (None Detect) 10/04/17 01:40 U Benzodiazepines Scrn Presumptive positive (None Detect) A 10/04/17 01:40 Urine Cocaine Screen None detected (None Detect) 10/04/17 01:40 U Cannabinoids Screen None detected (None Detect) 10/04/17 01:40 Serum Alcohol < 10 mg/dL (<10) 10/04/17 01:53 IMPRESSION: Patient is 57 yo with history of alcohol use disorder, bipolar disorder type I, GERD, personality Disorder unspecified with recent relapse/detox stay 2 weeks ago which was followed by psych. hospitalization for adjustment of medication due to ongoing depression. patient was discharged 2 days ago with intermittent slurring of speech, confusion felt to be attention seeking in nature. patient returns 2 days later due to new somatic complaints of flank pain swollen ankles. Patient also noted to have altered mental status including slurred speech, confusion and reports of hallucinations. Patient cleared medically. Patient does have an elevated VPA level of 118 which could cause all the symptoms patient is complaining of. alternately she is taking several new medications including Risperdal and Trintellix which may be causing adverse effects. At this point, I think it best to discontinue all three medications. If she improves over next few days, it is likely medication induce delirium. If she does not improve other possibilities include bipolar dariel which can at times present as confusion/delirium, tumor, infection, cerebrovascular etiology. DIAGNOSES: Bipolar Disorder type I alcohol Use disorder Last alcohol use 2 weeks ago. Delirium likely medication induced (depakote toxicity) with Hallucinations PLAN: discontinue depakote, Trintellix, and Risperdal no benzodiazepines with exception of Ativan 1 mg qhs prn insomnia Continue strattera 40 mg and bupropion 100 mg daily no other medications to be given. repeat depakote level daily x 2 days repeat cmp daily x 2 days if patient has not improved by tomorrow, will order MRI of brain with and without contrast. vitals q shift q 15 minute observation
[2017-10-04] MEDS: Acetaminophen TAB* 325 MG PO PRN (17:03)
[2017-10-04] MEDS ORDERED: Mouth Piece, Nicotine* 1 EACH CARTRIDGE ONE (20:21)
[2017-10-04] MEDS ORDERED: risperiDONE TAB* 1 MG PO SCH (21:00)
[2017-10-04] MEDS ORDERED: Divalproex ER TAB(*) 500 MG PO SCH (21:00)
[2017-10-04] MEDS: LORazepam TAB(*) 1 MG PO PRN (22:22)
[2017-10-05] MEDS: Acetaminophen TAB* 325 MG PO PRN ×3 (03:33→18:52)
[2017-10-05] MEDS: Nicotine Inhaler* 10 MG AMP INH PRN ×4 (08:03→19:05)
[2017-10-05] MEDS: CMC:Atomoxetine (NF) 40 MG CAP PO SCH (08:03)
[2017-10-05] MEDS: Omeprazole CAP* 20 MG PO SCH (08:04)
[2017-10-05 09:38] LABS: EGFR Non-African American 79.4 (>60)
[2017-10-05] MEDS: Folic Acid TAB* 1 MG PO SCH (10:04)
[2017-10-05] MEDS: Multivitamins/Minerals TAB PO SCH (10:04)
[2017-10-05] MEDS: buPROPion SR TAB.SR* 100 MG PO SCH (10:04)
[2017-10-05] MEDS: Thiamine TAB* 100 MG TAB PO SCH (10:04)
[2017-10-05] MEDS: LORazepam TAB(*) 1 MG PO PRN (20:55)
[2017-10-05] MEDS: Ciprofloxacin TAB* 500 MG PO SCH (20:55)
[2017-10-05] MEDS: Docusate CAP* 100 MG PO SCH (20:55)
[2017-10-06] MEDS: diPHENhydraMINE PO* 25 MG PO PRN (03:14)
[2017-10-06] MEDS: LORazepam TAB(*) 1 MG PO PRN ×2 (03:15→20:49)
[2017-10-06] MEDS: Acetaminophen TAB* 325 MG PO PRN ×3 (03:15→19:12)
[2017-10-06] MEDS: Nicotine Inhaler* 10 MG AMP INH PRN ×4 (03:16→20:52)
[2017-10-06 07:55] LABS: EGFR Non-African American 68.7 (>60)
[2017-10-06] MEDS: Ciprofloxacin TAB* 500 MG PO SCH ×2 (09:38→20:49)
[2017-10-06] MEDS: CMC:Atomoxetine (NF) 40 MG CAP PO SCH (09:38)
[2017-10-06] MEDS: Omeprazole CAP* 20 MG PO SCH (09:39)
[2017-10-06] MEDS: Folic Acid TAB* 1 MG PO SCH (09:39)
[2017-10-06] MEDS: Thiamine TAB* 100 MG TAB PO SCH (09:40)
[2017-10-06] MEDS: Docusate CAP* 100 MG PO SCH ×2 (09:40→20:49)
[2017-10-06] MEDS: Multivitamins/Minerals TAB PO SCH (09:40)
[2017-10-06] MEDS: buPROPion SR TAB.SR* 100 MG PO SCH (09:40)
--- NOTE | 2017-10-06 17:35 | PN ---
Subjective - Subjective Date of Service: 10/06/17 Service Type: 14963 Hosp care 15 min low complexity Subjective: Saw patient on Sat and Sun. In bed most of the time. Nervous and shaken up tremors around rubio-facial region. Complaining of occasional confusional state. Denies hallucinations or delusions. Also denies SI or HI. Just tired and unmotivated she says. Labs done and reviewed and found to be unremarkable. Objective - Appearance Appearance: Healthy Appearing Dysmorphic Features: No Hygiene: Normal Grooming: Fairly Well Kept - Behavior Psychomotor Activities: Abnormal-Decreased Exhibits Abnormal Movement: Yes - Attitude and Relatedness Attitude and Relatedness: Appropriate Eye Contact: Good - Speech Quality: Unpressured Latencies: Normal Quantity: Appropriate - Mood Patient's Decription of Mood: "Terrible" - Affect Observed Affect: Depressed - Thought Process Patient's Thought Process: Coherent, Goal Directed Thought Content: No Passive Wish, No Suicidal Planning, No Homicidal Ideation, No Paranoid Ideation - Sensorium Experiencing Hallucinations: No, Sensorium is Clear Type of Hallucinations: Visual: No, Auditory: No, Command: No - Level of Consciousness Level of Consciousness: Alert Orientation: Yes Intact, Yes Orientated to Time, Yes Orientated to Place, Yes Orientated to Person - Impulse Control Impulse Control: Intact - Insight and Judgement Insight and Judgement: Fair - Group Participation Particating in Group Activities: No - Medication Management Medication Management Adherence: Yes Assessment - Assessment Merits Inpatient Hospitalization: For Immediate Safety, For Ongoing Evaluation Plan - Plan Treatment Plan: Name: PEGGY VIERA Birthdate: 1960 [id number] Continued Medication Management: Continue Outpt Medication Medications: Current Medications Acetaminophen (Tylenol Tab*) 650 mg PO Q4H PRN PRN Reason: PAIN or TEMP > 101 F Last Admin: 10/06/17 06:46 Dose: 650 mg Al Hydrox/Mg Hydrox/Simethicone (Maalox Plus*) 30 ml PO Q4H PRN PRN Reason: INDIGESTION Atomoxetine HCl (Strattera (Nf)) 40 mg PO 0800 [facility] Last Admin: 10/06/17 09:38 Dose: 40 mg Bupropion HCl (Wellbutrin Sr Tab*) 100 mg PO DAILY [facility] Last Admin: 10/06/17 09:40 Dose: 100 mg Ciprofloxacin (Cipro Tab*) 500 mg PO BID [facility] Last Admin: 10/06/17 09:38 Dose: 500 mg Diphenhydramine HCl (Benadryl Po*) 25 mg PO BEDTIME PRN PRN Reason: INSOMNIA Last Admin: 10/06/17 03:14 Dose: 25 mg Docusate Sodium (Colace Cap*) 100 mg PO BID [facility] Last Admin: 10/06/17 09:40 Dose: 100 mg Folic Acid (Folvite Tab*) 1 mg PO DAILY [facility] Last Admin: 10/06/17 09:39 Dose: 1 mg Lorazepam (Ativan Tab(*)) 1 mg PO BEDTIME PRN PRN Reason: INSOMNIA Last Admin: 10/06/17 03:15 Dose: 1 mg Multivitamins/Minerals (Theragran/Minerals Tab*) 1 tab PO DAILY [facility] Last Admin: 10/06/17 09:40 Dose: 1 tab Nicotine (Nicotine Inhaler*) 10 mg INH Q2H PRN PRN Reason: [facility] Last Admin: 10/06/17 06:58 Dose: 10 mg Omeprazole (Prilosec Cap*) 40 mg PO DAILY [facility] Last Admin: 10/06/17 09:39 Dose: 40 mg Thiamine HCl (Vitamin B-1 Tab*) 100 mg PO DAILY [facility] Last Admin: 10/06/17 09:40 Dose: 100 mg - Discharge Plan Discharge Plan: Outpatient Follow Up Outpatient Program: [facility]
[2017-10-07] MEDS: diPHENhydraMINE PO* 25 MG PO PRN ×2 (00:46→03:56)
[2017-10-07] MEDS: LORazepam TAB(*) 1 MG PO PRN ×2 (00:46→21:13)
[2017-10-07] MEDS: Acetaminophen TAB* 325 MG PO PRN ×3 (00:46→16:07)
[2017-10-07] MEDS: Ciprofloxacin TAB* 500 MG PO SCH ×2 (08:27→21:12)
[2017-10-07] MEDS: buPROPion SR TAB.SR* 100 MG PO SCH (08:27)
[2017-10-07] MEDS: Docusate CAP* 100 MG PO SCH ×2 (08:27→21:12)
[2017-10-07] MEDS: CMC:Atomoxetine (NF) 40 MG CAP PO SCH (08:27)
[2017-10-07] MEDS: Omeprazole CAP* 20 MG PO SCH (08:28)
[2017-10-07] MEDS: Thiamine TAB* 100 MG TAB PO SCH (08:28)
[2017-10-07] MEDS: Folic Acid TAB* 1 MG PO SCH (08:28)
[2017-10-07] MEDS: Multivitamins/Minerals TAB PO SCH (08:28)
[2017-10-07] MEDS: Nicotine Inhaler* 10 MG AMP INH PRN ×3 (08:30→21:43)
[2017-10-07] MEDS ORDERED: Mouth Piece, Nicotine* 1 EACH CARTRIDGE ONE (08:31)
[2017-10-07] MEDS: Mouth Piece, Nicotine* 1 EACH CARTRIDGE INH ONE (08:32)
--- NOTE | 2017-10-07 13:07 | PN ---
Subjective - Subjective Subjective: Psychiatric Attending Progress NOte. somatic complaints that patient complained of upon admissino last week have mostly cleared over the weekkend. including slurring of speech, oversedation, lethargy, unstable gait, memory loss, malaise. Patient continued over the weekend to complalin of swollen feet. Met with Patient x 30 min. Tends to hyperrfocus and remain preoccupied with her somatic complaints. clearly enjoys playing the [employer] role. unable to be alone medication seeking persists. asks for pain medication and more ativan. Laboratory Last Values Vital Signs: Temp Pulse Resp BP Pulse Ox 98.1 F 78 16 114/43 99 10/07/17 07:37 10/07/17 07:37 10/07/17 13:12 10/07/17 07:37 10/07/17 07:37 Objective - Appearance Appearance: Thin Framed Dysmorphic Features: No Hygiene: Normal Grooming: Fairly Well Kept - Behavior Psychomotor Activities: Normal Exhibits Abnormal Movement: No - Attitude and Relatedness Attitude and Relatedness: Regressed Eye Contact: Fair - Speech Quality: Unpressured Latencies: Normal Quantity: Appropriate - Mood Patient's Decription of Mood: "Anxious" - Affect Observed Affect: Fair - Thought Process Patient's Thought Process: Coherent, Goal Directed Thought Content: No Passive Wish, No Suicidal Planning, No Homicidal Ideation, No Paranoid Ideation - Sensorium Experiencing Hallucinations: No, Sensorium is Clear Type of Hallucinations: Visual: No, Auditory: No, Command: No - Level of Consciousness Level of Consciousness: Alert Orientation: Yes Intact, Yes Orientated to Time, Yes Orientated to Place, Yes Orientated to Person - Impulse Control Impulse Control: Tenuous - Insight and Judgement Insight and Judgement: Poor - Group Participation Particating in Group Activities: Yes - Medication Management Medication Management Adherence: Yes Plan - Plan Medications: Plan: will continue medication regimen unchanged. Current Medications Acetaminophen (Tylenol Tab*) 650 mg PO Q4H PRN PRN Reason: PAIN or TEMP > 101 F Last Admin: 10/07/17 12:03 Dose: 650 mg Al Hydrox/Mg Hydrox/Simethicone (Maalox Plus*) 30 ml PO Q4H PRN PRN Reason: INDIGESTION Atomoxetine HCl (Strattera (Nf)) 40 mg PO 0800 [facility] Last Admin: 10/07/17 08:27 Dose: 40 mg Bupropion HCl (Wellbutrin Sr Tab*) 100 mg PO DAILY [facility] Last Admin: 10/07/17 08:27 Dose: 100 mg Ciprofloxacin (Cipro Tab*) 500 mg PO BID [facility] Last Admin: 10/07/17 08:27 Dose: 500 mg Diphenhydramine HCl (Benadryl Po*) 25 mg PO BEDTIME PRN PRN Reason: INSOMNIA Last Admin: 10/07/17 03:56 Dose: 25 mg Docusate Sodium (Colace Cap*) 100 mg PO BID [facility] Last Admin: 10/07/17 08:27 Dose: 100 mg Folic Acid (Folvite Tab*) 1 mg PO DAILY [facility] Last Admin: 10/07/17 08:28 Dose: 1 mg Lorazepam (Ativan Tab(*)) 1 mg PO BEDTIME PRN PRN Reason: INSOMNIA Last Admin: 10/07/17 00:46 Dose: 1 mg Multivitamins/Minerals (Theragran/Minerals Tab*) 1 tab PO DAILY [facility] Last Admin: 10/07/17 08:28 Dose: 1 tab Nicotine (Nicotine Inhaler*) 10 mg INH Q2H PRN PRN Reason: CRAVING Last Admin: 10/07/17 12:02 Dose: 10 mg Omeprazole (Prilosec Cap*) 40 mg PO DAILY [facility] Last Admin: 10/07/17 08:28 Dose: 40 mg Thiamine HCl (Vitamin B-1 Tab*) 100 mg PO DAILY [facility] Last Admin: 10/07/17 08:28 Dose: 100 mg
[2017-10-08] MEDS: diPHENhydraMINE PO* 25 MG PO PRN (01:30)
[2017-10-08] MEDS: Thiamine TAB* 100 MG TAB PO SCH (08:51)
[2017-10-08] MEDS: Ciprofloxacin TAB* 500 MG PO SCH ×2 (08:51→22:05)
[2017-10-08] MEDS: Multivitamins/Minerals TAB PO SCH (08:51)
[2017-10-08] MEDS: buPROPion SR TAB.SR* 100 MG PO SCH (08:51)
[2017-10-08] MEDS: Omeprazole CAP* 20 MG PO SCH (08:51)
[2017-10-08] MEDS: Docusate CAP* 100 MG PO SCH ×2 (08:51→22:05)
[2017-10-08] MEDS: CMC:Atomoxetine (NF) 40 MG CAP PO SCH (08:52)
[2017-10-08] MEDS: Folic Acid TAB* 1 MG PO SCH (08:52)
[2017-10-08] MEDS: Nicotine Inhaler* 10 MG AMP INH PRN ×3 (08:54→22:05)
[2017-10-08] MEDS: Acetaminophen TAB* 325 MG PO PRN ×2 (10:08→15:19)
--- NOTE | 2017-10-08 12:01 | PN ---
[facility]: Group Therapy Note - Service Type Service Type: 23025 Group Psychotherapy - Cognitive Behavioral Group Therapy ( CBT):Patient was attentive and participatory in CBT programming this morning, and remained in good behavioral control. Patient expressed positive insights regarding relevant treatment interventions and goals.
--- NOTE | 2017-10-08 16:05 | PN ---
Subjective - Subjective Subjective: Psychiatric Attending Progress Note: Sydney's mental status shows dramatic improvement compared to her presentation on admission. slurring, latent responses, confusion, psychomotoric slowing, cognitive toxicity, attentional impairments, dysphoria, irritability have remitted. I had 45 minute session with Sydney today. Mental status shows improved ADL's and hygiene. patient was dressed neatly. She made excellent eye contact. attention span was greatly improved. thought process more organized. patient was not distracted internally as she had been previously. She was articulate. speech was highly fluent without pauses. patient's thoughts showed clarity. She was alert. She was fully oriented and showed no evidence of psychomotoric slowing. she had excellent recall and expressed herself well. she had precise recall of long-term memories which she shared readily. she denies dariel or depression. She feels ready to go home and we agreed on discharge for tomorrow. insight and judgment improved. Impression bipolar disorder most recently depressed in partial remission ADHD s/p cognitive toxicity secondary to depakote toxicity severe stressors (recent breakup with partner, father fatally ill) Plan: d/c in am Plan - Plan Treatment Plan: Name: SYDNEY VIERA Birthdate: 1960 [id number] Medications: Current Medications Acetaminophen (Tylenol Tab*) 650 mg PO Q4H PRN PRN Reason: PAIN or TEMP > 101 F Last Admin: 10/08/17 15:19 Dose: 650 mg Al Hydrox/Mg Hydrox/Simethicone (Maalox Plus*) 30 ml PO Q4H PRN PRN Reason: INDIGESTION Atomoxetine HCl (Strattera (Nf)) 40 mg PO 0800 [facility] Last Admin: 10/08/17 08:52 Dose: 40 mg Bupropion HCl (Wellbutrin Sr Tab*) 100 mg PO DAILY [facility] Last Admin: 10/08/17 08:51 Dose: 100 mg Ciprofloxacin (Cipro Tab*) 500 mg PO BID [facility] Stop: 10/12/17 09:01 Last Admin: 10/08/17 08:51 Dose: 500 mg Diphenhydramine HCl (Benadryl Po*) 25 mg PO BEDTIME PRN PRN Reason: INSOMNIA Last Admin: 10/08/17 01:30 Dose: 25 mg Docusate Sodium (Colace Cap*) 100 mg PO BID [facility] Last Admin: 10/08/17 08:51 Dose: 100 mg Folic Acid (Folvite Tab*) 1 mg PO DAILY [facility] Last Admin: 10/08/17 08:52 Dose: 1 mg Lorazepam (Ativan Tab(*)) 1 mg PO BEDTIME PRN PRN Reason: INSOMNIA Last Admin: 10/07/17 21:13 Dose: 1 mg Multivitamins/Minerals (Theragran/Minerals Tab*) 1 tab PO DAILY [facility] Last Admin: 10/08/17 08:51 Dose: 1 tab Nicotine (Nicotine Inhaler*) 10 mg INH Q2H PRN PRN Reason: CRAVING Last Admin: 10/08/17 15:20 Dose: 10 mg Omeprazole (Prilosec Cap*) 40 mg PO DAILY [facility] Last Admin: 10/08/17 08:51 Dose: 40 mg Thiamine HCl (Vitamin B-1 Tab*) 100 mg PO DAILY [facility] Last Admin: 10/08/17 08:51 Dose: 100 mg
[2017-10-08] MEDS: LORazepam TAB(*) 1 MG PO PRN (22:08)
[2017-10-09] MEDS: Nicotine Inhaler* 10 MG AMP INH PRN ×2 (03:40→13:13)
[2017-10-09] MEDS: Acetaminophen TAB* 325 MG PO PRN ×3 (03:40→13:13)
[2017-10-09] MEDS: CMC:Atomoxetine (NF) 40 MG CAP PO SCH (08:43)
[2017-10-09] MEDS: Ciprofloxacin TAB* 500 MG PO SCH (08:43)
[2017-10-09] MEDS: Omeprazole CAP* 20 MG PO SCH (08:43)
[2017-10-09] MEDS: Docusate CAP* 100 MG PO SCH (08:44)
[2017-10-09] MEDS: Folic Acid TAB* 1 MG PO SCH (08:44)
[2017-10-09] MEDS: Thiamine TAB* 100 MG TAB PO SCH (08:44)
[2017-10-09] MEDS: Multivitamins/Minerals TAB PO SCH (08:44)
[2017-10-09] MEDS ORDERED: buPROPion SR TAB.SR* 150 MG PO SCH (09:00)
[2017-10-09 09:08] VITALS: BP 114/47
--- NOTE | 2017-10-09 10:44 | DS ---
Subjective - Subjective Subjective: DISCHARGE SUMMARY PATIENT: Sydney Hauser : 1960 AGE: 57 PROVIDER: Ronald Burgos D.O. DATE OF ADMISSION: 10/04/2017 DATE OF DISCHARGE: 10/09/2017 DISCHARGE DIAGNOSES: Medication Induced Delirium (resolved) Bipolar disorder unspecified Alcohol Use disorder, moderate dependence ADHD CONDITION AT THE TIME OF DISCHARGE: Improved, Stable MENTAL STATUS EXAM AT DISCHARGE: speech clear with normal rate and volume. normal fluency and spontaneity. well related with good eye contact. normal psychomotor behavior. Thought processes are logical, organized and goal directed. Thought content: patient denies suicidal and homicidal ideation. no psychotic symptoms. Patient is alert and fully oriented. Attention span and concentration significantly improved. no expressive or receptive language deficits. short and penitentiary memory have returned to baseline functioning. insight and judgment are good. patient looks forward and feels she is ready to discharge. DISCHARGE INSTRUCTIONS: A MEDICATIONS: Bupropion SR 150 mg po QAM Benadryl 25 to 50 mg po QHS prn insomnia Ciprofloxaxcin 500 mg po BID X 6 days then discontinue Colace 100 mg po BID Folic acid 1 mg po QAM x 30 days Thiamine 100 mg po QAM x 30 days Multivitamin one tablet po QAM Lorazepam 1 mg po QHS Strattera 40 mg po QAM Vivitrol 380 mg IM monthly (Next Injection due on 10/25/2017) B. DIET: Regular C. ACTIVITIES: TOLERATED NICOTINE REPLACEMENT THERAPY WAS OFFERED BUT THE PATIENT DECLINED IT, INDICATING HER PREFERENCE IS TO CONTINUE SMOKING FOR THE TIME BEING. DESPITE THIS, SHE WAS GIVEN THE [place] [employer] QUITLINE WHICH IS [phone] THERE ARE NO LABORATORY OR DIAGNOSTIC STUDIES PENDING AT THE TIME OF DISCHARGE. D. FOLLOW UP CARE: Follow up psychiatric appointment with Dr. Padilla at [facility] on 10/10/2017 at 2:00 PM f/u with ELINA montero E. SUBSTANCE ABUSE FOLLOWUP: patient attends regularly and was encouraged to contact her sponsor Living in sober living at [facility] ATTENDING PSYCHIATRIST HOSPITAL COURSE: PART A. JUSTIFICATION FOR ADMISSION: Patient recently discharged from [facility] 2 days ago. Patient returns with multiple somatic complaints, affective lability, confusion, slurring her words, and c/o auditory and visual hallucinations. Patient was cleared medically by Emergency room physican. Patient mental status renders her gravely disabled. She requires inpatient psychiatric admission for assessment, monitoring, and stabalization of her mental status. CHIEF COMPLAINT: ".....Something's wrong with me. I 'm not feeling right...I cant remember things normal, I have swollen legs, and I'm seeing and hearing things..." HISTORY OF THE PRESENT ILLNESS: 57 yo single [place] woman known to this filing writer. 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 Patient was last discharged from [facility] 2 days ago after being transferred from medical floor where she had been admitted for alcohol detox after 3 day alcohol binge precipitated by final break up with partner of 6 years. Patient lives in sober housing at [facility]. She has had multiple psychiatric admissions for depression, dariel, alcohol use relapse often associated with loss or abandonment of interpersonal or family relationships. Current stressors include Mother's 6 months ago, father's recent placement in snf due to worsening dementia, loss of 6 year relationship. Patient is connected with extensive community supports/treatment providers including [employer] [facility], therapy, r elapse prevention and sponsor. Patient was discharged 2 days ago on depakote ER 1000 qhs, Wellbutrin SR 100 mg qam, Trintellix 5 mg QAM, Risperdal 1 mg QHS, and Strattera 40 mg QAM. Patient had VPA level of 95 prior to discharge. patient was having intermittent complaints of slurred speech, "losing time" prior to discharge. However, the symptoms would remit when patient was engaged in groups and would return when she was on one to one with providers. patient has history of medication seeking. She also has a history of alleged intolerance to or failure of multiple psychiatric medications. Therefore behavior was felt to be attention seeking, medication seeking or otherwise psychosomatic in nature. Patient returned yesterday to the ED complaining of insomnia, swollen ankles, bilateral flank pain and was noted by ED physician to have slurred speech and abnormal gait. Physical examination by ED physician and laboratory testing was within normal limits. Patient was cleared medically and transferred to [facility] for assessment. Patient admitted to psychiatry as she was tearful, appeared confused and was requesting readmission to the [facility]. PAST PSYCHIATRIC HISTORY: History of previous inpatient psychiatric admissions here and at [facility] such as [facility] because of suicidal ideation in the context of alcohol use disorder. Outpatient care is at [facility] with psychiatric Dr. Padilla and with community nurse, Lakhwinder East. The patient denies previous charleen suicide attempt PAST SURGICAL HISTORY: Positive for complete hysterectomy because of polycystic ovarian syndrome. MEDICATION HISTORY: Has had multiple trials of medication over the years including tricyclic antidepressants, lithium, Abilify, Seroquel, benzodiazepines, wellbutrin, Latuda, seroquel LEGAL HISTORY: The patient has a history of DWI with mandated treatment and is currently on probation SUBSTANCE ABUSE HISTORY: The patient reports that she began drinking alcohol as early as age 11. She has had periods of sobriety, the longest stretch of sobriety lasted 6 years. She drinks an average of 1 pint of vodka often to the point of intoxication. She has had multiple residential treatment episodes including [facility]. She has been enrolled in AA and has had multiple detoxes. She denies the use of any other illicit drugs. She smokes cigarettes, however. FAMILY HISTORY: The patient reports family history of Alzheimer's dementia in her father. Her mother recently from complications of Parkinson's disease. The patient is aware that both her parents suffered from depression. The patient's maternal cousin attempted suicide by overdose. PERSONAL AND SOCIAL HISTORY: The patient has never been , has no children. She was born in [facility] from [place] parents. She eventually moved here in [place]. She is educated to the level of a bachelor's degree in human development. She self-identified as lesbian. She was in a 20-year relationship with a female partner who . Her mother recently . She has had multiple jobs in the past. 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 She has been on mental disability since after her most recent discharge here. The patient reports spending her time keeping appointments at [facility], [facility], attending AA meetings, spending time with relatives. She also enjoys spending time alone. HOME MEDICATIONS AT TIME OF ADMISSION Wellbutrin SR 100 mg QAM Depakote ER 1000 mg qhs Trintellix 5 mg QAM Risperdal 1 mg QHS ALLERGIES: codeine, Iodine, Lurasidone(muscle twitching), tricyclic compounds ( agitation), tamiflu (nausea, vomiting), IV contrast dye (hives) REVIEW OF SYSTEMS: patient complains of bilateral flank pain, bilateral leg swelling, memory loss, visual and auditory hallucinations, difficulty walking, and slurring her speech. She also reports mood swings, trouble falling asleep. 14 point review of systems is otherwise unremarkable. HOSPITAL COURSE : PART B PSYCHIATRIC TREATMENT RENDERED: Patient was admitted to the [facility] on voluntary status. Patient was integrated into the milieu and was afforded individual and group therapy by the units multidisciplimary team of mental health professionals.in order to learn strategies for coping with target symptoms of depression and anxiety. She met with a social media specialist and psychiatrist daily for psychotherapy, mental status reassessment,and medication adjustment to address target symptoms, and to solidify most appropriate after care. Patient followed all unit rules and exhibited no behavioral management issues while hospitalized. He was respectful to other patients and cooperative with staff. Patient attended all group programs and was seen as highly motivated to work toward recovery in terms of participating in her own treatment. Patient's physical exam was within normal. Routine admission blood work including CBC, Comprehensive metabolic panel, Urinalysis, ALT,AST, T4,T3 were within normal limits with exception of serum sodium which was low at 126 (but which subsequently normalized to 130) and Depakote level which was elevated at 118. Urine toxicology screen was negative for all drugs of abuse. Alcohol level was negative. Due to complaint of bilateral flank pain, Urine C and S was sent despite benign urinalysis. Urine Culture came back positive for Proteus Mirabalis sensitive to Ciprofloxacin. Patient was started on Ciprofloxacin 500 mg BID for 10 day course to treat UTI. On admission to the unit it was apparent that she had an altered mental status when compared with her mental status on discharge from this unit only 3 days prior. Patient's mental status changes included marked psychomotor slowing(bradykinesia , speech slow with long response time), attentional impairment, memory deficit, disorientation, and confusion. Patient's presentation appeared consistent with drug induced delirium likely secondary to Depakote toxicity. Depakote was discontinued. As patient had only recently been started on Trintellix 5 mg and Risperdal 1 mg (during prior admission) and to eliminate potential adverse effect of any new medications, it was decided to discontinue both of these medication as well. Patient was therefore only maintained on Wellbutrin SR which was lowered to 100 mg QAM and Strattera 40 mg QAM. Insomnia which is chronic condition for patient was treated with Benadryl 25 mg qhs and Ativan 1 mg qhs both given on a prn basis. Patient's mental status improved daily and delirium cleared completely by the 4th hospital day. On day of discharge, patient's mental status revealed normal speech, bright mood and affect, normal level of arousal, normal attentional capacity, organized thinking, improved memory, and absence of perceptual disturbances. Patient had no suicidal ideation during the current admission Patient was looking forward to discharge. She will follow up with Dr. Padilla at [facility] tomorrow at 2 PM. RONALD BURGOS DO
== END 2017-10-09 13:55 | disposition home or self-care (01) | DRG 861 ==
LOC: ED 10:35 → BSU 10-04 02:33
PROVIDERS: ADMIT Psychiatry & Neurology Psychiatry; ATTEND Psychiatry & Neurology Psychiatry
PROC: HZ2ZZZZ Detoxification Services for Substance Abuse Treatment (ICD-10-PCS; principal; 2017-10-04)
DX: R41.0 Disorientation, unspecified (principal); T42.6X5A Adverse effect of other antiepileptic and sedative-hypnotic drugs, initial encounter; Y92.9 Unspecified place or not applicable; F31.9 Bipolar disorder, unspecified; F10.10 Alcohol abuse, uncomplicated; Y90.0 Blood alcohol level of less than 20 mg/100 ml; F90.9 Attention-deficit hyperactivity disorder, unspecified type; K21.9 Gastro-esophageal reflux disease without esophagitis; F60.9 Personality disorder, unspecified; F17.210 Nicotine dependence, cigarettes, uncomplicated; Z81.8 Family history of other mental and behavioral disorders; Z84.89 Family history of other specified conditions; Z79.899 Other long term (current) drug therapy; Z88.5 Allergy status to narcotic agent; Z88.8 Allergy status to other drugs, medicaments and biological substances; Z91.041 Radiographic dye allergy status; R10.9 Unspecified abdominal pain; R60.0 Localized edema
CPT/HCPCS: 36415; 80048; 80053; 80061; 80164; 80165; 80307; 80320; 81003; 81015; 82140; 83036; 83735; 84436; 84443; 84479; 85025; 87077; 87086; 87184; 87186; 90853; 93005; 99222; 99231; 99232; 99238; 99285; A9270-GY; G0480

== ENCOUNTER 2017-12-25 00:23 | Emergency (ER) | payer OTHER ==
[2017-12-25] MEDS ORDERED: hydrOXYzine HCL TAB* 25 MG PO ONE (01:18)
[2017-12-25] MEDS ORDERED: predniSONE TAB* 20 MG PO ONE (01:18)
[2017-12-25] MEDS ORDERED: Ibuprofen TAB* 800 MG PO ONE (02:32)
--- NOTE | 2017-12-25 03:24 | ED ---
Skin Complaint - HPI Summary HPI Summary: This is scribe Linus Morrison documenting for attending Sandra Mcbride M.D. Patient is a 57 y/o F w/ c/o pruritus and puffiness at left cheek onsetting 45 minutes ago. Patient states she was recently prescribed prazosin for night terrors. She reports N/V from this medication earlier in the night today but does not note N/V in the room. On triage, pain is rated 0/10 and nothing is noted to aggravate/alleviate Sx. Home medications and allergies reviewed. I, Dr. Mcbride, personally performed the services described in this documentation as scribed in my presence and it is both accurate and complete. - History of Current Complaint Chief Complaint: EDAllergicReaction Time Seen by Provider: 12/25/17 01:11 Stated Complaint: N/V Hx Obtained From: Patient Onset/Duration: Started Minutes Ago - 45 minutes ago, Still Present - puffiness and pruritic at left cheek, Resolved - N/V Timing: Constant - puffiness and pruritic at left cheek Current Severity: None - pain is denied Pain Intensity: 0 Pain Scale Used: 0-10 Numeric - 0/10 Skin Location: Face - left cheek Aggravating Symptom(s): Nothing Alleviating Symptom(s): Nothing Associated Signs & Symptoms: Nausea - since resolved, Vomiting - since resolved - Additional Pertinent History Primary Care Physician: [id number] - Allergy/Home Medications Allergies/Adverse Reactions: Allergies Allergy/AdvReac Type Severity Reaction Status Date / Time codeine Allergy Rash Verified 12/25/17 00:28 Iodine and Iodide Containing Allergy Hives Verified 12/25/17 00:28 Produc lurasidone Allergy Unknown Verified 12/25/17 00:28 Reaction Details Tricyclic Compounds Allergy Agitation Verified 12/25/17 00:28 oseltamivir [From Tamiflu] AdvReac Nausea And Verified 12/25/17 00:28 Vomiting contrast dye Allergy Hives Uncoded 12/25/17 00:28 PMH/Surg Hx/FS Hx/Imm Hx Endocrine/Hematology History: Reports: Hx Thyroid Disease, Other Endocrine/ Hematological Disorders - Hyperthyroid Denies: Hx Diabetes Cardiovascular History: Denies: Hx Hypertension, Hx Pacemaker/ICD GI History: Reports: Hx Diverticulosis, Hx Gastroesophageal Reflux Disease Comment Only: Other GI Disorders - diverticulitis History: Denies: Hx Renal Disease Musculoskeletal History: Reports: Hx Arthritis Sensory History: Reports: Hx Contacts or Glasses Denies: Hx Hearing Aid Opthamlomology History: Reports: Hx Contacts or Glasses Neurological History: Reports: Hx Headaches Psychiatric History: Reports: Hx Anxiety, Hx Attention Deficit Hyperactivity Disorder, Hx Depression, Hx Inpatient Treatment, Hx Community Mental Health Tx, Hx Bipolar Disorder, Hx Suicide Attempt, Hx Substance Abuse, Other Psychiatric Issues/Disorders - ADHD Denies: Hx Eating Disorder, Hx Panic Disorder, Hx of Violent Episodes Against Others - Cancer History Hx Chemotherapy: No Hx Radiation Therapy: No - Surgical History Surgery Procedure, Year, and Place: HYSTERECTOMY; polycystic ovaries 4 laps; removed scar tissue 2001 same area; tonsilectomy. fx right wrist repair - plates in place - Immunization History Date of Tetanus Vaccine: unknown Date of Influenza Vaccine: unknown Infectious Disease History: No Infectious Disease History: Reports: Hx Shingles Denies: Hx Clostridium Difficile, Hx Hepatitis, Hx Human Immunodeficiency Virus (HIV), Hx of Known/Suspected MRSA, Hx Tuberculosis, Hx Known/Suspected VRE , Hx Known/Suspected VRSA, History Other Infectious Disease, Traveled Outside the [place] in Last 30 Days - Family History Known Family History: Positive: Other - family history of diveriticulitis Family History: Father: Alzheimer's - Social History Alcohol Use: None Alcohol Amount: patient denies drinking since last discharge Hx Substance Use: No Substance Use Type: Reports: None Substance Use Comment - Amount & Last Used: patient denies substance use Hx Tobacco Use: Yes Smoking Status (MU): Light Every Day Tobacco Smoker Type: eCigarettes Amount Used/How Often: 1 pack Q3days for the last 30 days, uses no other tabacco [id number] Have You Smoked in the Last Year: Yes Review of Systems Positive: Vomiting - since resolved, Nausea - since resolved Positive: Other - pruritus and puffiness at left cheek All Other Systems Reviewed And Are Negative: Yes Physical Exam - Summary Physical Exam Summary: VITAL SIGNS: Reviewed. GENERAL: Patient is a well-developed and nourished female who is lying comfortable in the stretcher. Patient is not in any acute respiratory distress. HEAD AND FACE: No signs of trauma. No ecchymosis, hematomas or skull depressions. No sinus tenderness. EYES: PERRLA, EOMI x 2, No injected conjunctiva, no nystagmus. EARS: Hearing grossly intact. Ear canals and tympanic membranes are within normal limits. MOUTH: Oropharynx within normal limits. NECK: Supple, trachea is midline, no adenopathy, no JVD, no carotid bruit, no c- spine tenderness, neck with full ROM. CHEST: Symmetric, no tenderness at palpation LUNGS: Clear to auscultation bilaterally. No wheezing or crackles. CVS: Regular rate and rhythm, S1 and S2 present, no murmurs or gallops appreciated. ABDOMEN: Soft, non-tender. No signs of distention. No rebound no guarding, and no masses palpated. Bowel sounds are normal. EXTREMITIES: FROM in all major joints, no edema, no cyanosis or clubbing. NEURO: Alert and oriented x 3. No acute neurological deficits. Speech is normal and follows commands. SKIN: Dry and warm. macular rash on left cheek. Triage Information Reviewed: Yes Vital Signs On Initial Exam: Initial Vitals Temp Pulse Resp BP Pulse Ox 98.2 F 88 16 133/109 99 12/25/17 00:25 12/25/17 00:25 12/25/17 00:25 12/25/17 00:25 12/25/17 00:25 Vital Signs Reviewed: Yes Diagnostics - Vital Signs Vital Signs Temp Pulse Resp BP Pulse Ox 12/25/17 02:01 84 108/64 95 12/25/17 02:00 91 95 12/25/17 01:44 79 102/76 96 12/25/17 00:25 98.2 F 88 16 133/109 99 - Laboratory Lab Statement: Any lab studies that have been ordered have been reviewed, and results considered in the medical decision making process. Re-Evaluation - Re-Evaluation First Eval Re-Evaluation Time: 03:15 Comment: Patient will be discharged to home and follow up with PCP in 1-2 days. She agrees to this plan. Course/Dx - Course Assessment/Plan: Patient is a 57 y/o F w/ c/o pruritus and puffiness at left cheek onsetting 45 minutes ago. Patient states she was recently prescribed prazosin for night terrors. She reports N/V from this medication earlier in the night today but does not note N/V in the room. On triage, pain is rated 0/10 and nothing is noted to aggravate/alleviate Sx. Home medications and allergies reviewed. Physical exam showed macular rash on left cheek with no other abnormal findings. During ED course, patient was given hydroxyzine Hcl 25 mg PO ONCE, ibuprofen 800 mg PO ONCE, Prednisone, 60 mg PO ONCE. Patient was prescribed hydrOXYzine HCL TAB* [Atarax 25 MG TAB*] 25 mg PO TID PRN #20 tab PRN Reason: Itching and predniSONE TAB* [Deltasone TAB*] 50 mg PO DAILY #5 tab. Patient was advised to stop taking prazosin and will follow up with PCP in 1-2 days. She was diagnosed with allergic reaction and is agreeable with follow up plan. - Diagnoses Provider Diagnoses: Allergic reaction Discharge - Sign-Out/Discharge Documenting (check all that apply): Patient Departure - discharge - Discharge Plan Condition: Stable Disposition: HOME Prescriptions: hydrOXYzine HCL TAB* [Atarax 25 MG TAB*] 25 mg PO TID PRN #20 tab PRN Reason: Itching predniSONE TAB* [Deltasone TAB*] 50 mg PO DAILY #5 tab Patient Education Materials: General Allergic Reaction (ED) Referrals: Sheila Liao NP [Primary Care Provider] - 2 Days Additional Instructions: Follow up with primary care physician in 1-2 days. Patient is recommended to stop taking prazosin. Return to ED for any new or worsening symptoms. - Billing Disposition and Condition Condition: STABLE Disposition: Home
[2017-12-25 03:34] VITALS: BP 96/54
== END 2017-12-25 03:35 | disposition home or self-care (01) ==
LOC: ED 00:23
DX: L27.0 Generalized skin eruption due to drugs and medicaments taken internally (principal); T44.6X5A Adverse effect of alpha-adrenoreceptor antagonists, initial encounter; Y92.9 Unspecified place or not applicable; F17.290 Nicotine dependence, other tobacco product, uncomplicated; Z88.5 Allergy status to narcotic agent; Z88.8 Allergy status to other drugs, medicaments and biological substances; Z91.041 Radiographic dye allergy status
CPT/HCPCS: 99283; A9270-GY; J7512

== ENCOUNTER 2018-03-17 13:34 | Inpatient (IN) | payer OTHER ==
[2018-03-17] MEDS ORDERED: Mouth Piece, Nicotine* 1 EACH CARTRIDGE INH PRN (14:21)
[2018-03-17] MEDS: Nicotine Inhaler* 10 MG AMP INH PRN (14:55)
[2018-03-17 15:00] LABS: ABS Basophils 0.1 10^3/ul (0-0.2); ABS Eosinophils 0 10^3/ul (0-0.6); ABS Lymphocytes 3.1 10^3/ul (1.0-4.8); ABS Monocytes 0.4 10^3/ul (0-0.8); ABS Neutrophils 5.2 10^3/ul (1.5-7.7); ABS Nucleated RBC 0 10^3/ul; Eosinophil % 0.4 % (0-6); Hematocrit 42 % (35-47); Hemoglobin 13.9 g/dl (12.0-16.0); Lymphocyte % 35.7 % (25-47); Mean Corpuscular HGB Conc 34 g/dl (31-36); Mean Corpuscular Hemoglobin 29 pg (27-31); Mean Corpuscular Volume 87 fL (80-97); Mean Platelet Volume 6.8 um3 (7.4-10.4); Nucleated Red Blood Cells % 0.2; Platelet Count 453 10^3/ul (150-450); Red Blood Count 4.77 10^6/ul (4.00-5.40); Red Cell Distribution Width 14 % (10.5-15); White Blood Count 8.8 10^3/ul (3.5-10.8)
[2018-03-17 15:09] LABS: Urine Appearance Cloudy; Urine Blood 1+ (Negative); Urine Color Yellow; Urine Ketones Negative (Negative); Urine Protein 1+(30 mg/dL) (Negative); Urine Red Blood Cell 2+(6-10/hpf) (Absent); Urine Specific Gravity 1.014 (1.010-1.030); Urine Urobilinogen Negative (Negative); Urine White Blood Cell 3+(>20/hpf) (Absent)
[2018-03-17 15:11] LABS: EGFR Non-African American 79.4 (>60)
--- NOTE | 2018-03-17 15:39 | ED ---
Psychiatric Complaint - HPI Summary HPI Summary: This pt is a 57 y/o female presenting to [facility] for increased depression and SI. Pt reports she is suicidal but is not able to states a plan. When asked why she is suicidal she states "I'm just tired." Denies HI thoughts/plan. Pt reports she has hx of bipolar disorder. Additionally admits to alcohol use and notes "I' m very intoxicated but that does not affect what I'm saying or what I feel." Furthermore, she states "if I leave here I will ." - History Of Current Complaint Chief Complaint: EDMentalHealth Time Seen by Provider: 03/17/18 14:21 Hx Obtained From: Patient Onset/Duration: Lasting Days, Still Present Timing: Days Severity Currently: Severe Character: Depressed Aggravating Factor(s): Alcohol Use Alleviating Factor(s): Nothing Related History: Positive For: Prior Psychiatric Issues Has Suicidal: Reports: Thoughts. Denies: With A Plan Has Homicidal: Denies: Thoughts, With A Plan - Allergies/Home Medications Allergies/Adverse Reactions: Allergies Allergy/AdvReac Type Severity Reaction Status Date / Time codeine Allergy Rash Verified 03/17/18 15:28 Iodine and Iodide Containing Allergy Hives Verified 03/17/18 15:28 Produc lurasidone Allergy Unknown Verified 03/17/18 15:28 Reaction Details Tricyclic Compounds Allergy Agitation Verified 03/17/18 15:28 oseltamivir [From Tamiflu] AdvReac Nausea And Verified 03/17/18 15:28 Vomiting contrast dye Allergy Hives Uncoded 03/17/18 15:28 Home Medications: Home Medications Atomoxetine (NF) [Strattera (NF)] 40 mg PO DAILY 03/17/18 [History Confirmed ] Esomeprazole(NF) [NexIUM(NF)] 40 mg PO DAILY 03/17/18 [History Confirmed ] buPROPion SR TAB* [Wellbutrin SR TAB*] 100 mg PO DAILY 03/17/18 [History Confirmed 03/17/18] lamoTRIgine TAB(*) [LaMICtal TAB(*)] 100 mg PO DAILY 03/17/18 [History Confirmed 03/17/18] lamoTRIgine TAB(*) [LaMICtal TAB(*)] 200 mg PO DAILY 03/17/18 [History Confirmed 03/17/18] PMH/Surg Hx/FS Hx/Imm Hx Endocrine/Hematology History: Reports: Hx Thyroid Disease, Other Endocrine/ Hematological Disorders - Hyperthyroid Denies: Hx Diabetes Cardiovascular History: Denies: Hx Hypertension, Hx Pacemaker/ICD GI History: Reports: Hx Diverticulosis, Hx Gastroesophageal Reflux Disease Comment Only: Other GI Disorders - diverticulitis History: Denies: Hx Renal Disease Musculoskeletal History: Reports: Hx Arthritis Sensory History: Reports: Hx Contacts or Glasses Denies: Hx Hearing Aid Opthamlomology History: Reports: Hx Contacts or Glasses Neurological History: Reports: Hx Headaches Psychiatric History: Reports: Hx Anxiety, Hx Attention Deficit Hyperactivity Disorder, Hx Depression, Hx Inpatient Treatment, Hx Community Mental Health Tx, Hx Bipolar Disorder, Hx Suicide Attempt, Hx Substance Abuse, Other Psychiatric Issues/Disorders - ADHD Denies: Hx Eating Disorder, Hx Panic Disorder, Hx of Violent Episodes Against Others - Cancer History Hx Chemotherapy: No Hx Radiation Therapy: No - Surgical History Surgery Procedure, Year, and Place: HYSTERECTOMY; polycystic ovaries 4 laps; removed scar tissue 2001 same area; tonsilectomy. fx right wrist repair - plates in place - Immunization History Date of Tetanus Vaccine: unknown Date of Influenza Vaccine: unknown Infectious Disease History: No Infectious Disease History: Reports: Hx Shingles Denies: Hx Clostridium Difficile, Hx Hepatitis, Hx Human Immunodeficiency Virus (HIV), Hx of Known/Suspected MRSA, Hx Tuberculosis, Hx Known/Suspected VRE , Hx Known/Suspected VRSA, History Other Infectious Disease, Traveled Outside the [place] in Last 30 Days - Family History Known Family History: Positive: Other - family history of diveriticulitis Family History: Father: Alzheimer's - Social History Alcohol Use: Daily Alcohol Amount: pt reports drinking alot Hx Substance Use: No Substance Use Type: Reports: None Substance Use Comment - Amount & Last Used: patient denies substance use Hx Tobacco Use: Yes Smoking Status (MU): Light Every Day Tobacco Smoker Type: eCigarettes Amount Used/How Often: 1 pack Q3days for the last 30 days, uses no other tabacco [id number] Have You Smoked in the Last Year: Yes Review of Systems Negative: Fever, Chills Psychological: Other - POS: SI thoughts, intoxicated with alcohol Positive: Depressed. Negative: Other - SI plan, HI thoughts/plan All Other Systems Reviewed And Are Negative: Yes Physical Exam - Summary Physical Exam Summary: Appearance: Well appearing, no pain distress Skin: warm, dry, reflects adequate perfusion Head/face: normal Eyes: EOMI, SABRA ENT: normal Neck: supple, nontender Respiratory: CTA, breath sounds present Cardiovascular: RRR, pulses symmetrical Abdomen: nontender, soft Bowel: present Musculoskeletal: normal, strength/ROM intact Neuro: normal, sensory motor intact, A&Ox3 PSYCH: depressed affect Triage Information Reviewed: Yes Vital Signs On Initial Exam: Initial Vitals Temp Pulse Resp BP Pulse Ox 98.2 F 101 18 104/88 98 03/17/18 13:39 03/17/18 13:39 03/17/18 13:39 03/17/18 13:39 03/17/18 13:39 Vital Signs Reviewed: Yes Diagnostics - Vital Signs Vital Signs Temp Pulse Resp BP Pulse Ox 03/17/18 13:39 98.2 F 101 18 104/88 98 - Laboratory Lab Results: Lab Results 03/17/18 03/17/18 03/17/18 Range/Units 14:36 14:36 14:44 WBC 8.8 (3.5-10.8) 10^3/ul RBC 4.77 (4.00-5.40) 10^6/ul Hgb 13.9 (12.0-16.0) g/dl Hct 42 (35-47) % MCV 87 (80-97) fL MCH 29 (27-31) pg MCHC 34 (31-36) g/dl RDW 14 (10.5-15) % Plt Count 453 H (150-450) 10^3/ul MPV 6.8 L (7.4-10.4) um3 Neut % (Auto) 59.0 (38-83) % Lymph % (Auto) 35.7 (25-47) % Woods % (Auto) 4.1 (0-7) % Eos % (Auto) 0.4 (0-6) % Baso % (Auto) 0.8 (0-2) % Absolute Neuts (auto) 5.2 (1.5-7.7) 10^3/ul Absolute Lymphs (auto) 3.1 (1.0-4.8) 10^3/ul Absolute Monos (auto) 0.4 (0-0.8) 10^3/ul Absolute Eos (auto) 0 (0-0.6) 10^3/ul Absolute Basos (auto) 0.1 (0-0.2) 10^3/ul Absolute Nucleated RBC 0 10^3/ul Nucleated RBC % 0.2 Sodium (135-145) mmol/L Potassium (3.5-5.0) mmol/L Chloride (101-111) mmol/L Carbon Dioxide (22-32) mmol/L Anion Gap (2-11) mmol/L BUN (6-24) mg/dL Creatinine (0.51-0.95) mg/dL Est GFR ( Amer) (>60) Est GFR (Non-Af Amer) (>60) BUN/Creatinine Ratio (8-20) Glucose (70-100) mg/dL Calcium (8.6-10.3) mg/dL Total Bilirubin (0.2-1.0) mg/dL AST (13-39) U/L ALT (7-52) U/L Alkaline Phosphatase (34-104) U/L Total Protein (6.4-8.9) g/dL Albumin (3.2-5.2) g/dL Globulin (2-4) g/dL Albumin/Globulin Ratio (1-3) TSH Urine Color Yellow Urine Appearance Cloudy Urine pH 8.0 (5-9) Ur Specific [place] 1.014 (1.010-1.030) Urine Protein 1+(30 mg/dl) A (Negative) Urine Ketones Negative (Negative) Urine Blood 1+ A (Negative) Urine Nitrate Negative (Negative) Urine Bilirubin Negative (Negative) Urine Urobilinogen Negative (Negative) Ur Leukocyte Esterase 3+ A (Negative) Urine WBC (Auto) 3+(>20/hpf) A (Absent) Urine RBC (Auto) 2+(6-10/hpf) A (Absent) Ur Squamous Epith Cells Present A (Absent) Ur Transition Epith Cell Present A (Absent) Urine Bacteria Absent (Absent) Urine Glucose Negative (Negative) Salicylates Urine Opiates Screen None detected (None Detect) Acetaminophen Ur Barbiturates Screen None detected (None Detect) Ur Phencyclidine Scrn None detected (None Detect) Ur Amphetamines Screen None detected (None Detect) U Benzodiazepines Scrn None detected (None Detect) Urine Cocaine Screen None detected (None Detect) U Cannabinoids Screen None detected (None Detect) Serum Alcohol 10/29/18 Range/Units 14:44 WBC (3.5-10.8) 10^3/ul RBC (4.00-5.40) 10^6/ul Hgb (12.0-16.0) g/dl Hct (35-47) % MCV (80-97) fL MCH (27-31) pg MCHC (31-36) g/dl RDW (10.5-15) % Plt Count (150-450) 10^3/ul MPV (7.4-10.4) um3 Neut % (Auto) (38-83) % Lymph % (Auto) (25-47) % Woods % (Auto) (0-7) % Eos % (Auto) (0-6) % Baso % (Auto) (0-2) % Absolute Neuts (auto) (1.5-7.7) 10^3/ul Absolute Lymphs (auto) (1.0-4.8) 10^3/ul Absolute Monos (auto) (0-0.8) 10^3/ul Absolute Eos (auto) (0-0.6) 10^3/ul Absolute Basos (auto) (0-0.2) 10^3/ul Absolute Nucleated RBC 10^3/ul Nucleated RBC % Sodium 141 (135-145) mmol/L Potassium 3.7 (3.5-5.0) mmol/L Chloride 108 (101-111) mmol/L Carbon Dioxide 24 (22-32) mmol/L Anion Gap 9 (2-11) mmol/L BUN 11 (6-24) mg/dL Creatinine 0.75 (0.51-0.95) mg/dL Est GFR ( Amer) 96.0 (>60) Est GFR (Non-Af Amer) 79.4 (>60) BUN/Creatinine Ratio 14.7 (8-20) Glucose 106 H (70-100) mg/dL Calcium 8.8 (8.6-10.3) mg/dL Total Bilirubin 0.40 (0.2-1.0) mg/dL AST 31 (13-39) U/L ALT 26 (7-52) U/L Alkaline Phosphatase 65 (34-104) U/L Total Protein 7.7 (6.4-8.9) g/dL Albumin 4.4 (3.2-5.2) g/dL Globulin 3.3 (2-4) g/dL Albumin/Globulin Ratio 1.3 (1-3) TSH Pending Urine Color Urine Appearance Urine pH (5-9) Ur Specific [place] (1.010-1.030) Urine Protein (Negative) Urine Ketones (Negative) Urine Blood (Negative) Urine Nitrate (Negative) Urine Bilirubin (Negative) Urine Urobilinogen (Negative) Ur Leukocyte Esterase (Negative) Urine WBC (Auto) (Absent) Urine RBC (Auto) (Absent) Ur Squamous Epith Cells (Absent) Ur Transition Epith Cell (Absent) Urine Bacteria (Absent) Urine Glucose (Negative) Salicylates Pending Urine Opiates Screen (None Detect) Acetaminophen Pending Ur Barbiturates Screen (None Detect) Ur Phencyclidine Scrn (None Detect) Ur Amphetamines Screen (None Detect) U Benzodiazepines Scrn (None Detect) Urine Cocaine Screen (None Detect) U Cannabinoids Screen (None Detect) Serum Alcohol Pending Result Diagrams: 03/17/18 14:44 03/17/18 14:44 Lab Statement: Any lab studies that have been ordered have been reviewed, and results considered in the medical decision making process. Re-Evaluation - Re-Evaluation First Eval Re-Evaluation Time: 18:25 Comment: Pt is medically cleared. Course/Dx - Course Assessment/Plan: Pt is a 57 y/o female who presents for increased depression and SI. Pt reports she is suicidal but is not able to states a plan. When asked why she is suicidal she states "I'm just tired." Denies HI thoughts/plan. Pt reports she has hx of bipolar disorder. Additionally admits to alcohol use today. Blood work was obtained. Toxicology shows serum alcohol of 222. Urinalysis is consistent with UTI. In the ED course the pt was given Bactrim and nicotine inhaler. Pt is medically cleared. She is waiting for a MHE. Pt will be signed out to Dr. Quick, pending disposition, awaiting MHE. - Differential Dx/Clinical Impression Differential Diagnosis/HQI/PQRI: Positive: Alcohol Intoxication, Anxiety, Depression, Suicidal Ideation Provider Diagnosis: UTI (urinary tract infection), Depression, Suicidal ideation, Alcohol abuse Discharge - Sign-Out/Discharge Documenting (check all that apply): Sign-Out Patient Signing out patient TO: Shakir Quick - pending MHE and dispo - Discharge Plan Condition: Stable Referrals: Sheila Liao, STACK CLERK [Primary Care Provider] - - Billing Disposition and Condition Condition: STABLE - Attestation Statements Document Initiated by Scribe: Yes Documenting Scribe: Lisandra Tompkins Provider For Whom Scribe is Documenting (Include Credential): Darius Schmidt MD Scribe Attestation: Lisandra Petersen, scribed for Darius Schmidt MD on 03/17/18 at 1850. Scribe Documentation Reviewed: Yes Provider Attestation: The documentation as recorded by the Lisandra lo accurately reflects the service I personally performed and the decisions made by me, Darius Schmidt MD
[2018-03-17] MEDS ORDERED: Sulfamethox/Trimethoprim DS 800/160* TAB PO ONE (16:27)
--- NOTE | 2018-03-17 19:14 | ED ---
Progress - Progress Note Progress Note: Patient signed out from Dr. Schmidt pending MHE. Patient is signed out to Dr. Marino upon shift change pending MHE. Course/Dx - Course Course Of Treatment: Patient signed out from Dr. Schmidt pending MHE. Patient is signed out to Dr. Marino upon shift change pending MHE. - Diagnoses Provider Diagnoses: UTI (urinary tract infection), Depression, Suicidal ideation, Alcohol abuse Discharge - Sign-Out/Discharge Documenting (check all that apply): Sign-Out Patient Signing out patient TO: Rangel Marino - Discharge Plan Condition: Stable Referrals: Sheila Liao, SUPERVISOR EVAPORATOR [Primary Care Provider] - - Attestation Statements Document Initiated by Scribe: Yes Documenting Scribe: Fabricio Mcdermott Provider For Whom Scribe is Documenting (Include Credential): Shakir Quick MD Scribe Attestation: Fabricio Petersen, scribed for Shakir Quick MD on 03/18/18 at 0706.
[2018-03-17] MEDS ORDERED: Ondansetron ODT TAB* 4 MG SL PRN (19:16)
[2018-03-17] MEDS ORDERED: Ondansetron ODT TAB* 4 MG ONE (19:21)
[2018-03-17] MEDS ORDERED: Ondansetron ODT TAB* 4 MG SL ONE (23:26)
--- NOTE | 2018-03-18 08:10 | ED ---
Progress - Progress Note Progress Note: Patient signed out from Dr. Quick pending MHE. She is not backing off her suicidal ideations. Final dx of substance-induced mood disorder and alcoholism. Pt will be signed out to Dr. Schmidt, pending transfer. - EKG/XRAY/CT EKG: rhythm - Bradycardia 55 bpm, no ST T wave changes Comments: 15:14, nl axis, nl interval Re-Evaluation - Re-Evaluation First Eval Re-Evaluation Time: 18:25 Comment: Pt is medically cleared. Course/Dx - Diagnoses Provider Diagnoses: Alcoholism, Substance induced mood disorder - Provider Notifications Discussed Care Of Patient With: Don Romero Time Discussed With Above Provider: 10:25 Instructed by Provider To: Other - Spoke about pt's disposition. Discharge - Sign-Out/Discharge Documenting (check all that apply): Sign-Out Patient, Receiving Sign-Out Signing out patient TO: Darius Schmidt Receiving patient FROM: Shakir Quick - Discharge Plan Condition: Stable Referrals: Sheila Liao, P[employer]ANNER [Primary Care Provider] - - Billing Disposition and Condition Condition: STABLE - Attestation Statements Document Initiated by Scribe: Yes Documenting Scribe: Chula Montaño Provider For Whom Scribe is Documenting (Include Credential): Rangel Marino MD Scribe Attestation: Chula Petersen scribed for Rangel Marino MD on 03/18/18 at 1830. Scribe Documentation Reviewed: Yes Provider Attestation: The documentation as recorded by the scribChula perry accurately reflects the service I personally performed and the decisions made by , Rangel Marino MD
--- NOTE | 2018-03-18 09:21 | PN ---
ED Flex Patient Progress Note Date of Service: 03/17/18 Subjective: This is a 57 year-old F who is pending admission to [facility] / transfer to another psychiatric facility / discharge to home / or being observed secondary to SI. Pt. examined in bed 23 around 0825. She is resting comfortably and offers no complaints. She was started on Bactrim yesterday for UTI. Objective: Vitals: Most recent vital signs documented below. General NAD, Alert and oriented x3. Laboratory: Current laboratory results documented below. Assessment: Pending MHE and disposition. Plan: Pending psychiatric or medical consultation to observe / transfer / admit / discharge will follow up daily . Vital Signs Temp Pulse Resp BP Pulse Ox 98 F 75 16 119/68 98 03/18/18 07:45 03/18/18 07:45 03/18/18 07:45 03/18/18 07:45 03/18/18 07:45 Lab Results - Entire Visit 03/17/18 03/17/18 03/17/18 14:44 14:44 14:36 WBC 8.8 RBC 4.77 Hgb 13.9 Hct 42 MCV 87 MCH 29 MCHC 34 RDW 14 Plt Count 453 H MPV 6.8 L Neut % (Auto) 59.0 Lymph % (Auto) 35.7 [place] % (Auto) 4.1 Eos % (Auto) 0.4 Baso % (Auto) 0.8 Absolute Neuts (auto) 5.2 Absolute Lymphs (auto) 3.1 Absolute Monos (auto) 0.4 Absolute Eos (auto) 0 Absolute Basos (auto) 0.1 Absolute Nucleated RBC 0 Nucleated RBC % 0.2 Sodium 141 Potassium 3.7 Chloride 108 Carbon Dioxide 24 Anion Gap 9 BUN 11 Creatinine 0.75 Est GFR ( Amer) 96.0 Est GFR (Non-Af Amer) 79.4 BUN/Creatinine Ratio 14.7 Glucose 106 H Calcium 8.8 Total Bilirubin 0.40 AST 31 ALT 26 Alkaline Phosphatase 65 Total Protein 7.7 Albumin 4.4 Globulin 3.3 Albumin/Globulin Ratio 1.3 TSH 0.79 Urine Color Urine Appearance Urine pH Ur Specific [place] Urine Protein Urine Ketones Urine Blood Urine Nitrate Urine Bilirubin Urine Urobilinogen Ur Leukocyte Esterase Urine WBC (Auto) Urine RBC (Auto) Ur Squamous Epith Cells Ur Transition Epith Cell Urine Bacteria Urine Glucose Salicylates < 2.50 Urine Opiates Screen None detected Acetaminophen < 15 Ur Barbiturates Screen None detected Ur Phencyclidine Scrn None detected Ur Amphetamines Screen None detected U Benzodiazepines Scrn None detected Urine Cocaine Screen None detected U Cannabinoids Screen None detected Serum Alcohol 222 H 03/17/18 14:36 WBC RBC Hgb Hct MCV MCH MCHC RDW Plt Count MPV Neut % (Auto) Lymph % (Auto) [place] % (Auto) Eos % (Auto) Baso % (Auto) Absolute Neuts (auto) Absolute Lymphs (auto) Absolute Monos (auto) Absolute Eos (auto) Absolute Basos (auto) Absolute Nucleated RBC Nucleated RBC % Sodium Potassium Chloride Carbon Dioxide Anion Gap BUN Creatinine Est GFR ( Amer) Est GFR (Non-Af Amer) BUN/Creatinine Ratio Glucose Calcium Total Bilirubin AST ALT Alkaline Phosphatase Total Protein Albumin Globulin Albumin/Globulin Ratio TSH Urine Color Yellow Urine Appearance Cloudy Urine pH 8.0 Ur Specific [place] 1.014 Urine Protein 1+(30 mg/dl) A Urine Ketones Negative Urine Blood 1+ A Urine Nitrate Negative Urine Bilirubin Negative Urine Urobilinogen Negative Ur Leukocyte Esterase 3+ A Urine WBC (Auto) 3+(>20/hpf) A Urine RBC (Auto) 2+(6-10/hpf) A Ur Squamous Epith Cells Present A Ur Transition Epith Cell Present A Urine Bacteria Absent Urine Glucose Negative Salicylates Urine Opiates Screen Acetaminophen Ur Barbiturates Screen Ur Phencyclidine Scrn Ur Amphetamines Screen U Benzodiazepines Scrn Urine Cocaine Screen U Cannabinoids Screen Serum Alcohol
--- NOTE | 2018-03-18 10:43 | PN ---
ED Flex Patient Progress Note Date of Service: 03/18/18 Subjective: 57 y.o. female with a history of multiple admissions for suicidal behavior arrives 2 days after relapsing on alcohol, following 5 months of sobriety. She states her intention of relapse is to drink herself to . She cannot contract for safety. Objective: middle aged female; poor grooming; depressed with constricted affect; suicidal Assessment: Unspecified Depressive DO Plan: Patient warrants admission due to risk to self. No adult beds on [facility]. Transfer to outside facility. Vital Signs Temp Pulse Resp BP Pulse Ox 98 F 75 16 119/68 98 03/18/18 07:45 03/18/18 07:45 03/18/18 07:45 03/18/18 07:45 03/18/18 07:45 Lab Results - Entire Visit 03/17/18 03/17/18 03/17/18 14:44 14:44 14:36 WBC 8.8 RBC 4.77 Hgb 13.9 Hct 42 MCV 87 MCH 29 MCHC 34 RDW 14 Plt Count 453 H MPV 6.8 L Neut % (Auto) 59.0 Lymph % (Auto) 35.7 [place] % (Auto) 4.1 Eos % (Auto) 0.4 Baso % (Auto) 0.8 Absolute Neuts (auto) 5.2 Absolute Lymphs (auto) 3.1 Absolute Monos (auto) 0.4 Absolute Eos (auto) 0 Absolute Basos (auto) 0.1 Absolute Nucleated RBC 0 Nucleated RBC % 0.2 Sodium 141 Potassium 3.7 Chloride 108 Carbon Dioxide 24 Anion Gap 9 BUN 11 Creatinine 0.75 Est GFR ( Amer) 96.0 Est GFR (Non-Af Amer) 79.4 BUN/Creatinine Ratio 14.7 Glucose 106 H Calcium 8.8 Total Bilirubin 0.40 AST 31 ALT 26 Alkaline Phosphatase 65 Total Protein 7.7 Albumin 4.4 Globulin 3.3 Albumin/Globulin Ratio 1.3 TSH 0.79 Urine Color Urine Appearance Urine pH Ur Specific [place] Urine Protein Urine Ketones Urine Blood Urine Nitrate Urine Bilirubin Urine Urobilinogen Ur Leukocyte Esterase Urine WBC (Auto) Urine RBC (Auto) Ur Squamous Epith Cells Ur Transition Epith Cell Urine Bacteria Urine Glucose Salicylates < 2.50 Urine Opiates Screen None detected Acetaminophen < 15 Ur Barbiturates Screen None detected Ur Phencyclidine Scrn None detected Ur Amphetamines Screen None detected U Benzodiazepines Scrn None detected Urine Cocaine Screen None detected U Cannabinoids Screen None detected Serum Alcohol 222 H 03/17/18 14:36 WBC RBC Hgb Hct MCV MCH MCHC RDW Plt Count MPV Neut % (Auto) Lymph % (Auto) [place] % (Auto) Eos % (Auto) Baso % (Auto) Absolute Neuts (auto) Absolute Lymphs (auto) Absolute Monos (auto) Absolute Eos (auto) Absolute Basos (auto) Absolute Nucleated RBC Nucleated RBC % Sodium Potassium Chloride Carbon Dioxide Anion Gap BUN Creatinine Est GFR ( Amer) Est GFR (Non-Af Amer) BUN/Creatinine Ratio Glucose Calcium Total Bilirubin AST ALT Alkaline Phosphatase Total Protein Albumin Globulin Albumin/Globulin Ratio TSH Urine Color Yellow Urine Appearance Cloudy Urine pH 8.0 Ur Specific [place] 1.014 Urine Protein 1+(30 mg/dl) A Urine Ketones Negative Urine Blood 1+ A Urine Nitrate Negative Urine Bilirubin Negative Urine Urobilinogen Negative Ur Leukocyte Esterase 3+ A Urine WBC (Auto) 3+(>20/hpf) A Urine RBC (Auto) 2+(6-10/hpf) A Ur Squamous Epith Cells Present A Ur Transition Epith Cell Present A Urine Bacteria Absent Urine Glucose Negative Salicylates Urine Opiates Screen Acetaminophen Ur Barbiturates Screen Ur Phencyclidine Scrn Ur Amphetamines Screen U Benzodiazepines Scrn Urine Cocaine Screen U Cannabinoids Screen Serum Alcohol
--- NOTE | 2018-03-18 19:09 | ED ---
Progress - Progress Note Progress Note: Patient signed out from Dr. Marino pending MHE. Dx: depression and SI. Pt will be signed out to Dr. Reynoso at shift change pending transfer. - EKG/XRAY/CT Comments: 15:14, nl axis, nl interval - Consult/PCP Time Called: 00:00 Re-Evaluation - Re-Evaluation First Eval Re-Evaluation Time: 18:25 Comment: Pt is medically cleared. Course/Dx - Course Course Of Treatment: Patient signed out from Dr. Schmidt pending MHE. Patient is signed out to Dr. Marino upon shift change pending MHE. - Diagnoses Provider Diagnoses: Depression, Suicidal ideation Discharge - Sign-Out/Discharge Documenting (check all that apply): Sign-Out Patient, Receiving Sign-Out Signing out patient TO: Marina Reynoso Receiving patient FROM: Rangel Marino - Discharge Plan Condition: Stable Referrals: Sheila Liao, [employer] [Primary Care Provider] - - Billing Disposition and Condition Condition: STABLE - Attestation Statements Document Initiated by Scribe: Yes Documenting Scribe: Fabricio Mcdermott Provider For Whom Scribe is Documenting (Include Credential): Darius Schmidt MD Scribe Attestation: Fabricio Petersen scribed for Darius Schmidt MD on 03/19/18 at 0537. Scribe Documentation Reviewed: Yes Provider Attestation: The documentation as recorded by the Fabricio lo accurately reflects the service I personally performed and the decisions made by me, Darius Schmidt MD
[2018-03-18] MEDS ORDERED: Ondansetron ODT TAB* 4 MG PO ONE (21:17)
[2018-03-18] MEDS ORDERED: Sulfamethox/Trimethoprim DS 800/160* TAB PO ONE (21:18)
[2018-03-18] MEDS: Sulfamethox/Trimethoprim DS 800/160* TAB PO SCH ×2 (21:46→21:49)
[2018-03-18] MEDS: Ondansetron TAB* 4 MG PO ONE (21:50)
--- NOTE | 2018-03-19 08:08 | ED ---
Progress - Progress Note Progress Note: This patient was signed out to Dr. Reynoso from Dr. Schmidt, awaiting transfer. A bed opened up in [facility], so the patient will be admitted with dx of alcohol induced mood disorder. - EKG/XRAY/CT EKG: rhythm - Bradycardia 55 bpm, no ST T wave changes Comments: 15:14, nl axis, nl interval - Consult/PCP Time Called: 00:00 Re-Evaluation - Re-Evaluation First Eval Re-Evaluation Time: 18:25 Comment: Pt is medically cleared. Course/Dx - Diagnoses Provider Diagnoses: Alcohol-induced mood disorder - Provider Notifications Time Discussed With Above Provider: 10:25 Instructed by Provider To: Other - Spoke about pt's disposition. Discharge - Sign-Out/Discharge Documenting (check all that apply): Patient Departure - Discharge Plan Condition: Stable Disposition: ADMITTED TO [facility] - Billing Disposition and Condition Condition: STABLE Disposition: Admitted to [facility] - Attestation Statements Document Initiated by Scribe: Yes Documenting Scribe: Joe Kovacs Provider For Whom Scribe is Documenting (Include Credential): Marina Reynoso MD Scribe Attestation: IJoe, scribed for Marina Reynoso MD on 03/20/18 at 2020. Scribe Documentation Reviewed: Yes Provider Attestation: The documentation as recorded by the Joe lo accurately reflects the service I personally performed and the decisions made by me, Marina Reynoso MD
[2018-03-19] MEDS: Docusate CAP* 100 MG PO SCH ×2 (09:00→22:42)
--- NOTE | 2018-03-19 10:24 | PN ---
ED Flex Patient Progress Note Date of Service: 03/19/18 Subjective: ED day #2 for this 57 y.o. female with a history of multiple admissions for suicidal behavior who arrived 2 days after relapsing on alcohol, following 5 months of sobriety. She states her intention of relapse is to drink herself to . She still cannot contract for safety. Objective: middle aged female; poor grooming; depressed with constricted affect; suicidal Assessment: Unspecified Depressive DO Plan: Patient warrants admission due to risk to self. Beds available on BSU later today. Admit to adult BSU on voluntary status. Vital Signs Temp Pulse Resp BP Pulse Ox 98.1 F 51 16 117/39 97 03/19/18 03:21 03/19/18 03:21 03/19/18 03:21 03/19/18 03:21 03/19/18 03:21 Lab Results - Entire Visit 03/17/18 03/17/18 03/17/18 14:44 14:44 14:36 WBC 8.8 RBC 4.77 Hgb 13.9 Hct 42 MCV 87 MCH 29 MCHC 34 RDW 14 Plt Count 453 H MPV 6.8 L Neut % (Auto) 59.0 Lymph % (Auto) 35.7 Nolan % (Auto) 4.1 Eos % (Auto) 0.4 Baso % (Auto) 0.8 Absolute Neuts (auto) 5.2 Absolute Lymphs (auto) 3.1 Absolute Monos (auto) 0.4 Absolute Eos (auto) 0 Absolute Basos (auto) 0.1 Absolute Nucleated RBC 0 Nucleated RBC % 0.2 Sodium 141 Potassium 3.7 Chloride 108 Carbon Dioxide 24 Anion Gap 9 BUN 11 Creatinine 0.75 Est GFR ( Amer) 96.0 Est GFR (Non-Af Amer) 79.4 BUN/Creatinine Ratio 14.7 Glucose 106 H Calcium 8.8 Total Bilirubin 0.40 AST 31 ALT 26 Alkaline Phosphatase 65 Total Protein 7.7 Albumin 4.4 Globulin 3.3 Albumin/Globulin Ratio 1.3 TSH 0.79 Urine Color Urine Appearance Urine pH Ur Specific Bailey Urine Protein Urine Ketones Urine Blood Urine Nitrate Urine Bilirubin Urine Urobilinogen Ur Leukocyte Esterase Urine WBC (Auto) Urine RBC (Auto) Ur Squamous Epith Cells Ur Transition Epith Cell Urine Bacteria Urine Glucose Salicylates < 2.50 Urine Opiates Screen None detected Acetaminophen < 15 Ur Barbiturates Screen None detected Ur Phencyclidine Scrn None detected Ur Amphetamines Screen None detected U Benzodiazepines Scrn None detected Urine Cocaine Screen None detected U Cannabinoids Screen None detected Serum Alcohol 222 H 03/17/18 14:36 WBC RBC Hgb Hct MCV MCH MCHC RDW Plt Count MPV Neut % (Auto) Lymph % (Auto) Nolan % (Auto) Eos % (Auto) Baso % (Auto) Absolute Neuts (auto) Absolute Lymphs (auto) Absolute Monos (auto) Absolute Eos (auto) Absolute Basos (auto) Absolute Nucleated RBC Nucleated RBC % Sodium Potassium Chloride Carbon Dioxide Anion Gap BUN Creatinine Est GFR ( Amer) Est GFR (Non-Af Amer) BUN/Creatinine Ratio Glucose Calcium Total Bilirubin AST ALT Alkaline Phosphatase Total Protein Albumin Globulin Albumin/Globulin Ratio TSH Urine Color Yellow Urine Appearance Cloudy Urine pH 8.0 Ur Specific Bailey 1.014 Urine Protein 1+(30 mg/dl) A Urine Ketones Negative Urine Blood 1+ A Urine Nitrate Negative Urine Bilirubin Negative Urine Urobilinogen Negative Ur Leukocyte Esterase 3+ A Urine WBC (Auto) 3+(>20/hpf) A Urine RBC (Auto) 2+(6-10/hpf) A Ur Squamous Epith Cells Present A Ur Transition Epith Cell Present A Urine Bacteria Absent Urine Glucose Negative Salicylates Urine Opiates Screen Acetaminophen Ur Barbiturates Screen Ur Phencyclidine Scrn Ur Amphetamines Screen U Benzodiazepines Scrn Urine Cocaine Screen U Cannabinoids Screen Serum Alcohol
[2018-03-19] MEDS ORDERED: lamoTRIgine TAB(*) 100 MG PO SCH (11:00)
[2018-03-19] MEDS: Thiamine TAB* 100 MG TAB PO SCH (11:22)
[2018-03-19] MEDS: Sulfamethox/Trimethoprim DS 800/160* TAB PO SCH ×3 (11:22→20:52)
[2018-03-19] MEDS: buPROPion SR TAB.SR* 100 MG PO SCH (12:34)
[2018-03-19] MEDS: lamoTRIgine TAB(*) 100 MG PO SCH (12:34)
[2018-03-19] MEDS: Multivitamins/Minerals TAB PO SCH (12:34)
[2018-03-19] MEDS: Nicotine Inhaler* 10 MG AMP INH PRN (16:55)
[2018-03-19] MEDS: Acetaminophen TAB* 325 MG PO PRN (18:13)
[2018-03-19] MEDS: CMC:Atomoxetine (NF) 40 MG CAP PO SCH (18:16)
[2018-03-19] MEDS: predniSONE TAB* 50 MG PO SCH (18:17)
[2018-03-19] MEDS: Omeprazole CAP* 20 MG PO SCH (18:17)
[2018-03-19] MEDS: Al Hydrox/Mg Hydrox/Simet LIQ* 30 ML UDC PO PRN (20:53)
[2018-03-19] MEDS: Ondansetron TAB* 4 MG PO ONE (22:43)
[2018-03-20] MEDS: Docusate CAP* 100 MG PO SCH ×2 (08:33→21:07)
[2018-03-20] MEDS: lamoTRIgine TAB(*) 100 MG PO SCH ×2 (08:33→21:12)
[2018-03-20] MEDS: Sulfamethox/Trimethoprim DS 800/160* TAB PO SCH ×2 (08:33→21:07)
[2018-03-20] MEDS: Omeprazole CAP* 20 MG PO SCH (08:33)
[2018-03-20] MEDS: Multivitamins/Minerals TAB PO SCH (08:33)
[2018-03-20] MEDS: buPROPion SR TAB.SR* 100 MG PO SCH (08:33)
[2018-03-20] MEDS: predniSONE TAB* 50 MG PO SCH (08:33)
[2018-03-20] MEDS: Thiamine TAB* 100 MG TAB PO SCH (08:33)
[2018-03-20] MEDS: CMC:Atomoxetine (NF) 40 MG CAP PO SCH (08:36)
[2018-03-20] MEDS ORDERED: Ondansetron ODT TAB* 4 MG PO PRN (12:10)
[2018-03-20] MEDS: Nicotine Inhaler* 10 MG AMP INH PRN ×2 (13:13→21:30)
[2018-03-20] MEDS: Acetaminophen TAB* 325 MG PO PRN (13:54)
[2018-03-20] MEDS: QUEtiapine TAB* 25 MG PO SCH (21:09)
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
[2018-03-21] MEDS: Al Hydrox/Mg Hydrox/Simet LIQ* 30 ML UDC PO PRN ×3 (05:30→20:44)
[2018-03-21] MEDS: Omeprazole CAP* 20 MG PO SCH (08:15)
[2018-03-21] MEDS: Sulfamethox/Trimethoprim DS 800/160* TAB PO SCH ×2 (08:57→20:39)
[2018-03-21] MEDS: CMC:Atomoxetine (NF) 40 MG CAP PO SCH (08:57)
[2018-03-21] MEDS: lamoTRIgine TAB(*) 100 MG PO SCH ×2 (08:57→20:39)
[2018-03-21] MEDS: Multivitamins/Minerals TAB PO SCH (08:57)
[2018-03-21] MEDS: Thiamine TAB* 100 MG TAB PO SCH (08:57)
[2018-03-21] MEDS: Docusate CAP* 100 MG PO SCH ×2 (08:57→20:39)
[2018-03-21] MEDS: Nicotine Inhaler* 10 MG AMP INH PRN ×2 (09:02→20:44)
--- NOTE | 2018-03-21 16:48 | PN ---
Subjective - Subjective Date of Service: 03/21/18 Service Type: 99044 Hosp care 25 min moderate complexity Subjective: patient reports some improvement in sleep in that she did not have nightmares and slept for a few hours at a time. she reports continued depressed mood and passive wish. patient reports some reservation about her sister coming to visit this weekend. she states she typically does not like visitors when in an inpatient setting so as to avoid distraction from primary therapeutic goals. marketing writer gently challenges her that interpersonal conflict resolution is pertinent. she identifies that it is likely her sister's personality is much like her father' s. she states that she intends to do reading about grief this weekend. she declines offer of devops developer consult; encouraged to notify staff if she changes her mind. patient c/o severe reflux. agrees to increase in omeprazole and referral to vision care associate post discharge. we discuss the benefits of abstaining from alcohol. Objective - Appearance Appearance: Well Developed/Nourished Dysmorphic Features: Yes Hygiene: Normal Grooming: Well Kept - Behavior Psychomotor Activities: Normal Exhibits Abnormal Movement: No - Attitude and Relatedness Attitude and Relatedness: Withdrawn Eye Contact: Fair - Speech Quality: Unpressured Latencies: Normal Quantity: Appropriate - Mood Patient's Decription of Mood: "Sad" - Affect Observed Affect: Depressed Affect Consistent with: Dysphoria - Thought Process Patient's Thought Process: Circumstantial Thought Content: Yes Passive Wish, No Suicidal Planning, No Homicidal Ideation, No Paranoid Ideation - Sensorium Experiencing Hallucinations: No, Sensorium is Clear Type of Hallucinations: Visual: No, Auditory: No, Command: No - Level of Consciousness Level of Consciousness: Alert Orientation: Yes Intact, Yes Orientated to Time, Yes Orientated to Place, Yes Orientated to Person - Impulse Control Impulse Control: Impaired - Insight and Judgement Insight and Judgement: Poor - Group Participation Particating in Group Activities: Yes - Medication Management Medication Management Adherence: Yes Assessment - Assessment Merits Inpatient Hospitalization: For Immediate Safety, For Stabilization Inpatient DSM-V Dx: F10.20 Clinical Impression: 57yo female, domiciled, single, disabled with prior diagnoses of bipolar I d/o, alcohol use d/o, ADHD. She attained 5 months of sobriety this year, which was difficult for her after her mother in May. Her father approx 2 weeks ago, which was one of the precursors to relapsing on alcohol. She presented to ED with a friend due to relapsing on alcohol in a desire to "drink herself to ." She merits hospitalization for immediate safety and stabilization. MHU: Problem List - Patient Problems (1) Bereavement Current Visit: Yes Status: Acute Priority: High Code(s): Z63.4 - DISAPPEARANCE AND OF FAMILY MEMBER SNOMED Code(s): 62164517 Comment: continue to provide psychoeducation and therapeutic presence (2) Alcohol use disorder, moderate, dependence Current Visit: Yes Status: Acute Priority: High Code(s): F10.20 - ALCOHOL DEPENDENCE, UNCOMPLICATED SNOMED Code(s): 633113423 Comment: motivational interviewing, offer substance use treatment Plan - Plan Treatment Plan: Name: PEGGY VIERA Birthdate: 1960 [id number] continue intensive psychiatric treatment. may decrease to q30 min observation and allow staff pass. continue medications and therapeutic interventions. discharge planning to include outpatient referrals. Continued Medication Management: Start Medication Medications: Current Medications Acetaminophen (Tylenol Tab*) 650 mg PO Q4H PRN PRN Reason: FEVER/PAIN Last Admin: 03/20/18 13:54 Dose: 650 mg Al Hydrox/Mg Hydrox/Simethicone (Maalox Plus*) 30 ml PO Q4H PRN PRN Reason: INDIGESTION Last Admin: 03/21/18 12:04 Dose: 30 ml Atomoxetine HCl (Strattera (Nf)) 40 mg PO DAILY [facility]; Protocol Last Admin: 03/21/18 08:57 Dose: Not Given Clonidine HCl (Catapres Tab*) 0.05 mg PO BID PRN PRN Reason: ANXIETY Device (Nicotine Mouth Piece*) 1 each INH .USE WITH NICOTROL PRN PRN Reason: CRAVING Last Admin: 03/17/18 14:55 Dose: 1 each Docusate Sodium (Colace Cap*) 100 mg PO BID [facility] Last Admin: 03/21/18 08:57 Dose: 100 mg Lamotrigine (Lamictal Tab(*)) 150 mg PO BID [facility] Last Admin: 03/21/18 08:57 Dose: 150 mg Multivitamins/Minerals (Theragran/Minerals Tab*) 1 tab PO DAILY [facility] Last Admin: 03/21/18 08:57 Dose: 1 tab Nicotine (Nicotine Inhaler*) 10 mg INH Q2H PRN PRN Reason: CRAVING Last Admin: 03/21/18 09:02 Dose: 10 mg Omeprazole (Prilosec Cap*) 40 mg PO DAILY@0600 [facility]; Protocol Ondansetron HCl (Zofran Odt Tab*) 4 mg PO Q6H PRN PRN Reason: INDIGESTION Quetiapine Fumarate (Seroquel Tab*) 50 mg PO BEDTIME [facility] Last Admin: 03/20/18 21:09 Dose: 50 mg Thiamine HCl (Vitamin B-1 Tab*) 100 mg PO DAILY [facility] Last Admin: 03/21/18 08:57 Dose: 100 mg Trimethoprim/Sulfamethoxazole (Bactrim Ds 800/160 Tab*) 1 tab PO BID [facility] Stop: 03/22/18 22:00 Last Admin: 03/21/18 08:57 Dose: 1 tab - Discharge Plan Discharge Plan: Outpatient Follow Up Outpatient Program: [facility]
[2018-03-21] MEDS: QUEtiapine TAB* 25 MG PO SCH (20:39)
[2018-03-22] MEDS: Nicotine Inhaler* 10 MG AMP INH PRN ×3 (06:20→21:45)
[2018-03-22] MEDS: Omeprazole CAP* 20 MG PO SCH (06:30)
[2018-03-22] MEDS: Docusate CAP* 100 MG PO SCH ×2 (09:08→21:42)
[2018-03-22] MEDS: CMC:Atomoxetine (NF) 40 MG CAP PO SCH (09:08)
[2018-03-22] MEDS: Sulfamethox/Trimethoprim DS 800/160* TAB PO SCH ×2 (09:09→21:42)
[2018-03-22] MEDS: Multivitamins/Minerals TAB PO SCH (09:09)
[2018-03-22] MEDS: lamoTRIgine TAB(*) 100 MG PO SCH ×2 (09:09→21:42)
[2018-03-22] MEDS: Thiamine TAB* 100 MG TAB PO SCH (09:10)
[2018-03-22] MEDS: cloNIDine TAB* 0.1 MG PO PRN ×2 (09:10→22:36)
[2018-03-22] MEDS: QUEtiapine TAB* 25 MG PO SCH (21:42)
[2018-03-23] MEDS: Al Hydrox/Mg Hydrox/Simet LIQ* 30 ML UDC PO PRN (01:07)
[2018-03-23] MEDS: Omeprazole CAP* 20 MG PO SCH (07:34)
[2018-03-23] MEDS: Docusate CAP* 100 MG PO SCH ×2 (08:53→21:31)
[2018-03-23] MEDS: Multivitamins/Minerals TAB PO SCH (08:53)
[2018-03-23] MEDS: lamoTRIgine TAB(*) 100 MG PO SCH ×2 (08:53→21:33)
[2018-03-23] MEDS: Thiamine TAB* 100 MG TAB PO SCH (08:53)
[2018-03-23] MEDS: CMC:Atomoxetine (NF) 40 MG CAP PO SCH (08:55)
[2018-03-23] MEDS: Nicotine Inhaler* 10 MG AMP INH PRN ×2 (11:53→21:33)
--- NOTE | 2018-03-23 19:26 | PN ---
Subjective - Subjective Date of Service: 03/23/18 Subjective: Lucie c/o poor sleep, high anxiety and racing thoughts about "estate issues," reports that she has been allowing herself to cry/grieve and it helped. She denies SI/HI, urges for sib or A/VH. She is no longer scoring on the WAM. She requests meds adjustment to help with sleep. Per staff, she is visible on the unit and adherent to unit's routines. Objective - Appearance Appearance: Healthy Appearing Dysmorphic Features: No Hygiene: Normal Grooming: Well Kept - Behavior Psychomotor Activities: Normal Exhibits Abnormal Movement: No - Attitude and Relatedness Attitude and Relatedness: Cooperative Eye Contact: Good - Speech Quality: Unpressured Latencies: Normal Quantity: Appropriate - Mood Patient's Decription of Mood: "Anxious" - Affect Observed Affect: Fair Affect Consistent with: Euthymia - Thought Process Patient's Thought Process: Coherent, Goal Directed Thought Content: No Passive Wish, No Suicidal Planning, No Homicidal Ideation, No Paranoid Ideation - Sensorium Experiencing Hallucinations: No, Sensorium is Clear - Level of Consciousness Level of Consciousness: Alert Orientation: Yes Intact - Insight and Judgement Insight and Judgement: Good - Group Participation Particating in Group Activities: Yes - Medication Management Medication Management Adherence: Yes Assessment - Assessment Merits Inpatient Hospitalization: Consolidate Improvements, For Discharge Planning Inpatient DSM-V Dx: F10.20 Clinical Impression: 57yo female, domiciled, single, disabled with prior diagnoses of bipolar I d/o, alcohol use d/o, ADHD. She attained 5 months of sobriety this year, which was difficult for her after her mother in May. Her father approx 2 weeks ago, which was one of the precursors to relapsing on alcohol. She presented to ED with a friend due to relapsing on alcohol in a desire to "drink herself to ." She merits hospitalization for immediate safety and stabilization. Progressing well through detox, engages in some med-seeking stances but denying suicidality and expressing future-orientation. Dismisses the need for inpatient substance abuse treatment. Needs continued admission to finalize discharge planning. Plan - Plan Treatment Plan: Name: PEGGY VIERA Birthdate: 1960 [id number] Continued Medication Management: Continue Outpt Medication Medications: Current Medications Acetaminophen (Tylenol Tab*) 650 mg PO Q4H PRN PRN Reason: FEVER/PAIN Last Admin: 03/20/18 13:54 Dose: 650 mg Al Hydrox/Mg Hydrox/Simethicone (Maalox Plus*) 30 ml PO Q4H PRN PRN Reason: INDIGESTION Last Admin: 03/23/18 01:07 EDT Dose: 30 ml Atomoxetine HCl (Strattera (Nf)) 40 mg PO DAILY [facility]; Protocol Last Admin: 03/23/18 08:55 Dose: Not Given Clonidine HCl (Catapres Tab*) 0.05 mg PO BID PRN PRN Reason: ANXIETY Last Admin: 03/22/18 22:36 Dose: 0.05 mg Device (Nicotine Mouth Piece*) 1 each INH .USE WITH NICOTROL PRN PRN Reason: CRAVING Last Admin: 03/17/18 14:55 Dose: 1 each Docusate Sodium (Colace Cap*) 100 mg PO BID [facility] Last Admin: 03/23/18 08:53 Dose: 100 mg Lamotrigine (Lamictal Tab(*)) 150 mg PO BID [facility] Last Admin: 03/23/18 08:53 Dose: 150 mg Multivitamins/Minerals (Theragran/Minerals Tab*) 1 tab PO DAILY [facility] Last Admin: 03/23/18 08:53 Dose: 1 tab Nicotine (Nicotine Inhaler*) 10 mg INH Q2H PRN PRN Reason: CRAVING Last Admin: 03/23/18 11:53 Dose: 10 mg Omeprazole (Prilosec Cap*) 40 mg PO DAILY@0600 [facility]; Protocol Last Admin: 03/23/18 07:34 Dose: 40 mg Ondansetron HCl (Zofran Odt Tab*) 4 mg PO Q6H PRN PRN Reason: INDIGESTION Quetiapine Fumarate (Seroquel Tab*) 50 mg PO BEDTIME [facility] Last Admin: 03/22/18 21:42 Dose: 50 mg Thiamine HCl (Vitamin B-1 Tab*) 100 mg PO DAILY [facility] Last Admin: 03/23/18 08:53 Dose: 100 mg - Discharge Plan Discharge Plan: Drug/Alcohol Rehab Outpatient Program: TBD
[2018-03-23] MEDS: QUEtiapine TAB* 100 MG PO SCH (21:33)
[2018-03-23] MEDS: cloNIDine TAB* 0.1 MG PO PRN (21:33)
[2018-03-24] MEDS: Omeprazole CAP* 20 MG PO SCH (07:40)
[2018-03-24] MEDS: cloNIDine TAB* 0.1 MG PO PRN ×2 (07:43→21:54)
[2018-03-24] MEDS: lamoTRIgine TAB(*) 100 MG PO SCH ×2 (09:27→21:46)
[2018-03-24] MEDS: Multivitamins/Minerals TAB PO SCH (09:27)
[2018-03-24] MEDS: Docusate CAP* 100 MG PO SCH ×2 (09:27→21:46)
[2018-03-24] MEDS: Thiamine TAB* 100 MG TAB PO SCH (09:28)
[2018-03-24] MEDS: CMC:Atomoxetine (NF) 40 MG CAP PO SCH (09:30)
[2018-03-24] MEDS: Nicotine Inhaler* 10 MG AMP INH PRN ×3 (09:32→21:53)
[2018-03-24] MEDS: Al Hydrox/Mg Hydrox/Simet LIQ* 30 ML UDC PO PRN (11:29)
--- NOTE | 2018-03-24 12:12 | PN ---
Subjective - Subjective Date of Service: 03/24/18 Service Type: 98331 Hosp care 25 min moderate complexity Subjective: Patient irritable with expansive mood. She states need for medication for anxiety and sleep. She has difficulty identifying what is bothering her and tends to deflect anger toward her sister, peers and staff. With much prompting and assisting patient in identifying emotions, she is able to identify feeling hurt and lonely. We discuss benefit of processing emotions versus numbing them with prescription medication and/or substances. patien is encouraged to Objective - Appearance Appearance: Well Developed/Nourished Dysmorphic Features: Yes Hygiene: Normal Grooming: Well Kept - Behavior Psychomotor Activities: Normal Exhibits Abnormal Movement: No - Attitude and Relatedness Attitude and Relatedness: Superficially Cooperative Eye Contact: Fair - Speech Quality: Unpressured Latencies: Normal Quantity: Appropriate - Mood Patient's Decription of Mood: "Anxious" - Affect Observed Affect: Expansive Affect Consistent with: Dysphoria - Thought Process Patient's Thought Process: Circumstantial Thought Content: No Passive Wish, No Suicidal Planning, No Homicidal Ideation, No Paranoid Ideation - Sensorium Experiencing Hallucinations: No, Sensorium is Clear Type of Hallucinations: Visual: No, Auditory: No, Command: No - Level of Consciousness Level of Consciousness: Alert Orientation: Yes Intact, Yes Orientated to Time, Yes Orientated to Place, Yes Orientated to Person - Impulse Control Impulse Control: Intact - Insight and Judgement Insight and Judgement: Fair - Group Participation Particating in Group Activities: Yes Group Participation Comments: partial - Medication Management Medication Management Adherence: Yes Assessment - Assessment Merits Inpatient Hospitalization: For Immediate Safety, For Stabilization Inpatient DSM-V Dx: F10.20 Clinical Impression: 57yo female, domiciled, single, disabled with prior diagnoses of bipolar I d/o, alcohol use d/o, ADHD. She attained 5 months of sobriety this year, which was difficult for her after her mother in May. Her father approx 2 weeks ago, which was one of the precursors to relapsing on alcohol. She presented to ED with a friend due to relapsing on alcohol in a desire to "drink herself to ." Progressing well through detox , engages in some med-seeking stances but denying suicidality and expressing future-orientation. Dismisses the need for inpatient substance abuse treatment. Needs continued admission to finalize discharge planning. MHU: Problem List - Patient Problems (1) Bereavement Current Visit: Yes Status: Acute Priority: High Code(s): Z63.4 - DISAPPEARANCE AND OF FAMILY MEMBER SNOMED Code(s): 11389857 Comment: continue to provide psychoeducation and therapeutic presence (2) Alcohol use disorder, moderate, dependence Current Visit: Yes Status: Acute Priority: High Code(s): F10.20 - ALCOHOL DEPENDENCE, UNCOMPLICATED SNOMED Code(s): 245916660 Comment: motivational interviewing, offer substance use treatment Plan - Plan Treatment Plan: Name: PEGGY VIERA Birthdate: 1960 [id number] continue intensive psychiatric treatment. may decrease to q30 min observation and allow staff pass. continue medications and therapeutic interventions. discharge planning to include outpatient referrals. Continued Medication Management: Continue Outpt Medication Medications: Current Medications Acetaminophen (Tylenol Tab*) 650 mg PO Q4H PRN PRN Reason: FEVER/PAIN Last Admin: 03/20/18 13:54 Dose: 650 mg Al Hydrox/Mg Hydrox/Simethicone (Maalox Plus*) 30 ml PO Q4H PRN PRN Reason: INDIGESTION Last Admin: 03/24/18 11:29 Dose: 30 ml Atomoxetine HCl (Strattera (Nf)) 40 mg PO DAILY [facility]; Protocol Last Admin: 03/24/18 09:30 Dose: Not Given Clonidine HCl (Catapres Tab*) 0.1 mg PO BID PRN PRN Reason: ANXIETY Last Admin: 03/24/18 07:43 Dose: 0.1 mg Device (Nicotine Mouth Piece*) 1 each INH .USE WITH NICOTROL PRN PRN Reason: CRAVING Last Admin: 03/17/18 14:55 Dose: 1 each Docusate Sodium (Colace Cap*) 100 mg PO BID [facility] Last Admin: 03/24/18 09:27 Dose: 100 mg Lamotrigine (Lamictal Tab(*)) 150 mg PO BID [facility] Last Admin: 03/24/18 09:27 Dose: 150 mg Multivitamins/Minerals (Theragran/Minerals Tab*) 1 tab PO DAILY [facility] Last Admin: 03/24/18 09:27 Dose: 1 tab Nicotine (Nicotine Inhaler*) 10 mg INH Q2H PRN PRN Reason: CRAVING Last Admin: 03/24/18 09:32 Dose: 10 mg Omeprazole (Prilosec Cap*) 40 mg PO DAILY@0600 [facility]; Protocol Last Admin: 03/24/18 07:40 Dose: 40 mg Ondansetron HCl (Zofran Odt Tab*) 4 mg PO Q6H PRN PRN Reason: INDIGESTION Quetiapine Fumarate (Seroquel Tab*) 100 mg PO BEDTIME [facility] Last Admin: 03/23/18 21:33 Dose: 100 mg Thiamine HCl (Vitamin B-1 Tab*) 100 mg PO DAILY [facility] Last Admin: 03/24/18 09:28 Dose: 100 mg - Discharge Plan Discharge Plan: Outpatient Follow Up Outpatient Program: [facility]
--- NOTE | 2018-03-24 12:15 | PN ---
MHU: Group Therapy Note - Service Type Service Type: [id number] Group Psychotherapy - Group Cognitive Behavioral Note: Sydney was rather quiet and sullen during group, and impressed as agitated after group closed.
[2018-03-24] MEDS: QUEtiapine TAB* 100 MG PO SCH (21:46)
[2018-03-25] MEDS: Al Hydrox/Mg Hydrox/Simet LIQ* 30 ML UDC PO PRN (01:23)
[2018-03-25] MEDS: Nicotine Inhaler* 10 MG AMP INH PRN ×4 (04:22→23:10)
[2018-03-25] MEDS: Omeprazole CAP* 20 MG PO SCH (07:31)
[2018-03-25] MEDS: Multivitamins/Minerals TAB PO SCH (08:37)
[2018-03-25] MEDS: lamoTRIgine TAB(*) 100 MG PO SCH ×2 (08:37→21:05)
[2018-03-25] MEDS: CMC:Atomoxetine (NF) 40 MG CAP PO SCH (08:37)
[2018-03-25] MEDS: Thiamine TAB* 100 MG TAB PO SCH (08:37)
[2018-03-25] MEDS: Docusate CAP* 100 MG PO SCH ×2 (08:37→21:05)
--- NOTE | 2018-03-25 16:52 | PN ---
Subjective - Subjective Date of Service: 03/25/18 Service Type: 36113 Hosp care 25 min moderate complexity Subjective: patient reports difficulty phone conversation with friend yesterday. we discuss assertive vs passive/aggressive communication. patient states frustration with sleep pattern of 2 hours at a time. She goes on to describe fear of having a permanent mental illness (bipolar) and decline in functioning. she is receptive to suggestions of journal prompts and relaxation techniques. patient agrees to trial quetiapine XL for improved mood stabilization and sleep. Objective - Appearance Appearance: Well Developed/Nourished Dysmorphic Features: Yes Hygiene: Normal Grooming: Well Kept - Behavior Psychomotor Activities: Normal Exhibits Abnormal Movement: No - Attitude and Relatedness Attitude and Relatedness: Cooperative Eye Contact: Good - Speech Quality: Unpressured Latencies: Normal Quantity: Appropriate - Mood Patient's Decription of Mood: "hurt" - Affect Observed Affect: Depressed Affect Consistent with: Dysphoria - Thought Process Patient's Thought Process: Circumstantial Thought Content: Yes Passive Wish, No Suicidal Planning, No Homicidal Ideation, No Paranoid Ideation - Sensorium Experiencing Hallucinations: No, Sensorium is Clear Type of Hallucinations: Visual: No, Auditory: No, Command: No - Level of Consciousness Level of Consciousness: Alert Orientation: Yes Intact, Yes Orientated to Time, Yes Orientated to Place, Yes Orientated to Person - Impulse Control Impulse Control: Intact - Insight and Judgement Insight and Judgement: Fair - Group Participation Particating in Group Activities: Yes - Medication Management Medication Management Adherence: Yes Assessment - Assessment Merits Inpatient Hospitalization: For Immediate Safety, For Stabilization, Consolidate Improvements Inpatient DSM-V Dx: F10.20 Clinical Impression: 57yo female, domiciled, single, disabled with prior diagnoses of bipolar I d/o, alcohol use d/o, ADHD. She attained 5 months of sobriety this year, which was difficult for her after her mother in May. Her father approx 2 weeks ago, which was one of the precursors to relapsing on alcohol. She presented to ED with a friend due to relapsing on alcohol in a desire to "drink herself to ." Progressing well through detox , engages in some med-seeking stances but denying suicidality and expressing future-orientation. Dismisses the need for inpatient substance abuse treatment. Needs continued admission to finalize discharge planning. MHU: Problem List - Patient Problems (1) Bereavement Current Visit: Yes Status: Acute Priority: High Code(s): Z63.4 - DISAPPEARANCE AND OF FAMILY MEMBER SNOMED Code(s): 42293624 Comment: continue to provide psychoeducation and therapeutic presence (2) Alcohol use disorder, moderate, dependence Current Visit: Yes Status: Acute Priority: High Code(s): F10.20 - ALCOHOL DEPENDENCE, UNCOMPLICATED SNOMED Code(s): 256643476 Comment: motivational interviewing, offer substance use treatment Plan - Plan Treatment Plan: Name: PEGGY VIERA Birthdate: 1960 [id number] continue intensive psychiatric treatment. may decrease to q30 min observation and allow staff pass. change quetiapine to XL 300mg qhs. discharge planning to include outpatient referrals. Continued Medication Management: Start Medication Medications: Current Medications Acetaminophen (Tylenol Tab*) 650 mg PO Q4H PRN PRN Reason: FEVER/PAIN Last Admin: 03/20/18 13:54 Dose: 650 mg Al Hydrox/Mg Hydrox/Simethicone (Maalox Plus*) 30 ml PO Q4H PRN PRN Reason: INDIGESTION Last Admin: 03/25/18 01:23 Dose: 30 ml Atomoxetine HCl (Strattera (Nf)) 40 mg PO DAILY [facility]; Protocol Last Admin: 03/25/18 08:37 Dose: Not Given Clonidine HCl (Catapres Tab*) 0.1 mg PO BID PRN PRN Reason: ANXIETY Last Admin: 03/24/18 21:54 Dose: 0.1 mg Device (Nicotine Mouth Piece*) 1 each INH .USE WITH NICOTROL PRN PRN Reason: CRAVING Last Admin: 03/17/18 14:55 Dose: 1 each Docusate Sodium (Colace Cap*) 100 mg PO BID [facility] Last Admin: 03/25/18 08:37 Dose: 100 mg Lamotrigine (Lamictal Tab(*)) 150 mg PO BID [facility] Last Admin: 03/25/18 08:37 Dose: 150 mg Multivitamins/Minerals (Theragran/Minerals Tab*) 1 tab PO DAILY [facility] Last Admin: 03/25/18 08:37 Dose: 1 tab Nicotine (Nicotine Inhaler*) 10 mg INH Q2H PRN PRN Reason: CRAVING Last Admin: 03/25/18 09:23 Dose: 10 mg Omeprazole (Prilosec Cap*) 40 mg PO DAILY@0600 [facility]; Protocol Last Admin: 03/25/18 07:31 Dose: 40 mg Ondansetron HCl (Zofran Odt Tab*) 4 mg PO Q6H PRN PRN Reason: INDIGESTION Last Admin: 03/24/18 12:12 Dose: 4 mg Quetiapine Fumarate (Seroquel Xr Tab*) 300 mg PO BEDTIME [facility] Thiamine HCl (Vitamin B-1 Tab*) 100 mg PO DAILY [facility] Last Admin: 03/25/18 08:37 Dose: 100 mg - Discharge Plan Discharge Plan: Outpatient Follow Up Outpatient Program: [facility]
[2018-03-25] MEDS: QUEtiapine XR TAB* 300 MG PO SCH (21:07)
[2018-03-25] MEDS: cloNIDine TAB* 0.1 MG PO PRN (21:07)
[2018-03-26] MEDS: Nicotine Inhaler* 10 MG AMP INH PRN ×3 (03:25→18:13)
[2018-03-26] MEDS: cloNIDine TAB* 0.1 MG PO PRN ×2 (04:00→19:07)
[2018-03-26] MEDS: Omeprazole CAP* 20 MG PO SCH (07:35)
[2018-03-26] MEDS: CMC:Atomoxetine (NF) 40 MG CAP PO SCH ×2 (08:30→10:57)
[2018-03-26] MEDS: Multivitamins/Minerals TAB PO SCH (08:31)
[2018-03-26] MEDS: Docusate CAP* 100 MG PO SCH ×2 (08:31→20:45)
[2018-03-26] MEDS: Thiamine TAB* 100 MG TAB PO SCH (08:31)
[2018-03-26] MEDS: lamoTRIgine TAB(*) 100 MG PO SCH ×2 (08:31→20:45)
[2018-03-26] MEDS: Benzocaine/Menthol LOZ* 1 LOZENGE MT PRN ×3 (12:28→18:13)
--- NOTE | 2018-03-26 17:27 | PN ---
MHU: Group Therapy Note - Service Type Service Type: [id number] Group Psychotherapy - Medication Education Group: Patient was attentive and participatory in group, and remained in good behavioral control. Patient expressed positive insights regarding relevant treatment interventions. Patient stated understanding of material discussed and had appropriate questions.
[2018-03-26] MEDS: Acetaminophen TAB* 325 MG PO PRN (18:13)
[2018-03-26] MEDS: QUEtiapine XR TAB* 300 MG PO SCH (20:46)
[2018-03-27] MEDS: Acetaminophen TAB* 325 MG PO PRN (01:40)
[2018-03-27] MEDS: Benzocaine/Menthol LOZ* 1 LOZENGE MT PRN (01:40)
[2018-03-27] MEDS: Nicotine Inhaler* 10 MG AMP INH PRN ×2 (01:40→07:33)
[2018-03-27] MEDS: Omeprazole CAP* 20 MG PO SCH (07:33)
[2018-03-27] MEDS: lamoTRIgine TAB(*) 100 MG PO SCH (08:34)
[2018-03-27] MEDS: Docusate CAP* 100 MG PO SCH (08:34)
[2018-03-27] MEDS: Multivitamins/Minerals TAB PO SCH (08:35)
[2018-03-27] MEDS: Thiamine TAB* 100 MG TAB PO SCH (08:35)
[2018-03-27] MEDS: CMC:Atomoxetine (NF) 40 MG CAP PO SCH (08:37)
[2018-03-27] MEDS: cloNIDine TAB* 0.1 MG PO PRN (08:37)
[2018-03-27] MEDS ORDERED: Gabapentin CAP(*) 100 MG PO ONE (10:08)
[2018-03-27] MEDS ORDERED: Gabapentin CAP(*) 100 MG ONE (10:18)
[2018-03-27 12:38] VITALS: BP 98/54
--- NOTE | 2018-03-28 13:21 | DS ---
CC: [facility]; [facility]; Sheila Liao NP * DISCHARGE SUMMARY: DATE OF ADMISSION: 03/19/18 DATE OF DISCHARGE: 03/27/18 SUPERVISING PSYCHIATRIST: Don Romero MD * (DICTATED BY MELANIE MEDRANO NP) DISCHARGE DIAGNOSIS: 1. Unspecified bipolar disorder. 2. Attention deficit hyperactivity disorder. 3. Alcohol use disorder, in early remission. CONDITION AT TIME OF DISCHARGE: Improved. The patient is euthymic with bright affect. She reports improvement in mood and anxiety. She states appreciation for help she has received during this hospitalization. The patient has worked diligently on assignments given to her by staff and providers. She reports motivation to work on relationships in her life and continue to process grieving the loss of her parents this year. The patient denies urges to drink alcohol. She reports improvement in anxiety with use of gabapentin, which is also beneficial for alcohol use disorder. She denies suicidal ideations. She reports eagerness to follow through with current outpatient providers and is agreeable to follow up with Shun on 03/28/18 at [facility]. MENTAL STATUS EXAM: Sydney is a 57-year-old woman who appears stated age. She is well groomed, well appearing, and wearing her own casual clothing. The patient is alert and oriented x3, attitude is pleasant and cooperative. She is a good historian. Eye contact is good. Speech is soft and articulate. There is no psychomotor abnormal activity noted. Mood is euthymic with bright affect. The patient denies auditory or visual hallucinations. Thought process is logical and goal directed. Thought content is negative for suicidal ideation , passive wish or urges to drink alcohol. Insight and judgment are good and that she has been participating fully in therapeutic recommendations. Fund of knowledge is excellent. INSTRUCTIONS GIVEN TO PATIENT: A. Medications: 1. Gabapentin 100 mg p.o. t.i.d. p.r.n. 2. Anxiety. 3. Lamotrigine 150 mg p.o. b.i.d. 4. Quetiapine XR 300 mg p.o. q.h.s. 5. Atomoxetine 40 mg p.o. daily. 6. The patient may utilize immediate release quetiapine while awaiting authorization from insurance for XR formulation, prior authorization form is being faxed by this chief writer today. She will continue on the following medications through her primary care provider : 1. Docusate 100 mg p.o. b.i.d. 2. Nexium 40 mg p.o. daily 3. Thiamine. 4. Vitamin daily. 5. Multivitamin daily. B. Diet: Regular. C. Activity: Ambulation as tolerated. Tobacco cessation assistance was declined by the patient. There are no pending labs or diagnostic studies. D. Followup Care: The patient will return to sober supportive living at [facility]. She has an appointment with Shun at [facility] tomorrow. She has an appointment with [facility] with community nurse therapist , "Lakhwinder Washington" on , 04/03/18 at 1 p.m., and Tierra Escobedo NP on 04/03/18 at 2:30 p.m. and she can follow up with Sheila Liao NP, on 04/01/18 at 1 p.m. E. Substance use followup. The patient will follow up with [facility] as stated above. She was given a medication, gabapentin, for alcohol use disorder. HOSPITAL COURSE: Part A: Reason for admission: The patient presented to the emergency department after relapse on alcohol, in an attempt to suicide. She was admitted to the adult behavioral services on voluntary status and full code status. She immediately acclimated to the unit and started to engage in unit programing. Part B: Psychiatric treatment rendered: The patient was quickly decreased to 30 minute observation and allowed staff pass. She successfully detoxed from alcohol. We discussed medication changes. The patient consented to increase lamotrigine to 150 mg p.o. b.i.d. We reinstated Strattera; however, the patient did not realize this and did not take this for few days. We added quetiapine at bedtime primarily for sleep along with the benefit of some mood stabilization. We tried clonidine at a low dose p.r.n. This was increased to 0.1 mg with little to no effect per patient. On day of discharge, the patient trialed low dose gabapentin for anxiety and noted good effect. While on the unit, the patient was calm and behavioral control. We talked much about the loss of her parents and implications with family dynamics. We discussed pattern of alcoholic drinking and underlying emotions and motivators for relapse. The patient was receptive to therapeutic suggestions. The patient was also treated for UTI with a broad-spectrum antibiotic. The patient was noted to have conversations via phone with a friend of hers, who used to be a romantic partner. We discussed conflict and unhealthy dynamics. The patient was then motivated to apologize and amend this relationship. Generally, Lucie did very well in the hospital and is encouraged to continue her efforts after discharge. She was given praise for her resilience and motivation for recovery. MELANIE MEDRANO, ELINA [id number]/[facility] #: [id number] MARCIAL
== END 2018-03-27 12:15 | disposition home or self-care (01) | DRG 753 ==
LOC: ED 13:34 → BSU 03-19 10:10
PROVIDERS: ADMIT Psychiatry & Neurology Psychiatry; ATTEND Psychiatry & Neurology Psychiatry
PROC: GZHZZZZ Group Psychotherapy (ICD-10-PCS; principal; 2018-03-24)
DX: F31.9 Bipolar disorder, unspecified (principal); R45.851 Suicidal ideations; N39.0 Urinary tract infection, site not specified; F17.210 Nicotine dependence, cigarettes, uncomplicated; E05.90 Thyrotoxicosis, unspecified without thyrotoxic crisis or storm; K21.9 Gastro-esophageal reflux disease without esophagitis; K57.90 Diverticulosis of intestine, part unspecified, without perforation or abscess without bleeding; M19.90 Unspecified osteoarthritis, unspecified site; F10.229 Alcohol dependence with intoxication, unspecified; Y90.8 Blood alcohol level of 240 mg/100 ml or more; B95.1 Streptococcus, group B, as the cause of diseases classified elsewhere; F41.9 Anxiety disorder, unspecified; F90.9 Attention-deficit hyperactivity disorder, unspecified type; Z90.710 Acquired absence of both cervix and uterus; Z82.0 Family history of epilepsy and other diseases of the nervous system; Z88.5 Allergy status to narcotic agent; Z88.8 Allergy status to other drugs, medicaments and biological substances; Z72.89 Other problems related to lifestyle; Z63.4 Disappearance and death of family member; Z86.19 Personal history of other infectious and parasitic diseases; Z91.041 Radiographic dye allergy status; Z81.1 Family history of alcohol abuse and dependence; Z81.8 Family history of other mental and behavioral disorders
CPT/HCPCS: 36415; 80053; 80061; 80307; 80320; 80329; 81003; 81015; 83036; 84443; 85025; 87077; 87086; 90853; 93005; 99222; 99231; 99232; 99283; A9270-GY; G0480; J7512

== ENCOUNTER 2018-03-29 14:22 | Observation (INO) | payer OTHER ==
[2018-03-29 15:02] LABS: ABS Basophils 0.1 10^3/ul (0-0.2); ABS Eosinophils 0.1 10^3/ul (0-0.6); ABS Lymphocytes 2.6 10^3/ul (1.0-4.8); ABS Neutrophils 5.8 10^3/ul (1.5-7.7); ABS Nucleated RBC 0 10^3/ul; Hematocrit 38 % (35-47); Lymphocyte % 27.5 % (25-47); Mean Corpuscular HGB Conc 34 g/dl (31-36); Mean Corpuscular Hemoglobin 30 pg (27-31); Mean Corpuscular Volume 88 fL (80-97); Mean Platelet Volume 6.9 fL (7.4-10.4); Nucleated Red Blood Cells % 0.1; Platelet Count 418 10^3/ul (150-450); Red Blood Count 4.33 10^6/ul (4.00-5.40); Red Cell Distribution Width 14 % (10.5-15); White Blood Count 9.6 10^3/ul (3.5-10.8)
--- NOTE | 2018-03-29 15:17 | ED ---
HPI Chest Pain - HPI Summary HPI Summary: This patient is a 57 year old female presenting to [facility] with a chief complaint of chest pain since approx. 0400. Patient states that she was on a car ride back from [place]. During this time, patient experienced a persistent dull back ache between her shoulder blades. Patient states that she suddenly experiences a sharp stabbing pain in her mid sternal chest, which lasted 10-15 minutes. Afterwards, the pain subsided into a persistent pressure/heaviness. Patient additionally states that she experienced confusion and weakness after the car ride and needed her friends to rouse her and help her ambulate. The pain is rated 6/10 in severity. Symptoms aggravated by nothing. Symptoms alleviated by nothing. Patient additionally reports nausea, fatigue, vomiting. Patient denies SOB. - History of Current Complaint Chief Complaint: EDChestPainROMI Time Seen by Provider: 03/29/18 14:35 Hx Obtained From: Patient Onset/Duration: Started Hours Ago, Still Present Timing: Constant, Intermittent, Lasting Minutes - 10-15 Initial Severity: Moderate Current Severity: Moderate Pain Intensity: 6 Pain Scale Used: 0-10 Numeric Chest Pain Location: Mid Sternal Character: Heaviness Aggravating Factor(s): Nothing Alleviating Factor(s): Nothing Associated Signs and Symptoms: Positive: Negative - SOB, Other: - vomiting, weakness, confusion, fatigue, nausea - Additional Pertinent History Primary Care Physician: [id number] - Allergy/Home Medications Allergies/Adverse Reactions: Allergies Allergy/AdvReac Type Severity Reaction Status Date / Time codeine Allergy Rash Verified 03/29/18 14:39 divalproex sodium Allergy Hallucinati Verified 03/29/18 14:39 [From Depakote] ons Iodine and Iodide Containing Allergy Hives Verified 03/29/18 14:39 Produc lithium Allergy Hallucinati Verified 03/29/18 14:39 ons lurasidone Allergy Unknown Verified 03/29/18 14:39 Reaction Details Tricyclic Compounds Allergy Agitation Verified 03/29/18 14:39 oseltamivir [From Tamiflu] AdvReac Nausea And Verified 03/29/18 14:39 Vomiting contrast dye Allergy Hives Uncoded 03/29/18 14:39 Home Medications: Home Medications Docusate Sodium [Dulcolax Stool Softener] 1 tab PO BID 03/29/18 [History Confirmed 03/29/18] PMH/Surg Hx/FS Hx/Imm Hx Previously Healthy: No Endocrine/Hematology History: Reports: Hx Thyroid Disease, Other Endocrine/ Hematological Disorders - Hyperthyroid Denies: Hx Diabetes Cardiovascular History: Denies: Hx Hypertension, Hx Pacemaker/ICD GI History: Reports: Hx Diverticulosis, Hx Gastroesophageal Reflux Disease Comment Only: Other GI Disorders - diverticulitis History: Denies: Hx Renal Disease Musculoskeletal History: Reports: Hx Arthritis Sensory History: Reports: Hx Contacts or Glasses Denies: Hx Hearing Aid Opthamlomology History: Reports: Hx Contacts or Glasses Neurological History: Reports: Hx Headaches, Hx Migraine Psychiatric History: Reports: Hx Anxiety, Hx Attention Deficit Hyperactivity Disorder, Hx Depression, Hx Post Traumatic Stress Disorder, Hx Inpatient Treatment, Hx Community Mental Health Tx, Hx Bipolar Disorder, Hx Suicide Attempt, Hx Substance Abuse, Other Psychiatric Issues/Disorders - ADHD Denies: Hx Eating Disorder, Hx Panic Disorder, Hx of Violent Episodes Against Others - Cancer History Hx Chemotherapy: No Hx Radiation Therapy: No - Surgical History Surgery Procedure, Year, and Place: hysterectomy; polycystic ovaries 4 laps; removed scar tissue 2001 same area; tonsilectomy. fx right wrist repair - plates in place - Immunization History Date of Tetanus Vaccine: unknown Date of Influenza Vaccine: unknown Infectious Disease History: No Infectious Disease History: Reports: Hx Shingles Denies: Hx Clostridium Difficile, Hx Hepatitis, Hx Human Immunodeficiency Virus (HIV), Hx of Known/Suspected MRSA, Hx Tuberculosis, Hx Known/Suspected VRE , Hx Known/Suspected VRSA, History Other Infectious Disease, Traveled Outside the [place] in Last 30 Days - Family History Known Family History: Positive: Other - family history of diveriticulitis Family History: Father: Alzheimer's - Social History Alcohol Use: None Alcohol Amount: recovering alcholic, repapsed 2 weeks ago Hx Substance Use: No Substance Use Type: Reports: None Substance Use Comment - Amount & Last Used: patient denies substance use Hx Tobacco Use: Yes Smoking Status (MU): Current Some Day Smoker Type: Cigarettes Amount Used/How Often: 1 pack Q3days for the last 30 days, uses no other tabacco [id number] Have You Smoked in the Last Year: Yes Review of Systems Positive: Fatigue. Negative: Fever Positive: Chest Pain Negative: Shortness Of Breath Positive: Vomiting, Nausea Neurological: Other - confusion Positive: Weakness All Other Systems Reviewed And Are Negative: Yes Physical Exam - Summary Physical Exam Summary: VITAL SIGNS: Reviewed. GENERAL: Patient is a well-developed and nourished female who is lying comfortable in the stretcher. Patient is not in any acute respiratory distress. HEAD AND FACE: No signs of trauma. No ecchymosis, hematomas or skull depressions. No sinus tenderness. EYES: PERRLA, EOMI x 2, No injected conjunctiva, no nystagmus. EARS: Hearing grossly intact. Ear canals and tympanic membranes are within normal limits. MOUTH: Oropharynx within normal limits. NECK: Supple, trachea is midline, no adenopathy, no JVD, no carotid bruit, no c- spine tenderness, neck with full ROM. CHEST: Symmetric, no tenderness at palpation LUNGS: Clear to auscultation bilaterally. No wheezing or crackles. CVS: Regular rate and rhythm, S1 and S2 present, no murmurs or gallops appreciated. ABDOMEN: Soft, non-tender. No signs of distention. No rebound no guarding, and no masses palpated. Bowel sounds are normal. EXTREMITIES: FROM in all major joints, no edema, no cyanosis or clubbing. NEURO: Alert and oriented x 3. No acute neurological deficits. Speech is normal and follows commands. SKIN: Dry and warm Triage Information Reviewed: Yes Vital Signs On Initial Exam: Initial Vitals Temp Pulse Resp BP Pulse Ox 97.6 F 81 14 109/66 97 03/29/18 14:39 03/29/18 14:39 03/29/18 14:39 03/29/18 14:39 03/29/18 14:39 Vital Signs Reviewed: Yes Diagnostics - Vital Signs Vital Signs Temp Pulse Resp BP Pulse Ox 03/29/18 15:00 75 14 99 03/29/18 14:57 81 20 99 03/29/18 14:55 95 03/29/18 14:39 97.6 F 81 14 109/66 97 - Laboratory Lab Results: Lab Results 03/29/18 Range/Units 14:52 WBC 9.6 (3.5-10.8) 10^3/ul RBC 4.33 (4.00-5.40) 10^6/ul Hgb 13.0 (12.0-16.0) g/dl Hct 38 (35-47) % MCV 88 (80-97) fL MCH 30 (27-31) pg MCHC 34 (31-36) g/dl RDW 14 (10.5-15) % Plt Count 418 (150-450) 10^3/ul MPV 6.9 L (7.4-10.4) fL Neut % (Auto) 60.6 (38-83) % Lymph % (Auto) 27.5 (25-47) % Jessamine % (Auto) 10.2 H (0-7) % Eos % (Auto) 1.0 (0-6) % Baso % (Auto) 0.7 (0-2) % Absolute Neuts (auto) 5.8 (1.5-7.7) 10^3/ul Absolute Lymphs (auto) 2.6 (1.0-4.8) 10^3/ul Absolute Monos (auto) 1.0 H (0-0.8) 10^3/ul Absolute Eos (auto) 0.1 (0-0.6) 10^3/ul Absolute Basos (auto) 0.1 (0-0.2) 10^3/ul Absolute Nucleated RBC 0 10^3/ul Nucleated RBC % 0.1 Result Diagrams: 03/31/18 06:41 03/31/18 06:41 Lab Statement: Any lab studies that have been ordered have been reviewed, and results considered in the medical decision making process. - Radiology CXR Radiology Interpretation Completed By: Radiologist Summary of Radiographic Findings: CXR reveals, per radiologist, IMPRESSION: ELEVATION OF THE RIGHT HEMIDIAPHRAGM WHICH CAN BE SEEN WITH DIAPHRAGMATIC PARALYSIS. ED physician has reviewed this radiology report. - CT CT Brain CT Interpretation Completed By: Radiologist Summary of CT Findings: CT Brain reveals, per radiologist, IMPRESSION: NO ACUTE INTRACRANIAL PATHOLOGY. ED physician has reviewed this radiology report. - EKG 1454 Cardiac Rate: NL EKG Rhythm: Sinus Rhythm - 72 BPM Summary of EKG Findings: NSR (72 BPM), no ST elevations Chest Pain Course/Dx - Course Assessment/Plan: This patient is a 57 year old female presenting to [facility] with a chief complaint of chest pain since approx. 0400. Patient states that she was on a car ride back from [place]. During this time, patient experienced a persistent dull back ache between her shoulder blades. Patient states that she suddenly experiences a sharp stabbing pain in her mid sternal chest, which lasted 10-15 minutes. Afterwards, the pain subsided into a persistent pressure/heaviness. Patient additionally states that she experienced confusion and weakness after the car ride and needed her friends to rouse her and help her ambulate. The pain is rated 6/10 in severity. Symptoms aggravated by nothing. Symptoms alleviated by nothing. Patient additionally reports nausea, fatigue, vomiting. Patient denies SOB. Test results without any significant abnormality except for glucose of 112, d-dimer is 44, 2 troponins 4 hours apart as 0.03. Head CT impression: No acute intra-abdominal pathology. Chest x-ray impression: The patient of the right hemidiaphragm which can be seen in the diaphragmatic paralysis. However the patient does have any history of TRAUMA. Because of the increased d-dimer I wanted to perform a CT to rule out PE since the patient had a long trip and a syncopal episode. However the patient is allergic to iodine therefore ordered a VQ scan. The VQ scan was take a couple hours therefore I prophylactically treated the patient with Lovenox 1 mg per KG. I also discussed the case with Dr. Dr. Childs from the hospital services course agrees to admit the patient to his service for further workup and management. Patient is hemodynamically stable. - Chest Pain Differential Diagnosis/HQI/PQRI: Acute OR, ACS, Angina, CHF, Chest Wall, GI Disease, Lower Respiratory Infection, Pulmonary Edema, Pulmonary Embolism - Diagnoses Provider Diagnoses: Chest pain, D-dimer, elevated Discharge - Sign-Out/Discharge Documenting (check all that apply): Patient Departure - Discharge Plan Condition: Good Disposition: ADMITTED TO [facility] - Billing Disposition and Condition Condition: GOOD Disposition: Admitted to [facility] - Attestation Statements Document Initiated by Fátimaibe: Yes Documenting Scribe: Aysha Kovacs Provider For Whom Junito is Documenting (Include Credential): Sebastian Villegas MD Scribe Attestation: Aysha Petersen, scribed for Sebastian Villegas MD on 04/03/18 at 1935. Scribe Documentation Reviewed: Yes Provider Attestation: The documentation as recorded by the Aysha lo accurately reflects the service I personally performed and the decisions made by , Sebastian Villegas MD
[2018-03-29 15:22] LABS: EGFR Non-African American 62.7 (>60)
[2018-03-29] MEDS ORDERED: Enoxaparin(*) 80 MG/0.8 ML SYR SUBCUT ONE (17:15)
[2018-03-29 17:31] LABS: Urine Appearance Clear; Urine Blood 1+ (Negative); Urine Color Amber; Urine Ketones Negative (Negative); Urine Protein Negative (Negative); Urine Red Blood Cell 1+(3-5/hpf) (Absent); Urine Specific Gravity 1.024 (1.010-1.030); Urine Urobilinogen Negative (Negative); Urine White Blood Cell Trace(0-5/hpf) (Absent)
[2018-03-29] MEDS ORDERED: Al Hydrox/Mg Hydrox/Simet LIQ* 30 ML UDC PO PRN (20:23)
[2018-03-29] MEDS ORDERED: Docusate CAP* 100 MG PO SCH (21:00)
[2018-03-29] MEDS: lamoTRIgine TAB(*) 100 MG PO SCH (21:01)
[2018-03-29] MEDS: clonazePAM TAB(*) 1 MG PO PRN (21:01)
--- NOTE | 2018-03-29 21:24 | HP ---
ADMISSION HISTORY AND PHYSICAL: DATE OF ADMISSION: 03/29/18 ATTENDING PHYSICIAN: Dr. Szymanski.* (DICTATED BY MALIK ANDRES NP) CHIEF COMPLAINT: Chest pain, syncope, and shortness of breath. HISTORY OF PRESENT ILLNESS: This is a very pleasant 57-year-old female patient who reports that for approximately 12 hours yesterday she was in a car driving. She had to go to [place] for a service. She drove to [place], went to the services and drove from the same day. She states that she had some car trouble, which caused a further delay in her trip for another hour and a half to 2 hours, so in essence, her travel time sitting in a car yesterday was 12 hours. While she was in the car at that time, the person she was driving with stated that she had a syncopal episode where she became unresponsive, but for approximately 1 minute. She woke up, she was feeling okay. She did not seek medical attention at that time. Later this afternoon, the patient said she experienced some retrosternal chest pain, strong and sharp in nature, approximately 10/10 pain and decided at that point to come to the emergency department for evaluation. In the ED, her examination does reveal a normal EKG and elevated D-dimer and a story consistent with possibility for pulmonary embolus. For these reasons, we were asked to evaluate the patient for admission. PAST MEDICAL HISTORY: Significant for: 1. GERD. 2. Anxiety and depression. 3. Combined bipolar disorder. 4. Recent sobriety from alcohol in September of this year. PAST SURGICAL HISTORY: Significant for: 1. ORIF of the right wrist in 2014. 2. Radical hysterectomy. 3. Several lap elizabeth for PCOS. 4. Tonsillectomy as a child. MEDICATIONS: At home include: 1. Lamictal 150 mg 2 times a day. 2. Strattera 40 mg in the a.m. 3. Prilosec 40 mg daily. 4. Dulcolax 1 tablet 2 times daily. 5. Klonopin 1 mg q.h.s. p.r.n. insomnia. ALLERGIES: The patient's allergies to medications include CODEINE for which she has rash, DEPAKOTE, hallucinations; IODINE and CONTRAST PRODUCTS, hives; LITHIUM, hallucinations; LURASIDONE, unknown reaction; TRICYCLICS, agitation; TAMIFLU, nausea and vomiting; and IV CONTRAST DYE again with hives. FAMILY HISTORY: Grandmother with pacemaker insertion. Father with diabetes mellitus. SOCIAL HISTORY: The patient states again that she has been sober from alcohol for 5 months. She denies any illicit drug use now or in the past. She does use vape cigarettes; does not smoke tobacco products, however. REVIEW OF SYSTEMS: A 10-point review of systems is negative except as noted in the HPI. PHYSICAL EXAMINATION GENERAL: She is a well-appearing female patient at her stated age, in no acute distress. VITAL SIGNS: Blood pressure 99/71, heart rate 70, respiratory rate 21, O2 saturation 95% on room air. HEENT: The patient is atraumatic, normocephalic. PERRLA with nonicteric sclerae. Oral mucosa is moist. Tongue is midline. NECK: Supple, nontender. No JVD noted. No carotid bruits auscultated. LUNGS: Clear bilaterally to auscultation with no wheezing, rhonchi, or rales. CARDIOVASCULAR: S1, S2 present. No murmurs, gallops, or rubs noted. Rate and rhythm are regular. ABDOMEN: Soft, nontender, nondistended. Positive bowel sounds in all 4 quadrants. : Deferred. MUSCULOSKELETAL: There is no clubbing, no cyanosis, and no edema. She has no obvious calf tenderness. She has +2 distal pulses palpable and a steady gait. NEUROLOGIC: She is grossly intact with no focal deficits. PSYCHIATRIC: She is cooperative and appropriate. LABORATORY DATA: WBC is 9.6, RBC is 4.33, hemoglobin 13, hematocrit 38, platelets 418,000. Sodium 135, potassium 3.8, chloride 105, CO2 of 20, BUN 11, creatinine 0.92, GFR is 62.7, glucose 112. Lactic acid 1.6. Calcium 9.3. Magnesium 2.1. Total bilirubin 1.00, AST 25, ALT 16, alk phos 55. Creatine kinase 76, CK-MB is 1.9. Troponin is negative at 0.03 and 0.03. BNP is 61. Total protein 7.7, albumin 4.4, globulin 3.3, albumin globulin ratio 1.3 and TSH is 3.33. D-dimer is elevated at 404. IMAGING: Brain CT without contrast dated today reveals no acute intracranial pathology. Chest x-ray also dated today shows elevated right hemidiaphragm, otherwise lungs are clear and do not show any acute cardiopulmonary abnormalities. IMPRESSION: This is a 57-year-old female patient who reports a longstanding period of time while driving yesterday and has experienced sudden onset of strong sharp chest pain with accompanying shortness of breath, being admitted to observation. DIAGNOSES: 1. Chest pain, shortness of breath, rule out pulmonary embolism. Because of the patient's allergy to IV CONTRAST, it would be suitable for her to have a V/ Q scan this evening. This will be a quicker examination. We have contacted Nuclear Medicine and they will come in and perform this test. In the meantime, we will treat her for pulmonary embolism. She has already received Lovenox 70 mg based on her weight in the emergency department. We will also send her for an ultrasound of the lower extremities and assess for deep venous thrombosis given the history of stasis, in the vehicle for so long it is highly suspicious for her to have had a deep venous thrombosis that traveled. 2. For her history of bipolar, she will be continued on her regularly scheduled medications. The patient states that she was just recently discharged from [facility] and she is doing well, feeling well on her current medication regimen. This will be continued. 3. For her history of gastroesophageal reflux disease, she will be continued on a PPI. 4. The patient also has chronic insomnia and was just started on Klonopin as an outpatient, she can have 1 mg q.h.s. as needed. 5. For DVT prophylaxis, again she has received therapeutic dose Lovenox. I have ordered a second dose of Lovenox for tomorrow pending the rest of her examinations. She would be a suitable candidate for oral anticoagulation with a NOAC. This can be determined tomorrow after her workup is completed. 6. Diet. She can have a regular unrestricted diet. 7. Activity. As tolerated. 8. Disposition. The patient is admitted to observation status for rule out pulmonary embolism. This plan of care has been discussed with Dr. Szymanski, my attending for today , he is in agreement with this plan. TIME SPENT: This admission has taken me approximately 60 minutes interfacing with the patient, reviewing the chart and coordinating with other providers as needed for her admission. MALIK ANDRES, [employer] [id number]/[facility] #: [id number] [facility] HOSPITALMalou
[2018-03-29] MEDS ORDERED: Pantoprazole IV* 40 MG IV ONE (23:30)
[2018-03-30] MEDS ORDERED: Nitroglycerin 2% OINT* 1 GM PAK TOPICAL ONE (05:15)
[2018-03-30] MEDS: traMADol TAB* 50 MG PO PRN (08:24)
[2018-03-30] MEDS: lamoTRIgine TAB(*) 100 MG PO SCH ×2 (08:25→21:01)
[2018-03-30] MEDS ORDERED: Atomoxetine (NF) 40 MG CAP PO SCH (09:00)
--- NOTE | 2018-03-30 10:31 | PN ---
Subjective - Subjective Reason for Note: Progress Note History: I have obtained the account of her presentation from Sydney Hauser, and the admitting history and physical documented by Conchita Escudero NP. She is a primary care patient at my office. She was discharged 03/27/2018 after a hospitalization in the Behavioral [facility] after a relapse of alcoholism and a suicide attempt. A resident at her apartment complex committed suicide and she went to the with 8 people from her unit. On return she had the following sequence of events: 1. She developed a back ache and moved around to make herself more comfortable 2. She developed 10/10 pain in her lower chest/epigastrium 3. She was roused by those in her car - she states she wasn't asleep but fainted. She required 2 assists to get to her apartment 4. She vomited in her apartment She was admitted owing to her high D-Dimer and suspicion of a PE. This morning she continues to have pain in her epigastric region and back ache. She has reduced appetite, but no vomiting. The epigastric pain doesn't radiate into her chest, neck, jaw or down her arms. Her legs are numb. Active Problems: Active Problems Abdominal pain (Acute) R10.9 - Secondary to constipation - resolved. Bereavement (Acute) Z63.4 continue to provide psychoeducation and therapeutic presence ADHD (attention deficit hyperactivity disorder) (Chronic) - Continue Strattera. Alcohol dependence (Chronic) F10.20 Anxiety and depression (Chronic) F41.9, F32.9 --Pt is also bipolar and currently on Depakote --Continue Bupropion -- Consulted psych for F/U from initial ED encounter Bipolar disorder, unspecified (Chronic) F31.9 DVT prophylaxis (Chronic) [id number] - SQ heparin. Full code status (Chronic) Z78.9 History of depressive symptoms (Chronic) Z86.59 History of heartburn (Chronic) Z87.898 Hypercholesterolemia (Chronic) E78.00 Primary hypothyroidism (Chronic) E03.9 Current Medications: Current Medications Al Hydrox/Mg Hydrox/Simethicone (Maalox Plus*) 30 ml PO Q4H PRN PRN Reason: INDIGESTION Last Admin: 03/29/18 21:01 Dose: 30 ml Atomoxetine HCl (Strattera (Nf)) 40 mg PO DAILY HELEN; Protocol Last Admin: 03/30/18 08:32 Dose: Not Given Clonazepam (Klonopin Tab(*)) 1 mg PO BEDTIME PRN PRN Reason: insomnia Last Admin: 03/29/18 21:01 Dose: 1 mg Enoxaparin Sodium (Lovenox(*)) 70 mg SUBCUT Q24H HELEN Gabapentin (Neurontin Cap(*)) 100 mg PO TID PRN PRN Reason: ANXIETY Lamotrigine (Lamictal Tab(*)) 150 mg PO BID HELEN Last Admin: 03/30/18 08:25 Dose: 150 mg Tramadol HCl (Ultram*) 50 mg PO Q12H PRN PRN Reason: PAIN Last Admin: 03/30/18 08:24 Dose: 50 mg Home Medications: Home Medications Medication Instructions Recorded Confirmed Type Atomoxetine (NF) [Strattera (NF)] 40 mg PO DAILY #30 cap 03/27/18 03/29/18 Rx Gabapentin CAP(*) [Neurontin 100 100 mg PO TID PRN #21 cap 03/27/18 03/29/18 Rx mg CAP(*)] lamoTRIgine TAB(*) [Lamictal 150 mg PO BID #90 tab 03/27/18 03/29/18 Rx TAB(*)] Docusate Sodium [Dulcolax Stool 1 tab PO BID 03/29/18 03/29/18 History Softener] Prilosec CAP* 20 MG 40 mg PO DAILY 03/29/18 03/29/18 History Allergies: Allergies Allergy/AdvReac Type Severity Reaction Status Date / Time codeine Allergy Rash Verified 03/29/18 14:39 divalproex sodium Allergy Hallucinati Verified 03/29/18 14:39 [From Depakote] ons Iodine and Iodide Containing Allergy Hives Verified 03/29/18 14:39 Produc lithium Allergy Hallucinati Verified 03/29/18 14:39 ons lurasidone Allergy Unknown Verified 03/29/18 14:39 Reaction Details Tricyclic Compounds Allergy Agitation Verified 03/29/18 14:39 oseltamivir [From Tamiflu] AdvReac Nausea And Verified 03/29/18 14:39 Vomiting contrast dye Allergy Hives Uncoded 03/29/18 14:39 Objective - Vital Signs Vital Signs: Vital Signs 03/29/18 03/29/18 03/29/18 14:39 14:55 14:57 Temperature 97.6 F Pulse Rate 81 81 Respiratory 14 20 Rate Blood Pressure 109/66 (mmHg) O2 Sat by Pulse 97 95 99 Oximetry 03/29/18 03/29/18 03/29/18 15:00 15:07 15:37 Temperature Pulse Rate 75 72 68 Respiratory 14 10 14 Rate Blood Pressure 105/62 100/65 (mmHg) O2 Sat by Pulse 99 95 95 Oximetry 03/29/18 03/29/18 03/29/18 16:05 16:07 16:37 Temperature Pulse Rate 66 71 69 Respiratory 15 24 21 Rate Blood Pressure 90/60 99/71 (mmHg) O2 Sat by Pulse 97 97 95 Oximetry 03/29/18 03/29/18 03/29/18 17:00 17:37 18:00 Temperature Pulse Rate 71 65 Respiratory 20 18 Rate Blood Pressure 121/78 (mmHg) O2 Sat by Pulse 95 99 Oximetry 03/29/18 03/29/18 03/29/18 18:07 18:48 21:01 Temperature 98.8 F Pulse Rate 82 Respiratory 20 19 16 Rate Blood Pressure 103/66 92/59 (mmHg) O2 Sat by Pulse 95 Oximetry 03/29/18 03/29/18 03/29/18 22:15 23:12 23:49 Temperature 98.3 F 98.1 F Pulse Rate 73 72 Respiratory 16 16 16 Rate Blood Pressure 103/64 102/59 (mmHg) O2 Sat by Pulse 97 98 Oximetry 03/30/18 03/30/18 03/30/18 03:07 03:15 05:10 Temperature 98.5 F Pulse Rate 83 81 69 Respiratory 16 16 Rate Blood Pressure 90/57 104/50 106/64 (mmHg) O2 Sat by Pulse 98 Oximetry 03/30/18 03/30/18 08:24 08:52 Temperature 98.9 F Pulse Rate 74 Respiratory 20 18 Rate Blood Pressure 94/61 (mmHg) O2 Sat by Pulse 97 Oximetry - Intake and Output Intake and Output: Intake & Output 03/27/18 03/28/18 03/29/18 03/30/18 11:59 11:59 11:59 11:59 Intake Total 700 Output Total 0 Balance 700 Weight 157 lb 8 oz Intake: Oral 700 Output: Urine 0 Other: # Bowel Movements 0 ADLs: Meal Record Start: 03/29/18 18: 42 Freq: DAILY@0900,1400,1800 Status: Active Protocol: Created 03/29/18 18:42 System (Rec: 03/29/18 18:42 System [id number]) Document 03/29/18 18:44 [id number] (Rec: 03/29/18 18:45 [id number]) Intake and Output Start: 03/29/18 14: 43 Freq: Status: Active Protocol: Created 03/29/18 14:43 System (Rec: 03/29/18 14:43 System [id number]) Intake and Output Start: 03/29/18 18: 42 Freq: DAILY@0600,1400,2200 Status: Active Protocol: Created 03/29/18 18:42 System (Rec: 03/29/18 18:42 System [email or web address]) Document 03/29/18 22:00 [id number] (Rec: 03/29/18 22:28 [id number]) Document 03/30/18 06:00 [id number] (Rec: 03/30/18 06:07 [id number]) - Physical Exam General Physical Exam Comment: Warm and well perfused - no acute distress. Hemodynamically stable. General: No Cyanosis, No Anemia, No Jaundice, No Clubbing Lungs and Chest: Yes: Chest Expansion Full, Chest Expansion Symetrica, Percussion Note Resonant, Vessicular Breath Sounds. No: Crackles, Wheezes, Respiratory Distress Heart Rate and Rhythm: Regular JVP: Not Elevated Additional Cardiovascular: Yes: Normal Heart Sounds. No: Heart Murmur, Pedal Edema Abdominal Exam: Yes: Soft, Abdominal Tenderness - epigastric - markedly tender, Bowel Sounds Present. No: Distention, Rigidity, Abdominal Mass, Hepatomegaly, Guarding Results - Results Lab Results: Laboratory Results - last 24 hr 03/29/18 03/29/18 03/29/18 14:52 14:52 14:52 WBC 9.6 RBC 4.33 Hgb 13.0 Hct 38 MCV 88 MCH 30 MCHC 34 RDW 14 Plt Count 418 MPV 6.9 L Neut % (Auto) 60.6 Lymph % (Auto) 27.5 Dorado % (Auto) 10.2 H Eos % (Auto) 1.0 Baso % (Auto) 0.7 Absolute Neuts (auto) 5.8 Absolute Lymphs (auto) 2.6 Absolute Monos (auto) 1.0 H Absolute Eos (auto) 0.1 Absolute Basos (auto) 0.1 Absolute Nucleated RBC 0 Nucleated RBC % 0.1 D-Dimer, Quantitative Sodium 135 Potassium 3.8 Chloride 105 Carbon Dioxide 20 L Anion Gap 10 BUN 11 Creatinine 0.92 Est GFR ( Amer) 75.9 Est GFR (Non-Af Amer) 62.7 BUN/Creatinine Ratio 12.0 Glucose 112 H Lactic Acid 1.6 Calcium 9.3 Magnesium 2.1 Total Bilirubin 1.00 AST 25 ALT 16 Alkaline Phosphatase 55 Total Creatine Kinase 76 CK-MB (CK-2) 1.9 Troponin I 0.03 B-Natriuretic Peptide Total Protein 7.7 Albumin 4.4 Globulin 3.3 Albumin/Globulin Ratio 1.3 TSH 3.33 Urine Color Urine Appearance Urine pH Ur Specific [place] Urine Protein Urine Ketones Urine Blood Urine Nitrate Urine Bilirubin Urine Urobilinogen Ur Leukocyte Esterase Urine WBC (Auto) Urine RBC (Auto) Ur Squamous Epith Cells Urine Bacteria Hyaline Casts Urine Glucose 03/29/18 03/29/18 03/29/18 14:52 14:52 17:20 WBC RBC Hgb Hct MCV MCH MCHC RDW Plt Count MPV Neut % (Auto) Lymph % (Auto) Dorado % (Auto) Eos % (Auto) Baso % (Auto) Absolute Neuts (auto) Absolute Lymphs (auto) Absolute Monos (auto) Absolute Eos (auto) Absolute Basos (auto) Absolute Nucleated RBC Nucleated RBC % D-Dimer, Quantitative 404 H Sodium Potassium Chloride Carbon Dioxide Anion Gap BUN Creatinine Est GFR ( Amer) Est GFR (Non-Af Amer) BUN/Creatinine Ratio Glucose Lactic Acid Calcium Magnesium Total Bilirubin AST ALT Alkaline Phosphatase Total Creatine Kinase CK-MB (CK-2) Troponin I B-Natriuretic Peptide 61 Total Protein Albumin Globulin Albumin/Globulin Ratio TSH Urine Color Dennise Urine Appearance Clear Urine pH 5.0 Ur Specific [place] 1.024 Urine Protein Negative Urine Ketones Negative Urine Blood 1+ A Urine Nitrate Negative Urine Bilirubin Negative Urine Urobilinogen Negative Ur Leukocyte Esterase Negative Urine WBC (Auto) Trace(0-5/hpf) Urine RBC (Auto) 1+(3-5/hpf) A Ur Squamous Epith Cells Present A Urine Bacteria Absent Hyaline Casts Present A Urine Glucose Negative 03/29/18 03/29/18 17:23 20:46 WBC RBC Hgb Hct MCV MCH MCHC RDW Plt Count MPV Neut % (Auto) Lymph % (Auto) Dor[place] % (Auto) Eos % (Auto) Baso % (Auto) Absolute Neuts (auto) Absolute Lymphs (auto) Absolute Monos (auto) Absolute Eos (auto) Absolute Basos (auto) Absolute Nucleated RBC Nucleated RBC % D-Dimer, Quantitative Sodium Potassium Chloride Carbon Dioxide Anion Gap BUN Creatinine Est GFR ( Amer) Est GFR (Non-Af Amer) BUN/Creatinine Ratio Glucose Lactic Acid Calcium Magnesium Total Bilirubin AST ALT Alkaline Phosphatase Total Creatine Kinase CK-MB (CK-2) Troponin I 0.03 0.02 B-Natriuretic Peptide Total Protein Albumin Globulin Albumin/Globulin Ratio TSH Urine Color Urine Appearance Urine pH Ur Specific [place] Urine Protein Urine Ketones Urine Blood Urine Nitrate Urine Bilirubin Urine Urobilinogen Ur Leukocyte Esterase Urine WBC (Auto) Urine RBC (Auto) Ur Squamous Epith Cells Urine Bacteria Hyaline Casts Urine Glucose Radiology Results: Patient Name: SYDNEY HAUSER Medical Record#: [id number] Ordering Physician: Sebastian Villegas MD Acct.#: [id number] : 1960 Age: 57 Sex: F Location: EMERGENCY DEPARTMENT Exam Date: 03/29/18 1540 ADM Status: REG ER Order Information: CT BRAIN WO Accession Number: [id number] CPT: 35181 HISTORY: Syncope COMPARISONS: June 16, 2014 TECHNIQUE: Multiple contiguous axial CT scans were obtained of the head without intravenous contrast. FINDINGS: HEMORRHAGE/INFARCT: There is no hemorrhage or acute infarct. MASSES/SHIFT: There is no mass or shift. EXTRA-AXIAL SPACES: There are no extra-axial fluid collections. SULCI AND VENTRICLES: The sulci and ventricles are normal in size and position for the patient's stated age. CEREBRUM: There are no focal parenchymal abnormalities. BRAINSTEM: There are no focal parenchymal abnormalities. CEREBELLUM: There are no focal parenchymal abnormalities. VESSELS: The vessels are grossly normal. PARANASAL SINUSES: The paranasal sinuses are clear. ORBITS: The orbits are unremarkable. BONES AND SOFT TISSUE: No bone or soft tissue abnormalities are noted. OTHER: None IMPRESSION: NO ACUTE INTRACRANIAL PATHOLOGY. <Electronically signed by Nick Varela MD in OV> 03/29/18 1604 Dictated By: Nick Varela MD Dictated Date/Time: 03/29/18 1604 Transcribed Date/Time: 03/29/18 1603 Copy to: CC:Sheila Liao BLUEPRINTING MACHINE OPERATOR; Sebastian Villegas MD [facility] Imaging [facility] Urgent [facility] Patient Name: SYDNEY HAUSER Medical Record#: [id number] Ordering Physician: Sebastian Villegas MD Acct.#: [id number] : 1960 Age: 57 Sex: F Location: EMERGENCY DEPARTMENT Exam Date: 03/29/18 1440 ADM Status: REG ER Order Information: CHEST AP PORTABLE Accession Number: [id number] CPT: 12219 HISTORY: CP COMPARISONS: October 06, 2016 VIEWS: 1: frontal AP view of the chest at 3:20 PM FINDINGS: LINES AND TUBES: None. CARDIOMEDIASTINAL SILHOUETTE: The cardiomediastinal silhouette is normal for portable technique. PLEURA: There is elevation of the right hemidiaphragm. LUNG PARENCHYMA: The lungs are clear. ABDOMEN: The upper abdomen is clear. There is no subphrenic gas. BONES AND SOFT TISSUES: No bone or soft tissue abnormalities are noted. IMPRESSION: ELEVATION OF THE RIGHT HEMIDIAPHRAGM WHICH CAN BE SEEN WITH DIAPHRAGMATIC PARALYSIS. <Electronically signed by Nick Varela MD in OV> 03/29/18 1525 Dictated By: Nick Varela MD Dictated Date/Time: 03/29/18 1525 Transcribed Date/Time: 03/29/18 1524 Copy to: CC:Sheila Liao BLUEPRINTING MACHINE OPERATOR; Sebastian Villegas MD [facility] [id number] [place] [id number] ph ([phone]) ph ([phone]) ph ([phone]) Patient Name: SYDNEY HAUSER Medical Record#: [id number] Ordering Physician: Sebastian Villegas MD Acct.#: [id number] : 1960 Age: 57 Sex: F Location: [address] [place] [address]/TELEMETRY Exam Date: 03/29/181556 ADM Status: ADM Calos Order Information: NM LUNG PERFUSION W/VENTILATIO Accession Number: [id number] CPT: 81296 EXAM: NM Lung Ventilation and Perfusion Imaging EXAM DATE/TIME: 03/29/2018 7:13 PM CLINICAL HISTORY: 57 years old, female; Signs and symptoms; Shortness of breath; Patient HX: Cp, SOB, syncope, . recent long car ride. No previous HX of similar incident TECHNIQUE: ventilation and perfusion images of the lungs were obtained in multiple projections following radiopharmaceutical inhalation and injection. COMPARISON: OT CXR PORTAP CHEST AP PORTABLE 03/29/2018 3:20 PM FINDINGS: Ventilation: Normal. No ventilation defects. Perfusion: Unremarkable. No perfusion defects. IMPRESSION: No evidence of pulmonary embolus. To contact [facility] with a general question: [facility] - [phone] For direct physician to physician contact: Physician Hotline - [phone] [facility] ([facility] Facility ID #[id number]) <Electronically signed by Elisha Yadva MD in OV> 03/29/181933 Dictated By: Elisha Yadav MD Dictated Date/Time: 03/29/181933 Transcribed Date/Time: Copy to: CC:Leno Szymanski MD; Sheila Liao BLUEPRINTING MACHINE OPERATOR; Sebastian Villegas MD Imaging - [facility] Imaging - [facility] Imaging - [facility] [address] Report: 03/29/18 14:54 SR rate 72 NV 158 QTc 450 QRS -29 Inferior Q waves Unchanged since 2015 Assessment - Problem List Assessment: Patient Problems Abdominal pain (Acute) Bereavement (Acute) ADHD (attention deficit hyperactivity disorder) (Chronic) Alcohol dependence (Chronic) Anxiety and depression (Chronic) Bipolar disorder, unspecified (Chronic) DVT prophylaxis (Chronic) Full code status (Chronic) History of depressive symptoms (Chronic) History of heartburn (Chronic) Hypercholesterolemia (Chronic) Primary hypothyroidism (Chronic) 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 There is no sign of acute cardiac ischemia. I do not think this is a cardiovascular pain. She has pain upon palpating her upper epigastric region and she also has pain in her back. She states it is different from the acute pancreatitis pain she had in the past. Differential diagnosis: - Acute cholecystitis/gallstone - Acute pancreatitis - Acute gastritis Bereavement (Acute) She lost a friend in her apartment complex - was returning from when this pain started ADHD (attention deficit hyperactivity disorder) (Chronic) secondary diagnosis Alcohol dependence (Chronic) She states she has not had any alcohol for over 2 weeks Anxiety and depression (Chronic) secondary diagnosis Bipolar disorder, unspecified (Chronic) secondary diagnosis DVT prophylaxis (Chronic) Full code status (Chronic) History of depressive symptoms (Chronic) secondary diagnosis History of heartburn (Chronic) This indicates she may have gastritis Hypercholesterolemia (Chronic) secondary diagnosis Primary hypothyroidism (Chronic) secondary diagnosis I discussed the above with the patient. I will evaluate GI problems today. If she is improved by tomorrow, I hope to discharge her.
[2018-03-30] MEDS: D5LR 1000 ML BAG* 1,000 ML IV SCH (13:22)
[2018-03-30] MEDS ORDERED: Enoxaparin(*) 80 MG/0.8 ML SYR SUBCUT SCH (17:00)
[2018-03-30] MEDS: clonazePAM TAB(*) 1 MG PO PRN (21:01)
[2018-03-31] MEDS: traMADol TAB* 50 MG PO PRN (00:35)
[2018-03-31] MEDS: Gabapentin CAP(*) 100 MG PO PRN ×2 (00:36→08:18)
[2018-03-31] MEDS: D5LR 1000 ML BAG* 1,000 ML IV SCH ×2 (03:11→17:59)
[2018-03-31 06:57] LABS: ABS Basophils 0.1 10^3/ul (0-0.2); ABS Eosinophils 0.2 10^3/ul (0-0.6); ABS Monocytes 0.8 10^3/ul (0-0.8); ABS Neutrophils 2.5 10^3/ul (1.5-7.7); ABS Nucleated RBC 0 10^3/ul; Eosinophil % 3.6 % (0-6); Hematocrit 31 % (35-47); Hemoglobin 10.5 g/dl (12.0-16.0); Lymphocyte % 45.4 % (25-47); Mean Corpuscular HGB Conc 35 g/dl (31-36); Mean Corpuscular Hemoglobin 30 pg (27-31); Mean Corpuscular Volume 88 fL (80-97); Mean Platelet Volume 6.8 fL (7.4-10.4); Nucleated Red Blood Cells % 0.2; Platelet Count 323 10^3/ul (150-450); Red Blood Count 3.48 10^6/ul (4.00-5.40); Red Cell Distribution Width 14 % (10.5-15); White Blood Count 6.6 10^3/ul (3.5-10.8)
[2018-03-31 07:17] LABS: EGFR Non-African American 78.2 (>60)
[2018-03-31] MEDS: lamoTRIgine TAB(*) 100 MG PO SCH ×2 (08:18→21:22)
--- NOTE | 2018-03-31 08:31 | PN ---
Subjective - Subjective Reason for Note: Progress Note History: She continues to have epigastric pain and tenderness. It is improving. She is adamant it is different from gastritis and pancareatis and wants to get to the bottom of it. She has no nausea/vomiting - she remains NPO. She has no chest pain, palpitations, dyspnea Active Problems: Active Problems Abdominal pain (Acute) R10.9 - Secondary to constipation - resolved. Bereavement (Acute) Z63.4 continue to provide psychoeducation and therapeutic presence ADHD (attention deficit hyperactivity disorder) (Chronic) - Continue Strattera. Alcohol dependence (Chronic) F10.20 Anxiety and depression (Chronic) F41.9, F32.9 --Pt is also bipolar and currently on Depakote --Continue Bupropion -- Consulted psych for F/U from initial ED encounter Bipolar disorder, unspecified (Chronic) F31.9 DVT prophylaxis (Chronic) [id number] - SQ heparin. Full code status (Chronic) Z78.9 History of depressive symptoms (Chronic) Z86.59 History of heartburn (Chronic) Z87.898 Hypercholesterolemia (Chronic) E78.00 Primary hypothyroidism (Chronic) E03.9 Current Medications: Current Medications Al Hydrox/Mg Hydrox/Simethicone (Maalox Plus*) 30 ml PO Q4H PRN PRN Reason: INDIGESTION Last Admin: 03/29/18 21:01 Dose: 30 ml Atomoxetine HCl (Strattera (Nf)) 40 mg PO DAILY HELEN; Protocol Clonazepam (Klonopin Tab(*)) 1 mg PO BEDTIME PRN PRN Reason: insomnia Last Admin: 03/30/18 21:01 Dose: 1 mg Gabapentin (Neurontin Cap(*)) 100 mg PO TID PRN PRN Reason: ANXIETY Last Admin: 03/31/18 08:18 Dose: 100 mg Dextrose/Lactated Ringer's (D5lr 1000 Ml Bag*) 1,000 mls @ 75 mls/hr IV PER RATE HELEN Last Admin: 03/31/18 03:11 Dose: 75 mls/hr Lamotrigine (Lamictal Tab(*)) 150 mg PO BID HELEN Last Admin: 03/31/18 08:18 Dose: 150 mg Tramadol HCl (Ultram*) 50 mg PO Q12H PRN PRN Reason: PAIN Last Admin: 03/31/18 00:35 Dose: 50 mg Home Medications: Home Medications Medication Instructions Recorded Confirmed Type Atomoxetine (NF) [Strattera (NF)] 40 mg PO DAILY #30 cap 03/27/18 03/29/18 Rx Gabapentin CAP(*) [Neurontin 100 100 mg PO TID PRN #21 cap 03/27/18 03/29/18 Rx mg CAP(*)] lamoTRIgine TAB(*) [Lamictal 150 mg PO BID #90 tab 03/27/18 03/29/18 Rx TAB(*)] Docusate Sodium [Dulcolax Stool 1 tab PO BID 03/29/18 03/29/18 History Softener] Prilosec CAP* 20 MG 40 mg PO DAILY 03/29/18 03/29/18 History Allergies: Allergies Allergy/AdvReac Type Severity Reaction Status Date / Time codeine Allergy Rash Verified 03/29/18 14:39 divalproex sodium Allergy Hallucinati Verified 03/29/18 14:39 [From Depakote] ons Iodine and Iodide Containing Allergy Hives Verified 03/29/18 14:39 Produc lithium Allergy Hallucinati Verified 03/29/18 14:39 ons lurasidone Allergy Unknown Verified 03/29/18 14:39 Reaction Details Tricyclic Compounds Allergy Agitation Verified 03/29/18 14:39 oseltamivir [From Tamiflu] AdvReac Nausea And Verified 03/29/18 14:39 Vomiting contrast dye Allergy Hives Uncoded 03/29/18 14:39 Objective - Vital Signs Vital Signs: Vital Signs 03/30/18 03/30/18 03/30/18 08:52 10:28 13:45 Temperature 98.9 F 98.8 F Pulse Rate 74 73 Respiratory 18 16 Rate Blood Pressure 94/61 151/69 (mmHg) O2 Sat by Pulse 97 97 Oximetry 03/30/18 03/30/18 03/30/18 13:52 15:18 15:20 Temperature 98.8 F 98.7 F 98.7 F Pulse Rate 73 76 73 Respiratory 20 14 14 Rate Blood Pressure 151/69 91/55 103/48 (mmHg) O2 Sat by Pulse 97 97 97 Oximetry 03/30/18 03/30/18 03/31/18 20:03 21:01 00:15 Temperature 98.2 F 98.5 F Pulse Rate 77 71 Respiratory 14 14 16 Rate Blood Pressure 94/50 100/44 (mmHg) O2 Sat by Pulse 99 100 Oximetry 03/31/18 03/31/18 03/31/18 00:30 00:35 00:36 Temperature Pulse Rate Respiratory 16 18 18 Rate Blood Pressure (mmHg) O2 Sat by Pulse Oximetry 03/31/18 03/31/18 03/31/18 02:59 03:00 04:19 Temperature 99.3 F Pulse Rate 73 Respiratory 17 17 16 Rate Blood Pressure 102/86 (mmHg) O2 Sat by Pulse 97 Oximetry 03/31/18 08:18 Temperature Pulse Rate Respiratory 16 Rate Blood Pressure (mmHg) O2 Sat by Pulse Oximetry - Intake and Output Intake and Output: Intake & Output 03/28/18 03/29/18 03/30/18 03/31/18 11:59 11:59 11:59 11:59 Intake Total 700 3090 Output Total 0 0 Balance 700 3090 Weight 157 lb 8 oz Intake: IV Fluids 1000 Oral 700 2090 Output: Urine 0 0 Other: # Bowel Movements 0 0 ADLs: Meal Record Start: 03/29/18 18: 42 Freq: DAILY@0900,1400,1800 Status: Active Protocol: Created 03/29/18 18:42 System (Rec: 03/29/18 18:42 System [id number]) Document 03/29/18 18:44 [id number] (Rec: 03/29/18 18:45 [id number] TELE-C08) Document 03/30/18 09:00 [id number] (Rec: 03/30/18 14:52 [id number] TELE-C07) Document 03/30/18 14:00 [id number] (Rec: 03/30/18 14:53 [id number] TELE-C07) Document 03/30/18 18:00 [id number] (Rec: 03/30/18 18:44 [id number] TELE-C09) Intake and Output Start: 03/29/18 14: 43 Freq: Status: Active Protocol: Created 03/29/18 14:43 System (Rec: 03/29/18 14:43 System [id number]) Intake and Output Start: 03/29/18 18: 42 Freq: DAILY@0600,1400,2200 Status: Active Protocol: Created 03/29/18 18:42 System (Rec: 03/29/18 18:42 System [email or web address]-C06) Document 03/29/18 22:00 [id number] (Rec: 03/29/18 22:28 [id number] TELE-C03) Document 03/30/18 06:00 [id number] (Rec: 03/30/18 06:07 [id number] TELE-C01) Document 03/30/18 13:29 [id number] (Rec: 03/30/18 13:30 [id number] TELE-M06) Document 03/30/18 22:00 [id number] (Rec: 03/30/18 22:02 [id number] TELE-C09) Document 03/31/18 05:51 [id number] (Rec: 03/31/18 05:51 [id number] TELE-C33) - Physical Exam General: No Cyanosis, No Anemia, No Jaundice, No Clubbing Lungs and Chest: Yes: Chest Expansion Full, Chest Expansion Symetrica, Percussion Note Resonant, Vessicular Breath Sounds. No: Crackles, Wheezes Heart Rate and Rhythm: Regular JVP: Not Elevated Additional Cardiovascular: Yes: Normal Heart Sounds. No: Heart Murmur, Pedal Edema Abdominal Exam: Yes: Soft, Abdominal Tenderness - epigastric - upper part of the area. Reproduces her pain, Bowel Sounds Present. No: Distention, Rigidity , Guarding, Rebound Tenderness, Kidneys Palpable Results - Results Lab Results: Laboratory Results - last 24 hr 03/31/18 03/31/18 06:41 06:41 WBC 6.6 RBC 3.48 L Hgb 10.5 L Hct 31 L MCV 88 MCH 30 MCHC 35 RDW 14 Plt Count 323 MPV 6.8 L Neut % (Auto) 38.6 Lymph % (Auto) 45.4 Grant % (Auto) 11.6 H Eos % (Auto) 3.6 Baso % (Auto) 0.8 Absolute Neuts (auto) 2.5 Absolute Lymphs (auto) 3.0 Absolute Monos (auto) 0.8 Absolute Eos (auto) 0.2 Absolute Basos (auto) 0.1 Absolute Nucleated RBC 0 Nucleated RBC % 0.2 Sodium 137 Potassium 3.8 Chloride 106 Carbon Dioxide 25 Anion Gap 6 BUN 11 Creatinine 0.76 Est GFR ( Amer) 94.6 Est GFR (Non-Af Amer) 78.2 BUN/Creatinine Ratio 14.5 Glucose 118 H Calcium 8.7 Total Bilirubin 0.40 Direct Bilirubin 0.00 L Indirect Bilirubin Cake Maker AST 17 ALT 11 Alkaline Phosphatase 47 C-Reactive Protein 15.46 H Total Protein 6.2 L Albumin 3.6 Globulin 2.6 Albumin/Globulin Ratio 1.4 Lipase 39 Radiology Results: Patient Name: PEGGY VIERA Medical Record#: [id number] Ordering Physician: Conchita Anaya MAORI LIAISON ADVISER Acct.#: [id number] : 1960 Age: 57 Sex: F Location: [address] [place] [address]/TELEMETRY Exam Date: 03/30/18835 ADM Status: ADM Calos Order Information: US GALL BLADDER Accession Number: [id number] CPT: 80330 HISTORY: epigastric pain COMPARISONS: CT dated October 19, 2016 TECHNIQUE: Multiple transverse and longitudinal ultrasound images were obtained of the right upper quadrant of the abdomen using grayscale and color Doppler imaging. FINDINGS: LIVER: The liver is normal in shape, size, contour, and echogenicity. There are no focal parenchymal masses. There is normal hepatopedal flow of the portal vein on Doppler imaging. BILIARY TREE: There is no intrahepatic or extrahepatic biliary dilatation. The common duct measures 0.3 cm. GALLBLADDER: The gallbladder is well-visualized. There is no cholelithiasis, gallbladder wall thickening, pericholecystic fluid, or sonographic Raymond sign. PANCREAS: The pancreas is obscured by overlying bowel gas. RIGHT KIDNEY: The right kidney is normal in shape, size, contour, and echogenicity. There is no hydronephrosis or nephrolithiasis. The right kidney measures 10.1 x 4.6 x 4.4 cm. AORTA AND IVC: The aorta and IVC are unremarkable. FLUID: There are no pleural effusions. There is no free fluid within the hepatorenal recess. OTHER FINDINGS: None. IMPRESSION: NO ACUTE SONOGRAPHIC PATHOLOGY OF THE VISUALIZED PORTION OF THE ABDOMEN <Electronically signed by Nick Varela MD in OV> 03/30/181117 Dictated By: Nick Varela MD Dictated Date/Time: 03/30/181117 Transcribed Date/Time: 03/30/181116 Copy to: CC:Leno Szymanski MD; Sheila Liao NP; Conchita Anaya NP This report is only to be considered final once signed by the Provider(s) as displayed in the "<Electronically Signed by >" field (s). Absence of a signature indicates the report is in a draft status and still needs to be finalized. In the event this document was created by someone other than the signing Provider, the individual initiating the document will be listed in the "Entered by:" or "Dictated by:" power. 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 She has no evidence on labs of acute pancreatitis. This pain improving with resting her GIT, but she wants a diagnosis. I told her that this may be heartburn - she is adamant it isn't. I have therefore requested an EGD and a GI consultation. 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
[2018-03-31] MEDS ORDERED: Omeprazole CAP* 20 MG PO PRN (09:51)
[2018-03-31] MEDS: CMC:Atomoxetine (NF) 40 MG CAP PO SCH (10:02)
[2018-03-31] MEDS ORDERED: fentaNYL* 50 MCG/ML 2 ML VIAL (100 MCG VIAL) ONE (14:37)
[2018-03-31] MEDS ORDERED: Midazolam* 1 MG/ML 10 ML VIAL (10 MG) ONE (14:37)
[2018-03-31] MEDS: clonazePAM TAB(*) 1 MG PO PRN (23:35)
[2018-04-01] MEDS ORDERED: Omeprazole CAP* 20 MG PO SCH (06:00)
[2018-04-01] MEDS: D5LR 1000 ML BAG* 1,000 ML IV SCH (06:15)
--- NOTE | 2018-04-01 07:33 | PRO ---
CC: Dr. Servin PROCEDURE REPORT: DATE OF PROCEDURE: 03/31/18 PROCEDURE: EGD. INDICATION: Epigastric pain, noncardiac chest pain. REFERRING PHYSICIAN: Dr. Servin. MEDICATIONS GIVEN: 1. 50 mcg IV fentanyl. 2. 5 mg IV Versed. DESCRIPTION OF PROCEDURE: After the EGD procedure including the risks, benefits, and alternatives, n ot limited to perforation, surgery, and/or were explained Ms. Hauser, written consent was then obtained, IV medication was given, and a bite- block was placed between the teeth. An Olympus gastro scope was then inserted into the patient's mouth, advanced down the esophagus, into the stomach, into the distal duodenum. In the esophagus, at the GE junction, there was a small hiatal hernia. No eros maninder esophagitis was noted. The scope was advanced through the GE junction through the small hiatal h ernia into the body of the stomach. Retroflex view confirmed the patulous GE junction. Forward view was unremarkable. Biopsy was obtained for H. pylori. The scope was advanced through a widely paten t pylorus into the duodenal bulb, into the distal duodenum, both of which were unremarkable. Biopsies were obtained for celiac disease. The scope was then withdrawn from the patient. She tolerated the procedure well and was returned to the recovery room in stable condition. IMPRESSION: 1. Complete upper endoscopy into the distal duodenum with biopsies. 2. Small hiatal hernia. 3. No other abnormalities. 4. Biopsies for celiac and Helicobacter pylori. 5. I will follow up on the biopsies. I would like the patient to increase her PPIs to twice a day. The only abnormality I could see today was a small hiatal hernia. This may be contributing to incre ased acid reflux symptoms. We will continue to follow with the patient. [id number]/[facility] #: [id number]
--- NOTE | 2018-04-01 07:47 | PN ---
Subjective - Subjective Reason for Note: Discharge Note History: DISCHARGE SUMMARY She has improving soreness in her upper epigastrium/lower chest. She tolerated the EGD yesterday. She has had no nausea, vomiting or change in bowel habit. She is ready to go home. Active Problems: Active Problems Abdominal pain (Acute) R10.9 - Secondary to constipation - resolved. Bereavement (Acute) Z63.4 continue to provide psychoeducation and therapeutic presence Hiatal hernia (Acute) K44.9 ADHD (attention deficit hyperactivity disorder) (Chronic) - Continue Strattera. Alcohol dependence (Chronic) F10.20 Anxiety and depression (Chronic) F41.9, F32.9 --Pt is also bipolar and currently on Depakote --Continue Bupropion -- Consulted psych for F/U from initial ED encounter Bipolar disorder, unspecified (Chronic) F31.9 DVT prophylaxis (Chronic) [id number] - SQ heparin. Full code status (Chronic) Z78.9 History of depressive symptoms (Chronic) Z86.59 History of heartburn (Chronic) Z87.898 Hypercholesterolemia (Chronic) E78.00 Primary hypothyroidism (Chronic) E03.9 Current Medications: Current Medications Al Hydrox/Mg Hydrox/Simethicone (Maalox Plus*) 30 ml PO Q4H PRN PRN Reason: INDIGESTION Last Admin: 03/29/18 21:01 Dose: 30 ml Atomoxetine HCl (Strattera (Nf)) 40 mg PO DAILY HELEN; Protocol Last Admin: 03/31/18 10:02 Dose: 40 mg Clonazepam (Klonopin Tab(*)) 1 mg PO BEDTIME PRN PRN Reason: insomnia Last Admin: 03/31/18 23:35 Dose: 1 mg Gabapentin (Neurontin Cap(*)) 100 mg PO TID PRN PRN Reason: ANXIETY Last Admin: 03/31/18 08:18 Dose: 100 mg Dextrose/Lactated Ringer's (D5lr 1000 Ml Bag*) 1,000 mls @ 75 mls/hr IV PER RATE HELEN Last Admin: 04/01/18 06:15 Dose: 75 mls/hr Lamotrigine (Lamictal Tab(*)) 150 mg PO BID HELEN Last Admin: 03/31/18 21:22 Dose: 150 mg Omeprazole (Prilosec Cap*) 40 mg PO 0900,2100 HELEN Last Admin: 04/01/18 06:10 Dose: 40 mg Tramadol HCl (Ultram*) 50 mg PO Q12H PRN PRN Reason: PAIN Last Admin: 03/31/18 00:35 Dose: 50 mg Home Medications: Home Medications Medication Instructions Recorded Confirmed Type Atomoxetine (NF) [Strattera (NF)] 40 mg PO DAILY #30 cap 03/27/18 03/29/18 Rx Gabapentin CAP(*) [Neurontin 100 100 mg PO TID PRN #21 cap 03/27/18 03/29/18 Rx mg CAP(*)] lamoTRIgine TAB(*) [Lamictal 150 mg PO BID #90 tab 03/27/18 03/29/18 Rx TAB(*)] Docusate Sodium [Dulcolax Stool 1 tab PO BID 03/29/18 03/29/18 History Softener] Prilosec CAP* 20 MG 40 mg PO DAILY 03/29/18 03/29/18 History Allergies: Allergies Allergy/AdvReac Type Severity Reaction Status Date / Time codeine Allergy Rash Verified 03/29/18 14:39 divalproex sodium Allergy Hallucinati Verified 03/29/18 14:39 [From Depakote] ons Iodine and Iodide Containing Allergy Hives Verified 03/29/18 14:39 Produc lithium Allergy Hallucinati Verified 03/29/18 14:39 ons lurasidone Allergy Unknown Verified 03/29/18 14:39 Reaction Details Tricyclic Compounds Allergy Agitation Verified 03/29/18 14:39 oseltamivir [From Tamiflu] AdvReac Nausea And Verified 03/29/18 14:39 Vomiting contrast dye Allergy Hives Uncoded 03/29/18 14:39 Objective - Vital Signs Vital Signs: Vital Signs 03/31/18 03/31/18 03/31/18 08:14 08:18 10:07 Temperature 98.3 F Pulse Rate 63 Respiratory 18 16 20 Rate Blood Pressure 94/50 (mmHg) O2 Sat by Pulse 99 Oximetry 03/31/18 03/31/18 03/31/18 11:19 16:02 16:35 Temperature 98.3 F 97.4 F 97.6 F Pulse Rate 64 71 65 Respiratory 19 16 16 Rate Blood Pressure 102/66 115/59 114/54 (mmHg) O2 Sat by Pulse 99 100 100 Oximetry 03/31/18 03/31/18 03/31/18 16:50 17:45 17:53 Temperature 97.6 F 97.5 F Pulse Rate 64 76 79 Respiratory 20 16 16 Rate Blood Pressure 114/54 94/55 94/49 (mmHg) O2 Sat by Pulse 100 98 99 Oximetry 03/31/18 03/31/18 03/31/18 19:51 19:53 21:06 Temperature 98.1 F 98.0 F 97.9 F Pulse Rate 69 76 71 Respiratory 16 16 16 Rate Blood Pressure 90/47 96/46 94/50 (mmHg) O2 Sat by Pulse 99 97 100 Oximetry 03/31/18 04/01/18 04/01/18 23:35 00:19 03:56 Temperature 98.0 F Pulse Rate 70 Respiratory 18 16 18 Rate Blood Pressure 115/62 (mmHg) O2 Sat by Pulse 99 Oximetry - Intake and Output Intake and Output: Intake & Output 03/29/18 03/30/18 03/31/18 04/01/18 11:59 11:59 11:59 11:59 Intake Total 700 3090 2685 Output Total 0 0 0 Balance 700 3090 2685 Weight 157 lb 8 oz Intake: IV Fluids 1000 2000 Oral 700 2090 685 Output: Urine 0 0 0 Other: Estimated Void Medium # Bowel Movements 0 0 0 # Voids 3 ADLs: Meal Record Start: 03/29/18 18: 42 Freq: DAILY@0900,1400,1800 Status: Active Protocol: Created 03/29/18 18:42 System (Rec: 03/29/18 18:42 System [email or web address]-C06) Document 03/29/18 18:44 [id number] (Rec: 03/29/18 18:45 [id number] TELE-C08) Document 03/30/18 09:00 [id number] (Rec: 03/30/18 14:52 [id number] TELE-C07) Document 03/30/18 14:00 [id number] (Rec: 03/30/18 14:53 [id number] TELE-C07) Document 03/30/18 18:00 [id number] (Rec: 03/30/18 18:44 [id number] TELE-C09) Document 03/31/18 09:00 [id number] (Rec: 03/31/18 15:29 [id number] TELE-C09) Document 03/31/18 14:00 [id number] (Rec: 03/31/18 15:30 [id number] TELE-C09) Document 03/31/18 18:00 [id number] (Rec: 03/31/18 18:38 [id number] TELE-C01) Intake and Output Start: 03/29/18 14: 43 Freq: Status: Active Protocol: Created 03/29/18 14:43 System (Rec: 03/29/18 14:43 System [id number]) Intake and Output Start: 03/29/18 18: 42 Freq: DAILY@0600,1400,2200 Status: Active Protocol: Created 03/29/18 18:42 System (Rec: 03/29/18 18:42 System TELE-C06) Document 03/29/18 22:00 [id number] (Rec: 03/29/18 22:28 [id number] TELE-C03) Document 03/30/18 06:00 [id number] (Rec: 03/30/18 06:07 [id number] TELE-C01) Document 03/30/18 13:29 [id number] (Rec: 03/30/18 13:30 [id number] TELE-M06) Document 03/30/18 22:00 [id number] (Rec: 03/30/18 22:02 [id number] TELE-C09) Document 03/31/18 05:51 [id number] (Rec: 03/31/18 05:51 [id number] TELE-C33) Document 03/31/18 14:00 [id number] (Rec: 03/31/18 15:30 [id number] TELE-C09) Document 03/31/18 22:00 [id number] (Rec: 03/31/18 23:12 [id number] TELE-C07) Document 04/01/18 06:00 [id number] (Rec: 04/01/18 06:37 [id number] TELE-C33) - Physical Exam General: No Cyanosis, No Anemia, No Jaundice, No Clubbing Lungs and Chest: Yes: Chest Expansion Full, Chest Expansion Symetrica, Percussion Note Resonant, Vessicular Breath Sounds. No: Crackles, Wheezes Heart Rate and Rhythm: Regular Additional Cardiovascular: Yes: Normal Heart Sounds. No: Heart Murmur, Pedal Edema Abdominal Exam: Yes: Soft, Abdominal Tenderness - mild tenderness upper epigastrium, Bowel Sounds Present. 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 Mike's EGD report. His opinion is that this is most likely the hiatal hernia. Most likely her acute pain was due to esophageal spasm. I will follow his advice and double her omeprazole Bereavement (Acute) Anxiety and depression (Chronic) Her father 1 month ago , she had the bereavement of a person she new in her apartment block. In addition, she had the recent admission for alcohol withdrawal - these are all major stressors ADHD (attention deficit hyperactivity disorder) (Chronic) secondary diagnosis Alcohol dependence (Chronic) discussed cessation Bipolar disorder, unspecified (Chronic) secondary diagnosis DVT prophylaxis (Chronic) secondary diagnosis Full code status (Chronic) History of depressive symptoms (Chronic) secondary diagnosis Hypercholesterolemia (Chronic) secondary diagnosis Primary hypothyroidism (Chronic) secondary diagnosis I have discussed the above with Sydney Jassodo, she remains concerned about the severe pain she developed. I will follow up with this as an outpatient.
[2018-04-01 08:16] VITALS: BP 103/46
[2018-04-01] MEDS: CMC:Atomoxetine (NF) 40 MG CAP PO SCH (09:27)
[2018-04-01] MEDS: lamoTRIgine TAB(*) 100 MG PO SCH (09:29)
== END 2018-04-01 10:40 | disposition home or self-care (01) ==
LOC: ED 14:22 → MEDTELE 17:49
PROVIDERS: ADMIT Internal Medicine; ATTEND Internal Medicine
DX: K44.9 Diaphragmatic hernia without obstruction or gangrene (principal); R10.9 Unspecified abdominal pain; Z63.9 Problem related to primary support group, unspecified; F10.20 Alcohol dependence, uncomplicated; F41.9 Anxiety disorder, unspecified; F31.9 Bipolar disorder, unspecified; Z86.59 Personal history of other mental and behavioral disorders; E78.00 Pure hypercholesterolemia, unspecified; E03.9 Hypothyroidism, unspecified; F90.9 Attention-deficit hyperactivity disorder, unspecified type; Z72.0 Tobacco use; R53.83 Other fatigue
CPT/HCPCS: 36415; 70450; 71045; 76705; 78582; 80048; 80053; 80076; 81003; 81015; 82550; 82553; 83605; 83690; 83735; 83880; 84443; 84484; 85025; 85379; 86140; 87077; 87086; 88305; 93005; 93970; 96372; 96374; 99156; 99157; 99284; A9270-GY; A9540; A9558; G0378; J1650; J2250; J3010

== ENCOUNTER 2018-06-12 07:30 | Inpatient (IN) | payer OTHER ==
--- NOTE | 2018-06-03 13:16 | HP ---
HISTORY AND PHYSICAL: DATE OF ADMISSION/SURGERY: 06/12/18 DATE OF OFFICE VISIT: 05/30/18 SURGEON: Leatha Rob MD.* (DICTATED BY CRISTINA PAYNE) PROCEDURE: Right total knee arthroplasty. CHIEF COMPLAINT: Right knee pain. HISTORY OF PRESENT ILLNESS: Ms. Hauser is a 57-year-old female with continued complaints of right knee pain. She has failed conservative treatment and elected to proceed with a right total knee arthroplasty. PAST MEDICAL HISTORY: Depression, anxiety, bipolar disorder, GERD, ADHD, history of alcoholism, hiatal hernia, and Raynaud's. PAST SURGICAL HISTORY: Tonsillectomy, laparoscopy x4, hysterectomy, and ORIF of the right wrist. CURRENT MEDICATIONS: 1. Lamotrigine 150 mg twice a day. 2. Esomeprazole 40 mg daily. 3. Progesterone 200 mg daily. 4. Seroquel 300 mg q.h.s. 5. Strattera daily. ALLERGIES: TRICYCLIC ANTIDEPRESSANTS, CONTRAST DYE, CODEINE causing a rash, LITHIUM, and DEPAKOTE. FAMILY HISTORY: Diabetes, coronary artery disease, cancer, rheumatoid arthritis and DVT. SOCIAL HISTORY: She is a 57-year-old female, she lives alone. She vapes but denies use of cigarettes or illicit drugs. She uses occasional alcohol. REVIEW OF SYSTEMS: A complete 14-point review of systems is reviewed with the patient. It was positive for GERD. She denies history of DVT, PE, hepatitis, HIV or anesthesia problems. PHYSICAL EXAMINATION GENERAL: She is a well developed, well nourished, in no acute distress. VITAL SIGNS: She stands 63 inches tall, weighs 162 pounds. Her blood pressure is 110/64 and her heart rate is 76. HEENT: Normocephalic, atraumatic. NECK: Supple. No palpable lymph nodes. PULMONARY: The lungs are clear to auscultation bilaterally. CARDIO: Regular rate and rhythm. Strong S1 and S2. ABDOMEN: Soft, nontender, nondistended. NEUROLOGICAL: She is alert and oriented x3. MUSCULOSKELETAL: Right lower extremity, the skin is intact. There are no open wounds or abrasions. She has some tenderness over the medial and lateral joint line. There is a moderate joint effusion. There is a 15-degree valgus deformity of the right knee and her range of motion is 10 to 120 degrees of flexion with patellofemoral crepitus. She has a 2+ dorsalis pedis pulse, intact sensation and her lower extremity muscle group strengths are intact at 5/ 5. ASSESSMENT AND PLAN: Ms. Hauser is a 57-year-old female with continued complaints of right knee pain secondary to end-stage osteoarthritis. She has failed conservative treatment and elected to proceed with a right total knee arthroplasty. This surgery is scheduled for 06/12/[address] Rob discussed the risks and benefits of the surgery at today's visit and all of her questions were answered. She will follow up with Dr. Rob 2 weeks after the surgery. CRISTINA PAYNE [id number]/[facility] #: [id number] MTDD
[~2018-06-12 07:30] MED LIST: Buffered Lidocaine 1% SYRIN* 1 ML/SYRINGE INTRADERM ONE; Lactated Ringers 1000 ML Bag* 1,000 ML IV SCH; Tranexamic Acid 1,000 MG in NS 0.9% 50 ML* (outpatient use) IV SCH
[2018-06-12] MEDS ORDERED: ceFAZolin 2 GM PREMIX in ORs 2 GM/50 ML BAG IVPB ONE (12:19)
[2018-06-12] MEDS ORDERED: Buffered Lidocaine 1% SYRIN* 1 ML/SYRINGE INTRADERM ONE (12:20)
[2018-06-12] MEDS ORDERED: Midazolam* 1 MG/ML 5 ML VIAL (5 MG) ONE (13:46)
[2018-06-12] MEDS ORDERED: Bupivacaine 0.25% SDV PF* 10 ML VIAL INJ ONE (13:49)
[2018-06-12] MEDS ORDERED: Bupivacaine 0.5%* 50 ML VIAL ONE (14:01)
[2018-06-12] MEDS ORDERED: Rocuronium* 10 MG/ML VIAL ONE (14:25)
[2018-06-12] MEDS ORDERED: fentaNYL* 50 MCG/ML 2 ML VIAL (100 MCG VIAL) ONE ×3 (14:25→17:30)
[2018-06-12] MEDS ORDERED: Ondansetron INJ* 2 MG/ML VIAL ONE (15:33)
[2018-06-12] MEDS ORDERED: Ketorolac INJ* 30 MG/ML 1 ML VIAL ONE (15:33)
[2018-06-12] MEDS ORDERED: Dexamethasone IV* 4 MG/ML 1 ML (4 MG) ONE (15:34)
[2018-06-12] MEDS ORDERED: Magnesium Hydroxide LIQ* 30 ML UDC PO PRN (16:16)
[2018-06-12] MEDS ORDERED: diPHENhydraMINE IV* 50 MG/ML 1 ml VIAL (BENADRYL) IV PRN (16:16)
[2018-06-12] MEDS ORDERED: Morphine VIAL* 4 MG/ML VIAL (1 ml vial) IV PRN (16:16)
[2018-06-12] MEDS ORDERED: Polyethylene Glycol 3350* 17 GM PACKET PO PRN (16:16)
[2018-06-12] MEDS ORDERED: Bisacodyl SUPP* 10 MG SUPP PR PRN (16:16)
[2018-06-12] MEDS ORDERED: diPHENhydraMINE PO* 25 MG PO PRN (16:16)
[2018-06-12] MEDS ORDERED: traMADol TAB* 50 MG PO PRN (16:16)
[2018-06-12] MEDS ORDERED: oxyCODONE/Acetamin 5/325 MG* TAB PO PRN (16:24)
[2018-06-12] MEDS ORDERED: Glycopyrrolate IV* 0.2 MG/ML 1 ML VIAL ONE (16:26)
[2018-06-12] MEDS ORDERED: Neostigmine Methylsulfate* 1 MG/ML 10 ML VIAL (1 mg/ml) ONE (16:26)
[2018-06-12] MEDS ORDERED: Ondansetron INJ* 2 MG/ML VIAL IV PRN (16:43)
[2018-06-12] MEDS ORDERED: DiMENhydriNATE IV* 50 MG/ML VIAL IV PUSH PRN (16:43)
[2018-06-12] MEDS ORDERED: Naloxone* 0.4 MG/ML 1 ML VIAL IV PRN (16:43)
[2018-06-12] MEDS ORDERED: Acetaminophen IV 1GM/100ML * 1,000 MG/100 ML VIAL IVPB ONE (16:43)
[2018-06-12] MEDS ORDERED: Scopolamine 1.5 mg* PATCH TRANSDERM PRN (16:43)
[2018-06-12] MEDS ORDERED: Acetaminophen IV 1GM/100ML * 100 ML ONE (16:44)
[2018-06-12] MEDS ORDERED: Acetaminophen TAB* 325 MG PO SCH (17:00)
[2018-06-12] MEDS ORDERED: oxyCODONE TAB* 5 MG TAB ONE (17:08)
[2018-06-12] MEDS: oxyCODONE TAB* 5 MG TAB PO PRN ×2 (17:09→23:41)
[2018-06-12] MEDS: fentaNYL* 50 MCG/ML 2 ML VIAL (100 MCG VIAL) IV PRN ×4 (17:31→17:39)
[2018-06-12] MEDS ORDERED: HYDROmorphone INJ1* 1 MG/ML SYRINGE ONE (17:46)
[2018-06-12] MEDS: HYDROmorphone INJ1* 1 MG/ML SYRINGE IV PRN ×5 (17:47→18:11)
[2018-06-12] MEDS: Lactated Ringers 1000 ML Bag* 1,000 ML IV SCH (18:32)
[2018-06-12] MEDS ORDERED: Cyclobenzaprine TAB* 10 MG ONE (18:38)
[2018-06-12] MEDS: Cyclobenzaprine TAB* 10 MG PO PRN (18:39)
[2018-06-12] MEDS: oxyCODONE/Acetamin 5/325 MG* TAB PO PRN (19:34)
[2018-06-12] MEDS: Magnesium Hydroxide LIQ* 30 ML UDC PO SCH (21:38)
[2018-06-12] MEDS: Docusate CAP* 100 MG PO SCH (21:38)
[2018-06-12] MEDS: lamoTRIgine TAB(*) 100 MG PO SCH (21:38)
[2018-06-12] MEDS: PROGESTERONE MICRONIZED 200 MG PO SCH (21:39)
[2018-06-12] MEDS: Acetaminophen TAB* 325 MG PO SCH (21:42)
[2018-06-12] MEDS: ceFAZolin 1 GM ADVAN(*) 1 GM in NS 0.9% 50 ML* 50 ML IVPB SCH (22:22)
[2018-06-13] MEDS: oxyCODONE/Acetamin 5/325 MG* TAB PO PRN (01:37)
[2018-06-13] MEDS: Morphine INJ* 2 MG/ML 1 ML SYRINGE (TWO MG - NEW SYRINGE VERSION) IV PRN ×7 (02:35→23:26)
[2018-06-13] MEDS: oxyCODONE TAB* 5 MG TAB PO PRN ×2 (04:50→23:57)
[2018-06-13] MEDS: Ondansetron INJ* 2 MG/ML VIAL IV PRN ×3 (05:41→21:27)
[2018-06-13] MEDS: Acetaminophen TAB* 325 MG PO SCH ×3 (05:45→21:45)
[2018-06-13] MEDS: Lactated Ringers 1000 ML Bag* 1,000 ML IV SCH ×2 (06:01→23:54)
[2018-06-13] MEDS: ceFAZolin 1 GM ADVAN(*) 1 GM in NS 0.9% 50 ML* 50 ML IVPB SCH ×2 (06:08→15:21)
--- NOTE | 2018-06-13 07:25 | PN ---
Progress Note - Progress Note Date of Service: 06/13/18 SOAP: Subjective: Pt. reports severe pain, R great toe "tingling" this am. Objective: Vital Signs: Temp Pulse Resp BP Pulse Ox 98.1 F 70 18 112/66 99 06/13/18 03:44 06/13/18 03:44 06/13/18 06:45 06/13/18 03:44 06/13/18 03:44 RLE - dressing c/d/i. distally +df/pf/ehl, full sens lt, some paresthesia and decrease along dorsal great toe, 2+dp pulse. Assessment: 57 yo F pod 1 s/p RTKA Plan: wbat will follow great toe paresthesias pt/ot eliquis bid restart seroquel start scopolamine patch start morphine 15 bid
[2018-06-13] MEDS ORDERED: Scopolamine 1.5 mg* PATCH TRANSDERM SCH (08:00)
[2018-06-13 08:02] LABS: Hematocrit 34 % (35-47); Hemoglobin 11.6 g/dl (12.0-16.0); Mean Platelet Volume 6.7 fL (7.4-10.4); Platelet Count 411 10^3/ul (150-450)
[2018-06-13] MEDS: Morphine TAB Extended Release (*) 30 MG TAB.ER PO SCH ×2 (08:09→21:10)
[2018-06-13 08:18] LABS: BUN/Creatinine Ratio 10.4 (8-20); Calcium 8.9 mg/dL (8.6-10.3); EGFR African American 93.2 (>60); Potassium 4.1 mmol/L (3.5-5.0)
[2018-06-13] MEDS ORDERED: Al Hydrox/Mg Hydrox/Simet LIQ* 30 ML UDC ONE (09:04)
--- NOTE | 2018-06-13 09:19 | OP ---
DATE OF OPERATION: 06/12/18 - ROOM #339 DATE OF : 58 ATTENDING SURGEON: Leatha Rob MD. WEDDING DAY COORDINATOR: CRISTINA Andino. Ms. Liu did help throughout the procedure with preparation of the leg, wound retraction, manipulation of the knee, and wound closure. ANESTHESIOLOGIST: Dr. Szymanski. ANESTHESIA: Spinal. PRE-OP DIAGNOSIS: Severe end-stage degenerative osteoarthritis of the right knee joint with valgus deformity. POST-OP DIAGNOSIS: Severe end-stage degenerative osteoarthritis of the right knee joint with valgus deformity. OPERATIVE PROCEDURE: Right total knee arthroplasty. TOURNIQUET TIME: 42 minutes. COMPLICATIONS: None. ESTIMATED BLOOD LOSS: 150 cc. SPECIMEN: Bone and cartilage from the right knee joint sent to Pathology. HARDWARE USED: This is cemented [employer] total knee arthroplasty hardware. Two packages of Simplex bone cement. For the femur, a size 5 narrow right Legion Oxinium posterior stabilized femoral component. For the tibia, a size 3 right Olga II tibial base plate. For the insert, a 9 mm posterior stabilized articular insert size 3-4, and for the patella, a 26 mm 7.5 thickness 3-peg all- poly patella. BRIEF HISTORY/INDICATION: Ms. Hauser is a 57-year-old female with years of increasingly severe right knee pain and valgus deformity. Radiographs showed significant degenerative osteoarthritis in the lateral patellofemoral compartment. She developed 20-degree valgus deformity with instability in the knee. She failed conservative treatment with antiinflammatories, pain medication, intraarticular injections, and physical therapy. Due to continued pain and decreased quality of life, she elected to undergo a right total knee arthroplasty. Informed consent was obtained from the patient. She understood the risks of surgery included, but were not limited to bleeding, infection, damage to nearby structures, continued pain, need for further surgery, intraoperative fracture, nerve palsy, hardware failure or loosening, knee stiffness, loss of motion, stroke, heart attack, blood clot, and . She wished to proceed. INTRAOPERATIVE FINDINGS: Intraoperatively, the patient was noted to have 20- degree valgus deformity at the start of the case. This was corrected to 5- degree anatomic valgus. She was noted to have severe end-stage loss of cartilage and chondromalacia of the lateral compartment and patellofemoral compartment. DESCRIPTION OF PROCEDURE: Ms. Hauser was identified in the preanesthesia unit. Her right lower extremity was marked as the correct operative side. Informed consent was signed and placed in the chart. The patient was taken to the operating room and placed under spinal anesthesia. A Irvin catheter was placed. Tourniquet was placed on the right thigh. Right lower extremity was prepped and draped in the usual sterile fashion. Preop time-out was made to correctly identify the patient, side, and site. Appropriate perioperative antibiotics were given within 1 hour of incision. Tourniquet was inflated and total tourniquet time for this procedure was 42 minutes. A midline incision was made with the 10 blade. A new 10 blade was used to make a standard medial parapatellar arthrotomy. Patella was subluxed laterally. Electrocautery was used to subperiosteally elevate the soft tissue off the superomedial tibia to the midsagittal plane. The knee was flexed up. The anterior horn of the lateral meniscus and ACL were sharply released. A drill was used to enter the distal femur. Intramedullary distal femoral cutting guide was pinned on the distal femur. Distal femoral cut was made with an oscillating saw. Next, the external rotation guide was pinned on the distal femur. Distal femur was sized to a size 5. Size 5 multi-cutting jig was pinned on the distal femur. Oscillating saw was used to make the appropriate 4 chamfer cuts. The PCL was completely released. The extramedullary tibial cutting guide was pinned on the proximal tibia. Oscillating saw was used to make the proximal tibial cut perpendicular to the mechanical axis of the tibia. The bone was carefully removed. The knee was brought out to full extension. Spacer block had excellent fit with the knee in full extension. Medial and lateral ligaments were well balanced. Flexion and extension gaps were well balanced. The knee was flexed up. Lamina ammunition storekeeper was placed both medially and laterally. Any remaining meniscus was carefully removed using electrocautery. Curved osteotome was used to remove any posterior osteophytes. Tibial tray and drop dandy were placed and once again confirmed a satisfactory tibial cut. A size 5 right narrow femoral implant trial was impacted on to the distal femur and had excellent fit and stability. The box for the posterior stabilized implant was prepared using a reamer and box cut osteotome. Size 3 tibial tray trial with a 9 mm insert trial was placed and the knee was taken through range of motion. The knee had full extension to 130 degrees of flexion. There was satisfactory patellofemoral traction. The patella was everted; 7 mm of patellar bone and cartilage was carefully removed using an oscillating saw. Patella was sized to a size 26. Three peg holes were drilled through the size 26 guide. The 26 trial patella with 7.5 thickness was placed and the knee was taken through a range of motion. There was satisfactory patellofemoral tracking. All trials were carefully removed. The tibia was subluxed anteriorly and sized to a size 3. Proximal tibia was prepared using a size 3 keel punch. All bony cut surfaces were copiously irrigated with sterile saline. Final implants were cemented into place starting with the tibia, followed by the femur and last the patella. A 9 mm insert trial was placed and the knee was brought out to full extension. The knee was copiously irrigated with sterile saline. Electrocautery was used to obtain meticulous hemostasis. Once the cement had fully cured, the insert trial was removed. Any excess cement was removed from around the capsule and hardware. Final insert chosen was a 9 mm posterior stabilized articular insert, size 3-4. This was locked into position on the tibial tray. Stability of the insert was checked and rechecked and noted to be stable. The extensor mechanism was closed using interrupted #1 Vicryl. The rest of the incision was closed in a layered fashion using 0 and 2-0 Vicryl. Skin was closed using running 3-0 nylon suture. Sterile Xeroform, 4x4s, and Webril were used to cover the incision. Anibal wrap and cold pack were placed over this. The patient's anesthesia was reversed without difficulty. She was taken to the PACU in stable condition. Intended weightbearing will weight- bearing as tolerated. Intended DVT prophylaxis will be Eliquis. [id number]/[facility] #: [id number] [facility]OSPITALMalou
[2018-06-13] MEDS: PROCHLORPERAZINE INJ 5 MG/ML 2 ML VIAL IV PRN ×2 (09:51→17:25)
[2018-06-13] MEDS: Magnesium Hydroxide LIQ* 30 ML UDC PO SCH ×2 (09:54→21:08)
[2018-06-13] MEDS: Docusate CAP* 100 MG PO SCH ×2 (09:54→21:09)
[2018-06-13] MEDS: CMCS:Atomoxetine (NF) 40 MG CAP PO SCH (11:11)
[2018-06-13] MEDS: lamoTRIgine TAB(*) 100 MG PO SCH ×2 (11:11→21:09)
[2018-06-13] MEDS: Pantoprazole TAB * 40 MG TAB PO SCH (11:11)
[2018-06-13] MEDS: Apixaban* 2.5 MG TAB PO SCH ×2 (11:11→21:09)
[2018-06-13] MEDS ORDERED: Al Hydrox/Mg Hydrox/Simet LIQ* 30 ML UDC PO PRN (15:07)
[2018-06-13] MEDS ORDERED: LORazepam TAB(*) 0.5 MG PO ONE (15:36)
[2018-06-13] MEDS ORDERED: LORazepam INJ* 2 MG/ML 1 ML VIAL IV PUSH PRN (16:45)
[2018-06-13 17:29] LABS: ABS Basophils 0 10^3/ul (0-0.2); ABS Eosinophils 0.2 10^3/ul (0-0.6); ABS Lymphocytes 2.5 10^3/ul (1.0-4.8); ABS Monocytes 0.7 10^3/ul (0-0.8); ABS Neutrophils 5.9 10^3/ul (1.5-7.7); ABS Nucleated RBC 0 10^3/ul; Hematocrit 39 % (35-47); Hemoglobin 12.4 g/dl (12.0-16.0); Lymphocyte % 26.8 %; Mean Corpuscular HGB Conc 32 g/dl (31-36); Mean Corpuscular Hemoglobin 28 pg (27-31); Mean Corpuscular Volume 88 fL (80-97); Nucleated Red Blood Cells % 0.2; Platelet Count 357 10^3/ul (150-450); Red Blood Count 4.38 10^6/ul (4.00-5.40); Red Cell Distribution Width 14 % (10.5-15); White Blood Count 9.3 10^3/ul (3.5-10.8)
[2018-06-13 17:32] LABS: Calcium 8.6 mg/dL (8.6-10.3); Potassium 3.4 mmol/L (3.5-5.0)
[2018-06-13 17:38] LABS: BUN/Creatinine Ratio 9.2 (8-20); EGFR African American 80.9 (>60); EGFR Non-African American 66.9 (>60)
[2018-06-13] MEDS: QUEtiapine XR TAB* 300 MG PO SCH (21:08)
[2018-06-13] MEDS: PROGESTERONE MICRONIZED 200 MG PO SCH (21:08)
--- NOTE | 2018-06-13 21:27 | CONS ---
CONSULTATION REPORT: DATE OF CONSULT: 06/13/18 SERVICE REQUESTING CONSULTATION: Orthopedics. PHYSICIAN REQUESTING CONSULTATION: CRISTINA Andino REASON FOR CONSULTATION: Nausea and vomiting. HISTORY OF PRESENT ILLNESS: Ms. Hauser is a 57-year-old female status post right total knee arthroplasty on 06/12/18, developed nausea with vomiting the night prior to my consultation, continued through today with only intermittent relief with medications. The patient was given Compazine which she thought worked very well; however, effect only lasted 2 hours. There was some concern that her emesis had become brown. Prior to my presentation, urinary retention was identified and Irvin catheter was placed just prior to my entry with 1300 cc of urine produced. When seen, I saw that the patient felt much improved. She no longer felt nauseous. She had no pain. She believes that she had not had any flatus today and her last bowel movement was yesterday prior to surgery. PAST MEDICAL HISTORY: Includes depression, anxiety, bipolar I, GERD, ADHD, history of alcoholism, history of hiatal hernia, and history of Raynaud's disease. PAST SURGICAL HISTORY: Includes right total knee arthroplasty yesterday, tonsillectomy, 4 laparoscopies prior to her hysterectomy and an ORIF of her right wrist. CURRENT MEDICATIONS: Include: 1. Acetaminophen. 2. Maalox. 3. Eliquis. 4. Strattera. 5. Bisacodyl. 6. Cyclobenzaprine. 7. Benadryl. 8. Docusate. 9. Lactated Ringer's. 10. Lactulose. 11. Lamictal. 12. Milk of magnesia. 13. Morphine injection. 14. MS Contin. 15. Zofran. 16. Oxycodone. 17. Percocet. 18. Pantoprazole. 19. Scopolamine patch. 20. MiraLAX. 21. Compazine. 22. Progesterone. 23. Seroquel. 24. Tramadol. ALLERGIES: To TRICYCLIC ANTIDEPRESSANTS, CONTRAST DYE, CODEINE, LITHIUM and DEPAKOTE. FAMILY HISTORY: Family history of diabetes, CAD, cancer, rheumatoid arthritis and DVTs. SOCIAL HISTORY: She vapes but does not use tobacco, occasional alcohol, but history of heavy alcohol use. REVIEW OF SYSTEMS: As per HPI. Denies abdominal pain, nausea or vomiting at this time. Does have epigastric pain when vomiting in the subxiphoid region. PHYSICAL EXAM: Vitals: 106/43, heart rate 81, respiratory rate of 16, T-max 99.1 since admission, she is 98% on room air. Sitting up in bed, interactive, pleasant, in no apparent distress. Oropharynx is clear. She has moist mucous membranes. She has regular rate and rhythm. No murmurs, rubs, or gallops. Her lungs are clear. Abdomen is soft, nontender, and nondistended. She has hypoactive bowel sounds. Her extremities are warm. Her right knee is wrapped. She is alert and oriented x3. She has no apparent anxiety, agitation, or depression. DIAGNOSTIC STUDIES/LAB DATA: Labs are reviewed. Hemoglobin 11.6 today, last known 14.8 at the beginning of this month. ASSESSMENT AND PLAN: This is a 57-year-old female, postop day 1 right total knee arthroplasty with intractable nausea and vomiting for the last 12 to 18 hours, also found with urinary retention. 1. Intractable nausea and vomiting, improved with placement of Irvin as well as 1 dose of Ativan. Ativan has anxiolytic as well as antiemetic. I have written for 0.5 mg IV q.8 as needed for nausea. Can continue Zofran as well as Compazine. Certainly, her urinary retention may have been contributing with 1300 cc of urine output. Additionally, I have ordered CBC as well as BMP. Electrolytes should be replaced if depleted as well to monitor for any blood loss with a history of darker-colored emesis. Additionally, no flatus today. Last bowel movement prior to surgery. I have ordered a flat plate of her abdomen to evaluate for any new bowel obstructions. 2. Urinary retention. Irvin placed, relieved. Monitor for any postobstructive diuresis. We will not attempt trial of void for at least 24 hours. Continue all other medications. We will continue to follow. TIME SPENT: Greater than 45 minutes was spent in this consultation with this patient. [id number]/[facility] #: [id number] [facility]
[2018-06-14 05:44] LABS: Hematocrit 32 % (35-47); Hemoglobin 10.8 g/dl (12.0-16.0); Mean Platelet Volume 6.8 fL (7.4-10.4); Platelet Count 366 10^3/ul (150-450)
[2018-06-14] MEDS: Acetaminophen TAB* 325 MG PO SCH ×3 (06:02→22:17)
[2018-06-14 06:06] LABS: BUN/Creatinine Ratio 9.6 (8-20); Calcium 8.5 mg/dL (8.6-10.3); EGFR African American 99.1 (>60); EGFR Non-African American 81.9 (>60); Potassium 3.6 mmol/L (3.5-5.0)
[2018-06-14] MEDS: oxyCODONE/Acetamin 5/325 MG* TAB PO PRN ×2 (07:01→10:24)
[2018-06-14] MEDS: Morphine TAB Extended Release (*) 30 MG TAB.ER PO SCH (09:45)
--- NOTE | 2018-06-14 10:02 | PN ---
Progress Note - Progress Note Date of Service: 06/14/18 SOAP: Subjective: Pt. is sedated and confused. She reports she is nauseous, has not vomited recently, has not passed gas. Nursing reports she has urinary retention. Objective: Vital Signs: Temp Pulse Resp BP Pulse Ox 99.3 F 117 16 105/52 94 06/14/18 08:07 06/14/18 08:07 06/14/18 09:45 06/14/18 08:07 06/14/18 08:07 Laboratory Results - last 24 hr 06/13/18 06/13/18 06/14/18 17:16 17:16 05:26 WBC 9.3 RBC 4.38 Hgb 12.4 10.8 L Hct 39 32 L MCV 88 MCH 28 MCHC 32 RDW 14 Plt Count 357 366 MPV 7.0 L 6.8 L Neut % (Auto) 62.8 Lymph % (Auto) 26.8 Harris % (Auto) 8.0 Eos % (Auto) 2.0 Baso % (Auto) 0.4 Absolute Neuts (auto) 5.9 Absolute Lymphs (auto) 2.5 Absolute Monos (auto) 0.7 Absolute Eos (auto) 0.2 Absolute Basos (auto) 0 Absolute Nucleated RBC 0 Nucleated RBC % 0.2 Sodium 135 Potassium 3.4 L Chloride 103 Carbon Dioxide 25 Anion Gap 7 BUN 8 Creatinine 0.87 Est GFR ( Amer) 80.9 Est GFR (Non-Af Amer) 66.9 BUN/Creatinine Ratio 9.2 Glucose 93 Calcium 8.6 06/14/18 05:26 WBC RBC Hgb Hct MCV MCH MCHC RDW Plt Count MPV Neut % (Auto) Lymph % (Auto) Harris % (Auto) Eos % (Auto) Baso % (Auto) Absolute Neuts (auto) Absolute Lymphs (auto) Absolute Monos (auto) Absolute Eos (auto) Absolute Basos (auto) Absolute Nucleated RBC Nucleated RBC % Sodium 131 L Potassium 3.6 Chloride 99 L Carbon Dioxide 25 Anion Gap 7 BUN 7 Creatinine 0.73 Est GFR ( Amer) 99.1 Est GFR (Non-Af Amer) 81.9 BUN/Creatinine Ratio 9.6 Glucose 121 H Calcium 8.5 L Assessment: 57 yo F pod 2 s/p RTKA Plan: n/v - follow hospitalist recs Pt has not had BM s/p surgery - difficulty getting bowel regimen po due to n/v - will attempt this today No further visualized emesis with brown color - will follow. HCT stable at 32 will d/c long acting morphine and hold pain meds as much as possible Will replace dominique catheter today pt/ot will discuss dvt proph with hospitalist
[2018-06-14] MEDS: CMCS:Atomoxetine (NF) 40 MG CAP PO SCH (10:18)
[2018-06-14] MEDS: lamoTRIgine TAB(*) 100 MG PO SCH ×2 (10:18→21:05)
[2018-06-14] MEDS: Pantoprazole TAB * 40 MG TAB PO SCH (10:18)
[2018-06-14] MEDS: Apixaban* 2.5 MG TAB PO SCH ×2 (10:18→21:04)
[2018-06-14] MEDS: Docusate CAP* 100 MG PO SCH ×2 (10:18→20:58)
[2018-06-14] MEDS: Magnesium Hydroxide LIQ* 30 ML UDC PO SCH ×2 (10:19→20:59)
[2018-06-14] MEDS ORDERED: NS 0.9% 1000 ML** 1,000 ML IV ONE ×2 (11:25→13:32)
--- NOTE | 2018-06-14 11:49 | PN ---
Subjective Date of Service: 06/14/18 Interval History: Called with tahcycardia by RN Blood pressure also dropped to 70s but 90s on manual recheck Pt denying chest pain, SOB, no additional nausea nor vomiting Pain in right knee relieved with last dose of narcotics Unable to urinate and dominique to be placed now. Denies pleurisy No weakness, parasthesias Objective Active Medications: Acetaminophen (Tylenol Tab*) 975 mg PO Q8HR [facility] Last Admin: 06/14/18 06:02 Dose: Not Given Al Hydrox/Mg Hydrox/Simethicone (Maalox Plus*) 30 ml PO Q6H PRN PRN Reason: INDIGESTION Apixaban (Eliquis*) 2.5 mg PO BID [facility] Last Admin: 06/14/18 10:18 Dose: 2.5 mg Atomoxetine HCl (Strattera (Nf)) 40 mg PO QAM [facility]; Protocol Last Admin: 06/14/18 10:18 Dose: 40 mg Bisacodyl (Dulcolax Supp*) 10 mg MD DAILY PRN PRN Reason: constipation Cyclobenzaprine HCl (Flexeril Tab*) 5 mg PO TID PRN PRN Reason: SPASMS Last Admin: 06/12/18 18:39 Dose: 5 mg Diphenhydramine HCl (Benadryl Po*) 25 mg PO Q6H PRN PRN Reason: INSOMNIA Last Admin: 06/13/18 03:43 Dose: 25 mg Docusate Sodium (Colace Cap*) 100 mg PO BID [facility] Last Admin: 06/14/18 10:18 Dose: 100 mg Lactated Ringer's (Lactated Ringers 1000 Ml Bag*) 1,000 mls @ 100 mls/hr IV PER RATE [facility] Last Admin: 06/13/18 23:54 Dose: 100 mls/hr Sodium Chloride (Ns 0.9% 1000 Ml*) 1,000 mls @ 1,000 mls/hr IV .PER RATE ONE Stop: 06/14/18 12:24 Lactulose (Lactulose*) 30 ml PO Q6H PRN PRN Reason: constipation Last Admin: 06/14/18 10:19 Dose: 30 ml Lamotrigine (Lamictal Tab(*)) 150 mg PO BID [facility] Last Admin: 06/14/18 10:18 Dose: 150 mg Magnesium Hydroxide (Milk Of Magnesia Liq*) 30 ml PO BID [facility] Last Admin: 06/14/18 10:19 Dose: 30 ml Ondansetron HCl (Zofran Inj*) 4 mg IV Q6H PRN PRN Reason: nausea Last Admin: 06/13/18 21:27 Dose: 4 mg Oxycodone HCl (Roxycodone Tab*) 10 mg PO Q4H PRN PRN Reason: moderate to severe pain Last Admin: 06/13/18 23:57 Dose: 10 mg Oxycodone/Acetaminophen (Percocet 5/325 Tab*) 2 tab PO Q3H PRN PRN Reason: PAIN - MODERATE Last Admin: 06/14/18 10:24 Dose: 2 tab Pantoprazole Sodium (Protonix Tab*) 40 mg PO QAM [facility]; Protocol Last Admin: 06/14/18 10:18 Dose: 40 mg Pharmacy Profile Note (Scopolamine Patch Remove*) 1 note PATCH OFF Q72H [facility] Polyethylene Glycol/Electrolytes (Miralax*) 17 gm PO DAILY PRN PRN Reason: Constipation Prochlorperazine Edisylate (Compazine Inj*) 10 mg IV Q6H PRN PRN Reason: NAUSEA/VOMITING Last Admin: 06/13/18 17:25 Dose: 10 mg Progesterone (Progesterone Micronized(Nf)) 200 mg PO BEDTIME [facility] Last Admin: 06/13/18 21:08 Dose: Not Given Quetiapine Fumarate (Seroquel Xr Tab*) 300 mg PO BEDTIME [facility] Last Admin: 06/13/18 21:08 Dose: 300 mg Vital Signs - 8 hr 06/14/18 06/14/18 06/14/18 04:03 07:01 08:07 Temperature 99.6 F 99.3 F Pulse Rate 96 117 Respiratory 16 18 14 Rate Blood Pressure 138/66 105/52 (mmHg) O2 Sat by Pulse 94 94 Oximetry 06/14/18 06/14/18 09:45 10:24 Temperature Pulse Rate Respiratory 16 16 Rate Blood Pressure (mmHg) O2 Sat by Pulse Oximetry Oxygen Devices in Use Now: Nasal Cannula Appearance: sitting in chair, NAD Eyes: No Scleral Icterus, PERRLA Ears/Nose/Mouth/Throat: NL Teeth, Lips, Gums, Clear Oropharnyx Neck: NL Appearance and Movements; NL JVP, Trachea Midline Respiratory: Symmetrical Chest Expansion and Respiratory Effort, - - trace rales in bl bases Cardiovascular: RRR, - - hr 99 Abdominal: NL Sounds; No Tenderness; No Distention, No Hepatosplenomegaly Lymphatic: No Cervical Adenopathy Extremities: No Edema, - - right knee wrapped Neurological: Alert and Oriented x 3 Lines/Tubes/Other Access: Clean, Dry and Intact Dominique Result Diagrams: 06/14/18 05:26 06/14/18 05:26 Microbiology and Other Data: Microbiology 06/13/18 16:10 Gastric Occult Blood - Final Gastric Fluid Assess/Plan/Problems-Billing Assessment: 57 F POD right TKA with stay complicated by N/V and urinary retention - Patient Problems (1) Hypotension Comment: Suspect medication related. Developed in setting narcotics. Has complicated regimen of opioids currently. I have simplified the orders and we can restart as necessary. dc scopolamine patch 1L NS bolus now and reassess Check UA and CXR now check CBC (2) History of total knee arthroplasty Comment: care per primary team dvt ppx per primary team (3) Hypoxia Comment: check CXR currently poor wave form with peripheral check (4) Urinary retention Comment: maintain dominique check UA with cx (5) Nausea & vomiting Comment: resolved cw prn medication as needed (6) DVT prophylaxis Comment: eliquis low dose per ortho
[2018-06-14 12:16] LABS: ABS Basophils 0 10^3/ul (0-0.2); ABS Eosinophils 0.1 10^3/ul (0-0.6); ABS Lymphocytes 1.6 10^3/ul (1.0-4.8); ABS Monocytes 1.3 10^3/ul (0-0.8); ABS Neutrophils 7.3 10^3/ul (1.5-7.7); ABS Nucleated RBC 0 10^3/ul; Eosinophil % 0.7 %; Hematocrit 31 % (35-47); Hemoglobin 10.3 g/dl (12.0-16.0); Lymphocyte % 15.5 %; Mean Corpuscular HGB Conc 33 g/dl (31-36); Mean Corpuscular Hemoglobin 29 pg (27-31); Mean Corpuscular Volume 86 fL (80-97); Mean Platelet Volume 6.8 fL (7.4-10.4); Nucleated Red Blood Cells % 0; Platelet Count 333 10^3/ul (150-450); Red Blood Count 3.57 10^6/ul (4.00-5.40); Red Cell Distribution Width 14 % (10.5-15); White Blood Count 10.4 10^3/ul (3.5-10.8)
[2018-06-14 12:39] LABS: Urine Appearance Turbid; Urine Bacteria Absent (Absent); Urine Bilirubin Negative (Negative); Urine Blood 1+ (Negative); Urine Color Yellow; Urine Glucose Negative (Negative); Urine Ketones Trace (Negative); Urine Nitrite Negative (Negative); Urine Protein 1+(30 mg/dL) (Negative); Urine Red Blood Cell 3+(>10/hpf) (Absent); Urine Specific Gravity 1.017 (1.010-1.030); Urine Urobilinogen Negative (Negative); Urine White Blood Cell Trace(0-5/hpf) (Absent)
[2018-06-14 16:20] LABS: Hematocrit 28 % (35-47); Hemoglobin 9.3 g/dl (12.0-16.0)
[2018-06-14] MEDS: Cyclobenzaprine TAB* 10 MG PO PRN (18:27)
[2018-06-14] MEDS: PROGESTERONE MICRONIZED 200 MG PO SCH (20:59)
[2018-06-14] MEDS: QUEtiapine XR TAB* 300 MG PO SCH (21:04)
[2018-06-15] MEDS: oxyCODONE TAB* 5 MG TAB PO PRN ×4 (05:37→19:15)
[2018-06-15] MEDS: Acetaminophen TAB* 325 MG PO SCH ×3 (05:40→21:55)
[2018-06-15 06:20] LABS: Hematocrit 29 % (35-47); Hemoglobin 9.8 g/dl (12.0-16.0); Mean Platelet Volume 7.1 fL (7.4-10.4); Platelet Count 351 10^3/ul (150-450)
[2018-06-15] MEDS: Apixaban* 2.5 MG TAB PO SCH ×2 (09:49→20:38)
[2018-06-15] MEDS: Docusate CAP* 100 MG PO SCH ×2 (09:49→20:39)
[2018-06-15] MEDS: lamoTRIgine TAB(*) 100 MG PO SCH ×2 (09:49→20:40)
[2018-06-15] MEDS: Pantoprazole TAB * 40 MG TAB PO SCH (09:49)
[2018-06-15] MEDS: CMCS:Atomoxetine (NF) 40 MG CAP PO SCH (09:50)
[2018-06-15] MEDS: Magnesium Hydroxide LIQ* 30 ML UDC PO SCH ×2 (09:51→20:38)
--- NOTE | 2018-06-15 13:21 | PN ---
Progress Note - Progress Note Date of Service: 06/15/18 SOAP: Subjective: Pt seen at bedside. Pts sister, who was present at the time of exam, reports that the pt has been groggy. Pt states she had a BM yesterday. Pain well controlled. Denies CP, SOB, N/V, F/C. Vital Signs: Temp Pulse Resp BP Pulse Ox 98.8 F 103 18 119/50 96 06/15/18 07:39 06/15/18 07:39 06/15/18 10:12 06/15/18 07:39 06/15/18 07:39 Laboratory Last Values WBC 10.4 10^3/ul (3.5-10.8) 06/14/18 11:49 RBC 3.57 10^6/ul (4.00-5.40) L 06/14/18 11:49 Hgb 9.8 g/dl (12.0-16.0) L 06/15/18 05:22 Hct 29 % (35-47) L 06/15/18 05:22 MCV 86 fL (80-97) 06/14/18 11:49 MCH 29 pg (27-31) 06/14/18 11:49 MCHC 33 g/dl (31-36) 06/14/18 11:49 RDW 14 % (10.5-15) 06/14/18 11:49 Plt Count 351 10^3/ul (150-450) 06/15/18 05:22 MPV 7.1 fL (7.4-10.4) L 06/15/18 05:22 Neut % (Auto) 71.0 % 06/14/18 11:49 Lymph % (Auto) 15.5 % 06/14/18 11:49 White % (Auto) 12.4 % 06/14/18 11:49 Eos % (Auto) 0.7 % 06/14/18 11:49 Baso % (Auto) 0.4 % 06/14/18 11:49 Absolute Neuts (auto) 7.3 10^3/ul (1.5-7.7) 06/14/18 11:49 Absolute Lymphs (auto) 1.6 10^3/ul (1.0-4.8) 06/14/18 11:49 Absolute Monos (auto) 1.3 10^3/ul (0-0.8) H 06/14/18 11:49 Absolute Eos (auto) 0.1 10^3/ul (0-0.6) 06/14/18 11:49 Absolute Basos (auto) 0 10^3/ul (0-0.2) 06/14/18 11:49 Absolute Nucleated RBC 0 10^3/ul 06/14/18 11:49 Nucleated RBC % 0 06/14/18 11:49 Sodium 131 mmol/L (135-145) L 06/14/18 05:26 Potassium 3.6 mmol/L (3.5-5.0) 06/14/18 05:26 Chloride 99 mmol/L (101-111) L 06/14/18 05:26 Carbon Dioxide 25 mmol/L (22-32) 06/14/18 05:26 Anion Gap 7 mmol/L (2-11) 06/14/18 05:26 BUN 7 mg/dL (6-24) 06/14/18 05:26 Creatinine 0.73 mg/dL (0.51-0.95) 06/14/18 05:26 Est GFR ( Amer) 99.1 (>60) 06/14/18 05:26 Est GFR (Non-Af Amer) 81.9 (>60) 06/14/18 05:26 BUN/Creatinine Ratio 9.6 (8-20) 06/14/18 05:26 Glucose 121 mg/dL (70-100) H 06/14/18 05:26 Calcium 8.5 mg/dL (8.6-10.3) L 06/14/18 05:26 Urine Color Yellow 06/14/18 12:15 Urine Appearance Turbid 06/14/18 12:15 Urine pH 8.0 (5-9) 06/14/18 12:15 Ur Specific [place] 1.017 (1.010-1.030) 06/14/18 12:15 Urine Protein 1+(30 mg/dl) (Negative) A 06/14/18 12:15 Urine Ketones Trace (Negative) A 06/14/18 12:15 Urine Blood 1+ (Negative) A 06/14/18 12:15 Urine Nitrate Negative (Negative) 06/14/18 12:15 Urine Bilirubin Negative (Negative) 06/14/18 12:15 Urine Urobilinogen Negative (Negative) 06/14/18 12:15 Ur Leukocyte Esterase Negative (Negative) 06/14/18 12:15 Urine WBC (Auto) Trace(0-5/hpf) (Absent) 06/14/18 12:15 Urine RBC (Auto) 3+(>10/hpf) (Absent) A 06/14/18 12:15 Amorphous Crystals Present (Absent) A 06/14/18 12:15 Urine Bacteria Absent (Absent) 06/14/18 12:15 Urine Glucose Negative (Negative) 06/14/18 12:15 Objective: A&Ox3, NAD, Dressing C/D/I, Calves soft and Nontender, No edema, NVI Assessment: 57 yo female s/p Right TKA POD#3 Plan: OOB, PT/OT, WBAT Pain control D/C Irvin DVT prophylaxis - Eliquis BID Appreciate hospitalist input
--- NOTE | 2018-06-15 15:27 | ECHO ---
Patient: PEGGY VIERA [facility] Rec#: [id number] : 1960 Date: 06/15/2018 Age: 57y Height: 160 cm / 63.0 in Weight: 75.3 kg / 166.0 lbs Sex: F BSA: 1.79 Room#: [facility] Admit Date#: 06/15/2018 Type: Inpatient Referring: Gaurang Pabon MD Reading: Marcelino Silverman MD Coal Tower Operator: Nohelia Kidd RN RDCS CC: Sheila Liao Transthoracic Echocardiogram Indication: Hypotension BP: 108/58 HR: 106 Rhythm: Tachycardia Findings History: Former smoker, currently vapes, bipolar disorder, ETOH in the past, S/P total knee arthroplasty Technical Comments: The study quality is fair. The study was technically limited due to the patient's inability to lay in the left lateral decubitus position. Left Ventricle: The left ventricular chamber size is normal. Mild concentric left ventricular hypertrophy is observed. Global left ventricular wall motion and contractility are within normal limits. The left ventricle appears hyperdynamic.Chordal GRACIELA and mild turbulence in the LVOT. LVOT velocity increases from 1.4 at rest to 1.6 with valsalva c/w mild dynamic LVOT obstruction with a relatively low gradient. The estimated ejection fraction is greater than 65%. Abnormal left ventricular diastolic function is observed. Abnormal left ventricular diastolic filling is observed, consistent with impaired relaxation. Left Atrium: The left atrial chamber size is normal. Right Ventricle: The right ventricle wall thickness is mildly increased. The right ventricular cavity size is normal. The right ventricular global systolic function is normal. Right Atrium: The right atrium is not well visualized. Aortic Valve: The aortic valve is trileaflet. The aortic valve leaflets are mildly thickened. There is aortic annular calcification. There is no evidence of aortic regurgitation. There is no evidence of aortic stenosis. Mitral Valve: The mitral valve leaflets are mildly thickened. There is a trace of mitral regurgitation. There is no evidence of mitral stenosis. Tricuspid Valve: The tricuspid valve leaflets are normal. There is mild tricuspid regurgitation. There is evidence of mild to moderate pulmonary hypertension. There is no tricuspid stenosis. Pulmonic Valve: The pulmonic valve appears normal. There is mild pulmonic regurgitation. There is no pulmonic stenosis. Pericardium: There is no significant pericardial effusion. A pericardial fat pad is visualized. Aorta: There is no dilatation of the ascending aorta. There is no dilatation of the aortic arch. There is no dilation of the aortic root. Pulmonary Artery: The main pulmonary artery appears normal. Venous: The venous system is not well visualized. The inferior vena cava is not visualized. Summary: There was not any prior study for comparison. Conclusions Mild concentric left ventricular hypertrophy is observed. The left ventricle appears hyperdynamic.Chordal GRACIELA and mild turbulence in the LVOT. The LVOT velocity increases from 1.4 at rest to 1.6 with valsalva c/w mild dynamic LVOT obstruction with a relatively low gradient. The estimated ejection fraction is greater than 65%. Abnormal left ventricular diastolic filling is observed, consistent with impaired relaxation. The right ventricle wall thickness is mildly increased. The right ventricular global systolic function is normal. There is a trace of mitral regurgitation. There is evidence of mild to moderate pulmonary hypertension. There is mild tricuspid regurgitation. Measurements Name Value Normal Range RVIDd (AP) 2D 3.7 cm (0.9 - 2.6) RVDdMajor (2D) 3.4 cm (2.2 - 4.4) IVSd (2D) 1.2 cm (0.6 - 1) LVPWd (2D) 1.1 cm (0.6 - 1) LVIDd (2D) 4.2 cm (3.6 - 5.4) LVIDs (2D) 1.8 cm - LV FS (2D) 57 % (25 - 45) Aortic Annulus 1.7 cm (1.4 - 2.6) Ao root diameter (2D) 2.7 cm (2.1 - 3.5) Ascending Ao 2.8 cm (2.1 - 3.4) Aortic arch 2.7 cm (1.8 - 3.4) LA dimension (AP) 2D 3.8 cm (2.3 - 3.8) LAd ISD 4CH 5.2 cm (2.9 - 5.3) LA ISD 4CH W 4.3 cm (2.5 - 4.5) Name Value Normal Range LA ESV BP (A/L) index 32.9 ml/m2 - Name Value Normal Range MV E-wave Vmax 0.84 m/sec - MV deceleration time 254 msec - MV A-wave Vmax 1.1 m/sec - MV E:A ratio 0.7 ratio - LV septal e' Vmax 0.09 m/sec - LV lateral e' Vmax 0.08 m/sec - LV E:e' septal ratio 9.3 ratio - LV E:e' lateral ratio 10.5 ratio - Name Value Normal Range AV Vmax 2.1 m/sec - AV VTI 37.5 cm - AV peak gradient 17 mmHg - AV mean gradient 10 mmHg - LVOT Vmax 1.4 m/sec - LVOT VTI 22.9 cm - LVOT peak gradient 8 mmHg - LVOT mean gradient 5 mmHg - ROSIE Vmax 0.8 m/sec - Name Value Normal Range TR Vmax 3 m/sec - TR peak gradient 36 mmHg - RAP 8 mmHg - RVSP 44 mmHg - Name Value Normal Range PV Vmax 1.1 m/sec -
[2018-06-15] MEDS ORDERED: Scopolamine PATCH Remove* 1 NOTE MISC PATCH OFF ONE (16:44)
--- NOTE | 2018-06-15 18:02 | PN ---
Subjective Date of Service: 06/15/18 Interval History: Feels well, appetite returned pain well controlled Objective Active Medications: Acetaminophen (Tylenol Tab*) 975 mg PO Q8HR PENDING SALE TO [facility] Last Admin: 06/15/18 14:56 Dose: 975 mg Al Hydrox/Mg Hydrox/Simethicone (Maalox Plus*) 30 ml PO Q6H PRN PRN Reason: INDIGESTION Last Admin: 06/14/18 23:00 Dose: 30 ml Apixaban (Eliquis*) 2.5 mg PO BID PENDING SALE TO [facility] Last Admin: 06/15/18 09:49 Dose: 2.5 mg Atomoxetine HCl (Strattera (Nf)) 40 mg PO QAM PENDING SALE TO [facility]; Protocol Last Admin: 06/15/18 09:50 Dose: 40 mg Bisacodyl (Dulcolax Supp*) 10 mg [place] DAILY PRN PRN Reason: constipation Cyclobenzaprine HCl (Flexeril Tab*) 5 mg PO TID PRN PRN Reason: SPASMS Last Admin: 06/14/18 18:27 Dose: 5 mg Diphenhydramine HCl (Benadryl Po*) 25 mg PO Q6H PRN PRN Reason: INSOMNIA Last Admin: 06/13/18 03:43 Dose: 25 mg Docusate Sodium (Colace Cap*) 100 mg PO BID PENDING SALE TO [facility] Last Admin: 06/15/18 09:49 Dose: 100 mg Lactated Ringer's (Lactated Ringers 1000 Ml Bag*) 1,000 mls @ 100 mls/hr IV PER RATE PENDING SALE TO [facility] Last Admin: 06/13/18 23:54 Dose: 100 mls/hr Lactulose (Lactulose*) 30 ml PO Q6H PRN PRN Reason: constipation Last Admin: 06/14/18 10:19 Dose: 30 ml Lamotrigine (Lamictal Tab(*)) 150 mg PO BID PENDING SALE TO [facility] Last Admin: 06/15/18 09:49 Dose: 150 mg Magnesium Hydroxide (Milk Of Magnesia Liq*) 30 ml PO BID PENDING SALE TO [facility] Last Admin: 06/15/18 09:51 Dose: Not Given Ondansetron HCl (Zofran Inj*) 4 mg IV Q6H PRN PRN Reason: nausea Last Admin: 06/13/18 21:27 Dose: 4 mg Oxycodone HCl (Roxycodone Tab*) 10 mg PO Q4H PRN PRN Reason: moderate to severe pain Last Admin: 06/15/18 14:55 Dose: 10 mg Oxycodone/Acetaminophen (Percocet 5/325 Tab*) 1 tab PO Q4H PRN PRN Reason: PAIN Pantoprazole Sodium (Protonix Tab*) 40 mg PO QAM PENDING SALE TO [facility]; Protocol Last Admin: 06/15/18 09:49 Dose: 40 mg Polyethylene Glycol/Electrolytes (Miralax*) 17 gm PO DAILY PRN PRN Reason: Constipation Prochlorperazine Edisylate (Compazine Inj*) 10 mg IV Q6H PRN PRN Reason: NAUSEA/VOMITING Last Admin: 06/13/18 17:25 Dose: 10 mg Progesterone (Progesterone Micronized(Nf)) 200 mg PO BEDTIME PENDING SALE TO [facility] Last Admin: 06/14/18 20:59 Dose: Not Given Quetiapine Fumarate (Seroquel Xr Tab*) 300 mg PO BEDTIME HELEN Last Admin: 06/14/18 21:04 Dose: 300 mg Vital Signs - 8 hr 06/15/18 06/15/18 06/15/18 10:12 12:00 12:14 Temperature 98.1 F Pulse Rate 110 Respiratory 18 16 16 Rate Blood Pressure 85/47 (mmHg) O2 Sat by Pulse 94 Oximetry 06/15/18 06/15/18 06/15/18 12:30 12:45 14:55 Temperature Pulse Rate Respiratory 16 Rate Blood Pressure 106/54 108/58 (mmHg) O2 Sat by Pulse Oximetry 06/15/18 06/15/18 15:56 17:39 Temperature 98.3 F Pulse Rate 99 Respiratory 18 16 Rate Blood Pressure 142/62 (mmHg) O2 Sat by Pulse 94 Oximetry Oxygen Devices in Use Now: None Appearance: NAD Eyes: No Scleral Icterus Ears/Nose/Mouth/Throat: NL Teeth, Lips, Gums Neck: NL Appearance and Movements; NL JVP, Trachea Midline Respiratory: Symmetrical Chest Expansion and Respiratory Effort, Clear to Auscultation Cardiovascular: RRR Abdominal: NL Sounds; No Tenderness; No Distention, No Hepatosplenomegaly Lymphatic: No Cervical Adenopathy Extremities: - - right knee immobilized Skin: No Rash or Ulcers Neurological: Alert and Oriented x 3 Result Diagrams: 06/15/18 05:22 06/14/18 05:26 Microbiology and Other Data: Microbiology 06/13/18 16:10 Gastric Occult Blood - Final Gastric Fluid Assess/Plan/Problems-Billing Assessment: 57 F POD right TKA with stay complicated by N/V and urinary retention - Patient Problems (1) Hypotension Comment: Suspect medication related. Developed in setting narcotics. Has complicated regimen of opioids currently. I have simplified the orders and we can restart as necessary. dc scopolamine patch Improved after fluid boluses TTE reviewed - HFpEF; careful with additional fluid (2) History of total knee arthroplasty Comment: care per primary team dvt ppx per primary team (3) Hypoxia Comment: resolved (4) Urinary retention Comment: dominique out per primary team If retains again will need dominique on d/c (5) Nausea & vomiting Comment: resolved cw prn medication as needed (6) DVT prophylaxis Comment: eliquis low dose per ortho
[2018-06-15] MEDS: QUEtiapine XR TAB* 300 MG PO SCH (20:38)
[2018-06-15] MEDS: PROGESTERONE MICRONIZED 200 MG PO SCH (20:40)
[2018-06-16] MEDS: oxyCODONE TAB* 5 MG TAB PO PRN ×4 (00:03→22:25)
[2018-06-16 05:44] LABS: ABS Basophils 0.1 10^3/ul (0-0.2); ABS Eosinophils 0.3 10^3/ul (0-0.6); ABS Lymphocytes 1.9 10^3/ul (1.0-4.8); ABS Monocytes 0.6 10^3/ul (0-0.8); ABS Neutrophils 5.1 10^3/ul (1.5-7.7); ABS Nucleated RBC 0 10^3/ul; Eosinophil % 4.3 %; Hematocrit 26 % (35-47); Hemoglobin 8.6 g/dl (12.0-16.0); Lymphocyte % 23.7 %; Mean Corpuscular HGB Conc 33 g/dl (31-36); Mean Corpuscular Hemoglobin 29 pg (27-31); Mean Corpuscular Volume 87 fL (80-97); Mean Platelet Volume 6.9 fL (7.4-10.4); Nucleated Red Blood Cells % 0; Platelet Count 346 10^3/ul (150-450); Red Blood Count 2.98 10^6/ul (4.00-5.40); Red Cell Distribution Width 15 % (10.5-15)
[2018-06-16] MEDS: Acetaminophen TAB* 325 MG PO SCH ×3 (05:49→21:19)
[2018-06-16 06:11] LABS: BUN/Creatinine Ratio 8.3 (8-20); Calcium 8.1 mg/dL (8.6-10.3); EGFR African American 100.7 (>60); EGFR Non-African American 83.2 (>60); Potassium 3.3 mmol/L (3.5-5.0)
[2018-06-16] MEDS ORDERED: Scopolamine PATCH Remove* 1 NOTE MISC PATCH OFF SCH (08:00)
[2018-06-16] MEDS ORDERED: Potassium Chlor TAB* 20 MEQ TAB.ER PO ONE (08:23)
--- NOTE | 2018-06-16 08:51 | PN ---
Subjective Date of Service: 06/16/18 Interval History: Feels well Notes she has 1 episode of vomiting overnight when she "chokes" which has been long standing Denies SOB, CP, LH Last BM 48 hrs prior - loose, no blood, not black Objective Active Medications: Acetaminophen (Tylenol Tab*) 975 mg PO Q8HR [facility] Last Admin: 06/16/18 05:49 Dose: 975 mg Al Hydrox/Mg Hydrox/Simethicone (Maalox Plus*) 30 ml PO Q6H PRN PRN Reason: INDIGESTION Last Admin: 06/14/18 23:00 Dose: 30 ml Atomoxetine HCl (Strattera (Nf)) 40 mg PO QAM [facility]; Protocol Last Admin: 06/15/18 09:50 Dose: 40 mg Bisacodyl (Dulcolax Supp*) 10 mg [place] DAILY PRN PRN Reason: constipation Cyclobenzaprine HCl (Flexeril Tab*) 5 mg PO TID PRN PRN Reason: SPASMS Last Admin: 06/14/18 18:27 Dose: 5 mg Diphenhydramine HCl (Benadryl Po*) 25 mg PO Q6H PRN PRN Reason: INSOMNIA Last Admin: 06/13/18 03:43 Dose: 25 mg Docusate Sodium (Colace Cap*) 100 mg PO BID [facility] Last Admin: 06/15/18 20:39 Dose: 100 mg Lactulose (Lactulose*) 30 ml PO Q6H PRN PRN Reason: constipation Last Admin: 06/14/18 10:19 Dose: 30 ml Lamotrigine (Lamictal Tab(*)) 150 mg PO BID [facility] Last Admin: 06/15/18 20:40 Dose: 150 mg Magnesium Hydroxide (Milk Of Magnesia Liq*) 30 ml PO BID [facility] Last Admin: 06/15/18 20:38 Dose: 30 ml Ondansetron HCl (Zofran Inj*) 4 mg IV Q6H PRN PRN Reason: nausea Last Admin: 06/13/18 21:27 Dose: 4 mg Oxycodone HCl (Roxycodone Tab*) 10 mg PO Q4H PRN PRN Reason: moderate to severe pain Last Admin: 06/16/18 00:03 Dose: 10 mg Oxycodone/Acetaminophen (Percocet 5/325 Tab*) 1 tab PO Q4H PRN PRN Reason: PAIN Pantoprazole Sodium (Protonix Tab*) 40 mg PO QAM [facility]; Protocol Last Admin: 06/15/18 09:49 Dose: 40 mg Polyethylene Glycol/Electrolytes (Miralax*) 17 gm PO DAILY PRN PRN Reason: Constipation Prochlorperazine Edisylate (Compazine Inj*) 10 mg IV Q6H PRN PRN Reason: NAUSEA/VOMITING Last Admin: 06/13/18 17:25 Dose: 10 mg Progesterone (Progesterone Micronized(Nf)) 200 mg PO BEDTIME [facility] Last Admin: 06/15/18 20:40 Dose: Not Given Quetiapine Fumarate (Seroquel Xr Tab*) 300 mg PO BEDTIME [facility] Last Admin: 06/15/18 20:38 Dose: 300 mg Vital Signs - 8 hr 06/16/18 06/16/18 02:03 03:33 Temperature 98.4 F Pulse Rate 96 Respiratory 16 14 Rate Blood Pressure 111/41 (mmHg) O2 Sat by Pulse 92 Oximetry Oxygen Devices in Use Now: None Appearance: sitting up, NAD Eyes: No Scleral Icterus, PERRLA Ears/Nose/Mouth/Throat: NL Teeth, Lips, Gums, Clear Oropharnyx Neck: NL Appearance and Movements; NL JVP, Trachea Midline Respiratory: Symmetrical Chest Expansion and Respiratory Effort, - - rales in bases Cardiovascular: RRR Abdominal: NL Sounds; No Tenderness; No Distention, No Hepatosplenomegaly Lymphatic: No Cervical Adenopathy Extremities: No Edema, - - right knee wrapped, LE n/v intact Neurological: Alert and Oriented x 3 Result Diagrams: 06/16/18 05:32 06/16/18 05:32 Microbiology and Other Data: Microbiology 06/13/18 16:10 Gastric Occult Blood - Final Gastric Fluid Assess/Plan/Problems-Billing Assessment: 57 F POD right TKA with stay complicated by N/V and urinary retention - Patient Problems (1) Anemia Comment: slowly evolving had ark vomit >72 hrs prior Phlebotomy likely contributing Transition eliquis to lovenox this AM to be conservative (2) Hypotension Comment: Suspect medication related. Developed in setting narcotics. Has complicated regimen of opioids currently. I have simplified the orders and we can restart as necessary. dc scopolamine patch Improved after fluid boluses TTE reviewed - HFpEF; careful with additional fluid (3) History of total knee arthroplasty Comment: care per primary team (4) Hypoxia Comment: resolved (5) Urinary retention Comment: dominique out per primary team If retains again will need dominique on d/c (6) Nausea & vomiting Comment: long history of emesis almost nightly. May benefit from o/p EGD cw prn medication as needed (7) DVT prophylaxis Comment: eliquis changed to lovenox. Discussed with patient Status and Disposition: will sign off please call with additional questions [phone]
[2018-06-16] MEDS: CMCS:Atomoxetine (NF) 40 MG CAP PO SCH (09:32)
[2018-06-16] MEDS: lamoTRIgine TAB(*) 100 MG PO SCH ×2 (09:33→21:20)
[2018-06-16] MEDS: Docusate CAP* 100 MG PO SCH ×2 (09:34→21:21)
[2018-06-16] MEDS: Pantoprazole TAB * 40 MG TAB PO SCH (09:34)
[2018-06-16] MEDS: Enoxaparin(*) 40 MG/0.4 ML SYR SUBCUT SCH ×2 (09:34→21:22)
[2018-06-16] MEDS: Magnesium Hydroxide LIQ* 30 ML UDC PO SCH ×2 (09:35→21:21)
--- NOTE | 2018-06-16 14:53 | PN ---
Progress Note - Progress Note Date of Service: 06/16/18 SOAP: Subjective: []Pt seen and examined at bedside. She feels well with well controlled right knee pain. Denies CP, SOB, dizziness, nausea. Plan for [facility]. She has no history of DVT or PE. She failed removal of her dominique and required DC with dominique in place. Objective: []General: well appearing, NAD RLE: Right knee dressing changed, incision CDI without erythema or discharge. Thigh is soft, sensation intact to light touch distally, DF/PF intact, DP2+. Calves supple and nontender without erythema, edema or palpable cords Assessment: 57 yo female s/p Right TKA POD#4 Plan: OOB, PT/OT, WBAT Pain control Discussed urinary retention with medicine. Will be discharged with a dominique. Leg bag and dominique teaching from nursing, f/u urology within 3 weeks CBC this , CC to PCP. DVT prophylaxis - lovenox 40 mg sq BID x 30 days [facility] to [facility] today. Vital Signs Temp 98.5 F 06/16/18 11:09 Pulse 103 06/16/18 11:09 Resp 16 06/16/18 11:59 BP 101/54 06/16/18 11:09 Pulse Ox 100 06/16/18 11:09 Intake & Output 06/15/18 06/16/18 06/16/18 18:59 06:59 18:59 Intake Total 410 1550 1080 Output Total 500 2375 750 Balance -90 -825 330 Intake: Oral 410 1550 1080 Output: Dominique 500 2375 750 Other: Date of Last Bowel 06/16/18 Movement # Bowel Movements 0 1 Estimated Stool Amount Small Laboratory Last Values WBC 8.0 10^3/ul (3.5-10.8) 06/16/18 05:32 RBC 2.98 10^6/ul (4.00-5.40) L 06/16/18 05:32 Hgb 8.6 g/dl (12.0-16.0) L 06/16/18 05:32 Hct 26 % (35-47) L 06/16/18 05:32 MCV 87 fL (80-97) 06/16/18 05:32 MCH 29 pg (27-31) 06/16/18 05:32 MCHC 33 g/dl (31-36) 06/16/18 05:32 RDW 15 % (10.5-15) 06/16/18 05:32 Plt Count 346 10^3/ul (150-450) 06/16/18 05:32 MPV 6.9 fL (7.4-10.4) L 06/16/18 05:32 Neut % (Auto) 63.9 % 06/16/18 05:32 Lymph % (Auto) 23.7 % 06/16/18 05:32 [place] % (Auto) 7.4 % 06/16/18 05:32 Eos % (Auto) 4.3 % 06/16/18 05:32 Baso % (Auto) 0.7 % 06/16/18 05:32 Absolute Neuts (auto) 5.1 10^3/ul (1.5-7.7) 06/16/18 05:32 Absolute Lymphs (auto) 1.9 10^3/ul (1.0-4.8) 06/16/18 05:32 Absolute Monos (auto) 0.6 10^3/ul (0-0.8) 06/16/18 05:32 Absolute Eos (auto) 0.3 10^3/ul (0-0.6) 06/16/18 05:32 Absolute Basos (auto) 0.1 10^3/ul (0-0.2) 06/16/18 05:32 Absolute Nucleated RBC 0 10^3/ul 06/16/18 05:32 Nucleated RBC % 0 06/16/18 05:32 Sodium 136 mmol/L (135-145) 06/16/18 05:32 Potassium 3.3 mmol/L (3.5-5.0) L 06/16/18 05:32 Chloride 102 mmol/L (101-111) 06/16/18 05:32 Carbon Dioxide 29 mmol/L (22-32) 06/16/18 05:32 Anion Gap 5 mmol/L (2-11) 06/16/18 05:32 BUN 6 mg/dL (6-24) 06/16/18 05:32 Creatinine 0.72 mg/dL (0.51-0.95) 06/16/18 05:32 Est GFR ( Amer) 100.7 (>60) 06/16/18 05:32 Est GFR (Non-Af Amer) 83.2 (>60) 06/16/18 05:32 BUN/Creatinine Ratio 8.3 (8-20) 06/16/18 05:32 Glucose 134 mg/dL (70-100) H 06/16/18 05:32 Calcium 8.1 mg/dL (8.6-10.3) L 06/16/18 05:32 Urine Color Yellow 06/14/18 12:15 Urine Appearance Turbid 06/14/18 12:15 Urine pH 8.0 (5-9) 06/14/18 12:15 Ur Specific [place] 1.017 (1.010-1.030) 06/14/18 12:15 Urine Protein 1+(30 mg/dl) (Negative) A 06/14/18 12:15 Urine Ketones Trace (Negative) A 06/14/18 12:15 Urine Blood 1+ (Negative) A 06/14/18 12:15 Urine Nitrate Negative (Negative) 06/14/18 12:15 Urine Bilirubin Negative (Negative) 06/14/18 12:15 Urine Urobilinogen Negative (Negative) 06/14/18 12:15 Ur Leukocyte Esterase Negative (Negative) 06/14/18 12:15 Urine WBC (Auto) Trace(0-5/hpf) (Absent) 06/14/18 12:15 Urine RBC (Auto) 3+(>10/hpf) (Absent) A 06/14/18 12:15 Amorphous Crystals Present (Absent) A 06/14/18 12:15 Urine Bacteria Absent (Absent) 06/14/18 12:15 Urine Glucose Negative (Negative) 06/14/18 12:15
[2018-06-16] MEDS ORDERED: Warfarin TAB(*) 6 MG PO ONE (17:00)
[2018-06-16] MEDS: Cyclobenzaprine TAB* 10 MG PO PRN (18:02)
[2018-06-16] MEDS: QUEtiapine XR TAB* 300 MG PO SCH (21:18)
[2018-06-16] MEDS: PROGESTERONE MICRONIZED 200 MG PO SCH (21:28)
[2018-06-17] MEDS: oxyCODONE/Acetamin 5/325 MG* TAB PO PRN ×2 (05:22→14:28)
[2018-06-17] MEDS: Acetaminophen TAB* 325 MG PO SCH ×2 (05:23→14:35)
[2018-06-17 05:37] LABS: Hematocrit 26 % (35-47); Hemoglobin 8.7 g/dl (12.0-16.0); Mean Platelet Volume 6.7 fL (7.4-10.4); Platelet Count 383 10^3/ul (150-450)
[2018-06-17] MEDS: oxyCODONE TAB* 5 MG TAB PO PRN (07:55)
[2018-06-17] MEDS: CMCS:Atomoxetine (NF) 40 MG CAP PO SCH (09:40)
[2018-06-17] MEDS: Magnesium Hydroxide LIQ* 30 ML UDC PO SCH (09:41)
[2018-06-17] MEDS: Docusate CAP* 100 MG PO SCH (09:41)
[2018-06-17] MEDS: lamoTRIgine TAB(*) 100 MG PO SCH (09:41)
[2018-06-17] MEDS: Pantoprazole TAB * 40 MG TAB PO SCH (09:41)
[2018-06-17] MEDS: Enoxaparin(*) 40 MG/0.4 ML SYR SUBCUT SCH (09:42)
--- NOTE | 2018-06-17 11:31 | PN ---
Progress Note - Progress Note Date of Service: 06/17/18 SOAP: Subjective: []Pt seen and examined at bedside. She feels well without CP, SOB, dizziness, nausea. right knee pain is well controlled. Objective: [] General: well appearing, NAD RLE: Right knee dressing changed, incision CDI without erythema or discharge. Thigh is soft, sensation intact to light touch distally, DF/PF intact, DP2+. Calves supple and nontender without erythema, edema or palpable cords Assessment: 57 yo female s/p Right TKA POD#5 Plan: OOB, PT/OT, WBAT Pain control Discussed urinary retention with medicine. Will be discharged with a dominique. Leg bag and dominique teaching from nursing, f/u urology within 3 weeks CBC this , CC to PCP. DVT prophylaxis - lovenox 40 mg sq BID until therapeutic then warfarin alone [facility] to [facility]. Stayed last night due to lack of transportation and insurance coverage difficulties with medications, now resolved Vital Signs Temp 97.9 F 06/17/18 07:47 Pulse 88 06/17/18 07:47 Resp 16 06/17/18 09:45 BP 129/78 06/17/18 07:47 Pulse Ox 98 06/17/18 07:47 Intake & Output 06/16/18 06/17/18 06/17/18 18:59 06:59 18:59 Intake Total 1080 880 Output Total 750 3550 Balance 330 -2670 Intake: Oral 1080 880 Output: Dominique 750 3550 Other: Date of Last Bowel 06/16/18 Movement # Bowel Movements 1 0 Estimated Stool Amount Small Laboratory Last Values WBC 8.0 10^3/ul (3.5-10.8) 06/16/18 05:32 RBC 2.98 10^6/ul (4.00-5.40) L 06/16/18 05:32 Hgb 8.7 g/dl (12.0-16.0) L 06/17/18 05:14 Hct 26 % (35-47) L 06/17/18 05:14 MCV 87 fL (80-97) 06/16/18 05:32 MCH 29 pg (27-31) 06/16/18 05:32 MCHC 33 g/dl (31-36) 06/16/18 05:32 RDW 15 % (10.5-15) 06/16/18 05:32 Plt Count 383 10^3/ul (150-450) 06/17/18 05:14 MPV 6.7 fL (7.4-10.4) L 06/17/18 05:14 Neut % (Auto) 63.9 % 06/16/18 05:32 Lymph % (Auto) 23.7 % 06/16/18 05:32 [place] % (Auto) 7.4 % 06/16/18 05:32 Eos % (Auto) 4.3 % 06/16/18 05:32 Baso % (Auto) 0.7 % 06/16/18 05:32 Absolute Neuts (auto) 5.1 10^3/ul (1.5-7.7) 06/16/18 05:32 Absolute Lymphs (auto) 1.9 10^3/ul (1.0-4.8) 06/16/18 05:32 Absolute Monos (auto) 0.6 10^3/ul (0-0.8) 06/16/18 05:32 Absolute Eos (auto) 0.3 10^3/ul (0-0.6) 06/16/18 05:32 Absolute Basos (auto) 0.1 10^3/ul (0-0.2) 06/16/18 05:32 Absolute Nucleated RBC 0 10^3/ul 06/16/18 05:32 Nucleated RBC % 0 06/16/18 05:32 Sodium 136 mmol/L (135-145) 06/16/18 05:32 Potassium 3.3 mmol/L (3.5-5.0) L 06/16/18 05:32 Chloride 102 mmol/L (101-111) 06/16/18 05:32 Carbon Dioxide 29 mmol/L (22-32) 06/16/18 05:32 Anion Gap 5 mmol/L (2-11) 06/16/18 05:32 BUN 6 mg/dL (6-24) 06/16/18 05:32 Creatinine 0.72 mg/dL (0.51-0.95) 06/16/18 05:32 Est GFR ( Amer) 100.7 (>60) 06/16/18 05:32 Est GFR (Non-Af Amer) 83.2 (>60) 06/16/18 05:32 BUN/Creatinine Ratio 8.3 (8-20) 06/16/18 05:32 Glucose 134 mg/dL (70-100) H 06/16/18 05:32 Calcium 8.1 mg/dL (8.6-10.3) L 06/16/18 05:32 Urine Color Yellow 06/14/18 12:15 Urine Appearance Turbid 06/14/18 12:15 Urine pH 8.0 (5-9) 06/14/18 12:15 Ur Specific [place] 1.017 (1.010-1.030) 06/14/18 12:15 Urine Protein 1+(30 mg/dl) (Negative) A 06/14/18 12:15 Urine Ketones Trace (Negative) A 06/14/18 12:15 Urine Blood 1+ (Negative) A 06/14/18 12:15 Urine Nitrate Negative (Negative) 06/14/18 12:15 Urine Bilirubin Negative (Negative) 06/14/18 12:15 Urine Urobilinogen Negative (Negative) 06/14/18 12:15 Ur Leukocyte Esterase Negative (Negative) 06/14/18 12:15 Urine WBC (Auto) Trace(0-5/hpf) (Absent) 06/14/18 12:15 Urine RBC (Auto) 3+(>10/hpf) (Absent) A 06/14/18 12:15 Amorphous Crystals Present (Absent) A 06/14/18 12:15 Urine Bacteria Absent (Absent) 06/14/18 12:15 Urine Glucose Negative (Negative) 06/14/18 12:15
[2018-06-17 13:53] VITALS: BP 117/59
--- NOTE | 2018-06-19 16:29 | DS ---
DISCHARGE SUMMARY: DATE OF ADMISSION: 06/12/18 DATE OF DISCHARGE: 06/17/18 PROVIDER: Dr. Leatha Rob.* (DICTATED BY CRISTINA FLORES) PRE-OP DIAGNOSIS: Severe end-stage degenerative osteoarthritis of the right knee joint with valgus deformity. OPERATIVE PROCEDURE: Right total knee arthroplasty. HISTORY: Ms. Hauser is a 57-year-old female with years of increasingly severe right knee pain and valgus deformity. She failed conservative management and elected to undergo a right total knee arthroplasty. HOSPITAL COURSE: The patient was admitted to [facility] on . She underwent a right total knee arthroplasty without complication. On postop day #1, she was well appearing, no acute distress. Dressing clean, dry, and intact. Neurovascularly intact distally. On postop day #2, she was sedated and confused with urinary retention as well as brown colored emesis. Irvin catheter was replaced. Trial of removal on 06/15/18, the patient continued to retain urine. After discussion with Medicine, the patient had a Irvin in place that she will be discharged with, with followup with Urology within 3 weeks. Her right knee dressing was changed daily after postop day 2. Incision was clean, dry, and intact without erythema or discharge. She was neurovascularly intact distally. Date of discharge is 06/17/18. On this day, right knee dressing changed. Incision was clean, dry, and intact without erythema or discharge. Thigh was soft. Sensation intact to light touch distally. DP 2+, dorsiflexion and plantarflexion intact. Vital Signs: Temperature 97.9, pulse 88, respiratory rate 16, blood pressure 129/78, pulse ox 98%. White blood cell count 8.0, hemoglobin 8.7, hematocrit 26. The patient was deemed to be medically and orthopedically ready for discharge home. DISCHARGE MEDICATIONS: 1. Lamictal 150 mg p.o. b.i.d. 2. Docusate 100 mg tabs 1 tab p.o. b.i.d. 3. Progesterone 200 mg p.o. at bedtime. 4. Strattera 40 mg p.o. q.a.m. 5. Iron 1 tab p.o. daily. 6. Milk of mag 30 mL p.o. t.i.d. p.r.n. 7. Omeprazole 40 mg p.o. b.i.d. 8. Seroquel 300 mg p.o. q.p.m. 9. Acetaminophen 975 mg p.o. q.8 hours p.r.n. 10. Lovenox 40 mg subcu q.12 hours. 11. Oxycodone 10 mg p.o. q.4 hours p.r.n. 12. Percocet 5/325 one tab every 4 hours as needed, max 10 per day. 13. Warfarin 2 mg 1 to 3 tabs daily, dose depends on INR. 14. Docusate 100 mg p.o. b.i.d. 15. Lovenox 40 mg subcu q.12 hours until INR is therapeutic. DISCHARGE PLAN: The patient will be weightbearing as tolerated. Lovenox 40 mg subcu every 12 hours until INR is therapeutic likely 4 to 5 days. Coumadin 2 mg tablets 1 to 3 tabs daily, dose depends on INR. When the INR is between 2 and 3, she will stop Lovenox. INR values will be sent to the orthopedic office and dosing instructions given on Mondays and . If you do not receive instructions on Saturday and , please call our office for dosing. Pain control with oxycodone 5 mg 1 to 2 tabs by mouth every 4 to 6 hours as needed for pain, max of 10 tabs per day. No Percocet given. May also use Tylenol over -the-counter for pain control, maximum daily dose of Tylenol is 4000 mg from all sources. Catheter will remain in place at discharge. Please followup with Urology, call this week for an appointment. CBC blood drawn on 06/19/18. PCP to follow results. Long history of emesis and most likely may benefit from outpatient EGD. Follow up with PCP. Follow up with Dr. Rob in 10 to 14 days. Call for an appointment. She was discharged to her friend's home. HARVEY SANDS, CRISTINA [id number]/[facility] #: [id number] [facility]
== END 2018-06-17 14:45 | disposition home health service (06) | DRG 302 ==
LOC: AA 11:50 → SSU 16:16
PROVIDERS: ADMIT Orthopaedic Surgery Adult Reconstructive Orthopaedic Surgery; ATTEND Orthopaedic Surgery Adult Reconstructive Orthopaedic Surgery
PROC: 0SRC069 Replacement of Right Knee Joint with Oxidized Zirconium on Polyethylene Synthetic Substitute, Cemented, Open Approach (ICD-10-PCS; principal; 2018-06-12 16:30)
DX: M17.11 Unilateral primary osteoarthritis, right knee (principal); F31.9 Bipolar disorder, unspecified; K21.9 Gastro-esophageal reflux disease without esophagitis; F41.9 Anxiety disorder, unspecified; M25.461 Effusion, right knee; F90.9 Attention-deficit hyperactivity disorder, unspecified type; I73.00 Raynaud's syndrome without gangrene; E03.9 Hypothyroidism, unspecified; E78.00 Pure hypercholesterolemia, unspecified; J30.2 Other seasonal allergic rhinitis; N94.10 Unspecified dyspareunia; K44.9 Diaphragmatic hernia without obstruction or gangrene; F10.10 Alcohol abuse, uncomplicated; Y90.9 Presence of alcohol in blood, level not specified; M21.061 Valgus deformity, not elsewhere classified, right knee; F17.290 Nicotine dependence, other tobacco product, uncomplicated; R11.2 Nausea with vomiting, unspecified; R33.9 Retention of urine, unspecified; R00.0 Tachycardia, unspecified; R09.02 Hypoxemia; I95.2 Hypotension due to drugs; T40.605A Adverse effect of unspecified narcotics, initial encounter; Y92.239 Unspecified place in hospital as the place of occurrence of the external cause; Z88.5 Allergy status to narcotic agent; Z88.8 Allergy status to other drugs, medicaments and biological substances; Z91.041 Radiographic dye allergy status; Z83.3 Family history of diabetes mellitus; Z82.49 Family history of ischemic heart disease and other diseases of the circulatory system; Z90.710 Acquired absence of both cervix and uterus; Z80.9 Family history of malignant neoplasm, unspecified; Z82.61 Family history of arthritis; Z86.19 Personal history of other infectious and parasitic diseases
CPT/HCPCS: 36415; 71045; 74019; 80048; 81003; 81015; 82271; 85014; 85018; 85025; 85049; 87086; 88305; 88311; 93005; 93306; A9270-GY; C1776; J0690; J0780; J1100; J1170; J1650; J1885; J2060; J2250; J2270; J2405; J2710; J3010; J3490

== ENCOUNTER 2018-09-29 09:52 | Inpatient (IN) | payer OTHER ==
--- OUTSIDE RECORDS SUMMARY | 2018-09-29 10:32 | XMS REPORT | Continuity of Care Document ---
:1960 External Reference #:[id number] Author Name Anthony Barbozaersten Care Team Providers Name Role Phone Sheila Liao NP Primary Care Physician Unavailable Payers Date Identification Numbers Payment Provider Subscriber Policy Number: [id number] Sanchez[employer] Sydney Viera PayID: [id number] [address] [address] [place] [address] Advance Directives Description No Information Available Problems Active Problems Provider Date Acquired genu valgum Leatha Rob M.D. Onset: 04/14/2018 Localized, primary osteoarthritis Leatha Rob M.D. Onset: 04/14/2018 Family History Date Family Member(s) Observation Comments General Diabetes General Heart Disease General Cancer General Rheumatoid Arthritis Social History Type Date Description Comments Sex Unknown Lives With Alone Occupation Retired ETOH Use Denies alcohol use Tobacco Use Start: Unknown End: Patient is a former smoker Unknown Smoking Status Reviewed: 09/05/18 Patient is a former smoker Exercise Type/Frequency Exercises sporadically Allergies, Adverse Reactions, Alerts Active Allergies Reaction Severity Comments Date Tricyclics 10/05/2015 Antidepressants 10/05/2015 Contrast Dye hives 04/14/2018 Codeine 04/14/2018 Mamers 04/14/2018 Depakote 04/14/2018 Medications Active Medications SIG Qnty Indications Ordering Provider Date Oxycodone HCL 1 tabs by mouth 60tabs Leatha Rob, 06/25/2018 5mg Tablets every 4-6 hours M.D. as needed Lamotrigine Unknown 200mg Tablets Esomeprazole Magnesium 1 by mouth every Unknown day 40mg Capsules DR Hernandez take 1 tablets Unknown 300mg Tablets by mouth every night Atomoxetine HCL once daily Unknown 40mg Capsules Omeprazole Kong Servin MD 20mg Capsules Quetiapine Fumarate ER Unknown 300mg Tablets ER 24HR History Medications Gabapentin take 1 capsule by diana Lerner MD 07/01/2018 - 300mg Capsules mouth every day 09/04/2018 before bedtime, may increase to 1 capsule twice daily if tolerating well Lovenox inject 30 mg once 21units Leatha Rob, 06/17/2018 - 30mg/0.3ML Solution daily for the next M.D. 07/07/2018 three weeks Bactrim DS take 1 by mouth 6tabs Leatha Rob, 06/02/2018 - 800-160mg twice a day for 3 M.D. 07/24/2018 Tablets days Methylphenidate HCL ER Unknown - 36mg 04/13/2018 Tablets ER Venlafaxine HCL ER Unknown - 150mg 04/13/2018 Caps ER 24HR Omeprazole Unknown - 40mg Capsules 04/13/2018 Lorazepam Unknown - 1mg Tablets 04/13/2018 Eszopiclone Take 1 Tablet By Unknown - 2mg Tablets Mouth AT Bedtime 04/13/2018 Quetiapine Fumarate Unknown - 25mg 04/13/2018 Tablets Progesterone Micronized Unknown - 09/04/2018 200mg Capsules Immunizations Description No Information Available Vital Signs Date Vital Result Comment 09/05/2018 12:58pm Height 63 inches 5'3" Weight 150.00 lb Heart Rate 60 /min BP Systolic 136 mmHg BP Diastolic 90 mmHg Respiratory Rate 14 /min Pain Level 4 BMI (Body Mass Index) 26.6 kg/m2 07/25/2018 3:02pm Height 63 inches 5'3" Weight 153.00 lb BP Systolic 111 mmHg BP Diastolic 69 mmHg Respiratory Rate 15 /min Pain Level 5 BMI (Body Mass Index) 27.1 kg/m2 07/11/2018 1:07pm Height 63 inches 5'3" Weight 160.00 lb BP Systolic 122 mmHg BP Diastolic 72 mmHg Pain Level 5 BMI (Body Mass Index) 28.3 kg/m2 07/08/2018 10:16am Height 63 inches 5'3" Weight 160.00 lb Heart Rate 78 /min BP Systolic 116 mmHg BP Diastolic 68 mmHg Respiratory Rate 12 /min Body Temperature 100.0 F Pain Level 10 BMI (Body Mass Index) 28.3 kg/m2 07/01/2018 1:36pm Height 63 inches 5'3" Weight 160.00 lb Heart Rate 96 /min Respiratory Rate 15 /min Body Temperature 98.3 F Pain Level 6 BMI (Body Mass Index) 28.3 kg/m2 06/25/2018 10:51am Height 63 inches 5'3" Weight 160.00 lb Heart Rate 76 /min BP Systolic 126 mmHg BP Diastolic 76 mmHg Respiratory Rate 14 /min Body Temperature 98.5 F Pain Level 6 BMI (Body Mass Index) 28.3 kg/m2 05/30/2018 9:27am Height 63 inches 5'3" Weight 162.00 lb Heart Rate 76 /min BP Systolic 110 mmHg BP Diastolic 64 mmHg Respiratory Rate 16 /min Pain Level 1 BMI (Body Mass Index) 28.7 kg/m2 04/14/2018 10:31am Height 63 inches 5'3" Weight 165.00 lb Heart Rate 80 /min BP Systolic 108 mmHg BP Diastolic 62 mmHg Body Temperature 97.8 F Pain Level 7 BMI (Body Mass Index) 29.2 kg/m2 10/05/2015 9:48am Height 63 inches 5'3" Weight 130.00 lb Heart Rate 68 /min BP Systolic Sitting 108 mmHg BP Diastolic Sitting 68 mmHg Respiratory Rate 16 /min Pain Level 4 BMI (Body Mass Index) 23.0 kg/m2 Results Test Date Facility Test Result H/L Range Note Laboratory test 07/08/2018 [facility] Erythrocyte Sed 45 mm/Hr High 0-30 [address] [place] [address] [phone] C Reactive Protein 3.21 mg/L N <8.01 CBC Auto Diff 07/08/2018 [facility] White Blood 9.6 10^3/uL N 3.5-10.[address] [place] [address] [phone] Red Blood Count 4.61 10^6/uL N 4.00-5.40 Hemoglobin 13.0 g/dL N 12.0-16.0 Hematocrit 39 % N 35-47 Mean Corpuscular Volume 84 fL N 80-97 Mean Corpuscular Hemoglobin 28 pg N 27-31 Mean Corpuscular HGB Conc 34 g/dL N 31-36 Red Cell Distribution Width 15 % N 10.5-15 Platelet Count 651 10^3/uL High 150-450 Mean Platelet Volume 6.8 fL Low 7.4-10.4 Abs Neutrophils 6.1 10^3/uL N 1.5-7.7 Abs Lymphocytes 2.6 10^3/uL N 1.0-4.8 Abs Monocytes 0.7 10^3/uL N 0-0.8 Abs Eosinophils 0.1 10^3/uL N 0-0.6 Abs Basophils 0.1 10^3/uL N 0-0.2 Abs Nucleated RBC 0 10^3/uL Granulocyte % 63.6 % Lymphocyte % 27.2 % Monocyte % 7.0 % Eosinophil % 1.3 % Basophil % 0.9 % Nucleated Red Blood Cells % 0 CBC Auto Diff 06/20/2018 [facility] White Blood 7.5 10^3/uL N 3.5-10.[address] [place], [place] [id number] [phone] Red Blood Count 3.28 10^6/uL Low 4.00-5.40 Hemoglobin 9.3 g/dL Low 12.0-16.0 Hematocrit 28 % Low 35-47 Mean Corpuscular Volume 86 fL N 80-97 Mean Corpuscular Hemoglobin 28 pg N 27-31 Mean Corpuscular HGB Conc 33 g/dL N 31-36 Red Cell Distribution Width 15 % N 10.5-15 Platelet Count 309 10^3/uL N 150-450 Mean Platelet Volume 6.8 fL Low 7.4-10.4 Abs Neutrophils 4.4 10^3/uL N 1.5-7.7 Abs Lymphocytes 1.9 10^3/uL N 1.0-4.8 Abs Monocytes 0.9 10^3/uL High 0-0.8 Abs Eosinophils 0.3 10^3/uL N 0-0.6 Abs Basophils 0.1 10^3/uL N 0-0.2 Abs Nucleated RBC 0 10^3/uL Granulocyte % 58.4 % Lymphocyte % 25.1 % Monocyte % 11.5 % Eosinophil % 4.2 % Basophil % 0.8 % Nucleated Red Blood Cells % 0.4 Inr/Protime 05/30/2018 [facility] Inr 0.82 N 0.77-1.[address] [place] [address] [phone] Laboratory test 05/30/2018 [facility] Partial 30.2 seconds N 26.0-36.[address] [place] [address] PTT [phone] Type & Screen 05/30/2018 [facility] Patient A Positive [address] [place] [place] [address] [phone] Antibody Screen NEGATIVE Urinalysis Profile 05/30/2018 [facility] Urine White Absent Absent [address] [place] [address] [phone] Urine Red Blood Cell 1+(3-5/hpf) Abnormal Absent Urine Bacteria Absent Absent Urine Squamous Epithelial Cell Present Abnormal Absent Urine Color Yellow Urine Appearance Clear Urine Specific [place] 1.018 N 1.010-1.030 Urine pH 6.0 N 5-9 Urine Urobilinogen Negative Negative Urine Ketones Negative Negative Urine Protein Negative Negative Urine Leukocytes Trace Abnormal Negative Urine Blood Negative Negative * * Abnormal Negative 2 Urine Nitrite Negative Negative Urine Bilirubin Negative Negative Urine Glucose Negative Negative Urine Culture And 05/30/2018 [facility] Urine Culture SEE RESULT [address] [place] [address] [phone] 1 Test Performed by: [facility] [address] [place] [id number] Leif Pro M.D. Director of Laboratory 2 *Ascorbic acid is present which may interfere with detection of blood. 3 SEE RESULT BELOW Name: SYDNEY VIERA DOB: [address]: Leatha Rob MD Acct: [id number] Unit: [id number] AGE: 57 Location: [facility] Re05/30/18 SEX: F Status: REG REF SPEC: [id number] VALENCIA: 05/30/[address]: Leatha Rob MD REQ: [id number] RECD: 05/30/18 STATUS: ZOHRA GILMORE DR: Sheila Liao OPERATIONS LEAD _ SOURCE: URINE SPDESC: ORDERED: Urine Culture QUERIES: Urine Source: Clean Catch Procedure Result Reported Site Urine Culture Final 05/31/18- 1419 ML Organism 1 STREP GROUP B [place] Count 25-50,000 (Moderate) CFU/ML Susceptibility testing of penicillins and other B-lactams approved by FDA for treatment of Streptococcus pyogenes (Group A Strep) and Streptococcus agalactiae (Group B Strep) is not necessary for clinical purposes and need not be done routinely, since as with vancomycin, resistant strains have not been recognized. (CLSI B686-I18;p.66) Positive isolates will be saved for one week. Please call the Microbiology Laboratory if further susceptibility testing is needed. * ML - Main Lab . END OF REPORT DEPARTMENT OF PATHOLOGY, [address] [place] [address] Leif Pro M.D. Director [facility] # [id number] Procedures Date Code Description Status 06/15/2018 69794 ECHO Transthorasic Realtime 2D W Doppler & Color Flow Hosp Completed 06/14/2018 19391 EKG, Interpretation Only Completed 06/12/2018 93838 TKR Total Knee Replacement Completed 06/12/2018 22746 TKR Total Knee Replacement Completed 06/12/2018 59033 TKR Total Knee Replacement Completed Encounters Type Date Location Provider Dx Diagnosis Office Visit 07/01/2018 [facility] Yann, G57.91 Unspecified 1:30p [facility] mononeuropathy of right lower limb Office Visit 06/16/2018 [place] Maureen Pabon, R11.2 Nausea with 10:47a ronn Fisher M.D. vomiting, Hospitalists unspecified D64.9 Anemia, unspecified I95.9 Hypotension, unspecified Z96.651 Presence of right artificial knee joint Office Visit 06/15/2018 10:47a Jonah Merlos I10 Essential ronn Fisher M.D. (primary) Hospitalists hypertension Z96.651 Presence of right artificial knee joint Office Visit 06/14/2018 10:46a Jonah Merlos I95.9 Hypotension, ronn Fisher M.D. unspecified Hospitalists R09.02 Hypoxemia R33.9 Retention of urine, unspecified Z96.651 Presence of right artificial knee joint Office Visit 06/13/2018 10:46a Jonah Merlos R11.2 Nausea with Assronn blum M.D. vomiting, Hospitalists unspecified R33.9 Retention of urine, unspecified Z96.651 Presence of right artificial knee joint Office Visit 04/14/2018 10:00a [facility] [place] Rob, M25.561 Pain in right Of C.M.A. M.D. knee M25.461 Effusion, right knee M17.11 Unilateral primary osteoarthritis, right knee M21.061 Valgus deformity, not elsewhere classified, right knee M19.042 Primary osteoarthritis, left hand Office Visit 03/29/2018 10:40a [facility] Conchita R07.9 Chest pain, Assoc,ronn Anaya, unspecified Hospitalists OPERATIONS LEAD R06.02 Shortness of breath Office Visit 09/23/2017 [facility] F10.230 Alcohol dependence 1:11p Assocronn M.D. with withdrawal, Hospitalists uncomplicated F41.9 Anxiety disorder, unspecified F32.9 Major depressive disorder, single episode, unspecified K21.9 Gastro-esophageal reflux disease without esophagitis Office Visit 09/22/2017 [facility] F10.230 Alcohol dependence 1:10p Assronn blum M.D. with withdrawal, Hospitalists uncomplicated F41.9 Anxiety disorder, unspecified F32.9 Major depressive disorder, single episode, unspecified K21.9 Gastro-esophageal reflux disease without esophagitis Office Visit 09/21/2017 [facility] F10.230 Alcohol dependence 1:10p ronn Fisher M.D. with withdrawal, Hospitalists uncomplicated F41.9 Anxiety disorder, unspecified F32.9 Major depressive disorder, single episode, unspecified Office Visit 09/20/2017 [facility] Camron Pickard F10.230 Alcohol dependence 1:09p Assocronn MD with withdrawal, Hospitalists uncomplicated F41.9 Anxiety disorder, unspecified F32.9 Major depressive disorder, single episode, unspecified K21.9 Gastro-esophageal reflux disease without esophagitis Office Visit 09/19/2017 [facility] Camron Pickard F10.230 Alcohol dependence 1:08p ronn Fisher MD with withdrawal, Hospitalists uncomplicated F41.9 Anxiety disorder, unspecified F32.9 Major depressive disorder, single episode, unspecified Office Visit 09/18/2017 [facility] Erica F10.230 Alcohol dependence 1:06p Assocronn Harvey NP with withdrawal, Hospitalists uncomplicated K21.9 Gastro-esophageal reflux disease without esophagitis F41.9 Anxiety disorder, unspecified F32.9 Major depressive disorder, single episode, unspecified Office Visit 10/05/2015 9:30a [facility] W[facility], M25.532 Pain in left [facility] wrist Plan of Treatment Future Appointment(s):11/05/2018 11:30 am - Leatha Rob M.D. at [facility]
[2018-09-29 10:41] LABS: Urine Appearance Clear; Urine Bacteria Absent (Absent); Urine Bilirubin Negative (Negative); Urine Blood Negative (Negative); Urine Color Yellow; Urine Glucose Negative (Negative); Urine Ketones Negative (Negative); Urine Nitrite Negative (Negative); Urine Protein 1+(30 mg/dL) (Negative); Urine Red Blood Cell 3+(>10/hpf) (Absent); Urine Specific Gravity 1.016 (1.010-1.030); Urine Squamous Epithelial Cell Present (Absent); Urine Urobilinogen Negative (Negative); Urine White Blood Cell Trace(0-5/hpf) (Absent)
[2018-09-29 11:02] LABS: ABS Basophils 0.1 10^3/ul (0-0.2); ABS Lymphocytes 2.5 10^3/ul (1.0-4.8); ABS Monocytes 0.6 10^3/ul (0-0.8); ABS Neutrophils 7.2 10^3/ul (1.5-7.7); Eosinophil % 0.4 %; Hematocrit 42 % (35-47); Hemoglobin 13.6 g/dL (12.0-16.0); Lymphocyte % 23.7 %; Mean Corpuscular HGB Conc 33 g/dL (31-36); Mean Corpuscular Hemoglobin 26 pg (27-31); Mean Corpuscular Volume 80 fL (80-97); Mean Platelet Volume 6.6 fL (7.4-10.4); Nucleated Red Blood Cells % 0.2; Platelet Count 627 10^3/uL (150-450); Red Blood Count 5.23 10^6 /uL (3.70-4.87); Red Cell Distribution Width 16 % (10.5-15); White Blood Count 10.4 10^3/uL (3.5-10.8)
[2018-09-29 11:02] LABS: Urine Benzodiazepine Screen None Detected (None Detect); Urine Opiates Screen None Detected (None Detect)
[2018-09-29 11:09] LABS: ALT 17 U/L (7-52); AST 22 U/L (13-39); Albumin 4.6 g/dL (3.2-5.2); Albumin/Globulin Ratio 1.1 (1-3); Alkaline Phosphatase 92 U/L (34-104); Anion Gap 12 mmol/L (2-11); BUN/Creatinine Ratio 16.5 (8-20); Blood Urea Nitrogen 13 mg/dL (6-24); CO2 Carbon Dioxide 23 mmol/L (22-32); Calcium 9.6 mg/dL (8.6-10.3); Chloride 102 mmol/L (101-111); EGFR African American 90.1 (>60); EGFR Non-African American 74.5 (>60); Globulin 4.1 g/dL (2-4); Glucose 114 mg/dL (70-100); Potassium 3.5 mmol/L (3.5-5.0); Sodium 137 mmol/L (135-145); Total Protein 8.7 g/dL (6.4-8.9)
[2018-09-29 11:26] LABS: Acetaminophen < 15 mcg/mL; Alcohol < 10 mg/dL (<10); Salicylate < 2.50 mg/dL (<30)
[2018-09-29 11:32] LABS: TSH (Thyroid Stimulating Horm) 4.47 mcIU/mL (0.34-5.60)
[2018-09-29] MEDS ORDERED: Al Hydrox/Mg Hydrox/Simet LIQ* 30 ML UDC PO PRN (14:27)
[2018-09-29] MEDS ORDERED: Docusate CAP* 100 MG PO PRN (14:28)
[2018-09-29] MEDS ORDERED: hydrOXYzine HCL TAB* 50 MG PO PRN (14:29)
--- NOTE | 2018-09-29 14:56 | ED ---
Psychiatric Complaint - HPI Summary HPI Summary: The patient is a 58 year old F presenting to [facility] with a chief complaint of anxiety since yesterday 09/28/18. Patient reports drinking alcohol yesterday, but is unsure of when she fell asleep. Patient woke up and came to ED wanting to be evaluated. Patient took Seroquel and Protonix prior to arrival to the ED She denies any SI/HI, self-harm, and denies making a plan. Patient did not eat today because she was too anxious. Patient brought in her suit case in case of being admitted to . Symptoms aggravated by nothing. Symptoms alleviated by nothing. Patient has a PMHx of depression and self-harm. - History Of Current Complaint Chief Complaint: EDMentalHealth Time Seen by Provider: 09/29/18 10:20 Hx Obtained From: Patient Onset/Duration: Sudden Onset, Lasting Days - 1, Still Present Timing: Days - 1 Severity Currently: None - pain denied Character: Anxious Aggravating Factor(s): Nothing Alleviating Factor(s): Nothing Associated Signs And Symptoms: Positive: Appetite Change - did not eat today due to anxiety Related History: Positive For: Prior Psychiatric Issues, Drug Abuse Counseling, Admissions Related To Substance Abuse Has Suicidal: Denies: Thoughts Has Homicidal: Denies: Thoughts - Allergies/Home Medications Allergies/Adverse Reactions: Allergies Allergy/AdvReac Type Severity Reaction Status Date / Time divalproex sodium Allergy Severe Hallucinati Verified 09/29/18 15:50 [From Depakote] ons lithium Allergy Severe Hallucinati Verified 09/29/18 15:50 ons oseltamivir [From Tamiflu] Allergy Severe Nausea And Verified 09/29/18 15:50 Vomiting prazosin Allergy Severe Swelling Verified 09/29/18 15:50 Of Face,Lips,& Throat codeine Allergy Intermediate Rash Verified 09/29/18 15:50 lurasidone Allergy Intermediate Muscle Verified 09/29/18 15:50 Twitching Tricyclic Compounds Allergy Intermediate Agitation Verified 09/29/18 15:50 Iodinated Contrast- Oral and Allergy Hives Verified 09/29/18 15:50 IV Dye Iodine and Iodide Containing AdvReac Intermediate Hives Verified 09/29/18 15:50 Produc PMH/Surg Hx/FS Hx/Imm Hx Previously Healthy: No Endocrine/Hematology History: Reports: Hx Thyroid Disease, Other Endocrine/ Hematological Disorders - Hyperthyroid Denies: Hx Diabetes, Hx Anemia Cardiovascular History: Denies: Hx Hypertension, Hx Pacemaker/ICD, Other Cardiovascular Problems/ Disorders Respiratory History: Reports: Hx Asthma - as a child Denies: Other Respiratory Problems/Disorders GI History: Reports: Hx Diverticulosis, Hx Gastroesophageal Reflux Disease, Hx Hiatal Hernia - Diagnosed 05/06 Denies: Hx Jaundice Comment Only: Other GI Disorders - diverticulitis History: Reports: Other Problems/Disorders - history of UTIs Denies: Hx Renal Disease Musculoskeletal History: Reports: Hx Arthritis, Other Musculoskeletal History - Right wrist fx-hardware in place 2014 Sensory History: Reports: Hx Contacts or Glasses Denies: Hx Hearing Aid Opthamlomology History: Reports: Hx Contacts or Glasses Neurological History: Reports: Hx Headaches, Hx Migraine Psychiatric History: Reports: Hx Anxiety, Hx Attention Deficit Hyperactivity Disorder, Hx Depression, Hx Post Traumatic Stress Disorder, Hx Inpatient Treatment, Hx Community Mental Health Tx, Hx Bipolar Disorder, Hx Suicide Attempt, Hx Substance Abuse, Other Psychiatric Issues/Disorders - ADHD Denies: Hx Eating Disorder, Hx Panic Disorder, Hx of Violent Episodes Against Others - Cancer History Hx Chemotherapy: No Hx Radiation Therapy: No - Surgical History Surgery Procedure, Year, and Place: hysterectomy; polycystic ovaries 4 laps; removed scar tissue 2001 same area; tonsilectomy. fx right wrist repair - plates in place Hx Anesthesia Reactions: No - Immunization History Date of Tetanus Vaccine: unknown Date of Influenza Vaccine: unknown Infectious Disease History: No Infectious Disease History: Reports: Hx Shingles Denies: Hx Clostridium Difficile, Hx Hepatitis, Hx Human Immunodeficiency Virus (HIV), Hx of Known/Suspected MRSA, Hx Tuberculosis, Hx Known/Suspected VRE , Hx Known/Suspected VRSA, History Other Infectious Disease, Traveled Outside the [place] in Last 30 Days - Family History Known Family History: Positive: Other - family history of diveriticulitis Family History: Father: Alzheimer's - Social History Alcohol Use: last night binge Alcohol Amount: recovering alcholic, relapsed last night Hx Substance Use: No Substance Use Type: Reports: None Substance Use Comment - Amount & Last Used: patient denies substance use Hx Tobacco Use: Yes Smoking Status (MU): Current Every Day Smoker Type: Cigarettes Amount Used/How Often: 1 pack Q3days for the last 30 days, uses no other tabacco [id number] Have You Smoked in the Last Year: Yes Review of Systems Negative: Fever Psychological: Other - PATIENT DENIES SI/HI Positive: Anxious All Other Systems Reviewed And Are Negative: Yes Physical Exam - Summary Physical Exam Summary: Appearance: The patient is well-nourished in no acute distress and in no acute pain. Skin: The skin is warm and dry and skin color reflects adequate perfusion. HEENT: The head is normocephalic and atraumatic. The pupils are equal and reactive. The conjunctivae are clear and without drainage. Nares are patent and without drainage. Mouth reveals moist mucous membranes and the throat is without erythema and exudate. The external ears are intact. The ear canals are patent and without drainage. The tympanic membranes are intact. Neck: The neck is supple with full range of motion and non-tender. There are no carotid bruits. There is no neck vein distension. Respiratory: Chest is non-tender. Lungs are clear to auscultation and breath sounds are symmetrical and equal. Cardiovascular: Heart is regular rate and rhythm. There is no murmur or rub auscultated. There is no peripheral edema and pulses are symmetrical and equal. Abdomen: The abdomen is soft and non-tender. There are normal bowel sounds heard in all four quadrants and there is no organomegaly palpated. Musculoskeletal: There is no back tenderness noted. Extremities are non-tender with full range of motion. There is good capillary refill. There is no peripheral edema or calf tenderness elicited. Neurological: Patient is alert and oriented to person, place and time. The patient has symmetrical motor strength in all four extremities. Cranial nerves are grossly intact. Deep tendon reflexes are symmetrical and equal in all four extremities. Psychiatric: The patient is anxious-appearing Triage Information Reviewed: Yes Vital Signs On Initial Exam: Initial Vitals Temp Pulse Resp BP Pulse Ox 97.3 F 95 18 147/99 99 09/29/18 09:58 09/29/18 09:58 09/29/18 09:58 09/29/18 09:58 09/29/18 09:58 Vital Signs Reviewed: Yes Diagnostics - Vital Signs Vital Signs Temp Pulse Resp BP Pulse Ox 09/29/18 13:09 98.1 F 78 16 150/75 100 09/29/18 09:58 97.3 F 95 18 147/99 99 - Laboratory Lab Results: Lab Results 09/29/18 09/29/18 09/29/18 Range/Units 10:28 10:28 10:42 WBC 10.4 (3.5-10.8) 10^3/uL RBC 5.23 H (3.70-4.87) 10^6 /uL Hgb 13.6 (12.0-16.0) g/dL Hct 42 (35-47) % MCV 80 (80-97) fL MCH 26 L (27-31) pg MCHC 33 (31-36) g/dL RDW 16 H (10.5-15) % Plt Count 627 H (150-450) 10^3/uL MPV 6.6 L (7.4-10.4) fL Neut % (Auto) 68.9 % Lymph % (Auto) 23.7 % [place] % (Auto) 6.0 % Eos % (Auto) 0.4 % Baso % (Auto) 1.0 % Absolute Neuts (auto) 7.2 (1.5-7.7) 10^3/ul Absolute Lymphs (auto) 2.5 (1.0-4.8) 10^3/ul Absolute Monos (auto) 0.6 (0-0.8) 10^3/ul Absolute Eos (auto) 0.0 (0-0.6) 10^3/ul Absolute Basos (auto) 0.1 (0-0.2) 10^3/ul Absolute Nucleated RBC 0.0 10^3/ul Nucleated RBC % 0.2 Sodium (135-145) mmol/L Potassium (3.5-5.0) mmol/L Chloride (101-111) mmol/L Carbon Dioxide (22-32) mmol/L Anion Gap (2-11) mmol/L BUN (6-24) mg/dL Creatinine (0.51-0.95) mg/dL Est GFR ( Amer) (>60) Est GFR (Non-Af Amer) (>60) BUN/Creatinine Ratio (8-20) Glucose (70-100) mg/dL Calcium (8.6-10.3) mg/dL Total Bilirubin (0.2-1.0) mg/dL AST (13-39) U/L ALT (7-52) U/L Alkaline Phosphatase (34-104) U/L Total Protein (6.4-8.9) g/dL Albumin (3.2-5.2) g/dL Globulin (2-4) g/dL Albumin/Globulin Ratio (1-3) TSH (0.34-5.60) mcIU/mL Urine Color Yellow Urine Appearance Clear Urine pH 9.0 (5-9) Ur Specific [place] 1.016 (1.010-1.030) Urine Protein 1+(30 mg/dl) A (Negative) Urine Ketones Negative (Negative) Urine Blood Negative (Negative) Urine Nitrate Negative (Negative) Urine Bilirubin Negative (Negative) Urine Urobilinogen Negative (Negative) Ur Leukocyte Esterase Trace A (Negative) Urine WBC (Auto) Trace(0-5/hpf) (Absent) Urine RBC (Auto) 3+(>10/hpf) A (Absent) Ur Squamous Epith Cells Present A (Absent) Urine Bacteria Absent (Absent) Urine Glucose Negative (Negative) Salicylates (<30) mg/dL Urine Opiates Screen None detected (None Detect) Acetaminophen mcg/mL Ur Barbiturates Screen None detected (None Detect) Ur Phencyclidine Scrn None detected (None Detect) Ur Amphetamines Screen None detected (None Detect) U Benzodiazepines Scrn None detected (None Detect) Urine Cocaine Screen None detected (None Detect) U Cannabinoids Screen None detected (None Detect) Serum Alcohol (<10) mg/dL 09/29/18 Range/Units 10:42 WBC (3.5-10.8) 10^3/uL RBC (3.70-4.87) 10^6 /uL Hgb (12.0-16.0) g/dL Hct (35-47) % MCV (80-97) fL MCH (27-31) pg MCHC (31-36) g/dL RDW (10.5-15) % Plt Count (150-450) 10^3/uL MPV (7.4-10.4) fL Neut % (Auto) % Lymph % (Auto) % [place] % (Auto) % Eos % (Auto) % Baso % (Auto) % Absolute Neuts (auto) (1.5-7.7) 10^3/ul Absolute Lymphs (auto) (1.0-4.8) 10^3/ul Absolute Monos (auto) (0-0.8) 10^3/ul Absolute Eos (auto) (0-0.6) 10^3/ul Absolute Basos (auto) (0-0.2) 10^3/ul Absolute Nucleated RBC 10^3/ul Nucleated RBC % Sodium 137 (135-145) mmol/L Potassium 3.5 (3.5-5.0) mmol/L Chloride 102 (101-111) mmol/L Carbon Dioxide 23 (22-32) mmol/L Anion Gap 12 H (2-11) mmol/L BUN 13 (6-24) mg/dL Creatinine 0.79 (0.51-0.95) mg/dL Est GFR ( Amer) 90.1 (>60) Est GFR (Non-Af Amer) 74.5 (>60) BUN/Creatinine Ratio 16.5 (8-20) Glucose 114 H (70-100) mg/dL Calcium 9.6 (8.6-10.3) mg/dL Total Bilirubin 0.50 (0.2-1.0) mg/dL AST 22 (13-39) U/L ALT 17 (7-52) U/L Alkaline Phosphatase 92 (34-104) U/L Total Protein 8.7 (6.4-8.9) g/dL Albumin 4.6 (3.2-5.2) g/dL Globulin 4.1 H (2-4) g/dL Albumin/Globulin Ratio 1.1 (1-3) TSH 4.47 (0.34-5.60) mcIU/mL Urine Color Urine Appearance Urine pH (5-9) Ur Specific [place] (1.010-1.030) Urine Protein (Negative) Urine Ketones (Negative) Urine Blood (Negative) Urine Nitrate (Negative) Urine Bilirubin (Negative) Urine Urobilinogen (Negative) Ur Leukocyte Esterase (Negative) Urine WBC (Auto) (Absent) Urine RBC (Auto) (Absent) Ur Squamous Epith Cells (Absent) Urine Bacteria (Absent) Urine Glucose (Negative) Salicylates < 2.50 (<30) mg/dL Urine Opiates Screen (None Detect) Acetaminophen < 15 mcg/mL Ur Barbiturates Screen (None Detect) Ur Phencyclidine Scrn (None Detect) Ur Amphetamines Screen (None Detect) U Benzodiazepines Scrn (None Detect) Urine Cocaine Screen (None Detect) U Cannabinoids Screen (None Detect) Serum Alcohol < 10 (<10) mg/dL Result Diagrams: 09/29/18 10:42 09/29/18 10:42 Lab Statement: Any lab studies that have been ordered have been reviewed, and results considered in the medical decision making process. Re-Evaluation - Re-Evaluation First Eval Re-Evaluation Time: 10:00 Comment: Patient was moved to annex room 22 pending mental health evaluation. Second Eval Re-Evaluation Time: 14:45 Comment: Patient is being admitted voluntary to [facility] per Dr. Romero, psychiatrist. Course/Dx - Course Course Of Treatment: She was medically cleared here and underwent a mental health eval in the flex unit. They felt that she was appropriate for voluntary admission, offered her such and she accepted. - Differential Dx/Clinical Impression Provider Diagnosis: Depression - Physician Notifications Discussed Care Of Patient With: Don Romero Time Discussed With Above Provider: 14:45 Instructed by Provider To: Admit As Inpatient - Patient's case was reviewed by Dr. Romero. Patient voluntarily was admitted to [facility] Discharge - Sign-Out/Discharge Documenting (check all that apply): Patient Departure - admitted All imaging exams completed and their final reports reviewed: No Studies Patient Received Moderate/Deep Sedation with Procedure: No - Discharge Plan Condition: Stable Disposition: [facility]YCHIATRIC FACILITY[place] - Billing Disposition and Condition Condition: STABLE Disposition: Psychiatric Facility [facility] - Attestation Statements Document Initiated by Fátimaibe: Yes Documenting Scribe: Linus Springer Provider For Whom Junito is Documenting (Include Credential): Shakir Brizuela MD Scribe Attestation: I, Linus Springer, scribed for Shakir Brizuela MD on 09/29/18 at 1809. Scribe Documentation Reviewed: Yes Provider Attestation: The documentation as recorded by the scribe, Linus Springer accurately reflects the service I personally performed and the decisions made by me, Shakir Brizuela MD Status of Scribe Document: Viewed
[2018-09-29] MEDS ORDERED: QUEtiapine TAB* 300 MG PO SCH (18:00)
[2018-09-29] MEDS: lamoTRIgine TAB(*) 100 MG PO SCH (20:52)
[2018-09-29] MEDS: Pantoprazole TAB * 40 MG TAB PO SCH (20:52)
[2018-09-30 08:27] LABS: HDL Cholesterol 51.3 mg/dL
[2018-09-30] MEDS: lamoTRIgine TAB(*) 100 MG PO SCH ×2 (08:33→20:18)
[2018-09-30] MEDS: Pantoprazole TAB * 40 MG TAB PO SCH ×2 (08:33→20:19)
[2018-09-30] MEDS: CMC: Atomoxetine (NF) 40 MG CAP PO SCH (08:34)
[2018-09-30] MEDS: Acetaminophen TAB* 325 MG PO PRN ×2 (09:09→13:41)
[2018-09-30] MEDS ORDERED: Ibuprofen TAB* 800 MG PO PRN (12:55)
[2018-09-30] MEDS ORDERED: Nicotine* 2MG (FRUIT FLAVOR) GUM PO PRN (13:01)
[2018-09-30] MEDS: Nicotine PATCH 14 MG/24 HR* PATCH TRANSDERM SCH (13:42)
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
[2018-09-30] MEDS: QUEtiapine XR TAB* 300 MG PO SCH (20:18)
[2018-10-01] MEDS: Acetaminophen TAB* 325 MG PO PRN ×4 (04:59→20:10)
[2018-10-01] MEDS: Nicotine PATCH 14 MG/24 HR* PATCH TRANSDERM SCH (09:02)
[2018-10-01] MEDS: lamoTRIgine TAB(*) 100 MG PO SCH ×2 (09:05→20:10)
[2018-10-01] MEDS: Pantoprazole TAB * 40 MG TAB PO SCH ×2 (09:05→20:10)
[2018-10-01] MEDS: CMC: Atomoxetine (NF) 40 MG CAP PO SCH (09:06)
--- NOTE | 2018-10-01 13:39 | PN ---
Subjective - Subjective Date of Service: 10/01/18 Service Type: 65016 Hosp care 15 min low complexity Subjective: Patient reports recalling that she had leftover oxycodone tabs at home and phoned her staff to dispose of them. Patient states this was likely an unconscious reason that she did not feel safe at home, alluding to previous suicide attempt. She also reports concern that her health insurance switches to medicare on october 18 and wants to speak with a health insurance navigator. Objective - General Observations Appearance: Neat Stature: WNL Posture: WNL Behavior/Activity: WNL - Interaction Observations Attitude Towards Examiner: Cooperative Speech Pattern/Tone: Clear, Appropriate, Normal Volume Thought Process: Coherent Perception: WNL Thought Content: WNL Thought Process: Lethality: Passive Wish Hallucination Type: None Delusion Type: None - Cognitive Function Orientation: A&O x 4 Level of Consciousness: Alert Cognition: WNL Estimated Intelligence: Normal Insight: WNL Judgment Within Normal Limits: Yes Ability to Make Reasonable Decisions: Mildly Impaired - Medication Compliance Cooperative with Inpatient Medication Regimen: Yes - Group Participation Participates in Group Activities: Yes Assessment - Assessment Merits Inpatient Hospitalization: For Immediate Safety, For Stabilization Inpatient DSM-V Dx: F31.4 Clinical Impression: 58yo female with prior diagnoses of bipolar d/o, alcohol use d/o and ADHD. She has been struggling to maintain sobriety due to mother's passing May 2017. She had a TKA in May 2018 and recently admitted to misuse of oxycodone. She presented to ED due to SI; merits hospitalization for immediate safety and stabilization Plan - Plan Treatment Plan: Name: PEGGY VIERA Birthdate: 1960 [id number] continue acute intensive psychiatric treatment. may decrease to q30min and allow staff pass. assessed by PT and given exercises to perform on her own. continue current medications. discharge planning to include outpatient providers. Continued Medication Management: Continue Outpt Medication Medications: Current Medications Acetaminophen (Tylenol Tab*) 650 mg PO Q4H PRN PRN Reason: for pain; or Temp >101 F Last Admin: 10/01/18 09:04 Dose: 650 mg Al Hydrox/Mg Hydrox/Simethicone (Maalox Plus*) 30 ml PO Q4H PRN PRN Reason: INDIGESTION Last Admin: 09/29/18 15:11 Dose: 30 ml Atomoxetine HCl (Strattera (Nf)) 40 mg PO QAM [facility]; Protocol Last Admin: 10/01/18 09:06 Dose: 40 mg Docusate Sodium (Colace Cap*) 100 mg PO BID PRN PRN Reason: CONSTIPATION Hydroxyzine HCl (Atarax Tab*) 50 mg PO Q6H PRN PRN Reason: ANXIETY Ibuprofen (Motrin Tab*) 800 mg PO Q8H PRN PRN Reason: PAIN Lamotrigine (Lamictal Tab(*)) 150 mg PO BID [facility] Last Admin: 10/01/18 09:05 Dose: 150 mg Nicotine (Nicotine Patch 14 Mg/24 Hr*) 1 patch TRANSDERM DAILY [facility] Last Admin: 10/01/18 09:02 Dose: Not Given Nicotine Polacrilex (Nicotine Gum*) 2 mg PO Q2H PRN PRN Reason: CRAVING Pantoprazole Sodium (Protonix Tab*) 40 mg PO BID [facility] Last Admin: 10/01/18 09:05 Dose: 40 mg Pharmacy Profile Note (Nicotine Patch Removal Note*) 1 note FOLLOW UP 2100 [facility] Quetiapine Fumarate (Seroquel Xr Tab*) 300 mg PO 1900 [facility] Last Admin: 09/30/18 20:18 Dose: 300 mg - Discharge Plan Discharge Plan: Inpatient Hospitalization Outpatient Program: [facility]
[2018-10-01] MEDS: QUEtiapine XR TAB* 300 MG PO SCH (20:10)
[2018-10-01] MEDS: Nicotine Patch Removal NOTE FOLLOW UP SCH (20:11)
[2018-10-02] MEDS: Nicotine Patch Removal NOTE FOLLOW UP SCH ×2 (03:13→20:40)
[2018-10-02] MEDS: Acetaminophen TAB* 325 MG PO PRN ×3 (05:43→20:41)
[2018-10-02] MEDS: CMC: Atomoxetine (NF) 40 MG CAP PO SCH (10:09)
[2018-10-02] MEDS: lamoTRIgine TAB(*) 100 MG PO SCH ×2 (10:10→20:39)
[2018-10-02] MEDS: Pantoprazole TAB * 40 MG TAB PO SCH ×2 (10:10→20:39)
[2018-10-02] MEDS: Nicotine PATCH 14 MG/24 HR* PATCH TRANSDERM SCH (10:10)
[2018-10-02] MEDS ORDERED: Diclofenac Sodium EC TAB* 25 MG PO PRN (10:37)
[2018-10-02 11:42] VITALS: BP 118/35
--- NOTE | 2018-10-02 11:51 | PN ---
BSU: Group Therapy Note - Service Type Service Type: 44950 Group Psychotherapy - Cognitive Behavioral Group Therapy ( CBT):Patient attended CBT programming this morning and presented with flat affect that did not vary with discussion. Although responsive to direct prompts to respond to questions, patient did not engage in spontaneous conversation.
[2018-10-02] MEDS ORDERED: Diclofenac Sodium EC TAB* 25 MG PO SCH (12:00)
--- NOTE | 2018-10-02 12:04 | PN ---
Subjective - Subjective Date of Service: 10/02/18 Service Type: 88859 Hosp care 15 min low complexity Subjective: Patient reports chronic thoughts of suicide as a "backup plan" but denies active SI. She reports difficulty coping with deaths and that SI tends to be more prominent after a close one passes. She reports desire to continue to discuss this further with therapist. States she is likely ready for discharge tomorrow. Objective - General Observations Appearance: Neat Stature: WNL Posture: WNL Eye Contact: Average - Interaction Observations Attitude Towards Examiner: Cooperative Stated Mood: Euthymic Affect: Full - tearful at times, congruent to topic of conversation Speech Pattern/Tone: Clear, Appropriate, Quiet Volume Thought Process: Coherent, Goal Directed Perception: WNL Thought Content: WNL Hallucination Type: None Delusion Type: None - Cognitive Function Orientation: A&O x 4 Level of Consciousness: Alert Cognition: WNL Estimated Intelligence: Normal Insight: WNL Judgment Within Normal Limits: Yes - Medication Compliance Cooperative with Inpatient Medication Regimen: Yes - Group Participation Participates in Group Activities: Partial Assessment - Assessment Merits Inpatient Hospitalization: For Immediate Safety, For Discharge Planning, Pending Safe DC Plan Inpatient DSM-V Dx: F31.4 Clinical Impression: 58yo female with prior diagnoses of bipolar d/o, alcohol use d/o and ADHD. She has been struggling to maintain sobriety due to mother's passing May 2017. She had a TKA in May 2018 and recently admitted to misuse of oxycodone. She presented to ED due to SI; merits hospitalization for immediate safety and stabilization. Plan - Plan Treatment Plan: Name: PEGGY VIERA Birthdate: 1960 [id number] continue acute intensive psychiatric treatment. may decrease to q30min and allow staff pass. assessed by PT and given exercises to perform on her own. DC ibuprofen, add diclofenac EC daily. discharge planning to include outpatient providers. Continued Medication Management: Start Medication Medications: Current Medications Acetaminophen (Tylenol Tab*) 650 mg PO Q4H PRN PRN Reason: for pain; or Temp >101 F Last Admin: 10/02/18 05:43 Dose: 650 mg Al Hydrox/Mg Hydrox/Simethicone (Maalox Plus*) 30 ml PO Q4H PRN PRN Reason: INDIGESTION Last Admin: 09/29/18 15:11 Dose: 30 ml Atomoxetine HCl (Strattera (Nf)) 40 mg PO QAM [facility]; Protocol Last Admin: 10/02/18 10:09 Dose: 40 mg Diclofenac Sodium (Voltaren Ec Tab*) 100 mg PO DAILY [facility] Docusate Sodium (Colace Cap*) 100 mg PO BID PRN PRN Reason: CONSTIPATION Hydroxyzine HCl (Atarax Tab*) 50 mg PO Q6H PRN PRN Reason: ANXIETY Lamotrigine (Lamictal Tab(*)) 150 mg PO BID [facility] Last Admin: 10/02/18 10:10 Dose: 150 mg Nicotine (Nicotine Patch 14 Mg/24 Hr*) 1 patch TRANSDERM DAILY [facility] Last Admin: 10/02/18 10:10 Dose: Not Given Nicotine Polacrilex (Nicotine Gum*) 2 mg PO Q2H PRN PRN Reason: CRAVING Pantoprazole Sodium (Protonix Tab*) 40 mg PO BID [facility] Last Admin: 10/02/18 10:10 Dose: 40 mg Pharmacy Profile Note (Nicotine Patch Removal Note*) 1 note FOLLOW UP 2099 [facility] Last Admin: 10/02/18 03:13 Dose: Not Given Quetiapine Fumarate (Seroquel Xr Tab*) 300 mg PO 1900 [facility] Last Admin: 10/01/18 20:10 Dose: 300 mg - Discharge Plan Discharge Plan: Inpatient Hospitalization
[2018-10-02] MEDS: Diclofenac Sodium EC TAB* 25 MG PO SCH ×2 (14:16→20:36)
[2018-10-02] MEDS: QUEtiapine XR TAB* 300 MG PO SCH (20:38)
[2018-10-03] MEDS: Acetaminophen TAB* 325 MG PO PRN ×2 (01:05→04:55)
[2018-10-03] MEDS: Diclofenac Sodium EC TAB* 25 MG PO SCH (08:40)
[2018-10-03] MEDS: lamoTRIgine TAB(*) 100 MG PO SCH (08:41)
[2018-10-03] MEDS: Nicotine PATCH 14 MG/24 HR* PATCH TRANSDERM SCH (08:41)
[2018-10-03] MEDS: Pantoprazole TAB * 40 MG TAB PO SCH (08:41)
[2018-10-03] MEDS: CMC: Atomoxetine (NF) 40 MG CAP PO SCH (08:42)
--- NOTE | 2018-10-03 12:05 | DCNOTE ---
Subjective - Subjective Service Types: 06743 Hosp DC Day Mgmt simple under 30 min Discharge Date: 10/03/18 Subjective: Patient presents as euthymic with bright affect. She reports readiness for discharge. She shared with staff a desire to be more forthcoming with therapist in sessions. She denies active SI or passive wish. [employer] Supervisor spoke with sr. manager of [employer] and verified that patient's old Rx of oxycodone was disposed of. Objective - General Observations Appearance: Neat Stature: WNL Posture: WNL Eye Contact: Average Behavior/Activity: WNL - Interaction Observations Attitude Towards Examiner: Cooperative Stated Mood: Euthymic Affect: Full Speech Pattern/Tone: Clear, Appropriate, Normal Volume Thought Process: Coherent, Goal Directed Perception: WNL Thought Content: WNL Hallucination Type: None Delusion Type: None - Cognitive Function Orientation: A&O x 4 Level of Consciousness: Alert Cognition: WNL Estimated Intelligence: Normal Insight: WNL Judgment Within Normal Limits: Yes - Medication Compliance Cooperative with Inpatient Medication Regimen: Yes - Group Participation Participates in Group Activities: Yes DC Assessment - Assessment Clinical Impression: 58yo female with prior diagnoses of bipolar d/o, alcohol use d/o and ADHD. She has been struggling to maintain sobriety due to mother's passing May 2017. She had a TKA in May 2018 and recently admitted to misuse of oxycodone. She has been psychiatrically stabilized and reports readiness for discharge. Merits Inpatient Hospitalization: No Clear for Discharge: Adequate Clinical Respons, Acceptable Safety Profile Inpatient DSM-V Dx: F31.4 Discharge Planning - Discharge Planning Discharge Plan: Outpatient Follow Up Outpatient Program: [facility] Recommendations for Continuing Care: Medication Management, Psychotherapy, Substance Abuse Counseling, Primary Care Followup Medications: Current Medications Acetaminophen (Tylenol Tab*) 650 mg PO Q4H PRN PRN Reason: for pain; or Temp >101 F Last Admin: 10/03/18 04:55 Dose: 650 mg Al Hydrox/Mg Hydrox/Simethicone (Maalox Plus*) 30 ml PO Q4H PRN PRN Reason: INDIGESTION Last Admin: 09/29/18 15:11 Dose: 30 ml Atomoxetine HCl (Strattera (Nf)) 40 mg PO QAM [facility]; Protocol Last Admin: 10/03/18 08:42 Dose: 40 mg Diclofenac Sodium (Voltaren Ec Tab*) 50 mg PO BID [facility] Last Admin: 10/03/18 08:40 Dose: 50 mg Docusate Sodium (Colace Cap*) 100 mg PO BID PRN PRN Reason: CONSTIPATION Lamotrigine (Lamictal Tab(*)) 150 mg PO BID [facility] Last Admin: 10/03/18 08:41 Dose: 150 mg Pantoprazole Sodium (Protonix Tab*) 40 mg PO BID [facility] Last Admin: 10/03/18 08:41 Dose: 40 mg * autosub for omeprazole Quetiapine Fumarate (Seroquel Xr Tab*) 300 mg PO 1900 [facility] Last Admin: 10/02/18 20:38 Dose: 300 mg Discharge Planning: Prescriptions provided for discharge [] Yes [] No Follow up care details as per social work arrangements. Patient response to discharge plan: [] eager for discharge [] agreeable with discharge plan [] ambivalent about discharge [] disagrees with discharge today
--- NOTE | 2018-10-03 21:31 | DS ---
CC: Sheila Liao NP; [facility] * DATE OF ADMISSION: 09/29/18 DATE OF DISCHARGE: 10/03/18 SUPERVISING PSYCHIATRIST: Dr. Don Romero.* (DICTATED BY MELANIE MEDRANO NP) DISCHARGE DIAGNOSES: 1. Alcohol-induced mood disorder. 2. Bereavement. CONDITION AT THE TIME OF DISCHARGE: Improved. The patient denies suicidal ideation. She has denied suicidal ideation while in the hospital. She has been calm and in behavioral control. Noted to be social with select peers and participating in select groups. I spoke with the manager cosmetics of [employer] and verified that the patient's prescription of oxycodone was disposed off. The patient is discharged to home. MENTAL STATUS EXAM: Sydney is a 58-year-old woman who appears her stated age. She is well groomed, wearing her own casual clothing. She has short black and sanchez hair. She is alert and oriented x3. Eye contact was good. She is pleasant and cooperative and answers questions fully. Speech is soft, articulate, and spontaneous. No psychomotor abnormal activity noted. Memory is 3/3. Concentration is good. Mood is euthymic with bright affect. She denies auditory or visual hallucinations. Thought process is logical, goal directed, and coherent. Thought content is negative for suicidal ideation. Insight and judgment are good. Fund of knowledge is adequate. INSTRUCTIONS GIVEN TO THE PATIENT: A. Medications: The only thing we added was diclofenac EC 50 mg p.o. b.i.d. x1 week until she meets with her primary care provider. She will resume: 1. Atomoxetine 40 mg p.o. q.a.m. 2. Lamotrigine 150 mg p.o. b.i.d. 3. Pantoprazole out of substitute for omeprazole 40 mg b.i.d. 4. Quetiapine XR 300 mg p.o. daily at 1900. B. Diet: Regular. C. Activity: Ambulation as tolerated. Tobacco cessation is declined by the patient. There are no pending labs or diagnostic studies. D. Followup care: The patient will follow up with [facility], Sheila Liao NP. E. Substance use followup: The patient declines offer for referal to substance use treatment. She is strongly encouraged to continue to participate in local . HOSPITAL COURSE: Part A. Reason for Admission: The patient presented to the emergency department due to severe anxiety, depression, and intrusive suicidal ideation. She reported that this was primarily related to Mother's Day and that her mother a little bit over a year ago. She also had knee replacement in May and is having difficulty coping with pain and not being as mobile as she wants to be. Part B. Psychiatric Treatment Rendered: The patient was admitted to the adult behavioral services unit on voluntary status. Code status was full. She was placed on 15-minute checks for safety. This was decreased to 30-minute observations and she was allowed staff pass. She started participating in in the unit programming nearly immediately. We continued outpatient medications and targeted brief admission to avoid dependence on inpatient treatment. While in the hospital, the patient admitted to this staff and her staff at [facility] that she had a stash of oxycodone at home that she was using for pain and/ or incase of desire for suicide. She was validated for efforts of honesty and encouraged to continue to be honest with herself and her providers. As stated above, the patient was calm and in behavioral control. She was safe on all checks. She was socially euthymic. She asked for help in setting up Medicare as she is anxious about this change on 10/18/18. She spoke with our utilization review nurse and seemed relieved by talking with him. The patient is also encouraged to make to do list for herself and engage in time management as opposed to avoidance. On morning of discharge, the patient reported readiness to to be discharged and was given Medicaid transportation home to [facility]. MELANIE MEDRANO NP [id number]/CPS #: [id number] MARCIAL
== END 2018-10-03 12:35 | disposition home or self-care (01) | DRG 753 ==
LOC: ED 09:52 → BSU 14:42
PROVIDERS: ADMIT Psychiatry & Neurology Psychiatry; ATTEND Psychiatry & Neurology Psychiatry
DX: F31.4 Bipolar disorder, current episode depressed, severe, without psychotic features (principal); F10.94 Alcohol use, unspecified with alcohol-induced mood disorder; R45.851 Suicidal ideations; F90.9 Attention-deficit hyperactivity disorder, unspecified type; Y90.0 Blood alcohol level of less than 20 mg/100 ml; F17.210 Nicotine dependence, cigarettes, uncomplicated; M25.562 Pain in left knee; Z96.652 Presence of left artificial knee joint; Z63.4 Disappearance and death of family member; K21.9 Gastro-esophageal reflux disease without esophagitis; Z91.041 Radiographic dye allergy status; Z88.5 Allergy status to narcotic agent; Z88.8 Allergy status to other drugs, medicaments and biological substances; Z91.048 Other nonmedicinal substance allergy status; Z78.0 Asymptomatic menopausal state; Z81.1 Family history of alcohol abuse and dependence; Z81.8 Family history of other mental and behavioral disorders
CPT/HCPCS: 36415; 80053; 80061; 80307; 80320; 80329; 81003; 81015; 83036; 84443; 85025; 87086; 90853; 99222; 99231; 99238; 99284; A9270-GY; G0480

== ENCOUNTER 2019-02-18 15:01 | Observation (INO) | payer MEDICARE, MEDICAID ==
--- NOTE | 2019-02-18 15:58 | ED ---
Psychiatric Complaint - HPI Summary HPI Summary: Patient is a 58 y/o F w/ Hx of bipolar disorder who presents to [facility] for SI and anxiety. She states that she is on Lametical 150 mg PO BID. She states, "Dying for me would be fine. Dying for people who love me, wouldn't be fine". Patient states that she has been consuming alcohol throughout the entire day to help cope with her anxiety. She characterizes her alcohol consumption as "out of control". She vapes and uses marijuana. Advocate, Chanelle, is present. Home medications and allergies are reviewed. - History Of Current Complaint Chief Complaint: EDMentalHealth Time Seen by Provider: 02/18/19 15:35 Hx Obtained From: Patient Onset/Duration: Still Present Timing: Constant Character: Depressed, Anxious Has Suicidal: Reports: Thoughts - Allergies/Home Medications Allergies/Adverse Reactions: Allergies Allergy/AdvReac Type Severity Reaction Status Date / Time divalproex sodium Allergy Severe Hallucinati Verified 10/03/18 14:18 [From Depakote] ons lithium Allergy Severe Hallucinati Verified 10/03/18 14:18 ons oseltamivir [From Tamiflu] Allergy Severe Nausea And Verified 10/03/18 14:18 Vomiting prazosin Allergy Severe Swelling Verified 10/03/18 14:18 Of Face,Lips,& Throat codeine Allergy Intermediate Rash Verified 10/03/18 14:18 lurasidone Allergy Intermediate Muscle Verified 10/03/18 14:18 Twitching Tricyclic Compounds Allergy Intermediate Agitation Verified 10/03/18 14:18 Iodinated Contrast Media Allergy Hives Verified 10/03/18 14:18 [Iodinated Contrast- Oral and IV Dye] Iodine and Iodide Containing AdvReac Intermediate Hives Verified 10/03/18 14:18 Produc Home Medications: Home Medications Pantoprazole TAB * [Protonix TAB*] 40 mg PO DAILY 02/18/19 [History Confirmed ] QUEtiapine TAB* [Seroquel 25 MG TAB*] 25 mg PO BID PRN 02/18/19 [History Confirmed 02/18/19] QUEtiapine XR TAB* [Seroquel Xr 300 MG TAB*] 300 mg PO BEDTIME 02/18/19 [ History Confirmed 02/18/19] PMH/Surg Hx/FS Hx/Imm Hx Endocrine/Hematology History: Reports: Hx Thyroid Disease, Other Endocrine/ Hematological Disorders - Hyperthyroid Denies: Hx Diabetes, Hx Anemia Cardiovascular History: Denies: Hx Hypertension, Hx Pacemaker/ICD, Other Cardiovascular Problems/ Disorders Respiratory History: Reports: Hx Asthma - as a child Denies: Other Respiratory Problems/Disorders GI History: Reports: Hx Diverticulosis, Hx Gastroesophageal Reflux Disease, Hx Hiatal Hernia - Diagnosed 05/06 Denies: Hx Jaundice Comment Only: Other GI Disorders - diverticulitis History: Reports: Other Problems/Disorders - history of UTIs Denies: Hx Renal Disease Musculoskeletal History: Reports: Hx Arthritis, Other Musculoskeletal History - Right wrist fx-hardware in place 2014 Sensory History: Reports: Hx Contacts or Glasses Denies: Hx Hearing Aid Opthamlomology History: Reports: Hx Contacts or Glasses Neurological History: Reports: Hx Headaches, Hx Migraine Psychiatric History: Reports: Hx Anxiety, Hx Attention Deficit Hyperactivity Disorder, Hx Depression, Hx Post Traumatic Stress Disorder, Hx Inpatient Treatment, Hx Community Mental Health Tx, Hx Bipolar Disorder, Hx Suicide Attempt, Hx Substance Abuse, Other Psychiatric Issues/Disorders - ADHD Denies: Hx Eating Disorder, Hx Panic Disorder, Hx of Violent Episodes Against Others - Cancer History Hx Chemotherapy: No Hx Radiation Therapy: No - Surgical History Surgery Procedure, Year, and Place: hysterectomy; polycystic ovaries 4 laps; removed scar tissue 2001 same area; tonsilectomy. fx right wrist repair - plates in place Hx Anesthesia Reactions: No - Immunization History Date of Tetanus Vaccine: unknown Date of Influenza Vaccine: unknown Infectious Disease History: No Infectious Disease History: Reports: Hx Shingles Denies: Hx Clostridium Difficile, Hx Hepatitis, Hx Human Immunodeficiency Virus (HIV), Hx of Known/Suspected MRSA, Hx Tuberculosis, Hx Known/Suspected VRE , Hx Known/Suspected VRSA, History Other Infectious Disease, Traveled Outside the [place] in Last 30 Days - Family History Known Family History: Positive: Other - family history of diveriticulitis Family History: Father: Alzheimer's - Social History Alcohol Use: Daily Alcohol Amount: recovering alcholic, relapsed last night Hx Substance Use: No Substance Use Type: Reports: Marijuana Substance Use Comment - Amount & Last Used: patient denies substance use Hx Tobacco Use: Yes Smoking Status (MU): Current Every Day Smoker Type: Cigarettes Amount Used/How Often: 1 pack Q3days for the last 30 days, uses no other tabacco [id number] Have You Smoked in the Last Year: Yes Review of Systems Constitutional: Other - positive - alcohol consumption Positive: Anxious, Depressed - SI All Other Systems Reviewed And Are Negative: Yes Physical Exam - Summary Physical Exam Summary: VITAL SIGNS: Reviewed. GENERAL: Patient is a well-developed and nourished female who is lying comfortable in the stretcher. Patient is not in any acute respiratory distress. She has the scent of alcohol on her breath. HEAD AND FACE: No signs of trauma. No ecchymosis, hematomas or skull depressions. No sinus tenderness. EYES: PERRLA, EOMI x 2, No injected conjunctiva, no nystagmus. EARS: Hearing grossly intact. Ear canals and tympanic membranes are within normal limits. MOUTH: Oropharynx within normal limits. NECK: Supple, trachea is midline, no adenopathy, no JVD, no carotid bruit, no c- spine tenderness, neck with full ROM. CHEST: Symmetric, no tenderness at palpation. LUNGS: Clear to auscultation bilaterally. No wheezing or crackles. CVS: Regular rate and rhythm, S1 and S2 present, no murmurs or gallops appreciated. ABDOMEN: Soft, non-tender. No signs of distention. No rebound, no guarding, and no masses palpated. Bowel sounds are normal. EXTREMITIES: FROM in all major joints, no edema, no cyanosis or clubbing. NEURO: Alert and oriented x 3. No acute neurological deficits. Some slurring of speech secondary to alcohol consumption. SKIN: Dry and warm. Triage Information Reviewed: Yes Vital Signs On Initial Exam: Initial Vitals Temp Pulse Resp BP Pulse Ox 97.1 F 100 18 165/100 97 02/18/19 15:14 02/18/19 15:14 02/18/19 15:14 02/18/19 15:14 02/18/19 15:14 Vital Signs Reviewed: Yes Procedures - Sedation Patient Received Moderate/Deep Sedation with Procedure: No Diagnostics - Vital Signs Vital Signs Temp Pulse Resp BP Pulse Ox 02/18/19 15:14 97.1 F 100 18 165/100 97 - Laboratory Result Diagrams: 02/19/19 05:18 02/19/19 05:18 Lab Statement: Any lab studies that have been ordered have been reviewed, and results considered in the medical decision making process. Course/Dx - Course Assessment/Plan: Patient is a 58-year-old female who presents to the emergency department with alcohol intoxication. She also reports that she wants to kill herself. The patient will be cleared at approximately 1145 p.m. At approximately 10 PM the patient vital signs are abnormal. The heart rate is 122 , respiratory rate 18, O2 sat is 96, the blood pressure is 164/91 and now she is complaining of nausea vomiting and anxiety. The patient is shaking and I believe that the patient is withdrawing. An IV access was started, and thiamine was ordered as well as Ativan. I discussed my physical exam and findings with Dr. Escobedo from the hospitalist services who accepted the patient for admission. - Differential Dx/Clinical Impression Provider Diagnosis: Alcohol withdrawal - Physician Notifications Discussed Care Of Patient With: Avery Escobedo Time Discussed With Above Provider: 21:54 Instructed by Provider To: Other - Patient's case was discussed with Dr. Escobedo, who accepts for admission. Discharge ED - Sign-Out/Discharge Documenting (check all that apply): Patient Departure - admit - Discharge Plan Condition: Fair Disposition: ADMITTED TO [facility] - Billing Disposition and Condition Condition: FAIR Disposition: Admitted to [facility] - Attestation Statements Document Initiated by Scribe: Yes Documenting Scribe: KARYN LAMB Provider For Whom Fátimaiborlando is Documenting (Include Credential): WILBERT PATHAK MD Scribe Attestation: I, KARYN LAMB, scribed for WILBERT PATHAK MD on 02/20/19 at 1353. Scribe Documentation Reviewed: Yes Provider Attestation: The documentation as recorded by the KARYN lo accurately reflects the service I personally performed and the decisions made by me, WILBERT PATHAK MD Status of Scribe Document: Viewed
[2019-02-18 16:46] LABS: ABS Eosinophils 0.2 10^3/ul (0-0.6); ABS Lymphocytes 3.3 10^3/ul (1.0-4.8); ABS Monocytes 0.4 10^3/ul (0-0.8); ABS Neutrophils 2.4 10^3/ul (1.5-7.7); Eosinophil % 2.7 %; Hematocrit 42 % (35-47); Hemoglobin 13.7 g/dL (12.0-16.0); Lymphocyte % 52.6 %; Mean Corpuscular HGB Conc 33 g/dL (31-36); Mean Corpuscular Hemoglobin 26 pg (27-31); Mean Corpuscular Volume 80 fL (80-97); Mean Platelet Volume 6.7 fL (7.4-10.4); Nucleated Red Blood Cells % 0.1; Platelet Count 419 10^3/uL (150-450); Red Blood Count 5.22 10^6 /uL (3.70-4.87); Red Cell Distribution Width 17 % (10-15); White Blood Count 6.3 10^3/uL (3.5-10.8)
[2019-02-18 16:57] LABS: ALT 27 U/L (7-52); AST 35 U/L (13-39); Albumin 4.6 g/dL (3.2-5.2); Albumin/Globulin Ratio 1.2 (1-3); Alkaline Phosphatase 88 U/L (34-104); Anion Gap 10 mmol/L (2-11); BUN/Creatinine Ratio 12.2 (8-20); Blood Urea Nitrogen 9 mg/dL (6-24); CO2 Carbon Dioxide 24 mmol/L (22-32); Calcium 9.1 mg/dL (8.6-10.3); Chloride 109 mmol/L (101-111); EGFR African American 97.2 (>60); EGFR Non-African American 80.3 (>60); Globulin 3.8 g/dL (2-4); Glucose 94 mg/dL (70-100); Potassium 3.6 mmol/L (3.5-5.0); Sodium 143 mmol/L (135-145); Total Protein 8.4 g/dL (6.4-8.9)
[2019-02-18 18:13] LABS: Acetaminophen < 15 mcg/mL; Alcohol 339 mg/dL (<10); Salicylate < 2.50 mg/dL (<30)
[2019-02-18 18:34] LABS: TSH (Thyroid Stimulating Horm) 2.51 mcIU/mL (0.34-5.60)
[2019-02-18 19:36] LABS: Urine Appearance Clear; Urine Bacteria Absent (Absent); Urine Bilirubin Negative (Negative); Urine Blood 1+ (Negative); Urine Color Colorless; Urine Glucose Negative (Negative); Urine Ketones Negative (Negative); Urine Nitrite Negative (Negative); Urine Protein Negative (Negative); Urine Red Blood Cell Trace(0-2/hpf) (Absent); Urine Specific Gravity 1.002 (1.010-1.030); Urine Urobilinogen Negative (Negative); Urine White Blood Cell Absent (Absent)
[2019-02-18 19:50] LABS: Urine Benzodiazepine Screen None Detected (None Detect); Urine Opiates Screen None Detected (None Detect)
[2019-02-18] MEDS ORDERED: hydrOXYzine HCL TAB* 50 MG PO ONE (20:16)
[2019-02-18] MEDS ORDERED: LORazepam TAB(*) 1 MG PO ONE (21:51)
[2019-02-18] MEDS ORDERED: LORazepam INJ* 2 MG/ML 1 ML VIAL IV PUSH ONE (21:52)
[2019-02-18] MEDS ORDERED: Thiamine INJ* 100 MG, Folic Acid IV* 1 MG, Multiple Vitamin IV ADULT* 10 ML in NS 0.9% ... IV ONE (21:52)
[2019-02-18] MEDS ORDERED: Lorazepam PYXIS KEY PRN (21:52)
[2019-02-18] MEDS ORDERED: Ondansetron INJ* 2 MG/ML VIAL IV ONE (21:53)
[2019-02-18] MEDS ORDERED: Ondansetron INJ* 2 MG/ML VIAL IV PRN (23:26)
[2019-02-18] MEDS ORDERED: Pantoprazole IV* 40 MG IV ONE (23:26)
[2019-02-18] MEDS ORDERED: LORazepam INJ* 2 MG/ML 1 ML VIAL IV PUSH SCH (23:45)
[2019-02-18] MEDS ORDERED: Multivitamins/Minerals TAB PO SCH (23:45)
[2019-02-19] MEDS ORDERED: Docusate CAP* 100 MG PO PRN (02:40)
[2019-02-19] MEDS: Multivitamins/Minerals TAB PO SCH (02:50)
[2019-02-19] MEDS: QUEtiapine TAB* 25 MG PO PRN ×2 (04:20→17:07)
--- NOTE | 2019-02-19 05:47 | HP ---
CC: Sheila Liao NP * ADMISSION HISTORY AND PHYSICAL: DATE OF ADMISSION: 02/19/19 PRIMARY CARE PHYSICIAN: Sheila Liao NP. REASON FOR ADMISSION: Alcohol withdrawal and suicidal ideation. HISTORY OF PRESENT ILLNESS: This is a 58-year-old female with past medical history of bipolar disorder, depression, anxiety, ADHD, alcohol abuse, and gastroesophageal reflux disease who was brought in by her advocate, Chanelle, as she was increasingly depressed and consuming alcohol. The patient stated that she woke up and realized that she already wrote a eulogy and the patient's advocate, Chanelle, who works with her at the [facility] and also takes her to all her appointments, realized that she was getting more and more depressed and convinced her to come to the ER. The patient also had some suicidal ideation and said words like "dying for me would be fine." She has also gone out of control with her alcohol use; she has been drinking about 1 to 2 pints of vodka on a daily basis and is actively thinking about stopping it and has an appointment with another doctor to get Vivitrol to help her with alcohol abuse. Given her suicidal ideation, she was to be admitted to the inpatient mental health unit; however, she was still having active withdrawal from alcohol use and her alcohol level was also elevated at 339, so she is initially admitted to the medical service for detoxification and to get through the initial alcohol withdrawal, and once stable, Psychiatry could be taking over the patient's care for her depression and suicidal ideation. The patient, otherwise, offers no complaints. During my evaluation, she had already received Ativan and was much more pleasant, did not have the initial tachycardia and agitation that the nurse mentioned she previously had. After she came into the ER, about 6 hours later, she did have an episode of severe nausea, which was followed by vomiting ; initially, regular vomiting, but later also had an episode of 20 to 30 cc of bloody vomiting. After she received Zofran and IV Protonix, she no longer had any further vomiting. PAST MEDICAL HISTORY: As mentioned, bipolar, depression, anxiety, ADHD, alcohol abuse, gastroesophageal reflux disease, hiatal hernia, and Raynaud phenomenon. PAST SURGICAL HISTORY: She has had tonsillectomy, 4 laparoscopies for her polycystic ovarian syndrome, and later finally had a hysterectomy with oophorectomy. She has also had ORIF of her right wrist and right total knee replacement. HOME MEDICATIONS: The patient is on: 1. Seroquel 25 mg p.o. b.i.d. 2. Colace 100 mg p.o. b.i.d. 3. Strattera 40 mg every morning. 4. Seroquel 300 mg at bedtime. 5. Protonix 40 mg daily. 6. Lamictal 150 mg p.o. b.i.d. ALLERGIES: The patient is documented to be allergic to DEPAKOTE, LITHIUM, TAMIFLU, PRAZOSIN, CODEINE, LURASIDONE, TRICYCLIC COMPOUNDS, and IODINATED IV CONTRAST MEDIA. FAMILY HISTORY: Noncontributory to her current admission. There is, however, history of diabetes, coronary artery disease, cancer, rheumatoid arthritis, and DVT. SOCIAL HISTORY: She lives at the [facility]. Has had multiple episodes of alcohol abuse and admissions for detox. She denies any use of cigarettes, but does use vaping. No other illicit drugs. She is a full code and she stated that her sister in [place] would be her healthcare proxy, but she prefers not to get her involved unless she is very confused as she does not want her to know some of the medical issues that she has been having. REVIEW OF SYSTEMS: A 14-point review of systems did not reveal any new information, other than the ones stated in the HPI. PHYSICAL EXAMINATION GENERAL: The patient is awake, alert and oriented x3, does not appear to be in any acute respiratory distress. VITAL SIGNS: In the ER, BP was noted to be 136/72, heart rate 86, respiration rate 18, saturating 94% on room air, temperature was noted to be 98.4. HEAD AND NECK: Atraumatic and normocephalic. Bilateral pupils are reactive. Oral mucosa was moist. NECK: Supple. No jugular venous distention. LUNGS: Clear to auscultation bilaterally. No wheezes, rhonchi, or rales. HEART: S1, S2. Regular rate and rhythm. ABDOMEN: Soft, nontender, and nondistended. EXTREMITIES: No cyanosis, clubbing, or edema. DIAGNOSTIC STUDIES/LAB DATA: Labs: CBC was unremarkable, except for minimally elevated RDW at 17. Comprehensive metabolic panel was remarkable. Urinalysis was showing +1 blood, but otherwise no leuk esterase or nitrites. Urine toxicology was negative, with the exception of serum alcohol level to be elevated at 339. IMPRESSION: This is a 58-year-old female with bipolar disorder, depression, anxiety, attention deficit hyperactivity disorder, and gastroesophageal reflux disease who is here due to alcohol withdrawal, suicidal ideation, and an episode of hematemesis. ASSESSMENT AND PLAN: 1. Acute alcohol withdrawal. We will start the patient on the WAM protocol and start appropriate benzodiazepines to control her withdrawal, monitor the patient on telemetry, and start the patient on multivitamins. 2. Episode of hematemesis. We will monitor her CBC in the morning. If there is no real change, it could be likely secondary to her recurrent vomiting and if there is a drop in hemoglobin, we could consider a GI evaluation for an endoscopy. In the meantime, we will place the patient on n.p.o. for possible EGD if necessary. 3. Suicidal ideation. Consult Psychiatry to evaluate the patient. I already spoke with inpatient mental health magistrate assistant, who will pass on the messages to the psychiatrist in the morning and we will also restart her home medication. 4. History of bipolar disorder, attention deficit hyperactivity disorder, depression, and anxiety. Restart home medications. 5. History of gastroesophageal reflux disease. We will start the patient on IV Protonix given the episode of hematemesis. 6. DVT prophylaxis. With sequential compression device. 7. Code status. Full code. [id number]/[facility] #: [id number] MTDD
[2019-02-19 07:07] LABS: ABS Basophils 0.1 10^3/ul (0-0.2); ABS Eosinophils 0.2 10^3/ul (0-0.6); ABS Lymphocytes 2.4 10^3/ul (1.0-4.8); ABS Monocytes 0.5 10^3/ul (0-0.8); ABS Neutrophils 4.7 10^3/ul (1.5-7.7); Eosinophil % 2.3 %; Hematocrit 37 % (35-47); Hemoglobin 12.2 g/dL (12.0-16.0); Lymphocyte % 30.3 %; Mean Corpuscular HGB Conc 33 g/dL (31-36); Mean Corpuscular Hemoglobin 26 pg (27-31); Mean Corpuscular Volume 80 fL (80-97); Mean Platelet Volume 7.3 fL (7.4-10.4); Nucleated Red Blood Cells % 0.1; Platelet Count 361 10^3/uL (150-450); Red Blood Count 4.64 10^6 /uL (3.70-4.87); Red Cell Distribution Width 17 % (10-15); White Blood Count 7.9 10^3/uL (3.5-10.8)
[2019-02-19] MEDS: Atomoxetine (NF) 40 MG CAP PO SCH (08:13)
[2019-02-19] MEDS: lamoTRIgine TAB(*) 100 MG PO SCH ×2 (08:19→20:50)
[2019-02-19] MEDS ORDERED: LORazepam TAB(*) 1 MG PO ONE (08:25)
[2019-02-19] MEDS ORDERED: Pantoprazole IV* 40 MG IV SCH (09:00)
[2019-02-19 09:21] LABS: Albumin 4.1 g/dL (3.2-5.2); Albumin/Globulin Ratio 1.4 (1-3); BUN/Creatinine Ratio 13.6 (8-20); Calcium 8.7 mg/dL (8.6-10.3); EGFR African American 87.6 (>60); EGFR Non-African American 72.4 (>60); Globulin 2.9 g/dL (2-4); Potassium 3.8 mmol/L (3.5-5.0); Total Bilirubin 0.8 mg/dL (0.2-1.0)
[2019-02-19] MEDS ORDERED: Naltrexone INJ 380 MG IM ONE (14:21)
--- NOTE | 2019-02-19 18:30 | PN ---
Subjective Date of Service: 02/19/19 Interval History: [place] anxious, mild tremor, no nausea/vomiting, no more hematemesis. No suicidal plan. Objective Active Medications: Atomoxetine HCl (Strattera (Nf)) 40 mg PO QAM [facility]; Protocol Last Admin: 02/19/19 08:13 Dose: Not Given Docusate Sodium (Colace Cap*) 100 mg PO BID PRN PRN Reason: CONSTIPATION Lamotrigine (Lamictal Tab(*)) 150 mg PO BID [facility] Last Admin: 02/19/19 08:19 Dose: 150 mg Lorazepam (Ativan Inj*) 0 - [address] PROTOCOL [facility]; Protocol Miscellaneous (Ativan Pyxis Mendez) 1 ea N/A .ATIVAN IV MENDEZ PRN PRN Reason: PYXIS MENDEZ Multivitamins/Minerals (Theragran/Minerals Tab*) 1 tab PO 0900 [facility] Last Admin: 02/19/19 02:50 Dose: 1 tab Ondansetron HCl (Zofran Inj*) 4 mg IV Q4H PRN PRN Reason: NAUSEA/VOMITING Pantoprazole Sodium (Protonix Tab*) 40 mg PO BID [facility] Quetiapine Fumarate (Seroquel Tab*) 25 mg PO BID PRN PRN Reason: AGITATION/ANXIETY Last Admin: 02/19/19 17:07 Dose: 25 mg Quetiapine Fumarate (Seroquel Xr Tab*) 300 mg PO BEDTIME [facility] Vital Signs - 8 hr 02/19/19 02/19/19 02/19/19 10:43 11:15 11:16 Temperature 98.6 F 99.0 F Pulse Rate 75 73 Respiratory 18 18 18 Rate Blood Pressure 140/76 145/92 (mmHg) O2 Sat by Pulse 96 97 Oximetry 02/19/19 02/19/19 16:44 17:31 Temperature 97.5 F 97.5 F Pulse Rate 71 70 Respiratory 16 17 Rate Blood Pressure 139/98 163/104 (mmHg) O2 Sat by Pulse 97 99 Oximetry Oxygen Devices in Use Now: None Exam: Appearance: not in acute distress, comfortable, mild tremor Eyes: No Scleral Icterus Ears/Nose/Mouth/Throat: NL Teeth, Lips, Gums Neck: NL Appearance and Movements; NL JVP Respiratory: Symmetrical Chest Expansion and Respiratory Effort Cardiovascular: RRR, no murmur Abdominal: soft, non tender Lymphatic: No Cervical Adenopathy Extremities: No Edema Result Diagrams: 02/19/19 05:18 02/19/19 05:18 Assess/Plan/Problems-Billing Assessment: 58 y/o female with hisotry of bipolar, depression, anxiety, ADHD, alcohol abuse , presented with suicidal ideation, alcohol use and hematemesis. - Patient Problems (1) Suicidal ideation Current Visit: No Status: Resolved Code(s): R45.851 - SUICIDAL IDEATIONS SNOMED Code(s): 4126283 Comment: - 1:1 until psy clear. - Psych elvaluation today, transfer to BSU if indicated - continue old med (2) Alcohol abuse Current Visit: Yes Status: Acute Code(s): F10.10 - ALCOHOL ABUSE, UNCOMPLICATED SNOMED Code(s): 54865322 Comment: - watch alcohol withdrawal - score 1 in CIWA this morning, one dose ativan given - continue WAM score (3) Hematemesis Current Visit: Yes Status: Acute Code(s): K92.0 - HEMATEMESIS SNOMED Code( s): 8995950 Comment: - resolved since last night - off iv ppi - start regular diet (4) DVT prophylaxis Current Visit: No Status: Acute Code(s): YCI9394 - SNOMED Code(s): 261731916 Comment: - ambulatory Status and Disposition: Inpatient Medicine. Can transfer to BSU if indicated. Attestation Documenting Resident: Subha Borrero Supervising Physician: Gaurang Pabon Attending/Supervising Physician Comment: Agree with plan as outlined in Dr. Leon note from today unless indicated here. Admitted with EtoH intoxication and suicidal ideation. Seen my [facility] today who are not recommending transfer to MHU. Their recommendations are to arrange outpatient followup prior to discharge. We will await their written recommendations and arrange f/u. WAM for detoxification Attestation: This service has been performed in part by a resident under the direction of a teaching physician.I, Gaurang Pabon, performed the service, or was physically present during the critical, or mendez portions of the service, furnished by the resident. I participated in the management of the patient.
[2019-02-19] MEDS: Pantoprazole TAB * 40 MG TAB PO SCH (20:50)
[2019-02-19] MEDS ORDERED: QUEtiapine XR TAB* 300 MG PO SCH (21:00)
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
[2019-02-20] MEDS: Atomoxetine (NF) 40 MG CAP PO SCH (07:21)
[2019-02-20] MEDS: lamoTRIgine TAB(*) 100 MG PO SCH (07:23)
[2019-02-20] MEDS: Pantoprazole TAB * 40 MG TAB PO SCH (07:23)
[2019-02-20] MEDS: Multivitamins/Minerals TAB PO SCH (07:23)
[2019-02-20 12:17] VITALS: BP 151/87
[2019-02-20] MEDS ORDERED: QUEtiapine TAB* 25 MG PO PRN (14:31)
--- NOTE | 2019-02-20 14:55 | PN ---
Subjective - Subjective Date of Service: 02/20/19 Service Type: [id number] Hosp care 35 min high complexity Subjective: Sydney was not offered admission to the BSU and she was upset about it, feeling as though her condition warranted it. In fact, Lucie is not currently suicidal. She is anxious and finds anxiety difficult to tolerate. She would like a remedy to her situation and believes that ocming onto the BSU will allow staff to "tweak" her medications and provide her a safe harbor. We discuss that there are no medication tweaks to make, as she has had this complaint at least six years. We do make small changes, such as increasing Seroquel. We discuss the milieu being anxiety provoking in itself. Further, she does not want to see Dr. Cameron as her inpatient provider, as he is her outpatient provider, as well. Plan - Plan Treatment Plan: Name: SYDNEY VIERA Birthdate: 1960 [id number] Medications: Current Medications Atomoxetine HCl (Strattera (Nf)) 40 mg PO QAM [facility]; Protocol Last Admin: 02/20/19 07:21 Dose: Not Given Docusate Sodium (Colace Cap*) 100 mg PO BID PRN PRN Reason: CONSTIPATION Lamotrigine (Lamictal Tab(*)) 150 mg PO BID [facility] Last Admin: 02/20/19 07:23 Dose: 150 mg Multivitamins/Minerals (Theragran/Minerals Tab*) 1 tab PO 0900 [facility] Last Admin: 02/20/19 07:23 Dose: 1 tab Ondansetron HCl (Zofran Inj*) 4 mg IV Q4H PRN PRN Reason: NAUSEA/VOMITING Pantoprazole Sodium (Protonix Tab*) 40 mg PO BID [facility] Last Admin: 02/20/19 07:23 Dose: 40 mg Quetiapine Fumarate (Seroquel Tab*) 50 mg PO BID PRN PRN Reason: AGITATION/ANXIETY Quetiapine Fumarate (Seroquel Xr Tab*) 200 mg PO QPM [facility]
[2019-02-20] MEDS ORDERED: QUEtiapine XR TAB* 200 MG PO SCH (18:00)
--- NOTE | 2019-02-20 18:25 | DS ---
Resident Discharge Summary Discharge Summary: Date of Admission: 02/19/19 Date of Discharge: 02/20/19 Admitting MD: Avery Escobedo MD Attending MD: Gaurang Pabon MD Primary Care Physician: Sheila Liao NP Home Medications Medication Instructions Recorded Confirmed Type lamoTRIgine TAB(*) [Lamictal 150 mg PO BID #90 tab 03/27/18 02/18/19 Rx TAB(*)] Atomoxetine (NF) [Strattera (NF)] 40 mg PO QAM 05/30/18 02/18/19 History Docusate CAP* [Colace Cap*] 100 mg PO BID PRN #90 cap 06/16/18 02/18/19 Rx Pantoprazole TAB * [Protonix TAB*] 40 mg PO DAILY 02/18/19 02/18/19 History QUEtiapine XR TAB* [Seroquel Xr 200 mg PO QPM #30 tab.xr 02/20/19 Rx 200 TAB*] Quetiapine Fumarate [Seroquel 50 50 mg PO BID PRN #60 tab MDD 2 02/20/19 Rx mg tab] doses Disposition: Home Condition: Stable Primary Diagnosis: 1. Alcohol withdrawal 2. Anxiety Secondary Diagnosis: 1. Bipolar disorder 2. Depression 3. Anxiety 4. ADHD 5. Alcohol abuse 6. GERD 5. Hiatal hernia 6. Edil phenomenon Diagnostic Imaging: None Pertinent Laboratory Results: CBC: WNL BMP: WNL serum alcohol on admission: 339 Drug toxicology: negative for others except alcohol Hospital Course: This is a 58-year-old female with past medical history of bipolar disorder, depression, anxiety, ADHD, alcohol abuse, and gastroesophageal reflux disease who was brought in by her advocate, Chanelle, as she felt anxious and consuming alcohol. She wrote a eulogy and said words like "dying for me would be fine". She also went out of alcohol control, drinking 1-2 pints vodka daily in the past few weeks. She had an episode of 20 to 30 cc of bloody vomiting in ER but resolved subsequently. Given her suicidal ideation and potential alcohol withdrawal, she was admitted to inpatient medicine team. Problems during this admission include: 1. Alcohol withdrawal - She was closely monitored for alcohol withdrawal with [facility] protocol. - no withdrawal symptoms throughout the stay - inpatient alcohol and drug rehab was offered by psychiatrist, she is not keen for it. 2. Anxiety - psychiatry consulted, no indication for hospitalization on behavioral service unit as she chronically has suicidal ideation but has a robust support in community and family support from sister. - Seroquel was adjusted by psychiatrist for her anxiety, current dose is Seroquel XR 200mg QPM, and Seroquel XR 50mg bid prn. 3. Hematemesis - one episode small amount bloody vomit after binge drinking, likely Diana Melendez tear - improved with PPI and zofran - no recurrence subsequently On the day of discharge, patient still complained of anxiety, but she was happy with psychiatrist's medical adjustment, and would like to follow up with [facility] after discharge.12 point Physical examination is negative. Follow Up Instructions: Patient was instructed to follow up with [facility] for her anxiety. In case of an emergency or after clinic hours, please go to your nearest Emergency Department. You may also call the [facility] drier operator helper at . Attestation Documenting Resident: Subha Borrero Supervising Physician: Gaurang Pabon Attending/Supervising Physician Comment: Agree with summary as outlined in document above. No SI on day of discharge. Pt not deemed to need inpatient stay at [facility] by [facility] staff. Pt with social support in the community and happy about medication adjustments. She has had frequent stays in [facility] as noted in consult during her hospital stay. She required 1 dose ativan during course of hospital stay. She had 1 episode of hematemesis during hospital stay described as low volume and her H/H remained stable. Follow up as indicated in body of report. Attestation: This service has been performed in part by a resident under the direction of a teaching physician.I, Gaurang Pabon, performed the service, or was physically present during the critical, or orr portions of the service, furnished by the resident. I participated in the management of the patient.
== END 2019-02-20 15:30 | disposition home or self-care (01) ==
LOC: ED 15:01 → MEDTELE 02-19 02:28 → UNDOADMOB 02-19 02:28 → INTOOBSV 02-19 02:28 → MEDTELE 02-19 02:28 → UNDODISOB 02-20 15:30
PROVIDERS: ADMIT Internal Medicine; ATTEND Internal Medicine
DX: F10.239 Alcohol dependence with withdrawal, unspecified (principal); F41.9 Anxiety disorder, unspecified; F31.9 Bipolar disorder, unspecified; F90.9 Attention-deficit hyperactivity disorder, unspecified type; K21.9 Gastro-esophageal reflux disease without esophagitis; K44.9 Diaphragmatic hernia without obstruction or gangrene; I73.00 Raynaud's syndrome without gangrene; Z79.899 Other long term (current) drug therapy; E03.9 Hypothyroidism, unspecified; F17.210 Nicotine dependence, cigarettes, uncomplicated; R45.851 Suicidal ideations; K92.0 Hematemesis
CPT/HCPCS: 36415; 80053; 80307; 80320; 80329; 81003; 81015; 84443; 85025; 96365; 96372; 96375; 96376; 99284; A9270-GY; G0378; G0480; J2060; J2405; J3411

== ENCOUNTER 2019-12-02 01:09 | Inpatient (IN) ==
[2019-12-02] MEDS ORDERED: Ondansetron 4 mg VIAL 2 MG/ML 2 ml VIAL IV ONE ×2 (01:11→01:23)
[2019-12-02] MEDS ORDERED: NS 0.9% 1000 ml BAG 1,000 ML IV ONE ×3 (01:11→03:02)
[2019-12-02] MEDS ORDERED: Heparin - STEMI 5,000 UNITS/ML 1 ml VIAL IV ONE (01:11)
[2019-12-02] MEDS ORDERED: Pantoprazole VIAL 40 MG VIAL IV ONE ×2 (01:22→06:20)
[2019-12-02 01:30] LABS: ABS Lymphocytes 1.5 10^3/ul (1.0-4.8); ABS Monocytes 0.6 10^3/ul (0-0.8); Eosinophil % 0.2 %; Hematocrit 37 % (35-47); Hemoglobin 12.9 g/dL (12.0-16.0); Lymphocyte % 11.7 %; Mean Corpuscular HGB Conc 35 g/dL (31-36); Mean Corpuscular Hemoglobin 29 pg (27-31); Mean Corpuscular Volume 83 fL (80-97); Mean Platelet Volume 7.2 fL (7.4-10.4); Platelet Count 364 10^3/uL (150-450); Red Blood Count 4.44 10^6 /uL (3.70-4.87); Red Cell Distribution Width 15 % (10-15); White Blood Count 12.8 10^3/uL (3.5-10.8)
[2019-12-02 01:40] LABS: Activated Partial Thrombo Time 29.9 seconds (26.0-38.0); INR 0.94 (0.82-1.09)
[2019-12-02 01:47] LABS: Albumin/Globulin Ratio 1.4 (1-3); BUN/Creatinine Ratio 17.1 (8-20); Calcium 7.7 mg/dL (8.6-10.3); EGFR Non-African American 71.1 (>60); Globulin 2.9 g/dL (2-4); Potassium 3.9 mmol/L (3.5-5.0); Total Bilirubin 0.6 mg/dL (0.2-1.0); Total Protein 6.9 g/dL (6.4-8.9)
[2019-12-02 01:50] LABS: Troponin I 0.01 ng/mL (<0.03)
[2019-12-02 01:52] LABS: CKMB ng/mL 3.3 ng/mL (0.6-6.3)
[2019-12-02] MEDS ORDERED: Metoclopramide 5 MG/ML VIAL (10 mg) IV SLOW PU ONE (02:50)
[2019-12-02] MEDS ORDERED: diPHENhydraMINE IV 50 MG/ML 1 ml VIAL (BENADRYL) IV ONE (02:53)
[2019-12-02] MEDS ORDERED: Iodixanol (CONTRAST) 320 MG/ML 100 ML SDV IV ONE (03:43)
[2019-12-02 03:49] LABS: Urine Benzodiazepine Screen None Detected (None Detect); Urine Opiates Screen None Detected (None Detect)
[2019-12-02 05:03] LABS: Urine Appearance Clear; Urine Bilirubin Negative (Negative); Urine Blood 2+ (Negative); Urine Color Colorless; Urine Glucose Negative (Negative); Urine Ketones Trace (Negative); Urine Nitrite Negative (Negative); Urine Protein Negative (Negative); Urine Specific Gravity 1.005 (1.010-1.030); Urine Urobilinogen Negative (Negative)
[2019-12-02] MEDS ORDERED: fentaNYL 100 mcg/2 ml 50 MCG/ML VIAL IV SLOW PU ONE (05:07)
[2019-12-02 05:34] LABS: Urine Bacteria Absent (Absent); Urine Red Blood Cell 1+(3-5/hpf) (Absent); Urine White Blood Cell Trace(0-5/hpf) (Absent)
[2019-12-02 05:35] LABS: Troponin I 0.03 ng/mL (<0.03)
[2019-12-02] MEDS ORDERED: HYDROmorphone 1 MG/1 ML SYRINGE IV ONE (06:29)
[2019-12-02] MEDS ORDERED: Pantoprazole 80 mg in NS BAG 80 MG/250 ML BAG IV SCH (07:30)
[2019-12-02 07:47] LABS: ABS Basophils 0.1 10^3/ul (0-0.2); ABS Monocytes 0.5 10^3/ul (0-0.8); Hematocrit 39 % (35-47); Hemoglobin 13.3 g/dL (12.0-16.0); Lymphocyte % 8.9 %; Mean Corpuscular HGB Conc 34 g/dL (31-36); Mean Corpuscular Hemoglobin 29 pg (27-31); Mean Corpuscular Volume 83 fL (80-97); Mean Platelet Volume 7.2 fL (7.4-10.4); Platelet Count 385 10^3/uL (150-450); Red Blood Count 4.65 10^6 /uL (3.70-4.87); Red Cell Distribution Width 15 % (10-15); White Blood Count 11.5 10^3/uL (3.5-10.8)
[2019-12-02 07:55] LABS: C Reactive Protein 1.52 mg/L (<8.01)
[2019-12-02 07:58] LABS: Albumin 4.5 g/dL (3.2-5.2); Albumin/Globulin Ratio 1.4 (1-3); BUN/Creatinine Ratio 12.5 (8-20); Calcium 8.1 mg/dL (8.6-10.3); EGFR Non-African American 82.6 (>60); Globulin 3.3 g/dL (2-4); Indirect Bilirubin 0.7 mg/dL (0.3-1.0); Potassium 3.2 mmol/L (3.5-5.0); Total Bilirubin 0.8 mg/dL (0.2-1.0); Total Protein 7.8 g/dL (6.4-8.9)
[2019-12-02 08:39] LABS: Magnesium 1.6 mg/dL (1.9-2.7)
[2019-12-02] MEDS ORDERED: Magnesium Sulfate IV 3 GM in NS 0.9% 100 ml BAG 100 ML IVPB ONE (08:52)
[2019-12-02] MEDS ORDERED: Piperacillin/Tazobac ADVAN(*) 3.375 GM in NS 0.9% 100 ml BAG 100 ML IVPB ONE (10:10)
[2019-12-02 10:20] LABS: Troponin I 0.05 ng/mL (<0.03)
[2019-12-02] MEDS: KCL 20 MEQ/100 ML IVPREMIX 20 MEQ/100 ML BAG IV SCH ×3 (10:57→17:31)
[2019-12-02 10:58] LABS: CKMB ng/mL 4.1 ng/mL (0.6-6.3)
[2019-12-02] MEDS ORDERED: Zosyn per Pharmacy NOTE FOLLOW UP SCH (11:00)
[2019-12-02] MEDS: HYDROmorphone 1 MG/1 ML SYRINGE IV SLOW PU PRN ×4 (11:01→23:05)
[2019-12-02 13:21] LABS: Troponin I 0.06 ng/mL (<0.03)
[2019-12-02] MEDS: NS 0.9% 1000 ml BAG 1,000 ML IV SCH (13:45)
[2019-12-02] MEDS: ZOSYN 3.375 GM Q8H per EXTENDED INFUSION IV SCH ×2 (16:10→23:07)
[2019-12-02 16:29] LABS: ABS Monocytes 1.1 10^3/ul (0-0.8); Hematocrit 45 % (35-47); Hemoglobin 14.4 g/dL (12.0-16.0); Lymphocyte % 14.8 %; Mean Corpuscular HGB Conc 32 g/dL (31-36); Mean Corpuscular Hemoglobin 28 pg (27-31); Mean Corpuscular Volume 87 fL (80-97); Mean Platelet Volume 7.6 fL (7.4-10.4); Platelet Count 360 10^3/uL (150-450); Red Blood Count 5.14 10^6 /uL (3.70-4.87); Red Cell Distribution Width 15 % (10-15); White Blood Count 13.4 10^3/uL (3.5-10.8)
[2019-12-02 17:03] LABS: Anion Gap 10 mmol/L (2-11); CO2 Carbon Dioxide 21 mmol/L (22-32); Calcium 8.6 mg/dL (8.6-10.3); Chloride 103 mmol/L (101-111); Magnesium 2.6 mg/dL (1.9-2.7); Potassium 3.7 mmol/L (3.5-5.0); Sodium 134 mmol/L (135-145)
[2019-12-02 17:06] LABS: Troponin I 0.07 ng/mL (<0.03)
[2019-12-02 17:09] LABS: BUN/Creatinine Ratio 10.6 (8-20); Blood Urea Nitrogen 7 mg/dL (6-24); EGFR African American 110.5 (>60); EGFR Non-African American 91.4 (>60); Glucose 101 mg/dL (70-100)
[2019-12-02 19:37] LABS: Troponin I 0.06 ng/mL (<0.03)
[2019-12-02] MEDS: Pantoprazole VIAL 40 MG VIAL IV SCH (19:51)
[2019-12-02] MEDS: Ondansetron 4 mg VIAL 2 MG/ML 2 ml VIAL IV PRN (19:51)
[2019-12-02 22:52] LABS: Troponin I 0.07 ng/mL (<0.03)
[2019-12-03 02:36] LABS: Troponin I 0.07 ng/mL (<0.03)
[2019-12-03] MEDS: HYDROmorphone 1 MG/1 ML SYRINGE IV SLOW PU PRN ×5 (02:43→22:25)
[2019-12-03] MEDS: NS 0.9% 1000 ml BAG 1,000 ML IV SCH ×2 (02:45→11:51)
[2019-12-03] MEDS: Ondansetron 4 mg VIAL 2 MG/ML 2 ml VIAL IV PRN (02:48)
[2019-12-03 07:07] LABS: ABS Eosinophils 0.1 10^3/ul (0-0.6); ABS Monocytes 0.9 10^3/ul (0-0.8); Eosinophil % 0.7 %; Hematocrit 40 % (35-47); Hemoglobin 13.9 g/dL (12.0-16.0); Lymphocyte % 18.9 %; Mean Corpuscular HGB Conc 35 g/dL (31-36); Mean Corpuscular Hemoglobin 29 pg (27-31); Mean Corpuscular Volume 83 fL (80-97); Mean Platelet Volume 7.7 fL (7.4-10.4); Platelet Count 365 10^3/uL (150-450); Red Blood Count 4.86 10^6 /uL (3.70-4.87); Red Cell Distribution Width 15 % (10-15); White Blood Count 10.8 10^3/uL (3.5-10.8)
[2019-12-03 07:21] LABS: BUN/Creatinine Ratio 9.9 (8-20); Calcium 8.1 mg/dL (8.6-10.3); EGFR African American 101.6 (>60); Potassium 3.6 mmol/L (3.5-5.0)
[2019-12-03] MEDS: ZOSYN 3.375 GM Q8H per EXTENDED INFUSION IV SCH ×2 (07:53→15:53)
[2019-12-03] MEDS: Sucralfate 1 gm SUSP 1 GM/10 ML UDC PO SCH ×3 (07:53→15:52)
[2019-12-03] MEDS: Pantoprazole VIAL 40 MG VIAL IV SCH ×2 (07:56→22:25)
[2019-12-03] MEDS: Heparin 5000 UNITS/ML 1 mL VIAL SUBCUT SCH (22:25)
[2019-12-04] MEDS: ZOSYN 3.375 GM Q8H per EXTENDED INFUSION IV SCH ×4 (00:03→23:20)
[2019-12-04] MEDS: Ondansetron 4 mg VIAL 2 MG/ML 2 ml VIAL IV PRN ×2 (01:00→20:19)
[2019-12-04] MEDS: NS 0.9% 1000 ml BAG 1,000 ML IV SCH ×3 (02:51→22:28)
[2019-12-04] MEDS: Heparin 5000 UNITS/ML 1 mL VIAL SUBCUT SCH ×3 (05:56→20:19)
[2019-12-04 06:47] LABS: ABS Basophils 0.1 10^3/ul (0-0.2); ABS Eosinophils 0.2 10^3/ul (0-0.6); ABS Lymphocytes 2.8 10^3/ul (1.0-4.8); ABS Monocytes 0.6 10^3/ul (0-0.8); Eosinophil % 1.7 %; Hematocrit 40 % (35-47); Hemoglobin 13.5 g/dL (12.0-16.0); Lymphocyte % 30.4 %; Mean Corpuscular HGB Conc 34 g/dL (31-36); Mean Corpuscular Hemoglobin 29 pg (27-31); Mean Corpuscular Volume 84 fL (80-97); Mean Platelet Volume 7.4 fL (7.4-10.4); Nucleated Red Blood Cells % 0.1; Platelet Count 311 10^3/uL (150-450); Red Blood Count 4.71 10^6 /uL (3.70-4.87); Red Cell Distribution Width 16 % (10-15); White Blood Count 9.3 10^3/uL (3.5-10.8)
[2019-12-04 07:02] LABS: BUN/Creatinine Ratio 7.6 (8-20); Calcium 8.4 mg/dL (8.6-10.3); EGFR African American 89.8 (>60); EGFR Non-African American 74.2 (>60); Magnesium 1.9 mg/dL (1.9-2.7); Potassium 3.4 mmol/L (3.5-5.0)
[2019-12-04] MEDS: Pantoprazole VIAL 40 MG VIAL IV SCH ×2 (07:39→20:19)
[2019-12-04] MEDS: Sucralfate 1 gm SUSP 1 GM/10 ML UDC PO SCH ×3 (07:39→16:37)
[2019-12-04] MEDS ORDERED: Potassium Chlor 20 meq TAB.ER PO ONE (08:16)
[2019-12-04] MEDS: oxyCODONE/Acetamin 5/325 mg TAB PO PRN ×3 (11:38→20:18)
[2019-12-04] MEDS: Nystatin SUSPENSION 100,000 UNITS/ML UDC PO SCH ×3 (13:28→20:19)
[2019-12-05] MEDS: oxyCODONE/Acetamin 5/325 mg TAB PO PRN ×3 (02:24→09:25)
[2019-12-05] MEDS: Heparin 5000 UNITS/ML 1 mL VIAL SUBCUT SCH ×3 (05:36→20:40)
[2019-12-05 06:46] LABS: ABS Basophils 0.1 10^3/ul (0-0.2); ABS Eosinophils 0.2 10^3/ul (0-0.6); ABS Lymphocytes 2.3 10^3/ul (1.0-4.8); ABS Monocytes 0.5 10^3/ul (0-0.8); Eosinophil % 3.1 %; Hematocrit 35 % (35-47); Hemoglobin 11.8 g/dL (12.0-16.0); Lymphocyte % 37.7 %; Mean Corpuscular HGB Conc 34 g/dL (31-36); Mean Corpuscular Hemoglobin 29 pg (27-31); Mean Corpuscular Volume 85 fL (80-97); Mean Platelet Volume 7.2 fL (7.4-10.4); Platelet Count 297 10^3/uL (150-450); Red Blood Count 4.11 10^6 /uL (3.70-4.87); Red Cell Distribution Width 15 % (10-15); White Blood Count 6.1 10^3/uL (3.5-10.8)
[2019-12-05 07:03] LABS: BUN/Creatinine Ratio 7.2 (8-20); Calcium 8.1 mg/dL (8.6-10.3); EGFR Non-African American 86.8 (>60); Magnesium 1.7 mg/dL (1.9-2.7); Potassium 3.3 mmol/L (3.5-5.0)
[2019-12-05] MEDS ORDERED: Magnesium Sulfate 2 gm BAG 2 GM/50 ML BAG IVPB ONE (08:45)
[2019-12-05] MEDS: Sucralfate 1 gm SUSP 1 GM/10 ML UDC PO SCH ×4 (09:11→17:11)
[2019-12-05] MEDS: ZOSYN 3.375 GM Q8H per EXTENDED INFUSION IV SCH ×2 (09:13→15:03)
[2019-12-05] MEDS: Pantoprazole VIAL 40 MG VIAL IV SCH ×2 (09:13→20:28)
[2019-12-05] MEDS: Nystatin SUSPENSION 100,000 UNITS/ML UDC PO SCH ×4 (09:14→20:27)
[2019-12-05] MEDS: NS 0.9% 1000 ml BAG 1,000 ML IV SCH (09:24)
[2019-12-05] MEDS: KCL 20 MEQ/100 ML IVPREMIX 20 MEQ/100 ML BAG IV SCH ×3 (11:56→17:06)
[2019-12-05 14:28] LABS: Adenovirus F40/41 Negative (Negative); Astrovirus Negative (Negative); Cryptosporidium species Negative (Negative); Cyclospora cayetanensis Negative (Negative); Entamoeba histolytica Negative (Negative); Enteroaggregative E.coli(EAEC) Negative (Negative); Enteropathogenic Ecoli(EPEC) Positive (Negative); Enterotoxigenic Ecoli(ETEC) Negative (Negative); Norovirus GI/GII Negative (Negative); Plesiomonas shigelloides Negative (Negative); Salmonella species Negative (Negative); Sapovirus Negative (Negative); Shiga toxin producing E. coli Negative (Negative); Shigella/Enteroinvasive E.coli Negative (Negative); Specimen Source STOOL; Vibrio cholerae Negative (Negative); Yersinia species Negative (Negative)
[2019-12-05 17:29] LABS: BUN/Creatinine Ratio 7.3 (8-20); Calcium 8.7 mg/dL (8.6-10.3); EGFR Non-African American 71.1 (>60); Magnesium 2.1 mg/dL (1.9-2.7); Potassium 3.9 mmol/L (3.5-5.0)
[2019-12-06 05:41] LABS: ABS Basophils 0.1 10^3/ul (0-0.2); ABS Eosinophils 0.2 10^3/ul (0-0.6); ABS Lymphocytes 2.9 10^3/ul (1.0-4.8); ABS Monocytes 0.5 10^3/ul (0-0.8); Eosinophil % 3.2 %; Hematocrit 37 % (35-47); Hemoglobin 12.6 g/dL (12.0-16.0); Lymphocyte % 38.9 %; Mean Corpuscular HGB Conc 34 g/dL (31-36); Mean Corpuscular Hemoglobin 28 pg (27-31); Mean Corpuscular Volume 85 fL (80-97); Mean Platelet Volume 7.5 fL (7.4-10.4); Nucleated Red Blood Cells % 0.1; Platelet Count 312 10^3/uL (150-450); Red Blood Count 4.42 10^6 /uL (3.70-4.87); Red Cell Distribution Width 15 % (10-15); White Blood Count 7.5 10^3/uL (3.5-10.8)
[2019-12-06 06:20] LABS: Calcium 8.5 mg/dL (8.6-10.3); EGFR African American 95.4 (>60); EGFR Non-African American 78.8 (>60); Magnesium 1.9 mg/dL (1.9-2.7); Potassium 4.1 mmol/L (3.5-5.0)
[2019-12-06] MEDS: Pantoprazole VIAL 40 MG VIAL IV SCH ×2 (10:05→20:11)
[2019-12-06] MEDS: oxyCODONE/Acetamin 5/325 mg TAB PO PRN (10:06)
[2019-12-06] MEDS: Heparin 5000 UNITS/ML 1 mL VIAL SUBCUT SCH ×3 (10:07→23:58)
[2019-12-06] MEDS: Nystatin SUSPENSION 100,000 UNITS/ML UDC PO SCH ×4 (10:07→20:12)
[2019-12-06] MEDS: Ondansetron 4 mg VIAL 2 MG/ML 2 ml VIAL IV PRN (18:13)
[2019-12-07] MEDS: Heparin 5000 UNITS/ML 1 mL VIAL SUBCUT SCH (07:32)
[2019-12-07] MEDS: Pantoprazole VIAL 40 MG VIAL IV SCH (08:56)
[2019-12-07] MEDS: Nystatin SUSPENSION 100,000 UNITS/ML UDC PO SCH ×2 (08:57→12:13)
[2019-12-07] MEDS: oxyCODONE/Acetamin 5/325 mg TAB PO PRN (11:11)
[2019-12-07 11:17] VITALS: BP 122/59
== END 2019-12-07 13:50 | disposition home or self-care (01) | DRG 372 ==
LOC: MED 01:09 → ED 01:09 → MED 08:43 → MEDTELE 13:41 → MED 17:23
PROVIDERS: ADMIT Internal Medicine; ATTEND Internal Medicine

== ENCOUNTER 2020-11-24 09:40 | Inpatient (IN) ==
[2020-11-24 11:30] LABS: ABS Lymphocytes 1.6 10^3/ul (1.0-4.8); ABS Monocytes 0.3 10^3/ul (0-0.8); Eosinophil % 0.4 %; Hematocrit 40 % (35-47); Hemoglobin 13.3 g/dL (12.0-16.0); Lymphocyte % 26.9 %; Mean Corpuscular HGB Conc 33 g/dL (31-36); Mean Corpuscular Hemoglobin 29 pg (27-31); Mean Corpuscular Volume 87 fL (80-97); Nucleated Red Blood Cells % 0.1; Platelet Count 370 10^3/uL (150-450); Red Blood Count 4.61 10^6 /uL (3.70-4.87); Red Cell Distribution Width 15 % (10-15); White Blood Count 5.9 10^3/uL (3.5-10.8)
[2020-11-24 11:34] LABS: Urine Appearance Clear; Urine Bilirubin Negative (Negative); Urine Blood 1+ (Negative); Urine Color Straw; Urine Glucose Negative (Negative); Urine Ketones Trace (Negative); Urine Nitrite Negative (Negative); Urine Protein Negative (Negative); Urine Specific Gravity 1.006 (1.002-1.030); Urine Urobilinogen Negative (Negative)
[2020-11-24 11:53] LABS: ALT 17 U/L (7-52); AST 23 U/L (13-39); Albumin 4.7 g/dL (3.2-5.2); Albumin/Globulin Ratio 1.4 (1-3); Alkaline Phosphatase 46 U/L (35-149); Anion Gap 4 mmol/L (2-11); Blood Urea Nitrogen 10 mg/dL (6-24); CO2 Carbon Dioxide 28 mmol/L (22-32); Calcium 9.7 mg/dL (8.6-10.3); Chloride 101 mmol/L (101-111); EGFR African American 73.3 (>60); EGFR Non-African American 60.5 (>60); Globulin 3.4 g/dL (2-4); Glucose 100 mg/dL (70-100); Potassium 3.7 mmol/L (3.5-5.0); Sodium 133 mmol/L (135-145); Total Protein 8.1 g/dL (6.4-8.9)
[2020-11-24 11:58] LABS: Acetaminophen < 15 mcg/mL; Alcohol, S < 10 mg/dL (<10); Salicylate < 2.50 mg/dL (<30)
[2020-11-24 12:01] LABS: Urine Bacteria Absent (Absent); Urine Red Blood Cell 1+(3-5/hpf) (Absent); Urine White Blood Cell Absent (Absent)
[2020-11-24 12:04] LABS: Urine Benzodiazepine Screen None Detected (None Detect); Urine Cannabinoids Screen Presumptive Positive (None Detect); Urine Opiates Screen None Detected (None Detect)
[2020-11-24 12:08] LABS: TSH Ultra Thyroid Stim Horm 1.14 mcIU/mL (0.34-5.60)
[2020-11-25] MEDS ORDERED: Al Hydrox/Mg Hydrox/Simet LIQ 30 ML UDC PO PRN (14:13)
[2020-11-26 08:35] LABS: HDL Cholesterol 52.7 mg/dL
[2020-11-26] MEDS: Calcium/Vitamin D TAB 250/125 TAB PO SCH (09:03)
[2020-11-26] MEDS: Vitamin THERAPEUTIC TAB PO SCH (09:05)
[2020-11-27] MEDS: Calcium/Vitamin D TAB 250/125 TAB PO SCH (08:32)
[2020-11-27] MEDS: Vitamin THERAPEUTIC TAB PO SCH (08:45)
[2020-11-28] MEDS: Calcium/Vitamin D TAB 250/125 TAB PO SCH (08:48)
[2020-11-28] MEDS: Vitamin THERAPEUTIC TAB PO SCH (08:49)
[2020-11-28] MEDS: Dextran 70/Hypromellose Tears Eye Drops 15 ml BTL (for Artificials Tears) BOTH EYES PRN (15:32)
[2020-11-28 22:03] LABS: ABS Basophils 0.1 10^3/ul (0-0.2); ABS Eosinophils 0.1 10^3/ul (0-0.6); ABS Lymphocytes 3.1 10^3/ul (1.0-4.8); ABS Monocytes 0.6 10^3/ul (0-0.8); ABS Neutrophils 2.4 10^3/ul (1.5-7.7); Eosinophil % 2.1 %; Hematocrit 43 % (35-47); Hemoglobin 14.5 g/dL (12.0-16.0); Lymphocyte % 49.5 %; Mean Corpuscular HGB Conc 34 g/dL (31-36); Mean Corpuscular Hemoglobin 29 pg (27-31); Mean Corpuscular Volume 87 fL (80-97); Mean Platelet Volume 6.9 fL (7.4-10.4); Platelet Count 412 10^3/uL (150-450); Red Blood Count 4.96 10^6 /uL (3.70-4.87); Red Cell Distribution Width 15 % (10-15); White Blood Count 6.2 10^3/uL (3.5-10.8)
[2020-11-28 22:19] LABS: Calcium 10.6 mg/dL (8.6-10.3); EGFR African American 72.4 (>60); EGFR Non-African American 59.8 (>60); Potassium 3.9 mmol/L (3.5-5.0)
[2020-11-29] MEDS: Vitamin THERAPEUTIC TAB PO SCH ×2 (08:41→08:48)
[2020-11-29] MEDS: Calcium/Vitamin D TAB 250/125 TAB PO SCH (08:41)
[2020-11-29] MEDS: Dextran 70/Hypromellose Tears Eye Drops 15 ml BTL (for Artificials Tears) BOTH EYES PRN (11:35)
[2020-11-30] MEDS: Calcium/Vitamin D TAB 250/125 TAB PO SCH (09:07)
[2020-11-30] MEDS: Vitamin THERAPEUTIC TAB PO SCH (09:07)
[2020-11-30] MEDS: Dextran 70/Hypromellose Tears Eye Drops 15 ml BTL (for Artificials Tears) BOTH EYES PRN ×2 (10:53→20:15)
[2020-12-01] MEDS: Dextran 70/Hypromellose Tears Eye Drops 15 ml BTL (for Artificials Tears) BOTH EYES PRN ×2 (05:12→12:45)
[2020-12-01] MEDS: Calcium/Vitamin D TAB 250/125 TAB PO SCH (08:39)
[2020-12-01] MEDS: Vitamin THERAPEUTIC TAB PO SCH (08:40)
[2020-12-02] MEDS: Calcium/Vitamin D TAB 250/125 TAB PO SCH (08:37)
[2020-12-02] MEDS: Vitamin THERAPEUTIC TAB PO SCH (08:37)
[2020-12-03] MEDS: Calcium/Vitamin D TAB 250/125 TAB PO SCH (08:26)
[2020-12-03] MEDS: Vitamin THERAPEUTIC TAB PO SCH (08:58)
[2020-12-04 08:08] LABS: TSH Ultra Thyroid Stim Horm 5.16 mcIU/mL (0.34-5.60)
[2020-12-04 08:09] LABS: Free T4 0.92 ng/dL (0.61-1.12)
[2020-12-04 08:19] LABS: Vitamin B12 492 pg/mL (180-914)
[2020-12-04 08:20] LABS: Folate > 20.00 ng/mL (5.90-24.80)
[2020-12-04 08:25] LABS: Vitamin D Total 25(OH) 33.3 ng/mL (20-50)
[2020-12-04] MEDS: Vitamin THERAPEUTIC TAB PO SCH (08:38)
[2020-12-04] MEDS: Calcium/Vitamin D TAB 250/125 TAB PO SCH (08:40)
[2020-12-05] MEDS: Dextran 70/Hypromellose Tears Eye Drops 15 ml BTL (for Artificials Tears) BOTH EYES PRN (02:40)
[2020-12-05] MEDS: Vitamin THERAPEUTIC TAB PO SCH (08:13)
[2020-12-05] MEDS: Calcium/Vitamin D TAB 250/125 TAB PO SCH (09:46)
[2020-12-06] MEDS: Calcium/Vitamin D TAB 250/125 TAB PO SCH (08:43)
[2020-12-06] MEDS: Vitamin THERAPEUTIC TAB PO SCH (08:43)
[2020-12-06 13:28] LABS: Lead,Venous, B < 1.0 mcg/dL (<5.0); Submitting Laboratory Phone 6072744474
[2020-12-06 17:35] LABS: Copper Level 0.93 mcg/mL (0.75-1.45)
[2020-12-07] MEDS: Dextran 70/Hypromellose Tears Eye Drops 15 ml BTL (for Artificials Tears) BOTH EYES PRN ×2 (05:10→06:54)
[2020-12-07] MEDS: Vitamin THERAPEUTIC TAB PO SCH (08:55)
[2020-12-07] MEDS: Calcium/Vitamin D TAB 250/125 TAB PO SCH (13:10)
[2020-12-08] MEDS: Calcium/Vitamin D TAB 250/125 TAB PO SCH (08:29)
[2020-12-08] MEDS: Vitamin THERAPEUTIC TAB PO SCH (08:29)
[2020-12-09] MEDS: Calcium/Vitamin D TAB 250/125 TAB PO SCH (08:43)
[2020-12-09] MEDS: Vitamin THERAPEUTIC TAB PO SCH (08:44)
[2020-12-10] MEDS: Vitamin THERAPEUTIC TAB PO SCH (09:24)
[2020-12-10] MEDS: Calcium/Vitamin D TAB 250/125 TAB PO SCH (09:24)
[2020-12-11] MEDS: Vitamin THERAPEUTIC TAB PO SCH (09:15)
[2020-12-11] MEDS: Calcium/Vitamin D TAB 250/125 TAB PO SCH (09:15)
[2020-12-12] MEDS: Calcium/Vitamin D TAB 250/125 TAB PO SCH (09:02)
[2020-12-12] MEDS: Vitamin THERAPEUTIC TAB PO SCH (09:03)
[2020-12-13] MEDS: Vitamin THERAPEUTIC TAB PO SCH (09:01)
[2020-12-13] MEDS: Calcium/Vitamin D TAB 250/125 TAB PO SCH (09:01)
[2020-12-13 09:02] VITALS: BP 100/58
== END 2020-12-13 13:30 | disposition home or self-care (01) | DRG 882 ==
LOC: ED 09:40 → BSU 11-25 11:00
PROVIDERS: ADMIT Psychiatry & Neurology Psychiatry; ATTEND Psychiatry & Neurology Psychiatry

== ENCOUNTER 2021-12-21 15:08 | Inpatient (IN) ==
[2021-12-21] MEDS ORDERED: Al Hydrox/Mg Hydrox/Simet LIQ 30 ML UDC PO PRN (19:16)
[2021-12-22] MEDS: Vitamin THERAPEUTIC TAB PO SCH (07:58)
[2021-12-23 08:59] LABS: HDL Cholesterol 54.9 mg/dL
[2021-12-23] MEDS: Vitamin THERAPEUTIC TAB PO SCH (09:35)
[2021-12-24] MEDS: Vitamin THERAPEUTIC TAB PO SCH (10:52)
[2021-12-25] MEDS: Vitamin THERAPEUTIC TAB PO SCH (08:42)
[2021-12-26 07:29] VITALS: BP 108/61
[2021-12-26] MEDS: Vitamin THERAPEUTIC TAB PO SCH (08:48)
== END 2021-12-26 14:56 | disposition home or self-care (01) | DRG 885 ==
LOC: ED 15:08 → MERGE 19:25 → BSU 19:25
PROVIDERS: ADMIT Psychiatry & Neurology Psychiatry; ATTEND Student in an Organized Health Care Education/Training Program